=== PATIENT | male | born 1945 | race Caucasian/White ===

== ENCOUNTER → 2017-10-18 10:20 | Outpatient (CLI) | payer OTHER, SELFPAY | PROVIDERS: PCP Nurse Practitioner; Visit Provider Orthopaedic Surgery | DX: M17.11 Unilateral primary osteoarthritis, right knee (principal) | CPT/HCPCS: 20610; 99213; J7325 ==

== ENCOUNTER 2018-01-30 07:25 | Outpatient (REF) | payer OTHER, SELFPAY ==
[2018-01-30 13:11] LABS: COMMENT (LAB VIEW ONLY) 170.55 mg/dL; Microalb ug/mg Crea 158.8 ug/mg Cr
== END 2018-01-30 07:45 ==
LOC: NCHCN 07:25
PROVIDERS: PCP Nurse Practitioner; Visit Provider Nurse Practitioner
DX: E11.9 Type 2 diabetes mellitus without complications (principal)
CPT/HCPCS: 82043; 82570

== ENCOUNTER → 2018-04-18 08:35 | Outpatient (BNVA) | payer OTHER, SELFPAY | PROVIDERS: PCP Nurse Practitioner; Visit Provider Orthopaedic Surgery | DX: M17.11 Unilateral primary osteoarthritis, right knee (principal) | CPT/HCPCS: 20610; 99211; 99213; J7325 ==

== ENCOUNTER → 2018-10-17 08:30 | Outpatient (BNVA) | payer OTHER, SELFPAY | PROVIDERS: PCP Nurse Practitioner; Referring Provider Nurse Practitioner; Visit Provider Orthopaedic Surgery | DX: M17.11 Unilateral primary osteoarthritis, right knee (principal); J44.9 Chronic obstructive pulmonary disease, unspecified; F17.200 Nicotine dependence, unspecified, uncomplicated; E11.9 Type 2 diabetes mellitus without complications; Z79.84 Long term (current) use of oral hypoglycemic drugs; I10 Essential (primary) hypertension | CPT/HCPCS: 20610; 99211; 99213; J7325 ==

== ENCOUNTER 2018-11-13 08:19 | Outpatient (REF) | payer OTHER, SELFPAY ==
[2018-11-13 13:37] LABS: COMMENT (LAB VIEW ONLY) 72.64 mg/dL; Microalb ug/mg Crea 112.1 ug/mg Cr
== END 2018-11-13 08:39 ==
LOC: NCHCN 08:19
PROVIDERS: PCP Nurse Practitioner; Visit Provider Nurse Practitioner
DX: E11.9 Type 2 diabetes mellitus without complications (principal)
CPT/HCPCS: 82043; 82570

== ENCOUNTER 2019-04-16 09:21 | Outpatient (CLI) | payer OTHER, SELFPAY ==
[2019-04-16 10:50] LABS: Clarity CLOUDY; Source R KNEE
[2019-04-16 10:51] LABS: Mononuclear Cells 5 % (0-0); Nucleated Cells 17808 /MM3 (0-0); Polynuclear Cells 95 % (0-0)
== END 2019-04-16 09:41 ==
PROVIDERS: PCP Nurse Practitioner; Referring Provider Nurse Practitioner; Visit Provider Student in an Organized Health Care Education/Training Program
DX: M25.461 Effusion, right knee (principal); M17.11 Unilateral primary osteoarthritis, right knee; J44.9 Chronic obstructive pulmonary disease, unspecified; E11.9 Type 2 diabetes mellitus without complications; I10 Essential (primary) hypertension; F17.200 Nicotine dependence, unspecified, uncomplicated; Z79.4 Long term (current) use of insulin
CPT/HCPCS: 20610; 99213; 87070; 87205; 89051; 89060; J1040

== ENCOUNTER 2019-06-18 11:24 | Outpatient (CLI) | payer OTHER, SELFPAY ==
--- NOTE | 2019-06-18 | DI.RAD_ITS ---
EXAM: XR CHEST 2V PA LATERAL CLINICAL HISTORY: SOB, R06.02 TECHNIQUE: 2D digital imaging was performed. COMPARISON: PORTABLE CHEST ONE VIEW from 10/29/2016 PORTABLE CHEST ONE VIEW from 05/19/2017 FINDINGS: There is mild blunting at the left costophrenic angle which could represent pleural scarring versu s tiny effusion. The heart size is within normal limits. There are mild diffuse diffuse bilateral i ncreased interstitial markings which could represent mild pulmonary edema or mild chronic interstitia l changes. Findings are more prominent when compared with the previous exam. Mild bilateral infiltr ates are not excluded. IMPRESSION: Left pleural scarring versus tiny effusion. Question of mild diffuse bilateral infiltrates versus pu lmonary edema versus chronic fibrotic changes.
[2019-06-18 12:09] LABS: HCT 37.5 % (40.0-50.0); HGB 11.8 g/dL (13.5-17.5); Mean Corp. HGB Concentration 31.5 g/dL (32.0-36.0); Mean Corpuscular Hemoglobin 27.7 pg (27.0-33.0); Mean Platelet Volume 12.7 fL (8.0-11.0); Platelet Count 194 x1000/uL (130-400); RBC 4.26 m/cumm (4.50-6.00); RBC Distribution Width 15.8 % (11.8-14.1); White Blood Cell Count 7.12 k/cumm (4.4-10.8)
[2019-06-18 12:31] LABS: NT-proBNP 950 pg/mL (<300)
[2019-06-18 12:46] LABS: D-Dimer 3304 ng/mlFEU (<500)
== END 2019-06-18 11:44 ==
PROVIDERS: PCP Nurse Practitioner; Visit Provider Nurse Practitioner Family
DX: R06.02 Shortness of breath (principal); J98.4 Other disorders of lung
CPT/HCPCS: 36415; 85027; 71046; 83880; 85379

== ENCOUNTER 2019-06-18 13:00 | Outpatient (REF) | payer OTHER, SELFPAY ==
[2019-06-20 09:19] LABS: COVID-19 RT-PCR Result Negative (Negative)
== END 2019-06-18 13:20 ==
LOC: NCHCN 13:00
PROVIDERS: PCP Nurse Practitioner; Visit Provider Nurse Practitioner Family
DX: Z11.59 Encounter for screening for other viral diseases (principal)
CPT/HCPCS: U0003

== ENCOUNTER 2019-06-18 13:22 | Emergency (ER) | payer OTHER, SELFPAY ==
[2019-06-18 13:28] VITALS: BP 171/92; PULSE 100; RESP 25; TEMP 36.5; O2SAT 93
[2019-06-18 13:34] VITALS: RESP 23
--- NOTE | 2019-06-18 13:45 | DI.CT_ITS ---
EXAM: CT CHEST PE CTA CLINICAL HISTORY: SOB, elevated D-dimer. TECHNIQUE: Imaging Protocol: Axial CT angiography was performed with multi-slice acquisition and mu lti-planar and/or 3D reconstructions. CONTRAST MATERIAL: Intravenous: Omnipaque 350 Contrast volume:structured data in ml COMPARISON: XR CHEST 2V PA LATERAL from 06/18/2019 FINDINGS: Pulmonary Arteries: No evidence of filling defect to suggest pulmonary emboli. Tracheobronchial tree: Patent where visualized. No bronchiectasis. Mediastinum and Jenny: No dominant adenopathy or fluid collection. Pulmonary parenchyma: No consolidation or dominant measurable mass. There is interlobular septal thic kening bilaterally which appears greatest in the right upper lobe. Minimal emphysematous changes.. Pleura: There is a small right pleural effusion. No pneumothorax. Heart: The heart is not dilated. Moderate coronary artery calcifications are seen. Aorta: Thoracic aorta non-dilated. Upper abdomen: Unremarkable. Bones: Marked bone l. IMPRESSION: No evidence of pulmonary embolism. Increased interlobular septal thickening which could be chronic o r could represent asymmetric pulmonary edema or nonspecific interstitial pneumonitis. DATA REPOSITORY: All CT scans at this facility are submitted to the National Radiology Data Registry (NRDR) Dose Index Registry (DIR) with the [employer] ([employer]). RADIATION OPTIMIZATION: All CT scans at this facility use at least one of these dose optimization te chniques: automated exposure control; mA and/or kV adjustment per patient size (includes targeted exa ms where dose is matched to clinical indication); or iterative reconstruction.
--- NOTE | 2019-06-18 13:50 | ED.GENADUL_ITS ---
Discharge Plan Disposition Patient Disposition: HOME Condition: Stable Discharge Details Chief Complaint: SOB Clinical Impression: Shortness of breath Primary Care Provider: Maye Brady ED Provider: Julissa Chaudhari Home Meds and New Rx's Prescriptions: No Action metformin 500 MG tablet 1,000 mg PO BID RF: 0 aspirin [Aspir-81] 81 MG tablet,delayed release (DR/EC) 81 mg PO DAILY RF: 0 atorvastatin 40 mg tablet 40 mg PO QHS RF: 0 pantoprazole 40 mg tablet,delayed release (DR/EC) 40 mg PO BID RF: 0 lisinopril 20 mg tablet 20 mg PO DAILY RF: 0 Lantus U-100 Insulin 100 unit/mL solution 20 unit SC QHS RF: 0 albuterol sulfate [ProAir HFA] 200 PUFF HFA aerosol inhaler 2 puff Inhalation Q6H PRN PRNRF: 0 Discharge Instructions Instructions: Dyspnea (ED) Additional Instructions: Your CT does not show any blood clots or pneumonia. There are some chronic changes. Discussed possible diuretic with your primary care provider. Follow up with primary care provider in 3-5 days. Return to ED sooner if any worsening or concerns. Return immediately to the ED for any worsening shortness of breath, chest pain, fever, or worsening in any way. At this time your symptoms are very concerning for coronavirus. Due to the increased likelihood of your symptoms being from coronavirus the CDC does recommend testing. It takes 48 to 72 hours for the test results to return. You will be contacted by the [facility] when your results return. If you do not hear from them in 48 to 72 hours, please contact your primary care. Out of an abundance of precaution it is highly recommended that you self quarantine yourself for a total of 14 days or until symptom-free for greater than 24 to 48 hours. It would be prudent to wear a mask at all times, always wash her hands frequently, and follow-up closely with your primary care provider. It is recommended that you call your primary care provider prior to reassessment. If you are going to a health facility, please call/contact them before you arrive. At this time based on your current symptoms the CDC does not recommend admission, and there is no current clinical indication for your admission here at the hospital. However it is vitally important to monitor your symptoms closely, and if you notice any worsening of your symptoms, or any new symptoms such as worsening shortness of breath, difficulty breathing, persistent fever, worsening chills, chest pain, numbness, weakness, or fainting please call and then return immediately to the emergency department for reevaluation. Please call your primary care provider as soon as possible to make them aware of your current situation and for continued monitoring. As always, it was a pleasure participating in your medical care today. Referrals: Maye Brady [Primary Care Provider] - Discharge Data Discharge Date/Time-TO BE ENTERED AT DEPARTURE: 06/18/19 16:29 Medical Decision Making 74-year-old male was seen at [facility] had labs drawn and a chest x-ray neck COVID swab including a d-dimer and BNP. Was told to come to the ED because d-dimer was over [address] He reports worsening shortness of breath over the last 3 days. He does have a history of COPD, A. fib, diabetes. CMP and troponin added onto his labs and a chest CT was ordered to rule out PE. Patient is mildly tachycardic at 101-103 O2 sats 92 to 94% on room air. 1331: EKG obtained and reviewed by ER attending Dr. Olivarez. Normal sinus rhythm with occasional PAC. No ST elevation or depression old EKG was reviewed and his EKG is much improved. 1503: Patient transported to CT. COMPARISON: XR CHEST 2V PA LATERAL from 06/18/2019 FINDINGS: Pulmonary Arteries: No evidence of filling defect to suggest pulmonary emboli. Tracheobronchial tree: Patent where visualized. No bronchiectasis. Mediastinum and Jenny: No dominant adenopathy or fluid collection. Pulmonary parenchyma: No consolidation or dominant measurable mass. There is interlobular septal thickening bilaterally which appears greatest in the right upper lobe. Minimal emphysematous changes.. Pleura: There is a small right pleural effusion. No pneumothorax. Heart: The heart is not dilated. Moderate coronary artery calcifications are seen. Aorta: Thoracic aorta non-dilated. Upper abdomen: Unremarkable. Bones: Marked bone l. IMPRESSION: No evidence of pulmonary embolism. Increased interlobular septal thickening which could be chronic or could represent asymmetric pulmonary edema or nonspecific interstitial pneumonitis. At this time I feel it is safe to discharge patient home with oxygen saturation is 90 to 94% which is his baseline on room air. I discussed the findings with patient he states that he does feel safe to go home. Discussed close follow-up with primary care regarding possibly putting patient on a diuretic. Discussed strict return instructions. The patient demonstrates some concerning red flags as noted by the CDC for coronavirus including fever, cough, and/or shortness of breath. The patient looks notably clinically well, and does not demonstrate evidence of respiratory distress, significant or severe illness, or sepsis. Per CDC recommendations, coronavirus testing has been performed prior to arrival by [facility] and is approved by the [facility]. Additionally patient currently does not demonstrate symptoms indicative of admission or further observation here. At t his time based on the patient's current clinical picture symptoms are likely secondary to a non-coronavirus viral illness. Out of an abundance of precaution taking into account the current level of national concern, the patient's entire clinical picture, and CDC recommendations, the patient can be discharged home. Per CDC recommendations we will recommend a 14-day quarantine of the patient I have discussed good handwashing techniques, the importance of a mask, and we have also included CDC recommendations for home monitoring and isolation. I have extensively reviewed the treatment plan and discharge instructions with the patient. I have addressed all patient concerns at this time. The patient was made aware of what symptoms to monitor for that would warrant a return to the emergency department. I also discussed the importance of calling the patient's PCP, as well as the ED for any concerns or prior to return. Discussed the plan with the patient, they demonstrate verbal understanding and agreement with our assessment and plan at this time. Differential Diagnosis: Pneumonia, worsening COPD, congestive heart failure, COVID, PE, HPI General Mode of arrival: ambulatory . Date/Time Provider Initiated Documentation: 06/18/19 13:30 . Limitations to Documentation: no limitations . Information obtained by: patient . HPI Narrative: 74-year-old male with a his tory of diabetes, hypertension, A. fib, COPD presents with worsening shortness of breath over the last few days. He reports a productive cough with white phlegm, denies any chest pain, denies fever, nausea vomiting diarrhea. Denies any abdominal pain. He had labs drawn today at [facility], including a chest x-ray and COvID swab which is pending. His d-dimer was 3304, proBNP 950, chest x-ray showed mild diffuse bilateral infiltrates versus pulmonary edema versus chronic fibrotic changes. Related Data Home Medications Medication Instructions Recorded Confirmed aspirin [Aspir-81] 81 mg PO DAILY tab-cap 10/18/16 06/18/19 metformin 1,000 mg PO BID tab-cap 10/18/16 06/18/19 albuterol sulfate [ProAir HFA] 2 puff INHALATION Q6H PRN PRN 10/27/16 06/18/19 atorvastatin 40 mg tablet 40 mg PO QHS 04/17/19 06/18/19 insulin glargine 100 unit/mL 20 unit SC QHS 04/17/19 06/18/19 subcutaneous solution lisinopril 20 mg tablet 20 mg PO DAILY 04/17/19 06/18/19 pantoprazole 40 mg tablet,delayed 40 mg PO BID tab 04/17/19 06/18/19 release Allergies Allergy/AdvReac Type Severity Reaction Status Date / Time No Known Allergies Allergy Unverified 06/18/19 13:30 General Stated Complaint: SOB KASSIDY: 2 Review of Systems Narrative: Constitutional: Negative for weight loss, alert and oriented, well groomed, normal body habitus, appears comfortable. HEENT: Denies trauma, headaches, blurry vision, nasal discharge, sore throat, trouble swallowing. Chest: Denies chest pain, palpitations, irregular rhythm. Respiratory: Denies hemoptysis. Positive shortness of breath worsening over the last 3 days, productive cough with white phlegm. Does have a history of COPD. GI: Denies abdominal pain, nausea, vomiting, diarrhea, constipation. : Denies dysuria, hematuria, flank pain, rectal bleeding. Neuro: Denies dizziness, blurry vision, weakness, syncope, headache or facial numbness. Hematologic: Denies easy bruising, intolerance to heat or cold, hair loss. [facility] Medical History Atrial fibrillation (Chronic) Pt reported Carcinoma, basal cell, skin COPD (chronic obstructive pulmonary disease) Deviated nasal septum Diabetes mellitus, type II Hypertension Osteoarthritis of knee (Inactive 04/09/14) Osteoarthritis of right knee Tobacco use disorder Surgical History Colonoscopy - MAC (10/29/16) Social History Smoking/Tobacco Use Status: Current-Occasional Drug use: Never Current gender identity: male Do you feel safe in your relationship?: Yes Exam Narrative Exam Narrative: Constitutional: Alert and oriented x3. Appears stated age. Normal body habitus. Head: Normocephalic, no trauma. Eyes: Pupils PERRLA, Red reflex noted, EOM's intact. Eyelids symmetrical without lesions, discharge, or swelling. ENT: Bilateral TM's WNL, External ear normal to inspection, no mastoid TTP, swelling, or erythema, Nasal turbinates WNL, no nasal discharge. Normal dentition, Posterior pharynx WNL, no exudate. Chest: Mildly tachycardic at 103 upon arrival normal S1, S2, distal pulses intact. Resp: Lungs diminished breath sounds in the bases bilaterally,, no wheezes, rales, or rhonchi. Musculoskeletal: Normal gait, 5/5 strength to all four extremities. Skin: No suspicious rashes or lesions. Capillary refill less than 2 sec. trace edema noted to the lower extremities. Neurologic: Cranial nerves II-XII intact. Alert and oriented x 3. DTR's intact. Hematologic/Lymphatic: No ecchymosis, no lymphadenopathy. Course Vital Signs Vital signs: Vital Signs Temperature 36.5 C 06/18/19 13:28 Pulse 100 H 06/18/19 13:28 Respiratory Rate 25 H 06/18/19 13:28 Blood Pressure 171/92 H 06/18/19 13:28 Pulse Oximetry 93 L 06/18/19 13:28 Temperature 36.5 C 06/18/19 13:28 Temperature Source Skin 06/18/19 13:28 Pulse 100 H 06/18/19 13:28 Respiratory Rate 23 06/18/19 13:34 Respiratory Effort 06/18/19 13:34 Respiratory Depth Normal 06/18/19 13:34 Respiratory Pattern Normal 06/18/19 13:34 Blood Pressure 171/92 H 06/18/19 13:28 Blood Pressure Position Supine 06/18/19 13:28 Pulse Oximetry 93 L 06/18/19 13:28 Oxygen Delivery Method Room Air 06/18/19 13:28 Oxygen Flow Rate 0 06/18/19 13:28 Pain Level 0 06/18/19 13:28
[2019-06-18 14:40] VITALS: BP 148/84; PULSE 94; RESP 20; O2SAT 93
[2019-06-18 14:47] LABS: ALT 18 U/L (16-63); AST 37 U/L (15-37); Alkaline Phosphatase 136 U/L (46-116); BUN 14 mg/dL (7-18); Bilirubin, Total 0.7 mg/dL (0.2-1.0); Calcium 8.6 mg/dL (8.5-10.1); Chloride 106 mmol/L (98-107); Glucose 113 mg/dL (74-106); Potassium 4.3 mmol/L (3.5-5.1); Sodium 142 mmol/L (136-145); Total Protein 7.5 g/dL (6.4-8.2); Troponin I < 0.05 ng/Ml (<0.06)
[2019-06-18 14:49] LABS: Troponin I < 0.05 ng/Ml (<0.06)
[2019-06-18] MEDS: Omnipaque 350 MG/ML 100 ML BTL IJ (15:11)
[2019-06-18 16:19] VITALS: BP 129/67; PULSE 96; RESP 18; O2SAT 90
== END 2019-06-18 16:29 | disposition home or self-care (01) ==
PROVIDERS: Emergency Provider Registered Nurse Emergency; PCP Nurse Practitioner
DX: R06.02 Shortness of breath (principal); R79.1 Abnormal coagulation profile; I10 Essential (primary) hypertension; E11.9 Type 2 diabetes mellitus without complications; Z79.4 Long term (current) use of insulin; J44.9 Chronic obstructive pulmonary disease, unspecified; F17.210 Nicotine dependence, cigarettes, uncomplicated
CPT/HCPCS: 71275; 80053; 93005; 99285; 84484; 93010; 99284; J3490

== ENCOUNTER 2019-06-25 20:00 | Outpatient (REF) | payer OTHER, SELFPAY ==
[2019-06-25 19:17] LABS: Iron 26 ug/dL (65-175); Total Iron Binding Capacity 278 ug/dL (250-450); Transferrin Sat 9 % (20-55)
[2019-06-25 19:27] LABS: Hemoglobin A1C 7.7 % (3.8-5.6)
[2019-06-25 19:44] LABS: Ferritin 78 ng/mL (26-388); Folate 11.2 ng/mL (8.6-20.0); Vitamin B12 334 pg/mL (193-986)
== END 2019-06-25 20:20 ==
LOC: NCHCN 20:00
PROVIDERS: PCP Nurse Practitioner; Visit Provider Nurse Practitioner
DX: E11.9 Type 2 diabetes mellitus without complications (principal); D64.9 Anemia, unspecified
CPT/HCPCS: 82607; 82728; 82746; 83036; 83540; 83550

== ENCOUNTER 2019-07-02 00:25 | Outpatient (CLI) | payer OTHER, SELFPAY ==
--- NOTE | 2019-07-02 12:34 | DI.US_ITS ---
APPROVED REPORT EXAM: Comprehensive 2D, Doppler, and color-flow Echocardiogram Patient Location: Out-Patient Asphalt Coater: Ana Vilchis RDCS (AE) Indications: Shortness of Breath Other Information Study Quality: Fair. Technically limited study due to body habitus. Conclusion Left Ventricle : The left ventricle is normal size. The overall left ventricular systolic function ap pears normal. There is normal left ventricular wall thickness. There is normal LV segmental wall mer on. Transmitral Doppler flow pattern suggests impaired LV relaxation. LVEF is 45%. Right Ventricle : The right ventricle is normal size. The right ventricular systolic function is norm al. Estimated RVSP is 54 mmHg. Atria : The left atrium size is normal. The right atrium size is normal. Aortic Valve : The Aortic valve is sclerotic. There is no aortic valvular stenosis. No aortic regurgi tation is present. Mitral Valve : There is mitral annular calcification. No evidence of mitral valve stenosis. Trace kristopher ral regurgitation. Tricuspid Valve : The tricuspid valve is normal in structure. There is no tricuspid valve stenosis. M ild tricuspid regurgitation. Great Vessels : The IVC is normal in size and collapses <50% with inspiration. There is no prior echocardiogram available for comparison. Wall motion Left Ventricle The left ventricle is normal size. The overall left ventricular systolic function appears normal. The re is normal left ventricular wall thickness. There is normal LV segmental wall motion. Transmitral D oppler flow pattern suggests impaired LV relaxation. There is no ventricular septal defect visualized . LVEF is 45%. Right Ventricle The right ventricle is normal size. The right ventricular systolic function is normal. Estimated RVSP is 54 mmHg. Atria The left atrium size is normal. The right atrium size is normal. The interatrial septum is intact wit h no evidence for an atrial septal defect. Aortic Valve The Aortic valve is sclerotic. There is no aortic valvular stenosis. No aortic regurgitation is prese nt. Mitral Valve There is mitral annular calcification. No evidence of mitral valve stenosis. Trace mitral regurgitati on. Tricuspid Valve The tricuspid valve is normal in structure. There is no tricuspid valve stenosis. Mild tricuspid regu rgitation. Pulmonic Valve The pulmonary valve is normal in structure. There is no pulmonic valvular stenosis. Trace pulmonic re gurgitation. Great Vessels The aortic root is normal in size. Ascending aorta is not well visualized. Aortic arch is not well vi sualized. The IVC is normal in size and collapses <50% with inspiration. Pericardium There is no pericardial effusion. There is no pleural effusion. 2D Dimensions IVSD d PLAX 0.90 cm M: 0.6-1.2 LV Vol A2C d MOD 103.5 mL LVPW d PLAX 0.90 cm M: 0.6 - 1.2 LV Vol A4C d MOD 114.6 mL LVID d PLAX 5.11 cm M: 4.2 - 5.8 LA vol/ BSA A2C s A-L 21.8 mL/m2 LVDs 4.00 cm M: 2.5 - 4.0 LA vol/ BSA A4C s A-L 44.2 mL/m2 Ao Root d 2.68 cm M: 3.1 - 3.7 LA Vol/ BSA Biplane s A-L 34.6 mL/m2 RA Area A4C 14.92 cm2 LA Area A4C s MOD 23.83 cm2 RA Vol/ BSA A4C s A-L 23.5 mL/m2 LA Area A2C s MOD 15.01 cm2 LV EF Teichholz 42.4 % LV EF A4C MOD 48.8 % LVEF (Hart's) 46.35 % M: 52 - 72 LV EF A2C MOD 45.0 % LV Volume 86.20 mL M: 62 - 150 LV EF Biplane MOD 46.4 % LV Volume Index 46.59 mL/m2 M: 34 - 74 LV Vol Biplane MOD 111.9 mL FS 20.95 % M-Mode TAPSE 2.21 cm (M/F) >1.7 LV Diastology MV E' medial 0.084 (>0.07 m/s) E/A Ratio 1.6 LV E/e MED 13.15 (<14) MV E Vmax 1.11 (0.4-1.3 m/s) MV E' lateral 0.081 (>0.1 m/s) MV A Vmax 0.70 (0.4-1.3 m/s) LV E/e LAT 13.75 (<14) MV E/A Ratio 1.58 MV E/E' medial 13.16 MV E/E' lateral 13.76 Aortic Valve LVOT Area 2.63 cm2 AoV Area Vmax 1.49 cm2 LVOT Vmax 0.96 m/s AoV Area/ BSA (Vmax) 0.81 cm2/m2 LVOT Mean Jose. 0.60 m/s CARMEN Mean Jose. 1.46 cm2 LVOT Peak Grad 3.7 mmHg CARMEN Mean Jose. Index 0.79 cm2/m2 LVOT Mean Grad 1.7 mmHg LVOT VTI 0.172 m LVOT Diam s 1.80 cm (M/F) 1.5-2.5 AoV Vmax 1.69 (0.5-1.3 m/s) Velocity Ratio 0.56 AoV Mean Jose. 1.08 m/s AoV Peak Grad 11.5 mmHg LVOT SV 45.14 mL AoV Mean Grad 5.5 (<5 mmHg) AoV VTI 0.278 (0.18-0.25 m) AoV Area VTI 1.62 (2.5-4.5 cm2) AoV Area/ BSA (VTI) 0.88 cm/m2 Mitral Valve MV DT 149 (160-240 msec) MR Vmax 5.08 m/s MV PHT 43 msec MR VTI 1.407 m MV Area PHT 5.09 cm2 MR Peak Grad 103.4 mmHg MR Mean Grad 78.0 mmHg Pulmonary Valve PV Vmax 0.96 (0.5-1.5 m/s) RVOT Peak Gr. 1.67 mmHg PV Peak Grad 3.7 mmHg RVOT Mean Gr. 0.75 mmHg PV Mean Grad 1.9 mmHg RVOT VTI 0.107 m PV VTI 0.155 m RVOT Vmax 0.65 m/s Tricuspid Valve TR Peak Grad 46.4 mmHg TR Vmax 3.41 m/s RA Pressure 8.00 mmHg RVSP (TR) 54.4 mmHg
== END 2019-07-02 00:45 ==
PROVIDERS: PCP Nurse Practitioner; Visit Provider Nurse Practitioner
DX: R06.02 Shortness of breath (principal); I35.8 Other nonrheumatic aortic valve disorders; I36.1 Nonrheumatic tricuspid (valve) insufficiency; I10 Essential (primary) hypertension
CPT/HCPCS: 93306

== ENCOUNTER 2019-07-16 08:52 | Inpatient (IN) | payer OTHER, SELFPAY ==
[2019-07-16] VITALS (48 sets, daily range): BP systolic 127–165; BP diastolic 74–104; PULSE 80–114; RESP 14–111; TEMP 36.4–37.1; O2SAT 83–100
--- NOTE | 2019-07-16 08:55 | W.ED.GENAD ---
Discharge Plan Disposition Condition: Improving Discharge Details Chief Complaint: SOB Admit Date/Time: 07/16/19 13:54 Admit Provider: Angely Hickey Attending Provider: Angely Hickey Primary Care Provider: Maye Brady ED Provider: Cony Olivarez Discharge Instructions Activity:: Activity as Tolerated Equipment/Supplies:: 1 liter at rest, 3 liters with activity Diet:: As Tolerated Discharge Orders Discharge Orders: Discharge Order (Routine); Ordered 07/19/19 Ordered By: Glendy Su Discharge Data Discharge Date/Time-TO BE ENTERED AT DEPARTURE: 07/16/19 13:53 Medical Decision Making Leoncio Coy is a 74-year-old man with a history of diabetes, COPD, afib, CHF on recent echo who presented to the emergency department with SOB. Pt with hypoxia in 70s initially on RA, O2 sat 96% on 2L NC. On exam Pt is well and non-toxic appearing, dyspneic upon presentation but without resp distress while seated on 2L NC, diffuse mild rhonchi b/l, no prolonged exp phase, no wheeze, no rales. Mild tachycardia. Concern for CHF, PE, PNA, COVID, ACS, other. Exam/hx not c/w sepsis, acute aortic pathology. Plan for EKG, CT, screening labs, NCO2, telemetry. Discussed CT over the phone with radiology, no PE, pulmonary effusions, diffuse patchy pulmonary infiltrates b/l with ground glass opacities. Radiology reports no apparent consolidation c/w bacterial PNA. Will hold abx at this time. Concern for likely CHF, possible COVID. Plan for admission, IV lasix. Disposition somewhat delayed as Pt initially refused admission and wanted to leave AMA, then changed his mind and agreed to admission after speaking over the phone to his family. Clinical Impression: CHF, suspected COVD Disposition: [facility] inpatient Medical Records Medical records reviewed: Yes I reviewed the patient's medical records. Imaging Data Radiologic Study: Attestation: I personally reviewed and interpreted this imaging study as follows: Radiologist's impression: EXAM: CT CHEST PE CTA CLINICAL HISTORY: SOB TECHNIQUE: Axial CT angiography was performed with multi-slice acquisition and multi-planar and/or 3D reconstructions. COMPARISON: CT CT CHEST PE CTA from 06/18/2019 FINDINGS: CT angiography of the chest was performed with intravenous infusion of 70 cc of Omnipaque 350. [place] is compared with most recent prior chest CT of 06/18/2019. Images obtained through the upper abdomen show unremarkable appearance of visualized portions of liver and spleen. There is no evidence of pulmonary embolic disease. No significant abnormality of the thoracic aorta and major branches noted. There is a large right pleural effusion which has significantly increased since the prior study. There is a small left pleural effusion which is also increased from the prior examination. Cardiac size is at the upper limits of normal, no gross left ventricular dilatation. Tracheobronchial tree appears intact. Mild pretracheal and superior mediastinal adenopathy noted, nonspecific. Prior study showed thickening of interlobular septae and some mosaic attenuation. On today's examination, there are patchy, new, predominantly peripheral opacities, ground-glass and consolidative, which are nonspecific, but which could be associated with acute pneumonitis. The patient reportedly has suspicion of covid pneumonia and the findings would be consistent with appearance of Covid pneumonia. IMPRESSION: Increasing pleural effusions and patchy predominantly peripheral pulmonary opacities, suspect pneumonia, possibly viral. Superimposed CHF not excluded. Covid infection is a diagnostic possibility. Lab Data Lab results reviewed: Yes I reviewed the patient's lab results. Labs: Laboratory Tests Range/Units 07/16/19 07/16/19 07/16/19 09:10 09:10 09:10 WBC (4.4-10.8) k/cumm 9.76 RBC (4.50-6.00) m/cumm 3.91 L Hgb (13.5-17.5) g/dL 10.3 L Hct (40.0-50.0) % 33.9 L MCV (80-95) fL 86.7 MCH (27.0-33.0) pg 26.3 L MCHC (32.0-36.0) g/dL 30.4 L RDW (11.8-14.1) % 16.5 H Plt Count (130-400) x1000/uL 257 MPV (8.0-11.0) fL 12.1 H Immature Gran % % 0.2 Neutrophils % 85.5 Lymphocytes % 7.8 Monocytes % 4.9 Eosinophils % 1.4 Basophils % 0.2 Absolute Neutrophils (1.2-6.7) k/cumm 8.34 H Absolute Lymphocytes (1.2-3.4) k/cumm 0.76 L Absolute Monocytes (0.11-0.7) k/cumm 0.48 Absolute Eosinophils (0.0-0.7) k/cumm 0.14 Absolute Basophils (0.0-0.2) k/cumm 0.02 D-Dimer (<500) ng/mlFEU 3193 H Sodium (136-145) mmol/L 138 Potassium (3.5-5.1) mmol/L 3.3 L Chloride (98-107) mmol/L 101 Carbon Dioxide (21.0-32.0) mmol/L 29.7 Anion Gap (3-11) mmol/L 7.3 BUN (7-18) mg/dL 10 Creatinine (0.70-1.30) mg/dL 0.62 L Estimated GFR/1.73 m2 (mL/min/1.73m2) >= 60.00 Glucose (74-106) mg/dL 90 Calcium (8.5-10.1) mg/dL 8.4 L Total Bilirubin (0.2-1.0) mg/dL 0.6 AST (15-37) U/L 14 L ALT (16-63) U/L 16 Alkaline Phosphatase (46-116) U/L 128 H Troponin I (<0.06) ng/Ml 0.05 C-Reactive Protein (0.0-0.3) mg/dL 11.07 H NT-Pro-B Natriuret Pep (<300) pg/mL 1888 H Total Protein (6.4-8.2) g/dL 7.1 Albumin (3.4-5.0) g/dL 2.5 L Procalcitonin ng/mL TSH (0.36-3.74) uIU/mL 1.16 Free T4 (0.76-1.46) ng/dL 1.44 Range/Units 07/16/19 07/16/19 09:10 11:50 WBC (4.4-10.8) k/cumm RBC (4.50-6.00) m/cumm Hgb (13.5-17.5) g/dL Hct (40.0-50.0) % MCV (80-95) fL MCH (27.0-33.0) pg MCHC (32.0-36.0) g/dL RDW (11.8-14.1) % Plt Count (130-400) x1000/uL MPV (8.0-11.0) fL Immature Gran % % Neutrophils % Lymphocytes % Monocytes % Eosinophils % Basophils % Absolute Neutrophils (1.2-6.7) k/cumm Absolute Lymphocytes (1.2-3.4) k/cumm Absolute Monocytes (0.11-0.7) k/cumm Absolute Eosinophils (0.0-0.7) k/cumm Absolute Basophils (0.0-0.2) k/cumm D-Dimer (<500) ng/mlFEU Sodium (136-145) mmol/L Potassium (3.5-5.1) mmol/L Chloride (98-107) mmol/L Carbon Dioxide (21.0-32.0) mmol/L Anion Gap (3-11) mmol/L BUN (7-18) mg/dL Creatinine (0.70-1.30) mg/dL Estimated GFR/1.73 m2 (mL/min/1.73m2) Glucose (74-106) mg/dL Calcium (8.5-10.1) mg/dL Total Bilirubin (0.2-1.0) mg/dL AST (15-37) U/L ALT (16-63) U/L Alkaline Phosphatase (46-116) U/L Troponin I (<0.06) ng/Ml 0.06 C-Reactive Protein (0.0-0.3) mg/dL NT-Pro-B Natriuret Pep (<300) pg/mL Total Protein (6.4-8.2) g/dL Albumin (3.4-5.0) g/dL Procalcitonin ng/mL 0.6 TSH (0.36-3.74) uIU/mL Free T4 (0.76-1.46) ng/dL ECG Data Attestation: I personally reviewed and interpreted this ECG (s) as follows: Interpretation: EKG shows sinus tach at 102, normal axis, no STEMI, nonspecific ST changes, nondiagnostic EKG HPI General Mode of arrival: ambulatory. Date/Time Provider Initiated Documentation: 07/16/19 08:55. Limitations to Documentation: no limitations. Information obtained by: patient, RN notes reviewed and old records reviewed. HPI Narrative: Leoncio Coy is a 74-year-old man with a history of COPD, hypertension, diabetes, atrial fibrillation presenting to the emergency department with shortness of breath. Patient reports that he has been feeling short of breath over the past 5 weeks. He has been sleeping in a recliner at night because of this. Patient was seen here mid June for same complaint, per patient and record review, was discharged home after CT chest. Patient reports that shortness of breath seems to be gradually getting worse in the past few days. He denies any pain, vomiting, diarrhea, fever, numbness, weakness, rash. Patient reports that he has baseline cough that is unchanged. He states that he has been eating and drinking as usual. Patient reports that he has been having increasing difficulty with his daily activities due to his shortness of breath. Shortness of breath does seem somewhat worse with exertion and lying flat. Related Data Home Medications Medication Instructions Recorded Confirmed aspirin [Aspir-81] 81 mg PO DAILY tab-cap 10/18/16 07/16/19 metformin 1,000 mg PO BID tab-cap 10/18/16 07/16/19 albuterol sulfate [ProAir HFA] 2 puff INHALATION Q6H PRN PRN 10/27/16 07/16/19 atorvastatin 40 mg tablet 40 mg PO QHS 04/17/19 07/16/19 insulin glargine 100 unit/mL 20 unit SC QHS 04/17/19 07/16/19 subcutaneous solution lisinopril 20 mg tablet 20 mg PO DAILY 04/17/19 07/16/19 pantoprazole 40 mg tablet,delayed 40 mg PO BID tab 04/17/19 07/16/19 release Advair HFA 1 puff INHALATION BID 07/16/19 07/16/19 ascorbic acid (vitamin C) [Vitamin 500 mg PO BID 07/16/19 07/16/19 C] ferrous sulfate [iron] 325 mg PO BID 07/16/19 07/16/19 azithromycin 250 mg PO DAILY 5 Days #5 tab 07/19/19 cefpodoxime 200 mg PO BID #10 tab 07/19/19 furosemide 40 mg PO BID #0 tab 07/19/19 potassium chloride [Klor-Con M20] 40 meq PO DAILY #30 tab 07/19/19 Previous Rx's Medication Instructions Recorded azithromycin 250 mg PO DAILY 5 Days #5 tab 07/19/19 cefpodoxime 200 mg PO BID #10 tab 07/19/19 furosemide 40 mg PO BID #0 tab 07/19/19 potassium chloride [Klor-Con M20] 40 meq PO DAILY #30 tab 07/19/19 Allergies Allergy/AdvReac Type Severity Reaction Status Date / Time apixaban AdvReac nausea/vomi Verified 07/16/19 14:03 ting General KASSIDY: 2 Review of Systems Narrative: Constitutional: denies fevers Eyes: denies eye pain ENT: denies ear pain, dental pain, sore throat Cardiovascular: denies chest pain, reports LE edema b/l, somewhat worse than usual Respiratory: reports SOB as per HPI, cough at baseline GI: denies abdominal pain, vomiting, diarrhea : denies flank pain MSK: denies back pain, neck pain, arthralgias, myalgias Skin: denies rash Neuro: denies headaches, numbness, weakness PFSH Medical History (Updated 07/19/19 @ 00:01 by GINA SMYTH) Atrial fibrillation (Chronic) Paroxysmal, intolerant of anticoagulation (n/v/hematuria while on eliquis), referred for a Watchman procedure at [facility] [place] (not yet done) Carcinoma, basal cell, skin Chronic combined systolic (congestive) and diastolic (congestive) heart failure (Acute) EF 45% on echo 07/02/2019 COPD (chronic obstructive pulmonary disease) Deviated nasal septum Diabetes mellitus, type II insulin dependent GERD (gastroesophageal reflux disease) (Chronic) Hyperlipidemia (Acute) Hypertension Osteoarthritis of knee (Inactive 04/09/14) Osteoarthritis of right knee Pericarditis (Acute) Pulmonary hypertension (Acute) Tobacco use disorder Surgical History Colonoscopy - [facility] (10/29/16) Family History (Updated 07/16/19 @ 15:52 by Angely Hickey MD) Father Diabetes Hypertension Heart disease Self No problems noted. Brother Stroke had an aneurysm Sister Breast cancer Diabetes Brother Lung cancer smoker Social History (Updated 07/16/19 @ 15:53 by Angely Hickey MD) Smoking/Tobacco Use Status: Former Tobacco Use Tobacco: How many years used: 56 Counseling given: provider counseling Alcohol Intake: former Year quit: 1970 Drug use: Never Current gender identity: male Do you feel safe in your relationship?: Yes Exam Narrative Exam Narrative: Constitutional: [id number], pleasant, conversing normally HENT: head atraumatic/normocephalic/normal inspection, mucous membranes moist Eyes: conjunctiva normal, sclera normal, pupils 3mm b/l Neck: no stridor, normal ROM, trachea midline Chest: normal inspection Resp: normal work of breathing, diffuse mild rhonchi b/l lungs, no rales, no wheeze, no prolonged exp phase Cardio: tachycardic rate, normal rhythm, no murmur appreciated GI: abdomen soft, non-tender, non-distended Back: normal inspection, no rash Skin: warm, dry, normal color, no rash Neuro: alert, not altered, grossly non-focal, normal tone Ext: 2+ pitting edema b/l LE, no posterior calf TTP Psych: normal mood, normal affect, normal behavior
[2019-07-16 09:34] LABS: Abs Immature Grans 0.02 k/cumm (0.0-0.09); Absolute Basophil Count 0.02 k/cumm (0.0-0.2); Absolute Eosinophil Count 0.14 k/cumm (0.0-0.7); Absolute Lymphocyte Count 0.76 k/cumm (1.2-3.4); Absolute Monocyte Count 0.48 k/cumm (0.11-0.7); Absolute Neutrophil Count 8.34 k/cumm (1.2-6.7); Basophils % 0.2; Eosinophils % 1.4; HCT 33.9 % (40.0-50.0); HGB 10.3 g/dL (13.5-17.5); Immature Grans % 0.2 %; Lymphocytes % 7.8; Mean Corp. HGB Concentration 30.4 g/dL (32.0-36.0); Mean Corpuscular Hemoglobin 26.3 pg (27.0-33.0); Mean Corpuscular Volume 86.7 fL (80-95); Mean Platelet Volume 12.1 fL (8.0-11.0); Monocytes % 4.9; Neutrophils % 85.5; Platelet Count 257 x1000/uL (130-400); RBC 3.91 m/cumm (4.50-6.00); RBC Distribution Width 16.5 % (11.8-14.1); White Blood Cell Count 9.76 k/cumm (4.4-10.8)
--- NOTE | 2019-07-16 09:45 | DI.RAD_ITS ---
EXAM: XR PORTABLE CHEST AP CLINICAL HISTORY: SOB TECHNIQUE: COMPARISON: CR PORTABLE CHEST ONE VIEW from 10/29/2016 CR XR CHEST 2V PA LATERAL from 06/18/[address] CHEST PE CTA from 06/18/2019 FINDINGS: Portable upright view was obtained. The heart may be mildly enlarged. There are patchy diffuse bila teral areas of increased pulmonary opacity superimposed apparent chronic fibrotic changes. Compariso n with prior chest film 06/18/2019 shows some interval worsening since that time in a fairly diffuse pattern but with scattered areas of focal increased radiodensity. There are probable bilateral pleur al effusions. Small pleural effusions were also noted on CT angiography of the chest on June 17. IMPRESSION: Moderate interval worsening of bilateral diffuse/patchy intrapulmonary radiodensities since June 17t h. Differential diagnosis includes CHF and/or infectious process. Appropriate follow-up films reque sted.
[2019-07-16 09:53] LABS: ALT 16 U/L (16-63); AST 14 U/L (15-37); Albumin 2.5 g/dL (3.4-5.0); Alkaline Phosphatase 128 U/L (46-116); Anion Gap 7.3 mmol/L (3-11); BUN 10 mg/dL (7-18); Bilirubin, Total 0.6 mg/dL (0.2-1.0); CO2 29.7 mmol/L (21.0-32.0); CREATININE 0.62 mg/dL (0.70-1.30); Calcium 8.4 mg/dL (8.5-10.1); Chloride 101 mmol/L (98-107); Glucose 90 mg/dL (74-106); NT-proBNP 1888 pg/mL (<300); Potassium 3.3 mmol/L (3.5-5.1); Sodium 138 mmol/L (136-145); Total Protein 7.1 g/dL (6.4-8.2); Troponin I 0.05 ng/Ml (<0.06)
[2019-07-16 10:15] LABS: D-Dimer 3193 ng/mlFEU (<500)
[2019-07-16] MEDS: Normal Saline - Diluent 50 ML VIAL IV (10:53)
[2019-07-16] MEDS: Omnipaque 350 MG/ML 100 ML BTL IJ (10:53)
[2019-07-16] MEDS: Normal Saline Flush 10 ML SYR IVP ×2 (10:54→16:31)
--- NOTE | 2019-07-16 11:05 | DI.CT_ITS ---
EXAM: CT CHEST PE CTA CLINICAL HISTORY: SOB TECHNIQUE: Axial CT angiography was performed with multi-slice acquisition and multi-planar and/or 3 D reconstructions. COMPARISON: CT CT CHEST PE CTA from 06/18/2019 FINDINGS: CT angiography of the chest was performed with intravenous infusion of 70 cc of Omnipaque 350. [place] is compared with most recent prior chest CT of 06/18/2019. Images obtained through the upper abdomen show unremarkable appearance of visualized portions of live r and spleen. There is no evidence of pulmonary embolic disease. No significant abnormality of the thoracic aorta and major branches noted. There is a large right pleural effusion which has significantly increased since the prior study. The re is a small left pleural effusion which is also increased from the prior examination. Cardiac size is at the upper limits of normal, no gross left ventricular dilatation. Tracheobronchial tree appears intact. Mild pretracheal and superior mediastinal adenopathy noted, no nspecific. Prior study showed thickening of interlobular septae and some mosaic attenuation. On today's examina tion, there are patchy, new, predominantly peripheral opacities, ground-glass and consolidative, whic h are nonspecific, but which could be associated with acute pneumonitis. The patient reportedly has suspicion of covid pneumonia and the findings would be consistent with appearance of Covid pneumonia. IMPRESSION: Increasing pleural effusions and patchy predominantly peripheral pulmonary opacities, suspect pneumon ia, possibly viral. Superimposed CHF not excluded. Covid infection is a diagnostic possibility.
[2019-07-16] MEDS: Potassium Chloride 20 MEQ TABCR 40 MEQ PO (12:13)
--- NOTE | 2019-07-16 12:15 | DI.US_ITS ---
EXAM: US EXTREMITY VENOUS BI CLINICAL HISTORY: concern for DVT TECHNIQUE: Ultrasound performed using standard protocol. COMPARISON: US US ECHOCARDIOGRAM from 07/02/2019 FINDINGS: Duplex venous ultrasound was performed according to the usual protocol. The deep veins are freely com pressible throughout and there is normal flow augmentation with manual calf compression. 2D and Doppl er evaluation are unremarkable. IMPRESSION: No evidence of deep venous thrombosis of the lower extremities.
[2019-07-16 12:18] LABS: Troponin I 0.06 ng/Ml (<0.06)
[2019-07-16 13:04] LABS: C-Reactive Protein 11.07 mg/dL (0.0-0.3); FREE T4 1.44 ng/dL (0.76-1.46); TSH 1.16 uIU/mL (0.36-3.74)
[2019-07-16 13:26] LABS: Procalcitonin 0.6 ng/mL
[2019-07-16] MEDS: Furosemide 40 MG/4 ML VIAL IVP ×2 (13:31→16:31)
[2019-07-16] MEDS: Dextrose 50%-Water 25 GM/50 ML SYR (13:35)
--- NOTE | 2019-07-16 14:18 | W.PM.HP.N ---
Date of service: 07/16/19 Time of Service: 14:18 Assessment and Plan Assessment and plan (1) Suspected COVID-19 virus infection: Status: Acute Assessment and plan: Based on shortness of breath, hypoxia and appearance of groundglass opacities, the patient is considered a PUI. COVID-19 testing is ordered in addition to viral respiratory panel/RSV/influenza. Trend CRP, ferritin, D-dimer. For now, will treat with azithromycin/ceftriaxone for a BACTERIAL pneumonia as does have elevated procalcitonin, and will diurese. (2) Acute on chronic combined systolic and diastolic CHF (congestive heart failure): Status: Acute Assessment and plan: Does have diastolic dysfunction on echo in addition to EF of 45% and pulmonary hypertension. He is fluid overloaded, though I think we also need to think about possible empyema if the pulmonary process is proven to be bacterial in origin. There already appears to be improvement with diuresis - will continue IV lasix with I/O's, daily weights. Will r/o ACS and monitor on tele - there is a possibility the patient went into rapid Afib, causing pulmonary edema. (3) CAP (community acquired pneumonia): Status: Acute Assessment and plan: Has to be considered as possible etiology of pulmonary infiltrates given elevation of procalcitonin. Treat empirically with azithromycin/ceftriaxone and obtain blood cultures. Trend CRP, procalcitonin. (4) Pulmonary hypertension: Status: Acute Assessment and plan: Will need sleep study as outpatient. For now, PE has been disproven. Will diurese. (5) Ground glass opacity present on imaging of lung: Status: Acute Assessment and plan: As above (6) Afib: Status: Chronic Assessment and plan: Paroxysmal. Presently NSR. Previously intolerant of anticoagulation with eliquis and is considering getting [place] [facility] Will monitor on tele to ensure that rate stays controlled when is in Afib. (7) DVT prophylaxis: Status: Acute Assessment and plan: SC lovenox, TEDs, SCDs (8) Discharge planning issues: Status: Acute Assessment and plan: Full code - though patient is not sure about his code status and would like to discuss it with his family. He was offered but politely declined a palliative care consult. History of Present Illness History of Present Illness Chief Complaint: Shortness of breath Narrative: Mr Coy is a 74 year old male with PMHx of paroxysmal Atrial fibrillation, intolerant of anticoagulation with eliquis in the past, as well as pericarditis (resolved), IDDM2, hypertension, hyperlipidemia, GERD, who presented to [facility] ED today complaining of shortness of breath. He was first seen at [facility] ED on 06/19/2019 with at the time 1 week of shortness of breath. He tested negative for COVID-19 at that time and was sent home with outpatient follow up, which included an echocardiogram. Previously his EF was 60% - it was 45% on the echo from 07/02/2019, with diastolic dysfunction and moderate pulmonary hypertension. The patient states that he continued to feel short of breath at home, specifically when trying to lay down or move around. He was sleeping in a recliner, not waking up short of breath. He denies having fevers, chills, or a cough. Last night his shortness of breath was so bad, however, he decided to come in. His legs had been edematous for several weeks. He attributes that to his intake of sodium in his gatorade zero, as well as potato chips and senegalese fries. He denies having dizziness, chest pain, palpitations, nausea, abdominal pain, diarrhea/constipation, or urinary difficulty. In the ED, his workup revealed bilateral ground glass opacities on CT in addition to bilateral pleural effusions/CHF. He desaturated to the 70's when he first arrived on room air, with O2 sats improving to the 90's on 2L of O2. He is feeling a lot better now after 1 dose of lasix. His additional workup does reveal an elevated procalcitonin and CRP. When asked if there was anyting other than his breathing that was bothering the patient, he stated that his right knee started to bother him about 1 week ago. He has had injections/aspirations of that knee in the past. Review of Systems Narrative: 12 systems reviewed. Pertinent positives and negatives are as per HPI. Additionally, he reports chronic rhinorrhea, snoring/stopping breathing (never had a sleep study). Denies sore throat, fever/chills, chest pain, palpitations, cough, nausea, vomiting, abdominal pain, diarrhea/constipation, urinary complaints, numbness/tingling, rashes. [facility] Medical History (Updated 07/16/19 @ 16:35 by Angely Hickey MD) Atrial fibrillation (Chronic) Paroxysmal, intolerant of anticoagulation (n/v/hematuria while on eliquis), referred for [place] [facility] [place]not yet done) Carcinoma, basal cell, skin Chronic combined systolic (congestive) and diastolic (congestive) heart failure (Acute) EF 45% on echo 07/02/2019 COPD (chronic obstructive pulmonary disease) Deviated nasal septum Diabetes mellitus, type II insulin dependent GERD (gastroesophageal reflux disease) (Chronic) Hyperlipidemia (Acute) Hypertension Osteoarthritis of knee (Inactive 04/09/14) Osteoarthritis of right knee Pericarditis (Acute) Pulmonary hypertension (Acute) Tobacco use disorder Surgical History Colonoscopy - [facility] (10/29/16) Family History (Updated 07/16/19 @ 15:52 by Angely Hickey MD) Father Diabetes Hypertension Heart disease Self No problems noted. Brother Stroke had an aneurysm Sister Breast cancer Diabetes Brother Lung cancer smoker Social History (Updated 07/16/19 @ 15:53 by Angely Hickey MD) Smoking/Tobacco Use Status: Former Tobacco Use Tobacco: How many years used: 56 Counseling given: provider counseling Alcohol Intake: former Year quit: 1969 Drug use: Never Current gender identity: male Do you feel safe in your relationship?: Yes Meds Home Medications and Allergies Home Medications Medication Instructions Recorded Confirmed Type aspirin [Aspir-81] 81 mg PO DAILY tab-cap 10/18/16 07/16/19 History metformin 1,000 mg PO BID tab-cap 10/18/16 07/16/19 History albuterol sulfate [ProAir HFA] 2 puff INHALATION Q6H PRN PRN 10/27/16 07/16/19 History atorvastatin 40 mg tablet 40 mg PO QHS 04/17/19 07/16/19 History insulin glargine 100 unit/mL 20 unit SC QHS 04/17/19 07/16/19 History subcutaneous solution lisinopril 20 mg tablet 20 mg PO DAILY 04/17/19 07/16/19 History pantoprazole 40 mg tablet,delayed 40 mg PO BID tab 04/17/19 07/16/19 History release ascorbic acid (vitamin C) [Vitamin 500 mg PO BID 07/16/19 07/16/19 History C] ferrous sulfate [iron] 325 mg PO BID 07/16/19 07/16/19 History fluticasone propion-salmeterol 1 puff INHALATION BID 07/16/19 07/16/19 History [Advair HFA] furosemide 07/16/19 History Allergies Allergy/AdvReac Type Severity Reaction Status Date / Time apixaban AdvReac nausea/vomi Verified 07/16/19 14:03 ting Exam Narrative Exam Narrative: General: Very pleasant elderly male, A&OX3, has no difficulty completing full sentences while sitting up at a 45% angle on 2L, no cyanosis Neurological: A&Ox3, no focal deficits, B foot sensation intact Psychiatric: Appropriate speech pattern/content Skin: Visible skin intact with exception for dry skin on feet HEENT: Atraumatic, normocephalic, EOMI, MMM, clear oropharynx, no submandibular or cervical lymphadenopathy, no goiter or JVD Cardiovascular: RRR, no m/r/g Lungs: Crackes at B bases Gastrointestinal: soft, nontender, nondistended, + BS Genitourinary: deferred Extremities: 2+ BLE pitting edema to knees, no c/c; I am unable to palpated pedal pulses due to edema; onychomysosis, dry skin. R knee does not appear red or feel hot to touch. No obvious effusion. No TTP. Results Imaging Imaging Studies: CXR: Moderate interval worsening of bilateral diffuse/patchy intrapulmonary radiodensities since June 17. Differential diagnosis includes CHF and/or infectious process. Appropriate follow-up films requested. CTA chest: Increasing pleural effusions and patchy predominantly peripheral pulmonary opacities, suspect pneumonia, possibly viral. Superimposed CHF not excluded. Covid infection is a diagnostic possibility. Venous doppler BLE's: No evidence of deep venous thrombosis of the lower extremities. EKG: Sinus tach, HR 102, nonspecific ST-T changes, L atrial enlargement, no acute ischemia, unchanged from prior Echo 07/02/2019: Left Ventricle : The left ventricle is normal size. The overall left ventricular systolic function appears normal. There is normal left ventricular wall thickness. There is normal LV segmental wall motion. Transmitral Doppler flow pattern suggests impaired LV relaxation. LVEF is 45%. Right Ventricle : The right ventricle is normal size. The right ventricular systolic function is normal. Estimated RVSP is 54 mmHg. Atria : The left atrium size is normal. The right atrium size is normal. Aortic Valve : The Aortic valve is sclerotic. There is no aortic valvular stenosis. No aortic regurgitation is present. Mitral Valve : There is mitral annular calcification. No evidence of mitral valve stenosis. Trace mitral regurgitation. Tricuspid Valve : The tricuspid valve is normal in structure. There is no tricuspid valve stenosis. Mild tricuspid regurgitation. Great Vessels : The IVC is normal in size and collapses <50% with inspiration. There is no prior echocardiogram available for comparison. Labs Result diagrams: 07/16/19 09:10 07/16/19 09:10 Labs: Laboratory Results - last 24 hr 07/16/19 07/16/19 07/16/19 09:10 09:10 09:10 WBC 9.76 RBC 3.91 L Hgb 10.3 L Hct 33.9 L MCV 86.7 MCH 26.3 L MCHC 30.4 L RDW 16.5 H Plt Count 257 MPV 12.1 H Immature Gran % 0.2 Neutrophils % 85.5 Lymphocytes % 7.8 Monocytes % 4.9 Eosinophils % 1.4 Basophils % 0.2 Absolute Neutrophils 8.34 H Absolute Lymphocytes 0.76 L Absolute Monocytes 0.48 Absolute Eosinophils 0.14 Absolute Basophils 0.02 D-Dimer 3193 H Sodium 138 Potassium 3.3 L Chloride 101 Carbon Dioxide 29.7 Anion Gap 7.3 BUN 10 Creatinine 0.62 L Estimated GFR/1.73 m2 >= 60.00 Glucose 90 Calcium 8.4 L Total Bilirubin 0.6 AST 14 L ALT 16 Alkaline Phosphatase 128 H Troponin I 0.05 C-Reactive Protein 11.07 H NT-Pro-B Natriuret Pep 1888 H Total Protein 7.1 Albumin 2.5 L Procalcitonin TSH 1.16 Free T4 1.44 07/16/19 07/16/19 09:10 11:50 WBC RBC Hgb Hct MCV MCH MCHC RDW Plt Count MPV Immature Gran % Neutrophils % Lymphocytes % Monocytes % Eosinophils % Basophils % Absolute Neutrophils Absolute Lymphocytes Absolute Monocytes Absolute Eosinophils Absolute Basophils D-Dimer Sodium Potassium Chloride Carbon Dioxide Anion Gap BUN Creatinine Estimated GFR/1.73 m2 Glucose Calcium Total Bilirubin AST ALT Alkaline Phosphatase Troponin I 0.06 C-Reactive Protein NT-Pro-B Natriuret Pep Total Protein Albumin Procalcitonin 0.6 TSH Free T4 Last Vital Signs Temp 36.4 C L 07/16/19 13:22 Pulse 102 H 07/16/19 13:31 Resp 21 07/16/19 13:40 BP 143/85 H 07/16/19 13:31 Pulse Ox 89 L 07/16/19 13:31 COVID-19 Screening Traveled to [place] from one of the affected countries or regions?: NO Recent travel in the [facility] within the last 14 days?: No Recent out of the country travel within the last 14 days?: No Exposure or possible exposure to illness during travel?: No Had IN PERSON contact w/suspected or confirmed C-19 person: No Have you had the following symptoms in the past few days?: Yes Symptoms noted since travel?: Lower Respiratory (Shortness of breath)
[2019-07-16] MEDS: Ipratropium/Albuterol 4 GM 120 PUFF INH IH ×2 (16:05→20:24)
[2019-07-16] MEDS: Lidocaine 2% Jelly 11 ML SYR UR (16:31)
[2019-07-16] MEDS: cefTRIAXone 2 GM/50 ML BAG IVPB (16:31)
[2019-07-16] MEDS: Enoxaparin 40 MG/0.4 ML SYR SC (16:31)
[2019-07-16 16:52] LABS: Bilirubin Negative (Negative); Blood Negative (Negative); Clarity Clear (Clear); Glucose Negative (Negative); Ketones Negative (Negative); Leukocyte Esterase Negative (Negative); Nitrite Negative (Negative); Urobilinogen 0.2 EU/dL (Up TO 0.2)
[2019-07-16] MEDS: AZITHROMYCIN 500 MG in Normal Saline 250 ML 250 MG IVPB (17:10)
[2019-07-16 19:01] LABS: Lactate 2.6 mmol/L (0.6-1.4)
[2019-07-16 19:24] LABS: Troponin I 0.07 ng/Ml (<0.06)
[2019-07-16] MEDS: Pantoprazole 40 MG TABCR PO (20:24)
[2019-07-16] MEDS: Ascorbic Acid 500 MG TAB PO (20:24)
[2019-07-16] MEDS: Budesonide/Formoterol 160/4.5 6 GM 60 PUFF INH IH (20:24)
[2019-07-16] MEDS: Insulin Aspart 300 UNITS/3 ML PEN SC (21:28)
[2019-07-16] MEDS: Insulin Glargine 300 UNITS/3 ML PEN 20 UNITS SC (21:34)
[2019-07-16] MEDS: Atorvastatin 40 MG TAB PO (21:34)
[2019-07-16 22:09] LABS: COVID-19 RT-PCR UVMMC Result Negative (Negative)
[2019-07-16] MEDS: Acetaminophen 325 MG TAB PO (22:43)
[2019-07-17 03:25] VITALS: BP 129/72; PULSE 100; RESP 20; TEMP 37.1; O2SAT 93
[2019-07-17 06:27] LABS: Abs Immature Grans 0.01 k/cumm (0.0-0.09); Absolute Basophil Count 0.05 k/cumm (0.0-0.2); Absolute Eosinophil Count 0.27 k/cumm (0.0-0.7); Absolute Lymphocyte Count 0.91 k/cumm (1.2-3.4); Absolute Monocyte Count 0.56 k/cumm (0.11-0.7); Absolute Neutrophil Count 7.53 k/cumm (1.2-6.7); Basophils % 0.5; Eosinophils % 2.9; HCT 34.4 % (40.0-50.0); HGB 10.6 g/dL (13.5-17.5); Immature Grans % 0.1 %; Lymphocytes % 9.8; Mean Corp. HGB Concentration 30.8 g/dL (32.0-36.0); Mean Corpuscular Hemoglobin 26.4 pg (27.0-33.0); Mean Corpuscular Volume 85.8 fL (80-95); Mean Platelet Volume 12.2 fL (8.0-11.0); Neutrophils % 80.7; Platelet Count 261 x1000/uL (130-400); RBC 4.01 m/cumm (4.50-6.00); RBC Distribution Width 16.6 % (11.8-14.1); White Blood Cell Count 9.33 k/cumm (4.4-10.8)
[2019-07-17 06:31] LABS: Lactate 0.8 mmol/L (0.6-1.4)
[2019-07-17 06:52] LABS: Anion Gap 6.8 mmol/L (3-11); BUN 14 mg/dL (7-18); CO2 33.2 mmol/L (21.0-32.0); CREATININE 0.64 mg/dL (0.70-1.30); Calcium 8.6 mg/dL (8.5-10.1); Calculated LDL 29 mg/dL (<100); Chloride 100 mmol/L (98-107); Cholesterol 67 mg/dL (<200); Ferritin 119 ng/mL (26-388); Glucose 127 mg/dL (74-106); HDL Cholesterol 26 mg/dL (40-60); Magnesium 1.1 mg/dL (1.8-2.4); Potassium 3.6 mmol/L (3.5-5.1); Sodium 140 mmol/L (136-145); Triglyceride 60 mg/dL (<150)
[2019-07-17 07:07] LABS: D-Dimer 2511 ng/mlFEU (<500)
[2019-07-17 07:13] VITALS: BP 143/78; PULSE 96; RESP 20; TEMP 36.4; O2SAT 91
[2019-07-17 07:39] LABS: Adenovirus DNA Result Negative (Negative); Metapneumovirus RNA Result Negative (Negative); Parainfluenza Type1 RNA Result Negative (Negative); Parainfluenza Type2 RNA Result Negative (Negative); Parainfluenza Type3 RNA Result Negative (Negative); Parainfluenza Type4 RNA Result Negative (Negative); Rhinovirus RNA Result Negative (Negative)
[2019-07-17] MEDS: Budesonide/Formoterol 160/4.5 6 GM 60 PUFF INH IH ×2 (07:53→20:01)
[2019-07-17] MEDS: Ipratropium/Albuterol 4 GM 120 PUFF INH IH ×4 (07:53→20:00)
[2019-07-17] MEDS: Pantoprazole 40 MG TABCR PO ×2 (08:02→20:02)
[2019-07-17] MEDS: Normal Saline Flush 10 ML SYR IVP ×2 (08:02→15:34)
[2019-07-17] MEDS: Aspirin E.C. 81 MG TABEC PO (08:02)
[2019-07-17] MEDS: Potassium Chloride 20 MEQ TABCR 40 MEQ PO (08:02)
[2019-07-17] MEDS: Lisinopril 20 MG TAB PO (08:02)
[2019-07-17] MEDS: Ascorbic Acid 500 MG TAB PO ×2 (08:02→20:02)
[2019-07-17] MEDS: Furosemide 40 MG/4 ML VIAL IVP (08:02)
[2019-07-17] MEDS: Magnesium Oxide 400 MG TAB 800 MG PO ×2 (08:56→20:01)
[2019-07-17] MEDS: MAGNESIUM SULFATE 4 GM/100 ML BAG IVPB (08:56)
[2019-07-17 11:37] VITALS: BP 126/71; PULSE 96; RESP 18; TEMP 35.8; O2SAT 95
[2019-07-17] MEDS: Insulin Aspart 300 UNITS/3 ML PEN SC ×3 (11:45→21:33)
--- NOTE | 2019-07-17 12:22 | DM INPTCON_ITS ---
Date of service: 07/17/19 Time of Service: 12:22 Diabetes Inpatient Consult DESCRIPTION/ASSESSMENT: Diabetes Inpatient consult received for Mr. Coy. Met with Mr. Coy bedside. PMH: DM, CHF, HTN. BMI wnl for age. He had just had his BS taken (220 mg/dl) 1 hour before lunch. He reports his BS at home ranging from 95-130 mg/dl in AM (fasting) and most post pranials ranging from 150-180 mg/dl. recent A1C 7.7% (06/25/19) indicating frequent elevated blood sugars. Estimated Needs: 7660-1384 kcal, 75-80 g protein. 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 He typically has breakfast and lunch at convenience stores and balanced meal at dinner. He reports his blood sugars vary depending on what he eats but is not concerned or willing to change his eating habits. Risks of diet non compliance discussed. Mr. Fang has cut down on cakes and pies as his Am sugars having been running higher than he would like. I provided him with DIabetes Meal Management Education and provided education on how to follow 1800 kcal diabetic diet. Also provided contact information if needs outpatient diabetes counseling. Overall, Mr. Coy knowledgeable about what foods are beneficial and harmful wity type 2 diabetes. I encouraged him to start an exercise program and discussed benefits thereof. INTERVENTION: Diabetes Education Consult Consistent Carb Diet PLAN: 1800 kcal Diabetic Diet check A1C q 3 months walk daily 20 minutes Time Spent in Nutritional Counseling and Treatment: 15 min spent face to face
--- NOTE | 2019-07-17 13:35 | PHA.REVIEW ---
Pharmacy Admission Review - Admission Clinical Review (Last Updated 07/16/19 @ 14:23 by Angely Hickey MD) Discharge planning issues (Acute) DVT prophylaxis (Acute) Suspected COVID-19 virus infection (Acute) CAP (community acquired pneumonia) (Acute) Ground glass opacity present on imaging of lung (Acute) Pulmonary hypertension (Acute) Acute on chronic combined systolic and diastolic CHF (congestive heart failure) (Acute) apixaban Adverse Reaction (Verified 07/16/19 14:03) nausea/vomiting Height 5 ft 7 in Weight 74.1 kg - Comments Comments/Follow Ups: covid 19 test negative - Renal Dosing Renal Dosing: BUN 14 mg/dL (7-18) 07/17/19 06:20 Creatinine 0.64 mg/dL (0.70-1.30) L 07/17/19 06:20 Medications needing adjustments: Reviewed (crcl ~78ml/min) - Anticoagulation Anticoagulation: Hgb 10.6 g/dL (13.5-17.5) L 07/17/19 06:20 Hct 34.4 % (40.0-50.0) L 07/17/19 06:20 Plt Count 261 x1000/uL (130-400) 07/17/19 06:20 Creatinine 0.64 mg/dL (0.70-1.30) L 07/17/19 06:20 DVT Prohphylaxis: Reviewed Medications: Enoxaparin Therapeutic Anticoagulation: N/A - Opiate Usage Evaluate Pain Scale/Pains Meds: N/A - Relevant Labs Sodium 140 mmol/L (136-145) 07/17/19 06:20 Potassium 3.6 mmol/L (3.5-5.1) 07/17/19 06:20 Chloride 100 mmol/L (98-107) 07/17/19 06:20 Magnesium 1.1 mg/dL (1.8-2.4) L 07/17/19 06:20 C-Reactive Protein 11.70 mg/dL (0.0-0.3) H 07/17/19 06:20 Electrolytes, C-Reactive P, ESR: Reviewed (Mag bolus IV ordered, Mag PO alber ordered) - DM Control DM Control: Glucose 127 mg/dL (74-106) H 07/17/19 06:20 Finger Stick Blood Glucose 226 Finger Stick Blood Glucose 226 Finger Stick Blood Glucose 134 Finger Stick Blood Glucose 134 Insulin Dosing: Reviewed (insulin aspart and glargine ordered) - Heart Failure/WA Heart Failure/WA: Troponin I 0.07 ng/Ml (<0.06) 07/16/19 18:45 NT-Pro-B Natriuret Pep 1888 pg/mL (<300) H 07/16/19 09:10 EF%, JACQUELYN's, B-Blockers, Diuretics: Reviewed (furosemide, lisinopril) - BP Control BP Control: Blood Pressure 126/71 Blood Pressure 143/78 Blood Pressure 129/72 - Qtc Review If Elevated: Reviewed (471, azithromycin, pantoprazole) - IV to PO Switch IV Medications: Reviewed (IV antibiotics) - Home Meds Relevent Home Meds Not ordered & why?: not ordered: metformin(has only insulin as inpt), ferrous sulfate - Current meds Current Medication Order Review: Reviewed - Comments Comments/Follow Ups: diuresing with furosemide, increased procalcitonin, may need O2 at home.
[2019-07-17] MEDS: cefTRIAXone 2 GM/50 ML BAG IVPB (14:08)
[2019-07-17] MEDS: Acetaminophen 325 MG TAB PO (14:20)
--- NOTE | 2019-07-17 14:43 | W.PM.PROGNOT ---
Date of Service Date of service: 07/17/19 Time of Service: 14:44 Assessment and Plan Assessment and plan (1) Acute on chronic combined systolic and diastolic CHF (congestive heart failure): Status: Acute Assessment and plan: Combined, systolic (EF 45%), diastolic, and R-sided CHF. Improved markedly with diuresis. Decrease dose of IV lasix with plans to transition to PO lasix tomorrow and discharge home on 07/19/2019. No ACS - slight troponin leak likely due to CHF. (2) CAP (community acquired pneumonia): Status: Acute Assessment and plan: Now with productive cough, sputum C&S pending. Continue empiric ceftriaxone/azithromycin, await sputum culture. Continue to trend CRP, procalcitonin. Clinically better. (3) Pulmonary hypertension: Status: Acute Assessment and plan: Will need sleep study as outpatient. Continue diuresis. (4) Ground glass opacity present on imaging of lung: Status: Acute Assessment and plan: Likely represents pulmonary edema and infectious bacterial pneumonitis. Would benefit from outpatient follow up once infectious process has resolved to document radiographic resolution. (5) Afib: Status: Chronic Assessment and plan: Paroxysmal. Small burst of SVT overnight - ?Afib. Presently NSR. Previously intolerant of anticoagulation with eliquis and is considering getting a Watchman procedure at [facility] [place]. Continue to monitor on tele while in the hospital. (6) COVID-19 ruled out: Status: Ruled-out (7) DVT prophylaxis: Status: Acute Assessment and plan: SC lovenox, TEDs, SCDs (8) Discharge planning issues: Status: Acute Assessment and plan: Full code - though patient is not sure about his code status and would like to discuss it with his family. He was offered but politely declined a palliative care consult. Plan to discharge home in 48 hours. Subjective Subjective Patient reports: no new complaints Interval history since last seen: Mr Coy feels a lot better today. He states he was not short of breath ambulating. He denied dizziness, chest pain, nausea, vomiting. Shortness of breath is much better as is his leg swelling. Had a short self-limited burst of SVT on tele overnight while asleep. Exam Narrative Exam Narrative: General: Very pleasant elderly male, A&Ox3, sitting in a recliner with legs elevated on 1L, no dyspnea/tachypnea HEENT: EOMI, MMM Heart: RRR, no m/r/g Lungs: crackles at B bases Abdomen: soft, nontender, nondistended Extremities: trace edema of BLE's while in TEDs Objective Objective Clinical Data: Abnormal lab results 07/16/19 07/17/19 07/17/19 Range/Units 16:45 06:20 06:20 RBC 4.01 L (4.50-6.00) m/cumm Hgb 10.6 L (13.5-17.5) g/dL Hct 34.4 L (40.0-50.0) % MCH 26.4 L (27.0-33.0) pg MCHC 30.8 L (32.0-36.0) g/dL RDW 16.6 H (11.8-14.1) % MPV 12.2 H (8.0-11.0) fL Absolute Neutrophils 7.53 H (1.2-6.7) k/cumm Absolute Lymphocytes 0.91 L (1.2-3.4) k/cumm D-Dimer (<500) ng/mlFEU Carbon Dioxide 33.2 H (21.0-32.0) mmol/L Creatinine 0.64 L (0.70-1.30) mg/dL Glucose 127 H (74-106) mg/dL Lactate 2.6 H* (0.6-1.4) mmol/L Magnesium 1.1 L (1.8-2.4) mg/dL C-Reactive Protein 11.70 H (0.0-0.3) mg/dL HDL Cholesterol 26 L (40-60) mg/dL 07/17/19 Range/Units 06:20 RBC (4.50-6.00) m/cumm Hgb (13.5-17.5) g/dL Hct (40.0-50.0) % MCH (27.0-33.0) pg MCHC (32.0-36.0) g/dL RDW (11.8-14.1) % MPV (8.0-11.0) fL Absolute Neutrophils (1.2-6.7) k/cumm Absolute Lymphocytes (1.2-3.4) k/cumm D-Dimer 2511 H (<500) ng/mlFEU Carbon Dioxide (21.0-32.0) mmol/L Creatinine (0.70-1.30) mg/dL Glucose (74-106) mg/dL Lactate (0.6-1.4) mmol/L Magnesium (1.8-2.4) mg/dL C-Reactive Protein (0.0-0.3) mg/dL HDL Cholesterol (40-60) mg/dL Vital Signs Temperature 35.8 C L 07/17/19 11:37 Temperature Source Temporal Artery Scan 07/17/19 11:37 Pulse 96 H 07/17/19 11:37 Pulse Rhythm Regular 07/17/19 07:43 Pulse 114 H 07/16/19 13:40 Respiratory Rate 18 07/17/19 11:37 Respiratory Effort 07/17/19 07:43 Respiratory Depth Shallow 07/17/19 07:43 Respiratory Pattern Normal 07/17/19 07:43 Blood Pressure 126/71 07/17/19 11:37 Blood Pressure Mean 100 07/16/19 13:31 Blood Pressure Position Sitting 07/16/19 08:57 Pulse Oximetry 95 07/17/19 11:37 Oxygen Delivery Method Nasal Cannula 07/17/19 11:37 Oxygen Flow Rate 1 07/17/19 11:37 Pain Level 7 07/17/19 14:20 Intake & Output 07/16/19 07/17/19 07/17/19 23:59 11:59 23:59 Intake Total 550 / 550 250 / 490 240 / 490 Output Total 4250 / 4250 2150 / 2150 Balance -3700 / -3700 -1900 / -1660 240 / -1660 Weight 74.843 kg 74.1 kg Intake: IV 300 / 300 Oral 250 / 250 250 / 490 240 / 490 Output: Urine 4250 / 4250 2150 / 2150 Other: Urine Color Yellow Yellow Urine Appearance Clear Clear Stool Size Small Moderate Stool Characteristics Formed Soft Brown Laboratory Results WBC 9.33 k/cumm (4.4-10.8) 07/17/19 06:20 RBC 4.01 m/cumm (4.50-6.00) L 07/17/19 06:20 Hgb 10.6 g/dL (13.5-17.5) L 07/17/19 06:20 Hct 34.4 % (40.0-50.0) L 07/17/19 06:20 MCV 85.8 fL (80-95) 07/17/19 06:20 MCH 26.4 pg (27.0-33.0) L 07/17/19 06:20 MCHC 30.8 g/dL (32.0-36.0) L 07/17/19 06:20 RDW 16.6 % (11.8-14.1) H 07/17/19 06:20 Plt Count 261 x1000/uL (130-400) 07/17/19 06:20 MPV 12.2 fL (8.0-11.0) H 07/17/19 06:20 Immature Gran % 0.1 % 07/17/19 06:20 Neutrophils % 80.7 07/17/19 06:20 Lymphocytes % 9.8 07/17/19 06:20 Monocytes % 6.0 07/17/19 06:20 Eosinophils % 2.9 07/17/19 06:20 Basophils % 0.5 07/17/19 06:20 Absolute Neutrophils 7.53 k/cumm (1.2-6.7) H 07/17/19 06:20 Absolute Lymphocytes 0.91 k/cumm (1.2-3.4) L 07/17/19 06:20 Absolute Monocytes 0.56 k/cumm (0.11-0.7) 07/17/19 06:20 Absolute Eosinophils 0.27 k/cumm (0.0-0.7) 07/17/19 06:20 Absolute Basophils 0.05 k/cumm (0.0-0.2) 07/17/19 06:20 D-Dimer 2511 ng/mlFEU (<500) H 07/17/19 06:20 Sodium 140 mmol/L (136-145) 07/17/19 06:20 Potassium 3.6 mmol/L (3.5-5.1) 07/17/19 06:20 Chloride 100 mmol/L (98-107) 07/17/19 06:20 Carbon Dioxide 33.2 mmol/L (21.0-32.0) H 07/17/19 06:20 Anion Gap 6.8 mmol/L (3-11) 07/17/19 06:20 BUN 14 mg/dL (7-18) 07/17/19 06:20 Creatinine 0.64 mg/dL (0.70-1.30) L 07/17/19 06:20 Estimated GFR/1.73 m2 >= 60.00 (mL/min/1.73m2) 07/17/19 06:20 Glucose 127 mg/dL (74-106) H 07/17/19 06:20 Lactate 0.8 mmol/L (0.6-1.4) 07/17/19 06:20 Calcium 8.6 mg/dL (8.5-10.1) 07/17/19 06:20 Magnesium 1.1 mg/dL (1.8-2.4) L 07/17/19 06:20 Ferritin 119 ng/mL (26-388) 07/17/19 06:20 Total Bilirubin 0.6 mg/dL (0.2-1.0) 07/16/19 09:10 AST 14 U/L (15-37) L 07/16/19 09:10 ALT 16 U/L (16-63) 07/16/19 09:10 Alkaline Phosphatase 128 U/L (46-116) H 07/16/19 09:10 Troponin I 0.07 ng/Ml (<0.06) 07/16/19 18:45 C-Reactive Protein 11.70 mg/dL (0.0-0.3) H 07/17/19 06:20 NT-Pro-B Natriuret Pep 1888 pg/mL (<300) H 07/16/19 09:10 Total Protein 7.1 g/dL (6.4-8.2) 07/16/19 09:10 Albumin 2.5 g/dL (3.4-5.0) L 07/16/19 09:10 Triglycerides 60 mg/dL (<150) 07/17/19 06:20 Total Cholesterol 67 mg/dL (<200) 07/17/19 06:20 LDL Cholesterol, Calc 29 mg/dL (<100) 07/17/19 06:20 HDL Cholesterol 26 mg/dL (40-60) L 07/17/19 06:20 Procalcitonin 0.6 ng/mL 07/16/19 09:10 TSH 1.16 uIU/mL (0.36-3.74) 07/16/19 09:10 Free T4 1.44 ng/dL (0.76-1.46) 07/16/19 09:10 Urine Color Yellow (Yellow) 07/16/19 14:20 Urine Clarity Clear (Clear) 07/16/19 14:20 Urine pH 7.0 (5-8) 07/16/19 14:20 Ur Specific Burson 1.020 (1.005-1.025) 07/16/19 14:20 Urine Protein Negative mg/dL (Negative) 07/16/19 14:20 Urine Ketones Negative mg/dL (Negative) 07/16/19 14:20 Urine Blood Negative (Negative) 07/16/19 14:20 Urine Nitrite Negative (Negative) 07/16/19 14:20 Urine Bilirubin Negative (Negative) 07/16/19 14:20 Urine Urobilinogen 0.2 EU/dL (Up TO 0.2) 07/16/19 14:20 Ur Leukocyte Esterase Negative (Negative) 07/16/19 14:20 Urine Glucose Negative mg/dL (Negative) 07/16/19 14:20 Adenovirus DNA Negative (Negative) 07/16/19 16:15 COVID-19 PCR Negative (Negative) 07/16/19 12:00 Nasopharyn COVID-19 PCR Not Applicable 07/16/19 12:00 Human Metapneumovir RNA Negative (Negative) 07/16/19 16:15 Parainfluenza 1 (PCR) Negative (Negative) 07/16/19 16:15 Parainfluenza 2 (PCR) Negative (Negative) 07/16/19 16:15 Parainfluenza 3 (PCR) Negative (Negative) 07/16/19 16:15 Parainfluenza 4 (PCR) Negative (Negative) 07/16/19 16:15 Resp Viral Spec Desc Not Applicable 07/16/19 16:15 Rhinovirus (PCR) Negative (Negative) 07/16/19 16:15 Ref Test Perform Site [facility] hospital lab 07/16/19 12:00
[2019-07-17 15:13] VITALS: BP 116/74; PULSE 100; RESP 20; TEMP 36.6; O2SAT 93
[2019-07-17] MEDS: Furosemide 40 MG/4 ML VIAL 20 MG IVP (15:33)
[2019-07-17] MEDS: Enoxaparin 40 MG/0.4 ML SYR SC (15:35)
[2019-07-17] MEDS: AZITHROMYCIN 500 MG in Normal Saline 250 ML 250 MG IVPB (16:02)
--- NOTE | 2019-07-17 18:24 | PDOC.CMIN ---
- If Service Date Differs Date of service: 07/17/19 Time of Service: 18:24 Care Management Initial Assess REASON FOR HOSPITALIZATION:: Covid rule out, hypoxia and CHF PAST MEDICAL HISTORY/PAST SURGICAL HISTORY:: Atrial fibrillation (Chronic). Paroxysmal, intolerant of anticoagulation (n/v/hematuria while on eliquis), referred for a Watchman procedure at [facility] (not yet done). Carcinoma, basal cell, skin. Chronic combined systolic (congestive) and diastolic (congestive) heart failure (Acute). EF 45% on echo 07/02/2019. COPD (chronic obstructive pulmonary disease). Deviated nasal septum. Diabetes mellitus, type II. insulin dependent. GERD (gastroesophageal reflux disease) (Chronic). Hyperlipidemia (Acute). Hypertension. Osteoarthritis of knee (Inactive 04/09/14). Osteoarthritis of right knee. Pericarditis (Acute). Pulmonary hypertension (Acute). Tobacco use disorder PREVIOUS FUNCTIONAL STATUS/SOCIAL/FAMILY SUPPORTS:: Leoncio lives in [place] with his SO she has three daughters. 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 He states he is independent with ADL's and transportation. He states he does not have oxygen at home and has a history of afib that he reports comes and goes. CURRENT FUNCTIONAL STATUS:: Leoncio is alert and engaged during assessment he is sitting up in the chair. He states he does not require any services at home, he does have a cane from some right leg knee weakness. Leoncio states he was in the however he is not services connected and does not use the [facility] as a provider. He reports he has a supportive family and relies on his step daughter to assist with finances and identifies her as his person to make decisions if he is unable. ADVANCE DIRECTIVES:: Leoncio states he has an advance directive there is none on file he reports they are at home and he identifies his step daughter Alyssa as his person to make decisions. Has patient been provided with information about the portal?: Yes Did the patient sign up for the portal?: No (declines ) CODE STATUS:: Full Code INSURANCE COVERAGE / FINANCIAL ISSUES:: Medicare replacement plan CURRENT HOME/COMMUNITY SERVICES/EQUIPMENT:: No current services he does have a cane that he uses. PRIMARY CARE PHYSICIAN:: [facility] POTENTIAL DISCHARGE NEEDS:: F/U with priamry care scheduled prior to discharge. PATIENT/FAMILY EDUCATION NEEDS:: Discharge education, limitations and follow up plan of care including ask me three and self management. ANTICIPATED BARRIERS TO DISCHARGE:: No identified barriers TRANSPORTATION:: Via private car with grandson at time of discharge. PLAN:: Leoncio will be discharged when medically ready. He states he understands the current plan of care, he is receiving diuretics r/t CHF. He states he does not need any additional services at this time. CM will continue to assess for discharge needs.
[2019-07-17 19:04] VITALS: BP 118/68; PULSE 92; RESP 18; TEMP 36.1; O2SAT 92
[2019-07-17] MEDS: Atorvastatin 40 MG TAB PO (21:31)
[2019-07-17] MEDS: Insulin Glargine 300 UNITS/3 ML PEN 20 UNITS SC (21:32)
[2019-07-17 23:14] VITALS: BP 114/67; PULSE 94; RESP 20; TEMP 37; O2SAT 93
[2019-07-18 04:19] VITALS: BP 138/67; PULSE 101; RESP 19; TEMP 37.1; O2SAT 92
[2019-07-18] MEDS: Acetaminophen 325 MG TAB PO ×2 (04:59→17:44)
[2019-07-18 06:48] LABS: Abs Immature Grans 0.01 k/cumm (0.0-0.09); Absolute Basophil Count 0.02 k/cumm (0.0-0.2); Absolute Eosinophil Count 0.27 k/cumm (0.0-0.7); Absolute Lymphocyte Count 0.88 k/cumm (1.2-3.4); Absolute Monocyte Count 0.51 k/cumm (0.11-0.7); Basophils % 0.2; Eosinophils % 2.9; HCT 35.6 % (40.0-50.0); Immature Grans % 0.1 %; Lymphocytes % 9.5; Mean Corp. HGB Concentration 30.9 g/dL (32.0-36.0); Mean Corpuscular Hemoglobin 26.3 pg (27.0-33.0); Mean Platelet Volume 12.4 fL (8.0-11.0); Monocytes % 5.5; Neutrophils % 81.8; Platelet Count 309 x1000/uL (130-400); RBC 4.19 m/cumm (4.50-6.00); RBC Distribution Width 16.5 % (11.8-14.1); White Blood Cell Count 9.29 k/cumm (4.4-10.8)
[2019-07-18 06:56] LABS: Anion Gap 5.1 mmol/L (3-11); BUN 12 mg/dL (7-18); C-Reactive Protein 8.48 mg/dL (0.0-0.3); CO2 31.9 mmol/L (21.0-32.0); CREATININE 0.72 mg/dL (0.70-1.30); Calcium 8.7 mg/dL (8.5-10.1); Chloride 99 mmol/L (98-107); Glucose 143 mg/dL (74-106); Magnesium 1.9 mg/dL (1.8-2.4); Potassium 4.1 mmol/L (3.5-5.1); Sodium 136 mmol/L (136-145)
[2019-07-18 07:35] VITALS: BP 121/66; PULSE 74; RESP 14; TEMP 36.3; O2SAT 91
[2019-07-18] MEDS: Ipratropium/Albuterol 4 GM 120 PUFF INH IH ×4 (07:46→19:51)
[2019-07-18] MEDS: Budesonide/Formoterol 160/4.5 6 GM 60 PUFF INH IH ×2 (07:46→19:51)
[2019-07-18] MEDS: Aspirin E.C. 81 MG TABEC PO (07:54)
[2019-07-18] MEDS: Ascorbic Acid 500 MG TAB PO ×2 (07:54→19:53)
[2019-07-18] MEDS: Magnesium Oxide 400 MG TAB 800 MG PO ×2 (07:54→19:52)
[2019-07-18] MEDS: Lisinopril 20 MG TAB PO (07:54)
[2019-07-18] MEDS: Furosemide 40 MG/4 ML VIAL 20 MG IVP (07:55)
[2019-07-18] MEDS: Potassium Chloride 20 MEQ TABCR 40 MEQ PO (07:55)
[2019-07-18] MEDS: Normal Saline Flush 10 ML SYR IVP ×3 (07:56→15:22)
[2019-07-18] MEDS: Insulin Aspart 300 UNITS/3 ML PEN SC ×4 (07:56→21:17)
[2019-07-18] MEDS: Pantoprazole 40 MG TABCR PO ×2 (08:06→19:53)
--- NOTE | 2019-07-18 10:39 | IN_ITS ---
Date of service: 07/18/19 Time of Service: 09:20 PT Notes Visit Reasons: SUSPECTED COVID 19 WITH HYPOXIA CHF Inpatient Physical Therapy Evaluation Date: July 18, 2019 Referring Doctor: Glendy Su PT Orders: PT CONSULT: Precautions: Fall, Standard, Activity as tolerated Patient Profile/Admitting Diagnosis: Mr Coy is a 74 year old male with PMHx of paroxysmal Atrial fibrillation, intolerant of anticoagulation with eliquis in the past, as well as pericarditis (resolved), IDDM2, hypertension, hyperlipidemia, GERD, who presented to [facility] ED 07/16/19 complaining of shortness of breath. He was first seen at [facility] on 06/19/2019 with at the time 1 week of shortness of breath. He tested negative for COVID-19 at that time and was sent home with outpatient follow up, which included an echocardiogram. Previously his EF was 60% - it was 45% on the echo from 07/02/2019, with diastolic dysfunction and moderate pulmonary hypertension. The patient states that he continued to feel short of breath at home, specifically when trying to lay down or move around. He was sleeping in a recliner, not waking up short of breath. He was tested for COVID with negative results and diagnosed with community acquired pneumonia, CHF, and hypoxia. PMHX: (Updated 07/16/19 @ 16:35 by Angely Hickey MD) Atrial fibrillation (Chronic) Paroxysmal, intolerant of anticoagulation (n/v/hematuria while on eliquis), referred for a Watchman procedure at [facility] (not yet done) Carcinoma, basal cell, skin Chronic combined systolic (congestive) and diastolic (congestive) heart failure (Acute) EF 45% on echo 07/02/2019 COPD (chronic obstructive pulmonary disease) Deviated nasal septum Diabetes mellitus, type II insulin dependent GERD (gastroesophageal reflux disease) (Chronic) Hyperlipidemia (Acute) Hypertension Osteoarthritis of knee (Inactive 04/09/14) Osteoarthritis of right knee Pericarditis (Acute) Pulmonary hypertension (Acute) Tobacco use disorder Surgical History Colonoscopy - [facility] (10/29/16) Social History/Home Situation: Leoncio lives in [place] with his SO she has three daughters. He states he is independent with ADL's and transportation. He utilizes a SPC as needed. He states he does not have oxygen at home and has a history of afib that he reports comes and goes. Current Functional Limitations: Diminished activity tolerance Equipment Owned/DME: Cane Subjective: Leoncio reports that he is feeling overall better. He notes that he has been up and about in his room this morning. Is agreeable to PT consult. Objective: General Observation: bilateral TEDS, telemetry, IV right UE, O2 via nasal canula 1L/min Mental Status: Alert and oriented x3 Pain: Notes of mild pain in his left ankle and right knee Vital Signs: O2 saturation on 1L/min 94% at rest, desated to 84% with activity ROM: Right Upper Extremity: Demonstrates within functional limits active right upper extremity range of motion Left Upper Extremity: Demonstrates within functional limits active left upper extremity range of motion Right Lower Extremity: Hip flexion 110 degrees, knee flexion 110 degrees, extension lacking 5 degrees of terminal, ankle dorsiflexion limited to 5 degrees, plantarflexion within functional limits Left Lower Extremity: Hip flexion 110 degrees, knee flexion 110 degrees, lacking 10 degrees of terminal extension, ankle dorsiflexion limited to 5 degrees, plantarflexion within functional limits Strength: Right Upper Extremity: Shoulder flexion 4-/5, shoulder abduction 4/5, bicep 4/5, tricep 4-/5, mold making plastics sheets supervisor within normal limits Left Upper Extremity: Shoulder flexion 4/5, shoulder abduction 4/5, bicep 4/5, tricep 4-/5, mold making plastics sheets supervisor within normal limits Right Lower Extremity: Hip flexion 4/5, knee extension 4+/5, knee flexion 4/5, plantarflexion/dorsiflexion 4+/5 Left Lower Extremity: Hip flexion 4/5, knee extension 5/5, knee flexion 4+/5, plantar flexion dorsiflexion 4/5 Sensation: Intact to light touch. Declines paresthesias Bed Mobility/Transfers: Rolling: Independent Supine?sit: Independent Sit?supine: Independent Sit?stand: Standby assist Stand?sit: Standby assist Bed?chair: Supervision Chair?bed: Supervision Gait: SPC, FWB, widened base of support, contact-guard assist marching 45 seconds with desaturation to 84% on 1 L/min of O2 via nasal cannula 1 minute rest recovering to 91% Balance: Static Sitting: Normal Dynamic Sitting: Normal Static Standing: Good Dynamic Standing: Fair Special Tests: Mobility Limitations Standardized Measure [facility] AM-PAC 6 clicks Basic Mobility Inpatient Short Form: Raw Score: 20 CMS Score: 36% Informed Consent/Education: Patient instructed in purpose of PT consult and plan of care. Assessment: Patient is a 74 year old male referred to physical therapy services with the diagnosis of hypoxia, congestive heart failure and community- acquired pneumonia. Patient presents with clinical signs and symptoms consistent with diagnosis.Patient demonstrates functional mobility decline, need for assistive device for all mobility ADL performance, diminished dynamic natalio ding balance and generalized muscle weakness which increased risk for falls. Patient presents with clinical signs and symptoms consistent with current/admitting diagnoses that have resulted to mobility limitations, gait instability, generalized weakness, and impairment of motor control as demonstrated by the following impairment level findings: 1. Decreased strength to B shoulder and B LE major muscle groups 2. Impaired standing balance 3. Impaired activity tolerance 4. Limitation of joint range of motion right knee and left ankle Impairments are contributing to the following functional limitations: 1. Increased dependence with transfers 2. Inability to safely ambulate without assistive device and physical assistance 3. Increase completion time for mobility ADL performance 4. Increased fall risk 5. Inability to negotiate steps alone safely Patient is assessed as a Moderate 63093 complexity based on the following: History: As above Examination: As above Presentation: Evolving Decision Making: Moderate Goals: Goals X1 week 1. Supine-Sit independent 2. Sit-Supine independent 3. Sit-Stand independent 4. Stand-Sit independent 5. Bed-Chair independent 6. Chair-Bed independent 7. Gait independent with use of single-point cane 300 feet or greater without complaints of dyspnea or pain 8. Stairs able to ascend and descend 6 steps with bilateral railings, supervision 9. Independent with home exercise program 10. Demonstrate good dynamic standing balance Plan of Care/Treatment Plan: 1-2x/day, 7 days/week x 1 week. Plan of care has been reviewed with the [employer] TECHNICIAN providing the service under Physical Therapy direction. Initiate Physical Therapy intervention for strengthening, bed mobility, transfers, gait, stairs, balance training, use of assistive device. DISCHARGE RECOMMENDATIONS: Home per MD order once medically cleared TREATMENT CODE/TIME: 19326, 25 minutes 9:20AM Thank you for this referral! Josi Dailey, MPT [facility] Disclaimer: This note was created using [employer] voice recognition software. It was reviewed for major content. However, there may be multiple small discrepancies and errors due to the voice recognition aspects of the software.
[2019-07-18 11:52] LABS: Procalcitonin 0.2 ng/mL
--- NOTE | 2019-07-18 12:00 | PGE_ITS ---
Date of Service Date of service: 07/18/19 Time of Service: 12:00 Assessment and Plan Assessment and plan (1) Acute on chronic combined systolic and diastolic CHF (congestive heart failure): Status: Acute Assessment and plan: stable and continues to improve. will change lasix to oral. discontinue stokes catheter, continue I&O. No ACS - slight troponin leak likely due to CHF. EF 45% repeat cxr shows slight improvement in effusions. (2) CAP (community acquired pneumonia): Status: Acute Assessment and plan: Continue empiric ceftriaxone/azithromycin day 3/5, await sputum culture. CRP and procalcitonin trending downwards, discontinue trending. wean oxygen as able. covid ruled out (3) Afib: Status: Chronic Assessment and plan: Paroxysmal. Small burst of SVT again overnight - ?Afib. Presently NSR. Previously intolerant of anticoagulation with eliquis and is considering getting a Watchman procedure at [facility]. Continue to monitor on tele while in the hospital. (4) Pulmonary hypertension: Status: Acute Assessment and plan: Will need sleep study as outpatient. (5) GERD (gastroesophageal reflux disease): Status: Chronic (6) DVT prophylaxis: Status: Acute Assessment and plan: lovenox, teds, scds, increase ambulation. (7) Discharge planning issues: Status: Acute Assessment and plan: plan discharge home with no services. PT to evaluate for discharge planning case management following. Subjective Subjective Patient reports: no new complaints, feels better, tolerating a regular diet and afebrile Interval history since last seen: patient reports he feels his respiratory status is at baseline but still have minimal oxygen requirements. cough is impr sarah. less sputum. he is otherwise with no c/o Exam Const General: cooperative, healthy appearing (slightly older than stated age), comfortable and no acute distress Nutritional Appearance: average body habitus Orientation: alert, awake and oriented x3 HENMT Head: normal to inspection, normocephalic and atraumatic Face and sinus: normal facial exam Mouth: oral mucosae normal (moist with no exudates) Resp Effort & Inspection: normal respiratory effort and able to speak in complete sentences Auscultation: rales bilaterally (left greater than right) at the base Cardio Rate: regular rate Rhythm: regular rhythm GI Inspection: normal to inspection Palpation: soft Auscultation: normal bowel sounds General: other (stokes draining ) Skin General skin exam: no rashes or lesions noted Neuro General: patient alert, patient awake and patient oriented x3 Cranial Nerves: CN's II-XI intact bilaterally Cognition: normal cognition Speech: speech normal Extrem General: no pedal edema Psych Appearance: grossly normal Mental Status: mental status grossly normal Speech and Movement: speech and movement normal Mood: congruent mood Affect: normal affect Attitude: cooperative Thought Process: normal Objective Objective Clinical Data: Abnormal lab results 07/18/19 07/18/19 Range/Units 06:14 06:14 RBC 4.19 L (4.50-6.00) m/cumm Hgb 11.0 L (13.5-17.5) g/dL Hct 35.6 L (40.0-50.0) % MCH 26.3 L (27.0-33.0) pg MCHC 30.9 L (32.0-36.0) g/dL RDW 16.5 H (11.8-14.1) % MPV 12.4 H (8.0-11.0) fL Absolute Neutrophils 7.60 H (1.2-6.7) k/cumm Absolute Lymphocytes 0.88 L (1.2-3.4) k/cumm Glucose 143 H (74-106) mg/dL C-Reactive Protein 8.48 H (0.0-0.3) mg/dL Vital Signs Temperature 36.3 C L 07/18/19 07:35 Temperature Source Tympanic 07/18/19 07:35 Pulse 74 07/18/19 07:35 Pulse Rhythm Regular 07/18/19 08:02 Pulse 114 H 07/16/19 13:40 Respiratory Rate 14 07/18/19 07:35 Respiratory Effort 07/18/19 08:02 Respiratory Depth Normal 07/18/19 08:02 Respiratory Pattern Normal 07/18/19 08:02 Blood Pressure 121/66 07/18/19 07:35 Blood Pressure Mean 100 07/16/19 13:31 Blood Pressure Position Sitting 07/16/19 08:57 Pulse Oximetry 91 L 07/18/19 07:35 Oxygen Delivery Method Room Air 07/18/19 07:35 Oxygen Flow Rate 0 07/18/19 07:35 Pain Level 0 07/18/19 07:35 Intake & Output 07/17/19 07/18/19 07/18/19 23:59 11:59 23:59 Intake Total 730 / 980 670 / 670 Output Total 500 / 2650 450 / 450 Balance 230 / -1670 220 / 220 Weight 70.9 kg Intake: IV 250 / 250 Oral 480 / 730 670 / 670 Output: Urine 500 / 2650 450 / 450 Other: Urine Color Light Hali Yellow Bryan Urine Appearance Clear Clear Comment small blood clots on the tubing. Stool Size Moderate Stool Characteristics Soft Brown Laboratory Results WBC 9.29 k/cumm (4.4-10.8) 07/18/19 06:14 RBC 4.19 m/cumm (4.50-6.00) L 07/18/19 06:14 Hgb 11.0 g/dL (13.5-17.5) L 07/18/19 06:14 Hct 35.6 % (40.0-50.0) L 07/18/19 06:14 MCV 85.0 fL (80-95) 07/18/19 06:14 MCH 26.3 pg (27.0-33.0) L 07/18/19 06:14 MCHC 30.9 g/dL (32.0-36.0) L 07/18/19 06:14 RDW 16.5 % (11.8-14.1) H 07/18/19 06:14 Plt Count 309 x1000/uL (130-400) 07/18/19 06:14 MPV 12.4 fL (8.0-11.0) H 07/18/19 06:14 Immature Gran % 0.1 % 07/18/19 06:14 Neutrophils % 81.8 07/18/19 06:14 Lymphocytes % 9.5 07/18/19 06:14 Monocytes % 5.5 07/18/19 06:14 Eosinophils % 2.9 07/18/19 06:14 Basophils % 0.2 07/18/19 06:14 Absolute Neutrophils 7.60 k/cumm (1.2-6.7) H 07/18/19 06:14 Absolute Lymphocytes 0.88 k/cumm (1.2-3.4) L 07/18/19 06:14 Absolute Monocytes 0.51 k/cumm (0.11-0.7) 07/18/19 06:14 Absolute Eosinophils 0.27 k/cumm (0.0-0.7) 07/18/19 06:14 Absolute Basophils 0.02 k/cumm (0.0-0.2) 07/18/19 06:14 D-Dimer 2511 ng/mlFEU (<500) H 07/17/19 06:20 Sodium 136 mmol/L (136-145) 07/18/19 06:14 Potassium 4.1 mmol/L (3.5-5.1) 07/18/19 06:14 Chloride 99 mmol/L (98-107) 07/18/19 06:14 Carbon Dioxide 31.9 mmol/L (21.0-32.0) 07/18/19 06:14 Anion Gap 5.1 mmol/L (3-11) 07/18/19 06:14 BUN 12 mg/dL (7-18) 07/18/19 06:14 Creatinine 0.72 mg/dL (0.70-1.30) 07/18/19 06:14 Estimated GFR/1.73 m2 >= 60.00 (mL/min/1.73m2) 07/18/19 06:14 Glucose 143 mg/dL (74-106) H 07/18/19 06:14 Lactate 0.8 mmol/L (0.6-1.4) 07/17/19 06:20 Calcium 8.7 mg/dL (8.5-10.1) 07/18/19 06:14 Magnesium 1.9 mg/dL (1.8-2.4) 07/18/19 06:14 Ferritin 119 ng/mL (26-388) 07/17/19 06:20 Total Bilirubin 0.6 mg/dL (0.2-1.0) 07/16/19 09:10 AST 14 U/L (15-37) L 07/16/19 09:10 ALT 16 U/L (16-63) 07/16/19 09:10 Alkaline Phosphatase 128 U/L (46-116) H 07/16/19 09:10 Troponin I 0.07 ng/Ml (<0.06) 07/16/19 18:45 C-Reactive Protein 8.48 mg/dL (0.0-0.3) H 07/18/19 06:14 NT-Pro-B Natriuret Pep 1888 pg/mL (<300) H 07/16/19 09:10 Total Protein 7.1 g/dL (6.4-8.2) 07/16/19 09:10 Albumin 2.5 g/dL (3.4-5.0) L 07/16/19 09:10 Triglycerides 60 mg/dL (<150) 07/17/19 06:20 Total Cholesterol 67 mg/dL (<200) 07/17/19 06:20 LDL Cholesterol, Calc 29 mg/dL (<100) 07/17/19 06:20 HDL Cholesterol 26 mg/dL (40-60) L 07/17/19 06:20 Procalcitonin 0.2 ng/mL 07/18/19 06:14 TSH 1.16 uIU/mL (0.36-3.74) 07/16/19 09:10 Free T4 1.44 ng/dL (0.76-1.46) 07/16/19 09:10 Urine Color Yellow (Yellow) 07/16/19 14:20 Urine Clarity Clear (Clear) 07/16/19 14:20 Urine pH 7.0 (5-8) 07/16/19 14:20 Ur Specific [place] 1.020 (1.005-1.025) 07/16/19 14:20 Urine Protein Negative mg/dL (Negative) 07/16/19 14:20 Urine Ketones Negative mg/dL (Negative) 07/16/19 14:20 Urine Blood Negative (Negative) 07/16/19 14:20 Urine Nitrite Negative (Negative) 07/16/19 14:20 Urine Bilirubin Negative (Negative) 07/16/19 14:20 Urine Urobilinogen 0.2 EU/dL (Up TO 0.2) 07/16/19 14:20 Ur Leukocyte Esterase Negative (Negative) 07/16/19 14:20 Urine Glucose Negative mg/dL (Negative) 07/16/19 14:20 Adenovirus DNA Negative (Negative) 07/16/19 16:15 COVID-19 PCR Negative (Negative) 07/16/19 12:00 Nasopharyn COVID-19 PCR Not Applicable 07/16/19 12:00 Human Metapneumovir RNA Negative (Negative) 07/16/19 16:15 Parainfluenza 1 (PCR) Negative (Negative) 07/16/19 16:15 Parainfluenza 2 (PCR) Negative (Negative) 07/16/19 16:15 Parainfluenza 3 (PCR) Negative (Negative) 07/16/19 16:15 Parainfluenza 4 (PCR) Negative (Negative) 07/16/19 16:15 Resp Viral Spec Desc Not Applicable 07/16/19 16:15 Rhinovirus (PCR) Negative (Negative) 07/16/19 16:15 Ref Test Perform Site [facility] lab 07/16/19 12:00
--- NOTE | 2019-07-18 12:16 | CMPROGNOTE_ITS ---
- If Service Date Differs Date of service: 07/18/19 Time of Service: 12:16 Care Management Progress Note S/O: Leoncio remains in acute status he continues to be diuresed. His stokes is being removed today. 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 A: Leoncio is a 74 year old male admitted with CHF P:Leoncio will be discharged when medically ready. He states he understands the current plan of care, he is receiving diuretics r/t CHF. Leoncio remains on oxygen at time he is hopeful when he recovers he will not need it and can return to work. He states he does not need any additional services at this time. CM will continue to assess for discharge needs.
[2019-07-18 12:45] VITALS: BP 113/64; PULSE 95; RESP 18; TEMP 36.5; O2SAT 90
--- NOTE | 2019-07-18 13:10 | DI.RAD_ITS ---
EXAM: XR CHEST 2V PA LATERAL CLINICAL HISTORY: pleural effusion, ongoing hypoxia TECHNIQUE: COMPARISON: CR XR CHEST 2V PA LATERAL from 06/18/[address] CHEST PE CTA from 07/16/2019 FINDINGS: PA and lateral views were obtained and are compared with recent upright AP chest film of July 15. N ote is again made of bilateral predominantly reticular intrapulmonary opacities. There may have been slight interval clearing since the previous examination. Pleural effusion noted on prior CT examina tion of July 15 persists but is probably smaller than on the prior study. IMPRESSION: Question slight interval improvement in bilateral pulmonary opacities since prior study of July 15. Probable interval decrease in size of pleural effusions which were predominantly right-sided on rece nt CT examination.
[2019-07-18] MEDS: cefTRIAXone 2 GM/50 ML BAG IVPB (14:22)
--- NOTE | 2019-07-18 14:57 | PT.INTREAT ---
Date of service: 07/18/19 Time of Service: 14:40 PT Notes Visit Reasons: SUSPECTED COVID 19 WITH HYPOXIA CHF Inpatient Physical Therapy Treatment Note [facility] Date: July 18, 2019 PRECAUTIONS:Fall, Activity within tolerance, Standard SUBJECTIVE: Leoncio notes that he is in hopes to be able to go home tomorrow. He notes that they just removed his stokes catheter this afternoon. They also took him off oxygen. OBJECTIVE: Observation: Telemetry, IV R UE, TEDS bilateral LE PAIN: Declines pain in PM BED MOBILITY/TRANSFERS Rolling L/R: Independent Supine-sit: Independent Sit-supine: Independent Sit-stand: Supervision Stand-sit: Supervision Bed-Chair: Supervision Chair-bed: Supervision GAIT Assistive Device: Single-point cane Weight bearing: Full weightbearing Assist: Contact-guard assist Distance: 150 feet Deviation: Widened base of support, cane to high for patient's height however patient refused altering THEREX: Declined exercises in p.m. session ASSESSMENT: Remains independent with bed mobility transfers. Supervision only for functional transfers around room. Requires single-point cane for ambulation tolerated 150 feet with widened base of support however no loss of balance no complaints of dyspnea or pain PLAN: Continue per plan of care. Discharging once medically cleared via MD order TREATMENT CODE/TIME: 75419w0 15 minutes 14:40
[2019-07-18 15:25] VITALS: BP 120/74; PULSE 95; RESP 18; TEMP 36.6; O2SAT 91
[2019-07-18] MEDS: Enoxaparin 40 MG/0.4 ML SYR SC (15:28)
[2019-07-18] MEDS: AZITHROMYCIN 500 MG in Normal Saline 250 ML 250 MG IVPB (16:09)
[2019-07-18 18:59] VITALS: BP 126/80; PULSE 98; RESP 19; TEMP 37; O2SAT 93
[2019-07-18] MEDS: Atorvastatin 40 MG TAB PO (21:17)
[2019-07-18] MEDS: Insulin Glargine 300 UNITS/3 ML PEN 20 UNITS SC (21:18)
[2019-07-19] VITALS (7 sets, daily range): BP systolic 132–155; BP diastolic 67–87; PULSE 96–106; RESP 16–19; TEMP 36.8–37; O2SAT 86–92
--- NOTE | 2019-07-19 01:02 | NUR.NOTE ---
Nursing Note: Pt been instructed for deep breathing exercise. Maintain on roam air, O2 Sat between 89-91% and no SOB offered until this time. Discussed with RT and insisted to wean O2 due to COPD hx. Continue to monitor.
[2019-07-19 07:05] LABS: Abs Immature Grans 0.02 k/cumm (0.0-0.09); Absolute Basophil Count 0.03 k/cumm (0.0-0.2); Absolute Eosinophil Count 0.39 k/cumm (0.0-0.7); Absolute Lymphocyte Count 1.22 k/cumm (1.2-3.4); Absolute Monocyte Count 0.55 k/cumm (0.11-0.7); Absolute Neutrophil Count 8.22 k/cumm (1.2-6.7); Basophils % 0.3; Eosinophils % 3.7; HCT 34.8 % (40.0-50.0); HGB 10.5 g/dL (13.5-17.5); Immature Grans % 0.2 %; Lymphocytes % 11.7; Mean Corp. HGB Concentration 30.2 g/dL (32.0-36.0); Mean Corpuscular Hemoglobin 25.9 pg (27.0-33.0); Mean Corpuscular Volume 85.9 fL (80-95); Mean Platelet Volume 12.5 fL (8.0-11.0); Monocytes % 5.3; Neutrophils % 78.8; Platelet Count 312 x1000/uL (130-400); RBC 4.05 m/cumm (4.50-6.00); RBC Distribution Width 16.4 % (11.8-14.1); White Blood Cell Count 10.43 k/cumm (4.4-10.8)
[2019-07-19 07:13] LABS: Anion Gap 5.4 mmol/L (3-11); BUN 12 mg/dL (7-18); CO2 29.6 mmol/L (21.0-32.0); CREATININE 0.75 mg/dL (0.70-1.30); Chloride 102 mmol/L (98-107); Glucose 138 mg/dL (74-106); Potassium 4.4 mmol/L (3.5-5.1); Sodium 137 mmol/L (136-145)
[2019-07-19] MEDS: Magnesium Oxide 400 MG TAB 800 MG PO (07:45)
[2019-07-19] MEDS: Lisinopril 20 MG TAB PO (07:45)
[2019-07-19] MEDS: Aspirin E.C. 81 MG TABEC PO (07:45)
[2019-07-19] MEDS: Furosemide 40 MG TAB PO (07:45)
[2019-07-19] MEDS: Insulin Aspart 300 UNITS/3 ML PEN SC ×2 (07:46→12:29)
[2019-07-19] MEDS: Ascorbic Acid 500 MG TAB PO (07:46)
[2019-07-19] MEDS: Potassium Chloride 20 MEQ TABCR 40 MEQ PO (07:46)
[2019-07-19] MEDS: Pantoprazole 40 MG TABCR PO (07:46)
[2019-07-19] MEDS: Budesonide/Formoterol 160/4.5 6 GM 60 PUFF INH IH (07:58)
[2019-07-19] MEDS: Ipratropium/Albuterol 4 GM 120 PUFF INH IH ×2 (07:59→12:25)
--- NOTE | 2019-07-19 08:46 | PT.INDS ---
Date of service: 07/19/19 Time of Service: 08:46 PT Notes Visit Reasons: SUSPECTED COVID 19 WITH HYPOXIA CHF Inpatient Physical Therapy Discharge Summary Dates: 07/19/2019 Dates of Service: 07/18/2019 and 07/19/2019 Referring Doctor: Glendy Su NP PT Orders: PT CONSULT: Precautions: Fall, Standard, Activity as tolerated. Patient Profile/Admitting Diagnosis: Mr Coy is a 74 year old male with PMHx of paroxysmal Atrial fibrillation, intolerant of anticoagulation with eliquis in the past, as well as pericarditis (resolved), IDDM2, hypertension, hyperlipidemia, GERD, who presented to [facility] ED 07/16/19 complaining of shortness of breath. He was first seen at [facility] ED on 06/19/2019 with at the time 1 week of shortness of breath. He tested negative for COVID-19 at that time and was sent home with outpatient follow up, which included an echocardiogram. Previously his EF was 60% - it was 45% on the echo from 07/02/2019, with diastolic dysfunction and moderate pulmonary hypertension. The patient states that he continued to feel short of breath at home, specifically when trying to lay down or move around. He was sleeping in a recliner, not waking up short of breath. He was tested for COVID with negative results and diagnosed with community acquired pneumonia, CHF, and hypoxia. PMHX: Medical History (Updated 07/16/19 @ 16:35 by Angely Hickey MD) Atrial fibrillation (Chronic) Paroxysmal, intolerant of anticoagulation (n/v/hematuria while on eliquis), referred for a Watchman [place] [facility] [place]not yet done) Carcinoma, basal cell, skin Chronic combined systolic (congestive) and diastolic (congestive) heart failure (Acute) EF 45% on echo 07/02/2019 COPD (chronic obstructive pulmonary disease) Deviated nasal septum Diabetes mellitus, type II insulin dependent GERD (gastroesophageal reflux disease) (Chronic) Hyperlipidemia (Acute) Hypertension Osteoarthritis of knee (Inactive 04/09/14) Osteoarthritis of right knee Pericarditis (Acute) Pulmonary hypertension (Acute) Tobacco use disorder Surgical History Colonoscopy - MAC (10/29/16) Social History/Home Situation: Leoncio lives in [place] with his SO she has three daughters. He states he is independent with ADL's and transportation. He utilizes a SPC as needed. He states he does not have oxygen at home and has a history of afib that he reports comes and goes. Current Functional Limitations: Diminished activity tolerance Equipment Owned/DME: Cane Subjective: Patient looks forward to going home today. He continues to report considerable shortness of breath with mobility ADL performance without oxygen and understands why he is going home with oxygen supplementation. He declines any attempts at readjusting single-point cane height stating that this has been the height that he is used to. Objective: General Observation: Bilateral TEDS, telemetry, IV right UE Mental Status: Alert and oriented x3 Pain: Reported significant pain at 6/10 on right knee after ambulation activity. Nurse Cecille updated. ROM: Right Upper Extremity: Demonstrates within functional limits active right upper extremity range of motion Left Upper Extremity: Demonstrates within functional limits active left upper extremity range of motion Right Lower Extremity: Hip flexion 110 degrees, knee flexion 110 degrees, extension lacking 5 degrees of terminal, ankle dorsiflexion limited to 5 degrees, plantarflexion within functional limits Left Lower Extremity: Hip flexion 110 degrees, knee flexion 110 degrees, lacking 10 degrees of terminal extension, ankle dorsiflexion limited to 5 degrees, plantarflexion within functional limits Strength: Right Upper Extremity: Shoulder flexion 4-/5, shoulder abduction 4/5, bicep 4/5, tricep 4-/5, feather cutting machine feeder within normal limits Left Upper Extremity: Shoulder flexion 4/5, shoulder abduction 4/5, bicep 4/5, tricep 4-/5, feather cutting machine feeder within normal limits Right Lower Extremity: Hip flexion 4/5, knee extension 4+/5, knee flexion 4/5, plantarflexion/dorsiflexion 4+/5 Left Lower Extremity: Hip flexion 4/5, knee extension 5/5, knee flexion 4+/5, plantar flexion dorsiflexion 4/5 Sensation: Intact to light touch. Bed Mobility/Transfers: Sit?stand: Independent using single-point cane Stand?sit: Independent using single-point cane Bed?chair: Independent using single-point cane Chair?bed: Independent using single-point cane Gait: Patient tolerated level surface ambulation of 100 feet x 2 using single-point cane with full weightbearing requiring only supervision assist of PT with a desaturation to 75% on room air walking from his room to the therapy gym but was able to re-saturated back to 91% on 1 L of oxygen via NC after 1 to 2 minutes with instructions on pursed lip breathing. Patient desaturated to 85% to 86% on 1 L while negotiating up and down six 4 inch steps and four 6 inch steps while holding onto bilateral rails requiring standby assist. Patient was able to re-saturated back to 91% on 1 L after walking back from therapy gym into the room. Oxygen supplementation was removed after patient demonstrated 93% on room air prior to conclusion of PT session today. Balance: Static Sitting: Normal Dynamic Sitting: Normal Static Standing: Good Dynamic Standing: Fair Assessment: Patient is a 74 year old male referred to physical therapy services with the diagnosis of hypoxia, congestive heart failure and community-acquired pneumonia. Patient presents with clinical signs and symptoms consistent with diagnosis.Patient demonstrates functional mobility decline, need for assistive device for all mobility ADL performance, diminished dynamic standing balance and generalized muscle weakness which increased risk for falls. Patient demonstrated significant functional gains with resolution of medical symptoms. He however will require use of oxygen supplementation for all mobility ADL performance. Patient continues to present with clinical signs and symptoms consistent with current/admitting diagnoses that have resulted to mobility limitations, gait instability, generalized weakness, and impairment of motor control as demonstrated by the following impairment level findings: 1. Decreased strength to B shoulder and B LE major muscle groups 2. Impaired standing balance 3. Impaired activity tolerance 4. Limitation of joint range of motion right knee and left ankle Impairments are continuing to to the following functional limitations: 1. Increased dependence with transfers 2. Inability to safely ambulate without assistive device and physical assistance 3. Increase completion time for mobility ADL performance 4. Increased fall risk 5. Inability to negotiate steps alone safely Goals: Goals X1 week 1. Supine-Sit independent MET 2. Sit-Supine independent MET 3. Sit-Stand independent MET 4. Stand-Sit independent MET 5. Bed-Chair independent MET 6. Chair-Bed independent MET 7. Gait independent with use of single-point cane 300 feet or greater without complaints of dyspnea or pain NOT MET 8. Stairs able to ascend and descend 6 steps with bilateral railings, supervision NOT MET 9. Independent with home exercise program NOT MET 10. Demonstrate good dynamic standing balance NOT MET DISCHARGE RECOMMENDATIONS: Patient will highly benefit from the use of oxygen supplementation in order to safely perform all mobility and mobility related ADLs at discharge destination. Patient will benefit from home health PT services in order to progress mobility level using single-point cane, assess home safety, identify additional equipment needs, and establish a functional maintenance program that will increase ability of patient to remain at home. TREATMENT CODE/TIME: [id number] x 39 minutes beginning at 8:46 AM. Thank you very much for this referral. Maryann Austin PT, DPT, CLT [facility] at [place], [place]
--- NOTE | 2019-07-19 12:08 | DSE_ITS ---
Date of service: 07/19/19 Time of Service: 12:12 DS: Diagnosis Discharge Diagnosis (1) Acute on chronic combined systolic and diastolic CHF (congestive heart failure): Status: Acute (2) CAP (community acquired pneumonia): Status: Acute (3) Afib: Status: Chronic (4) Pulmonary hypertension: Status: Acute (5) GERD (gastroesophageal reflux disease): Status: Chronic Discharge Plan Disposition Patient Disposition: HOME Condition: Improving Discharge Details Chief Complaint: SOB Reason For Visit: SUSPECTED COVID 19 WITH HYPOXIA CHF Admit Date/Time: 07/16/19 13:54 Admit Provider: Angely Hickey Attending Provider: Angely Hickey Primary Care Provider: Maye Brady ED Provider: Cony Olivarez [facility] Hospital Course: Mr Coy is a 74 year old male with PMHx of paroxysmal Atrial fibrillation, intolerant of anticoagulation with eliquis in the past, as well as pericarditis (resolved), IDDM2, hypertension, hyperlipidemia, GERD, who presented to [facility] ED today complaining of shortness of breath. He was first seen at [facility] ED on 06/19/2019 with at the time 1 week of shortness of breath. He tested negative for COVID-19 at that time and was sent home with outpatient follow up, which included an echocardiogram. Previously his EF was 60% - it was 45% on the echo from 07/02/2019, with diastolic dysfunction and moderate pulmonary hypertension. The patient states that he continued to feel short of breath at home, specifically when trying to lay down or move around. He was sleeping in a recliner, not waking up short of breath. He denies having fevers, chills, or a cough. Last night his shortness of breath was so bad, however, he decided to come in. His legs had been edematous for several weeks. He attributes that to his intake of sodium in his gatorade zero, as well as potato chips and [place] fries. He denies having dizziness, chest pain, palpitations, nausea, abdominal pain, diarrhea/constipation, or urinary difficulty. In the ED, his workup revealed bilateral ground glass opacities on CT in addition to bilateral pleural effusions/CHF. He desaturated to the 70's when he first arrived on room air, with O2 sats improving to the 90's on 2L of O2. He is feeling a lot better now after 1 dose of lasix. His additional workup does reveal an elevated procalcitonin and CRP. He as admitted to medical surgical unit. Covid testing was negative. placed on aggressive diuresis with marked improvement, and was treated with ceftriaxone and azithromycin. he was afebrile and hemodynamically stable. we were unable to wean oxygen fully, a walk test was completed and he will qualify for 1 liter at rest and 3 liters with ambulation. his cough has improved and he states his breathing is at baseline. he is stable and wanting discharge to home at this time. he was transitioned to oral lasix and will continue at 40 mg BID, potassium daily with lab work TuesdayJuly 22 to evaluate kidney functions and electrolytes. he will also complete 5 more days of antibiotics. case and discharge plan discussed with dr Hickey who is in agreement. greater than 35 minutes spent on discharge. Home Meds and New Rx's Prescriptions: New potassium chloride [Klor-Con M20] 20 mEq Tablet,Er Particles/Crystals 40 meq PO DAILY Qty: 30 RF: 0 azithromycin 250 mg tablet 250 mg PO DAILY 5 Days Qty: 5 RF: 0 cefpodoxime 200 mg tablet 200 mg PO BID Qty: 10 RF: 0 Continued metformin 500 MG tablet 1,000 mg PO BID RF: 0 aspirin [Aspir-81] 81 MG tablet,delayed release (DR/EC) 81 mg PO DAILY RF: 0 atorvastatin 40 mg tablet 40 mg PO QHS RF: 0 pantoprazole 40 mg tablet,delayed release (DR/EC) 40 mg PO BID RF: 0 lisinopril 20 mg tablet 20 mg PO DAILY RF: 0 Lantus U-100 Insulin 100 unit/mL solution 20 unit SC QHS RF: 0 albuterol sulfate [ProAir HFA] 200 PUFF HFA aerosol inhaler 2 puff Inhalation Q6H PRN PRNRF: 0 Advair HFA 115-21 mcg/actuation Hfa Aerosol Inhaler 1 puff INHALATION BID RF: 0 ascorbic acid (vitamin C) [Vitamin C] 500 mg Tablet 500 mg PO BID RF: 0 ferrous sulfate [iron] 325 mg (65 mg iron) Tablet 325 mg PO BID RF: 0 Changed furosemide 20 mg tablet 40 mg PO BID Qty: 0 RF: 0 Discharge Instructions Instructions: Heart Failure (DC), COPD (Chronic Obstructive Pulmonary Disease) (DC) Additional Instructions: continue antibiotics as directed to complete the full course wear oxygen as directed, 1 liter at rest at all times, 3 liters for ambulation or activity weight yourself daily, record and bring record to primary care appointment. notify provider if gain greater than 5 pounds. Stand Alone Forms: Nursing Discharge Form Referrals: Maye Brady [Primary Care Provider] - 07/25/19 10:30 am Activity:: Activity as Tolerated Equipment/Supplies:: 1 liter at rest, 3 liters with activity Diet:: As Tolerated Discharge Orders Discharge Orders: Discharge Order (Routine); Ordered 07/19/19 Ordered By: Glendy Su Other Ambulatory Orders: Basic Metabolic Panel (Routine) Timeframe: 20190723 Location: None Selected Ordered By: Glendy Su Complete Blood Count w/Diff (Routine) Timeframe: 20190723 Location: None Selected Ordered By: Glendy Su DS: Summary Status at Discharge Functional status at discharge: independent ambulation Overall status at discharge: patient is progressing back to baseline Mental Status: mental status grossly normal Speech and Movement: speech and movement normal Mood: congruent mood Affect: normal affect Exam Const General: cooperative, healthy appearing (slightly older than stated age), comfortable and no acute distress Nutritional Appearance: average body habitus Orientation: alert, awake and oriented x3 HENMT Head: normal to inspection, normocephalic and atraumatic Face and sinus: normal facial exam Mouth: oral mucosae normal (moist with no exudates) Resp Effort & Inspection: normal respiratory effort and able to speak in complete sentences Auscultation: rales bilaterally (left greater than right) at the base Cardio Rate: regular rate Rhythm: regular rhythm GI Inspection: normal to inspection Palpation: soft Auscultation: normal bowel sounds General: other (stokes draining ) Skin General skin exam: no rashes or lesions noted Neuro General: patient alert, patient awake and patient oriented x3 Cranial Nerves: CN's II-XI intact bilaterally Cognition: normal cognition Speech: speech normal Extrem General: no pedal edema Psych Appearance: grossly normal Mental Status: mental status grossly normal Speech and Movement: speech and movement normal Mood: congruent mood Affect: normal affect Attitude: cooperative Thought Process: normal DS: Data Vitals/I&O Vitals and I&O: Vital Signs Temperature 36.8 C 07/19/19 03:15 Temperature Source Tympanic 05/14/20 03:15 Pulse 96 H 07/19/19 03:15 Pulse Rhythm Regular 07/19/19 07:53 Pulse 114 H 07/16/19 13:40 Respiratory Rate 19 07/19/19 03:15 Respiratory Effort 07/19/19 07:53 Respiratory Depth Normal 07/19/19 07:53 Respiratory Pattern Normal 07/19/19 07:53 Blood Pressure 155/87 H 07/19/19 03:15 Blood Pressure Mean 100 07/16/19 13:31 Blood Pressure Position Sitting 07/16/19 08:57 Pulse Oximetry 91 L 07/19/19 09:39 Oxygen Delivery Method Nasal Cannula 07/19/19 09:39 Oxygen Flow Rate 1 07/19/19 09:39 Pain Level 8 07/18/19 17:44 Comment 07/19/19 00:58 Intake & Output 07/18/19 07/19/19 07/19/19 23:59 11:59 23:59 Intake Total 1100 / 1770 500 / 500 Output Total 1550 / 2000 1050 / 1050 Balance -450 / -230 -550 / -550 Intake: IV 500 / 500 Oral 600 / 1270 500 / 500 Output: Urine 1550 / 2000 1050 / 1050 Other: Urine Color Pale Yellow Urine Appearance Clear Clear Urine Odor Normal None Stool Size Moderate Stool Characteristics Soft Formed Brown Voiding Methods Urinal Urinal Data Completed and Pending Labs on day of discharge: Labs from last 24 hours 07/19/19 07/19/19 06:10 06:10 WBC 10.43 RBC 4.05 L Hgb 10.5 L Hct 34.8 L MCV 85.9 MCH 25.9 L MCHC 30.2 L RDW 16.4 H Plt Count 312 MPV 12.5 H Immature Gran % 0.2 Neutrophils % 78.8 Lymphocytes % 11.7 Monocytes % 5.3 Eosinophils % 3.7 Basophils % 0.3 Absolute Neutrophils 8.22 H Absolute Lymphocytes 1.22 Absolute Monocytes 0.55 Absolute Eosinophils 0.39 Absolute Basophils 0.03 Sodium 137 Potassium 4.4 Chloride 102 Carbon Dioxide 29.6 Anion Gap 5.4 BUN 12 Creatinine 0.75 Estimated GFR/1.73 m2 >= 60.00 Glucose 138 H Calcium 9.0 Magnesium 2.0 Preliminary micro results at discharge 07/17/19 14:25 Sputum Culture - Preliminary Sputum Normal Evelyn 07/16/19 16:30 Blood Culture - Preliminary Blood NO GROWTH 48 HOURS 07/16/19 16:05 Blood Culture - Preliminary Blood NO GROWTH 48 HOURS [facility] Medical History (Updated 07/19/19 @ 00:01 by GINA SMYTH) Atrial fibrillation (Chronic) Paroxysmal, intolerant of anticoagulation (n/v/hematuria while on eliquis), referred for a Watchman procedure at [facility] (not yet done) Carcinoma, basal cell, skin Chronic combined systolic (congestive) and diastolic (congestive) heart failure (Acute) EF 45% on echo 07/02/2019 COPD (chronic obstructive pulmonary disease) Deviated nasal septum Diabetes mellitus, type II insulin dependent GERD (gastroesophageal reflux disease) (Chronic) Hyperlipidemia (Acute) Hypertension Osteoarthritis of knee (Inactive 04/09/14) Osteoarthritis of right knee Pericarditis (Acute) Pulmonary hypertension (Acute) Tobacco use disorder Surgical History Colonoscopy - MAC (10/29/16) Family History (Updated 07/16/19 @ 15:52 by Angely Hickey MD) Father Diabetes Hypertension Heart disease Self No problems noted. Brother Stroke had an aneurysm Sister Breast cancer Diabetes Brother Lung cancer smoker Social History (Updated 07/16/19 @ 15:53 by Angely Hickey MD) Smoking/Tobacco Use Status: Former Tobacco Use Tobacco: How many years used: 56 Counseling given: provider counseling Alcohol Intake: former Year quit: 1970 Drug use: Never Current gender identity: male Do you feel safe in your relationship?: Yes
[2019-07-19] MEDS: Acetaminophen 325 MG TAB PO (13:04)
--- NOTE | 2019-07-19 14:25 | PDOC.HHF2F_ITS ---
Home Health Certification Home Health Certification: 1. Encounter Date and Reason I certify that HAZEL CARTER was seen by Glendy Su on 07/19/19 and that I had a [id number] encounter with this patient that meets the physician face to face encounter requirements. 2. Clinical Findings Supporting Skilled Need and Homebound Status I certify that home health services are medically necessary, include either intermittent care home and/or physical/speech therapy, and that this patient is homebound in that absences from the home require considerable and taxing effort and are infrequent or of short duration, or are attributable to the need to receive medical care. [X] (a) Attached documentation from encounter provides clinical findings supporting skilled need and homebound status (including what assistance patient requires to leave the home). The encounter with the patient was in whole, or in part, for the following medical condition, which is the primary reason for home health care: SUSPECTED COVID 19 WITH HYPOXIA CHF Retirement: for new oxygen, routine evaluation and treat Homebound: unable to leave home unassisted d/t severe hypoxia, shortness of breath and decreased strength and endurance. 3. Certification and Authentication I certify that I composed the above information based on my clinical judgement relating to this patient's medical condition and, if applicable, clinical findings communicated to me by the NPP or inpatient physician who performed the Home Health Referral. All further orders will be obtained through (Community Based Physician - PCP)
--- NOTE | 2019-07-19 16:33 | CMDISCH_ITS ---
- If Service Date Differs Date of service: 07/19/19 Time of Service: 16:33 LACE Index Scoring Tool - Questions: Length of Stay (in days): 4 - 6 Acuity (Admit via E.D.?): Yes Comorbidities: Congestive Heart Failure E.D. Visits: 2 - Answers: Total Score: 11 Risk of Readmission: High Risk Care Management Discharge Reason for Hospitalization: Covid rule out, hypoxia and CHF Discharge Plan: Leoncio will return home with new orders of HH RN. He will also be going home with new home oxygen, coordinated by RT. He will be driven home via private vehicle by family. He will follow up with his PCP and discharge plan of care. He is happy to be returning home. Patient/Family Education Needs: Review discharge instructions regarding activity levels, medications, and new home oxygen. Discussion of self care needs and goals of care. Services Needed at Discharge: Home Health Care Services (HH RN), Oxygen Therapy ([place] [facility])
== END 2019-07-19 15:25 | disposition home health service (06) | DRG 291 ==
LOC: ER 12:44 → MS 14:04
PROVIDERS: Nurse Practitioner Acute Care; Admitting Provider Internal Medicine; Emergency Provider Student in an Organized Health Care Education/Training Program; PCP Nurse Practitioner; Visit Provider Internal Medicine
DX: I50.43 Acute on chronic combined systolic (congestive) and diastolic (congestive) heart failure (principal); J18.9 Pneumonia, unspecified organism; J44.0 Chronic obstructive pulmonary disease with (acute) lower respiratory infection; I48.0 Paroxysmal atrial fibrillation; Z03.818 Encounter for observation for suspected exposure to other biological agents ruled out; R91.8 Other nonspecific abnormal finding of lung field; I11.0 Hypertensive heart disease with heart failure; I27.20 Pulmonary hypertension, unspecified; K21.9 Gastro-esophageal reflux disease without esophagitis; E11.9 Type 2 diabetes mellitus without complications; Z79.4 Long term (current) use of insulin; E78.5 Hyperlipidemia, unspecified; Z87.891 Personal history of nicotine dependence; Z71.3 Dietary counseling and surveillance
CPT/HCPCS: 36410; 36415; 36416; 71275; 80048; 80053; 80061; 82962; 84145; 87040; 87449; 87632; 93005; 94618; 94640; 96374; 97162; 97530; 99223; 99232; 99233; 99239; 99285; J1650; U0003; 71045; 71046; 81003; 82728; 83605; 83735; 83880; 84439; 84443; 84484; 85025; 85379; 86140; 87070; 87086; 87205; 93010; 93970; J0456; J1940; J3475; J3490

== ENCOUNTER 2019-07-23 11:23 | Outpatient (REF) | payer OTHER, SELFPAY ==
[2019-07-23 12:04] LABS: HCT 39.4 % (40.0-50.0); HGB 11.8 g/dL (13.5-17.5); Mean Corp. HGB Concentration 29.9 g/dL (32.0-36.0); Mean Corpuscular Hemoglobin 25.4 pg (27.0-33.0); Mean Corpuscular Volume 84.7 fL (80-95); Mean Platelet Volume 12.6 fL (8.0-11.0); RBC 4.65 m/cumm (4.50-6.00); RBC Distribution Width 16.3 % (11.8-14.1)
[2019-07-23 12:13] LABS: Anion Gap 10.1 mmol/L (3-11); BUN 21 mg/dL (7-18); CO2 26.9 mmol/L (21.0-32.0); CREATININE 0.81 mg/dL (0.70-1.30); Calcium 9.9 mg/dL (8.5-10.1); Chloride 100 mmol/L (98-107); Glucose 157 mg/dL (74-106); Potassium 5.1 mmol/L (3.5-5.1); Sodium 137 mmol/L (136-145)
[2019-07-23 13:18] LABS: Absolute Basophil Count 0.13 k/cumm (0.0-0.2); Absolute Eosinophil Count 0.54 k/cumm (0.0-0.7); Absolute Lymphocyte Count 2.01 k/cumm (1.2-3.4); Absolute Neutrophil Count 9.92 k/cumm (1.2-6.7); Anisocytosis 2+; Diff Comment Manual Differential; Platelet Count 410 x1000/uL (130-400)
[2019-07-23 13:19] LABS: Hypochromasia 1+; Polychromasia Present
== END 2019-07-23 11:43 ==
LOC: LBN 11:23
PROVIDERS: PCP Nurse Practitioner; Visit Provider Nurse Practitioner
DX: I50.43 Acute on chronic combined systolic (congestive) and diastolic (congestive) heart failure (principal); J44.9 Chronic obstructive pulmonary disease, unspecified; J18.9 Pneumonia, unspecified organism
CPT/HCPCS: 80048; 85025

== ENCOUNTER 2019-08-20 08:39 | Outpatient (CLI) | payer OTHER, SELFPAY ==
--- NOTE | 2019-08-20 08:15 | DI.RAD_ITS ---
EXAM: XR KNEE RT 3V AP,LAT,JACOB CLINICAL HISTORY: OSTEOARTHRITIS. TECHNIQUE: 2D digital imaging was performed. COMPARISON: CR RIGHT KNEE 3 VIEWS from 09/17/2013 FINDINGS: BONES: No acute fracture is present. No bony destructive lesion is seen. JOINTS: There is severe narrowing of the medial femoral tibial joint space, worsening when compared w ith the previous exam. There is mild periarticular spurring and sclerosis. Spurring is also noted a t the articular aspect of the patella. There densities seen at the posterior joint which could repre sent loose bodies.. SOFT TISSUE: Air and fluid is noted within the suprapatellar space related to recent injection. IMPRESSION: Severe degenerative changes of the medial femoral tibial joint. DATA REPOSITORY: RADIATION DOSE DELIVERED:
[2019-08-20 11:14] LABS: Clarity Cloudy; Mononuclear Cells 6 % (0-0); Nucleated Cells 30245 /MM3 (0-0); Polynuclear Cells 94 % (0-0); Source R KNEE
[2019-08-20 11:16] LABS: Crystals (BF) No Crystals seen
== END 2019-08-20 08:59 ==
PROVIDERS: PCP Nurse Practitioner; Referring Provider Nurse Practitioner; Visit Provider Student in an Organized Health Care Education/Training Program
DX: M25.561 Pain in right knee (principal); M17.11 Unilateral primary osteoarthritis, right knee; M25.461 Effusion, right knee; M17.12 Unilateral primary osteoarthritis, left knee; J44.9 Chronic obstructive pulmonary disease, unspecified; E11.9 Type 2 diabetes mellitus without complications
CPT/HCPCS: 20610; 73562; 99213; 87070; 87205; 89051; 89060; J7325

== ENCOUNTER 2019-08-21 10:55 | Outpatient (REF) | payer OTHER, SELFPAY ==
[2019-08-21 14:44] LABS: Anion Gap 8.5 mmol/L (3-11); BUN 19 mg/dL (7-18); CO2 26.5 mmol/L (21.0-32.0); CREATININE 0.58 mg/dL (0.70-1.30); Calcium 8.8 mg/dL (8.5-10.1); Chloride 106 mmol/L (98-107); Glucose 148 mg/dL (74-106); Potassium 4.8 mmol/L (3.5-5.1); Sodium 141 mmol/L (136-145)
[2019-08-21 14:57] LABS: HCT 34.7 % (40.0-50.0); HGB 10.6 g/dL (13.5-17.5); Mean Corp. HGB Concentration 30.5 g/dL (32.0-36.0); Mean Corpuscular Hemoglobin 26.1 pg (27.0-33.0); Mean Corpuscular Volume 85.5 fL (80-95); Mean Platelet Volume 13.3 fL (8.0-11.0); Platelet Count 209 x1000/uL (130-400); RBC 4.06 m/cumm (4.50-6.00); RBC Distribution Width 18.2 % (11.8-14.1); White Blood Cell Count 9.25 k/cumm (4.4-10.8)
== END 2019-08-21 11:15 ==
LOC: NCHCN 10:55
PROVIDERS: PCP Nurse Practitioner; Visit Provider Nurse Practitioner
DX: R06.02 Shortness of breath (principal); R60.0 Localized edema
CPT/HCPCS: 80048; 85027

== ENCOUNTER → 2019-09-14 09:53 | Outpatient (BNVA) | payer OTHER, SELFPAY | PROVIDERS: PCP Nurse Practitioner; Referring Provider Nurse Practitioner; Visit Provider Surgery | DX: Z12.11 Encounter for screening for malignant neoplasm of colon (principal); Z86.010 Personal history of colon polyps; J44.9 Chronic obstructive pulmonary disease, unspecified; E11.9 Type 2 diabetes mellitus without complications; I10 Essential (primary) hypertension | CPT/HCPCS: 99203 ==

== ENCOUNTER 2019-11-08 01:21 | Outpatient (CLI) | payer OTHER, SELFPAY ==
--- NOTE | 2019-11-08 | DI.CT_ITS ---
EXAM: CT CHEST WO CLINICAL HISTORY: CHRONIC OBSTRUCTIVE LUNG DISEASE, J44.9. TECHNIQUE: Imaging protocol: Axial computed tomography images were obtained and coronal and sagittal reformatted images were created and reviewed. COMPARISON: CT CT CHEST PE CTA from 07/16/2019 FINDINGS: Tracheobronchial tree: Patent where visualized. Mediastinum and Jenny: No dominant adenopathy or fluid collection. Pulmonary parenchyma: Scattered ground-glass opacities are again seen. There are linear opacities see n in the lungs predominantly in a subpleural location. Hyperlucent areas are seen in the lungs partic ularly in the apices. No focal consolidating infiltrates are seen. No pulmonary nodules are identifie d. Ground-glass opacity shows some improvement compared to the prior examination. There has been reso lution of the pleural effusions. No pneumothorax is identified. Pleura: No effusion or pneumothorax. Heart: The heart is not dilated. Moderate coronary artery calcification. No pericardial effusion. Aorta: Thoracic aorta non-dilated. Atherosclerosis. Upper abdomen: Unremarkable. Lymph nodes: Unchanged mildly enlarged mediastinal and axillary lymph nodes. Bones:Degenerative changes. Soft tissues: Unremarkable. IMPRESSION: 1. Findings of pulmonary fibrosis. 2. Improved ground-glass opacities since 07/16/2019. Resolution of the pleural effusions. 3. COPD. RADIATION DOSE DELIVERED: Total DLP Total DLP DATA REPOSITORY: All CT scans at this facility are submitted to the National Radiology Data Registry (NRDR) Dose Index Registry (DIR) with the [employer] (ACR). RADIATION OPTIMIZATION: All CT scans at this facility use at least one of these dose optimization te chniques: automated exposure control; mA and/or kV adjustment per patient size (includes targeted exa ms where dose is matched to clinical indication); or iterative reconstruction.
== END 2019-11-08 01:41 ==
PROVIDERS: PCP Nurse Practitioner; Visit Provider Internal Medicine
DX: J84.10 Pulmonary fibrosis, unspecified (principal); J44.9 Chronic obstructive pulmonary disease, unspecified
CPT/HCPCS: 71250

== ENCOUNTER 2019-11-09 02:24 | Outpatient (CLI) | payer OTHER, SELFPAY ==
[2019-11-11 17:53] LABS: COVID-19 RT-PCR Result NEGATIVE (Negative)
== END 2019-11-09 02:44 ==
PROVIDERS: PCP Nurse Practitioner; Visit Provider Family Medicine
DX: J44.9 Chronic obstructive pulmonary disease, unspecified (principal)
CPT/HCPCS: U0003

== ENCOUNTER 2019-11-12 00:29 | Outpatient (CLI) | payer OTHER, SELFPAY ==
[2019-11-12] MEDS: Albuterol HFA 18 GM 200 PUFF INH IH (10:51)
[2019-11-12] MEDS: Inhaler, Assist Device 1 EACH MC (10:51)
--- NOTE | 2019-11-14 07:46 | W.PFT ---
Date of service: 11/12/19 Time of Service: 09:58 Pulmonary Function Test Result Interpretation Spirometry: Shows mild obstructive airways disease with no significant bronchodilator response Lung Volumes: Shows no evidence of restriction Diffusion Capacity: Severely reduced which is moderately reduced when corrected to alveolar volume Airway Pressure: Airways resistance is Normal Impression Mild obstructive airways disease with no significant bronchodilator response, this is associated with severe diffusion defect. When the study was compared to previous one from 03/31/2012, the patient FVC has declined by 410 cc, FEV1 has declined by 310 cc, diffusion capacity substantially declined, total lung capacity has declined by 520 cc while measures of air trapping such as residual volume remained stable Clinical Correlation therefore is recommended.
== END 2019-11-12 00:49 ==
PROVIDERS: PCP Nurse Practitioner; Visit Provider Internal Medicine
DX: J44.9 Chronic obstructive pulmonary disease, unspecified (principal)
CPT/HCPCS: 94060; 94726; 94729

== ENCOUNTER 2019-11-19 12:29 | Outpatient (REF) | payer OTHER, SELFPAY ==
[2019-11-19 18:53] LABS: HCT 34.6 % (40.0-50.0); HGB 10.1 g/dL (13.5-17.5); MCH 27.4 pg (27.0-33.0); MCHC 29.2 % (32.0-36.0); MPV 12.7 fL (8.0-11.0); Platelet Count 268 10^3/uL (130-400); RBC 3.68 10^6/uL (4.36-5.78); RDW 15.6 % (11.8-14.1); RDW-SD 54.1 fL; WBC 9.52 10^3/uL (4.4-10.8)
[2019-11-19 19:59] LABS: Anion Gap 10.6 mmol/L (3-11); BUN 19 mg/dL (7-18); CO2 25.4 mmol/L (21.0-32.0); Calcium 9.1 mg/dL (8.5-10.1); Chloride 106 mmol/L (98-107); Glucose 144 mg/dL (74-106); Potassium 4.5 mmol/L (3.5-5.1); Sodium 142 mmol/L (136-145)
== END 2019-11-19 12:49 ==
LOC: NCHCN 12:29
PROVIDERS: PCP Nurse Practitioner; Visit Provider Nurse Practitioner
DX: D64.9 Anemia, unspecified (principal); I27.20 Pulmonary hypertension, unspecified; R60.0 Localized edema
CPT/HCPCS: 80048; 85027

== ENCOUNTER → 2019-12-12 13:42 | Outpatient (BNVA) | payer OTHER, SELFPAY | PROVIDERS: PCP Nurse Practitioner; Referring Provider Nurse Practitioner; Visit Provider Surgery | DX: D64.9 Anemia, unspecified (principal); K21.9 Gastro-esophageal reflux disease without esophagitis; I50.43 Acute on chronic combined systolic (congestive) and diastolic (congestive) heart failure; I11.0 Hypertensive heart disease with heart failure; E11.9 Type 2 diabetes mellitus without complications; J44.9 Chronic obstructive pulmonary disease, unspecified | CPT/HCPCS: 99212; 99213 ==

== ENCOUNTER 2020-01-03 07:52 | Outpatient (CLI) | payer OTHER, SELFPAY ==
[2020-01-04 16:58] LABS: SARS-CoV-2 RNA Not Detected (NotDetected); SARS-CoV-2 RNA Source Nasal/Nares
== END 2020-01-03 08:12 ==
PROVIDERS: PCP Nurse Practitioner; Visit Provider Surgery
DX: Z11.59 Encounter for screening for other viral diseases (principal); Z01.818 Encounter for other preprocedural examination
CPT/HCPCS: U0003

== ENCOUNTER 2020-01-07 07:03 | Day surgery (SDC) | payer OTHER, SELFPAY ==
[2020-01-07 07:24] VITALS: BP 117/72; PULSE 112; RESP 18; TEMP 36.2; O2SAT 93
[2020-01-07 07:46] LABS: Abs Immature Grans 0.03 10^3/uL (0.0-0.06); Absolute Basophil Count 0.07 10^3/uL (0.0-0.2); Absolute Eosinophil Count 0.18 10^3/uL (0.0-0.7); Absolute Lymphocyte Count 1.23 10^3/uL (1.2-3.4); Absolute Monocyte Count 0.53 10^3/uL (0.1-0.8); Absolute Neutrophil Count 7.96 10^3/uL (1.2-6.7); Basophils % 0.7; Eosinophils % 1.8; HCT 36.6 % (40.0-50.0); HGB 11.5 g/dL (13.5-17.5); Immature Grans % 0.3; Lymphocytes % 12.3; MCH 28.9 pg (27.0-33.0); MCHC 31.4 % (32.0-36.0); MPV 12.3 fL (8.0-11.0); Monocytes % 5.3; Neutrophils % 79.6; Nucleated RBC 0 %; Platelet Count 253 10^3/uL (130-400); RBC 3.98 10^6/uL (4.36-5.78); RDW 15.3 % (11.8-14.1); RDW-SD 51.7 fL
[2020-01-07] MEDS: Lactated Ringers 1,000 ML 80 ML IV (08:00)
--- NOTE | 2020-01-07 09:15 | ESO_PTH ---
PATIENT: Leoncio Coy LOC: [facility] U#:[id number] AGE/SX: 74/M ROOM: RE01/07/[address]: Monique Beth : 1945 BED: DIS: 01/07/2020 SPEC #: [id number] RECD: 01/07/20 11:20 STATUS: KOBE REQ #: [id number] TOÑITO: 01/07/20 09:[address]: Monique Beth DEPT: Surgical Specimen RECD BY: Hallie Almodovar ENTERED: 01/07/20 11:25 SP TYPE: M[place]yao SAMM DR: Maye Brady Tissues: 1 - BIOPSY BOWEL 2 - STOMACH BIOPSY 3 - STOMACH BIOPSY 4 - ESOPHAGUS BIOPSY 5 - ESOPHAGUS BIOPSY 6 - ESOPHAGUS BIOPSY 7 - ESOPHAGUS BIOPSY 8 - STOMACH BIOPSY Procedures: GROSS AND MICRO LEVEL 4 Comments: [id number] ([id number] [facility]#)
--- NOTE | 2020-01-07 09:55 | W.PM.ENDDOP ---
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 Monitors were applied and a time out was done. The patients name, date of , procedure type, allergies to medications and metal in their body was reviewed. A bite block was placed and the patient was sedated. Once sedated and comfortable the gastroscope was advanced through the oropharynx which was grossly normal into the esophagus. The proximal and mid-esophagus were nl. No esophageal erosions varices diverticula or strictures apparent. He has a very minute hiatal hernia. There is maybe some mild esophagitis at the GE junction. Biopsies are taken of this region. The scope was advanced into the stomach and through the pylorus into the 3rd portion of the duodenum. The duodenum: . There is a mass around the area of the ampula. And a second lesion on the opposite posterior wall (kissing lesions). The mass is friable and bleeds redily. There is no necrosis. Biopsies are taken of this secondary mass and the mass at the ampulla. The does note I did not appreciate any bile coming through the ampulla. Multiple passes were taken. All specimen is retrieved. there is some bleeding but does not appear to be excessive. The duodenal bulb appears grossly normal. There is mild irritation in the antrum along the greater curve. He has multiple polyps coating the entire stomach. Most likely these are from chronic long-term PPI use. A community relations representative biopsy was taken. Otherwise there is no masses or ulcers of the stomach noted. The scope was retracted back into the stomach and biopsies were done to rule out H. pylori. The scope was retroflexed. The cardia and fundus were noted to be normal.
--- NOTE | 2020-01-07 09:59 | W.COLOREPORT ---
Date of service: 01/07/20 Time of Service: 09:59 Colonoscopy Report Date of procedure: 01/07/20 Pre-op diagnosis general: hx of polyps Post-op diagnosis procedure note: same Surgeon: Monique Beth Anesthesia proc note operative: GETA Disposition: PACU Prep: Miralax/Dulcolax Retraction Time: 10 mins Procedure Description: After informed consent was obtained the patient was taken to the procedure room and placed in a left decubitous position. Monitors were applied and a time out was done. The patients name, date of , procedure, allergies to medications and metal in their body was reviewed. The patient was then sedated. Once sedated and comfortable a rectal exam was done. External exam was normal. Internal exam revealed a normal sphincter tone and no palpable masses. The prostate nl The scope was then introduced and retrofelexed. no internal hemorrhoids were identified. The scope was then advanced to the cecum w/out difficulty. The TI and appendiceal orifice were identified. The prep was good. The scope was then slowly retracted over 10 minutes back into the rectum. No polyps/avm's/diverticula. The scope was removed and the patient was woken up and taken back to Same day surgery in stable condition. The patient tolerated the procedure well and there were no immediate complications. Follow up: The patient doesn't require any further CE's.
[2020-01-07 10:16] LABS: BUN 13 mg/dL (7-18); CREATININE 0.61 mg/dL (0.70-1.30)
[2020-01-07 10:40] VITALS: BP 147/89; PULSE 86; RESP 18; TEMP 36.2; O2SAT 97
--- NOTE | 2020-01-07 11:35 | DI.CT_ITS ---
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 Liver: Normal density. No measurable mass. Portal, Superior Mesenteric, and Splenic Veins: Unremarkable. Gallbladder and Biliary Tract: No radiodense calculus or dilation. Pancreas: There is a question of a soft tissue mass extending into the lumen of the duodenum measurin g approximately 2 cm. (Series 5, image 278 and series 11, image 43.) Spleen: Normal. Adrenals: No masses seen. Kidneys: Normal size, contour and axis. No radiodense stones or obstructive uropathy. Tiny hypodensit ies are seen in the right kidney. They are too small for further characterization but likely reflect small cysts. Abdominal Aorta: Abdominal portion non-dilated. Atherosclerosis. There is a thin septation in the mi d abdominal aorta inferior to the renal arteries which may represent a prior dissection. A portion o f the septum is calcified. Bowel: No obstruction or bowel wall thickening. No evidence of acute appendicitis. Colonic diverticu losis but no evidence of acute diverticulitis. Peritoneal Cavity: No ascites, collection or mesenteric inflammatory response. Lymph Nodes: Within normal limits. Bones: Degenerative changes. No aggressive osseous lesions are identified. Soft Tissues: Fat containing left inguinal hernia. PELVIS: Bladder: Symmetric distention, no gross wall thickening. Reproductive Organs: Unremarkable as visualized. Lymph Nodes: Within normal limits. Bones: Please see above IMPRESSION: 1. Question of a soft tissue mass protruding into the lumen of the duodenum at the region of the ampu lla. 2. Pulmonary fibrosis and COPD. RADIATION DOSE DELIVERED: 1,550.41mGy.cm Total DLP DATA REPOSITORY: All CT scans at this facility are submitted to the National Radiology Data Registry (NRDR) Dose Index Registry (DIR) with the [employer] (ACR). RADIATION OPTIMIZATION: All CT scans at this facility use at least one of these dose optimization te chniques: automated exposure control; mA and/or kV adjustment per patient size (includes targeted exa ms where dose is matched to clinical indication); or iterative reconstruction.
[2020-01-07] MEDS: Omnipaque 350 MG/ML 100 ML BTL IJ (11:37)
[2020-01-07] MEDS: Breeza Beverage 473 ML BTL PO (11:38)
[2020-01-07] MEDS: Normal Saline - Diluent 50 ML VIAL IV (11:38)
[2020-01-07 11:40] VITALS: BP 146/86; PULSE 95; RESP 18; TEMP 36.4; O2SAT 93
--- NOTE | 2020-01-07 12:13 | W.PM.DSUDISC ---
Discharge Plan Disposition Patient Disposition: HOME Condition: Good Discharge Details Reason For Visit: stomach & colon scope and CT abdomen Attending Provider: Monique Beth Primary Care Provider: Maye Brady Home Meds and New Rx's Prescriptions: Continued metformin 500 MG tablet 1,000 mg PO BID RF: 0 aspirin [Aspir-81] 81 MG tablet,delayed release (DR/EC) 81 mg PO DAILY RF: 0 atorvastatin 40 mg tablet 40 mg PO QHS RF: 0 pantoprazole 40 mg tablet,delayed release (DR/EC) 40 mg PO BID RF: 0 lisinopril 20 mg tablet 20 mg PO DAILY RF: 0 Lantus U-100 Insulin 100 unit/mL solution 20 unit SC QHS RF: 0 potassium chloride [Klor-Con] 20 mEq packet 20 meq PO DAILY RF: 0 nitroglycerin 400 mcg/spray aerosol,spray 1 spray TL Q5M PRNRF: 0 mometasone [Nasonex] 50 mcg/actuation spray,non-aerosol 2 spray DAYSI DAILY RF: 0 albuterol sulfate [ProAir HFA] 200 PUFF HFA aerosol inhaler 2 puff Inhalation Q6H PRN PRNRF: 0 ascorbic acid (vitamin C) [Vitamin C] 500 mg Tablet 500 mg PO BID RF: 0 ferrous sulfate [iron] 325 mg (65 mg iron) Tablet 325 mg PO BID RF: 0 furosemide 20 mg tablet 40 mg PO BID Qty: 0 RF: 0 Trelegy Ellipta 100-62.5-25 mcg blister with device 1 inh INHALATION DAILY RF: 0 Discontinued bisacodyl [Dulcolax (bisacodyl)] 5 mg tablet,delayed release (DR/EC) 5 mg PO ONCE Qty: 4 RF: 0 polyethylene glycol 3350 17 gram/dose powder 17 g PO ONCE Qty: 238 RF: 0 Discharge Instructions Additional Instructions: Findings: possible mass in bile ducts Follow up: Dr. Beth in 2 weeks Please call if you develop: fevers >101.5 Nausea or Vomiting Abdominal pain that is not transient DAY SURGERY UNIT POST COLONOSCOPY INSTRUCTIONS 1. Because there will be medication in your system for the next 24 hours, you may feel a little sleepy. Your coordination will be affected. Therefore: a. Do not drive or operate dangerous equipment for 24 hours. b. Do not drink alcohol beverages for 24 hours (not even beer). c. Plan to go home and rest for the day. 2. Generally there are no restrictions on your activity after a day or so has gone by, but you may feel a bit fatigued for a few days. 3 After you arrive home you may have a light meal and return to a normal diet as you can tolerate it without feeling sick to your stomach. 4. After surgery, you may feel pain or discomfort. This should be only transient, but if it persists please contact your doctor. 5. If there are any questions regarding the findings of your procedure, please feel free to contact your doctor. 6. If you are unable to contact your doctor with a problem, contact the hospital at [phone]. 7. Continue all your regular medications unless directed otherwise. I understand the above instructions and have no questions. Signature of Patient or Responsible Adult Escort Date/Time Name of Responsible Adult Escort Signature of Nurse Date/Time Activity:: no lifting over 20#'s or strenuous activity x 24 hrs Diet:: small light meals x 24 hrs DS: Diagnosis Discharge Diagnosis (1) Sessile colonic polyp: Status: Acute (2) Acute on chronic combined systolic and diastolic CHF (congestive heart failure): Status: Acute (3) Pulmonary hypertension: Status: Acute (4) Ground glass opacity present on imaging of lung: Status: Acute (5) CAP (community acquired pneumonia): Status: Acute (6) Afib: Status: Chronic (7) Diabetes mellitus, type II: Status: None (8) Atrial fibrillation: Status: Chronic (9) Anemia: Status: Chronic (10) COPD (chronic obstructive pulmonary disease): Status: None (11) GERD (gastroesophageal reflux disease): Status: Chronic
== END 2020-01-07 12:35 | disposition home or self-care (01) ==
PROVIDERS: PCP Nurse Practitioner; Visit Provider Surgery
PROC: (CPT 43239; principal; 2020-01-07 08:15)
DX: D64.9 Anemia, unspecified (principal); K31.7 Polyp of stomach and duodenum; D13.2 Benign neoplasm of duodenum; D13.39 Benign neoplasm of other parts of small intestine; K31.89 Other diseases of stomach and duodenum; Z86.010 Personal history of colon polyps; K21.9 Gastro-esophageal reflux disease without esophagitis; I48.91 Unspecified atrial fibrillation; J44.9 Chronic obstructive pulmonary disease, unspecified; E11.9 Type 2 diabetes mellitus without complications; I11.0 Hypertensive heart disease with heart failure; I50.40 Unspecified combined systolic (congestive) and diastolic (congestive) heart failure
CPT/HCPCS: 43239; 45378; 36415; 84520; 88305; 74177; 82565; 85025; J2001; J2704; J3490

== ENCOUNTER → 2020-01-23 09:25 | Outpatient (BNVA) | payer OTHER, SELFPAY | PROVIDERS: PCP Nurse Practitioner; Referring Provider Nurse Practitioner; Visit Provider Surgery | DX: D13.30 Benign neoplasm of unspecified part of small intestine (principal); D64.9 Anemia, unspecified; J44.9 Chronic obstructive pulmonary disease, unspecified; E11.9 Type 2 diabetes mellitus without complications; I10 Essential (primary) hypertension; Z48.815 Encounter for surgical aftercare following surgery on the digestive system | CPT/HCPCS: 99213 ==

== ENCOUNTER → 2020-02-21 00:46 | Outpatient (CLI) | payer OTHER, SELFPAY ==
[2020-02-21 09:01] LABS: CREATININE 0.59 mg/dL (0.70-1.30)
[2020-02-21] MEDS: Normal Saline - Diluent 50 ML VIAL IV (10:00)
[2020-02-21] MEDS: Omnipaque 350 MG/ML 100 ML BTL IJ (10:06)
--- NOTE | 2020-02-21 10:13 | DI.CT_ITS ---
EXAM: CT ABDOMEN PELVIS WO/W CLINICAL HISTORY: HEMATURIA,R31. TECHNIQUE: Imaging Protocol: Axial computed tomography images with coronal and sagittal reformatted images were created and reviewed CONTRAST MATERIAL: Intravenous: Omnipaque 100cc Oral: None COMPARISON: CT CT CHEST PE CTA from 06/18/[address] CHEST PE CTA from 06/18/[address] CHEST PE CTA from 07/16/[address] ABDOMEN PELVIS W from 01/07/2020 FINDINGS: VISUALIZED LUNG BASES: Advanced interstitial disease is again noted in the lung bases as well as pleu ral thickening in the left lower lobe which is unchanged.. ABDOMEN: There is no ascites. LIVER: There are no obvious focal hepatic lesions evident . GALLBLADDER/BILIARY: No obvious gallbladder pathology. CBD is not dilated. PANCREAS: No evidence of pancreatic mass nor dilatation of the pancreatic duct. SPLEEN: Spleen is not enlarged. No obvious intrasplenic lesions. Splenic and portal veins are paten t. ADRENALS: There are no significant adrenal masses. KIDNEYS: There are few calcifications in the medial aspect of the right kidney which are probably vas cular. No obvious calyceal calculi. No calcifications in the opposite-left kidney.. There are smal l parapelvic cysts in the left kidney; no solid lesions in either kidney. Tiny 3 millimeter cortical cysts noted in the right kidney. No hydronephrosis nor hydroureter. Solitary nondilated ureter kermit dent on each side. No obvious mass or calculus in the urinary bladder. 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 There is equal contrast density on both sides. This is over length of approximat cristy 1 centimeter. Contrast column the lower most aorta just above the bifurcation unremarkable. The re is significant atherosclerotic disease at the bifurcation and common iliac arteries but without gr eater than 70 percent stenosis. Also significant disease in external iliac arteries. ABDOMINAL WALL/GI: No evidence of significant anterior abdominal wall hernia. No bowel obstruction. PELVIS: GI: No evidence of appendicitis.Sigmoid diverticulosis but no acute diverticulitis. LYMPH NODES: There is no intrapelvic nor inguinal adenopathy. REPRODUCTIVE: Prostate gland size is slightly prominent. Calcifications seen in the right side of th e prostate. URINARY BLADDER: No calculi or masses evident within the bladder lumen. OSSEOUS: Degenerative changes in the hips. No lytic osseous lesions evident. IMPRESSION: 1. Small small parapelvic cysts in the kidneys, slightly more prominent on the left side. No solid r enal masses nor hydronephrosis. No perinephric fluid. 2. No calculi nor mass is evident in the urinary bladder. Solitary nondilated ureter on each side. 3. Incidentally noted is a atherosclerotic abdominal aorta which exhibits a focal partially calcified dissection flap, this located below the left renal vein cross over point. There is equal contrast d ensity on both sides and there is no obstruction of the lumen at this level. This does not have an a cute appearance, as it contains calcium.. There is advanced atherosclerotic disease aortic bifurcati on and proximal common iliac arteries but without critical stenosis at time. 4. Advanced interstitial disease noted in the lung bases. RADIATION DOSE DELIVERED: 2,353.9mGy.cm Total DLP DATA REPOSITORY: All CT scans at this facility are submitted to the National Radiology Data Registry (NRDR) Dose Index Registry (DIR) with the [employer] (ACR). RADIATION OPTIMIZATION: All CT scans at this facility use at least one of these dose optimization te chniques: automated exposure control; mA and/or kV adjustment per patient size (includes targeted exa ms where dose is matched to clinical indication); or iterative reconstruction.
== END ==
PROVIDERS: PCP Nurse Practitioner; Visit Provider Nurse Practitioner Adult Health
DX: R31.0 Gross hematuria (principal); N28.1 Cyst of kidney, acquired; I70.0 Atherosclerosis of aorta
CPT/HCPCS: 36415; 74178; 82565; J3490

== ENCOUNTER → 2020-03-13 08:55 | Outpatient (BNVA) | payer OTHER, SELFPAY | PROVIDERS: PCP Nurse Practitioner; Referring Provider Nurse Practitioner; Visit Provider Student in an Organized Health Care Education/Training Program | DX: M17.11 Unilateral primary osteoarthritis, right knee (principal); I11.0 Hypertensive heart disease with heart failure; I50.40 Unspecified combined systolic (congestive) and diastolic (congestive) heart failure; E11.9 Type 2 diabetes mellitus without complications; Z79.1 Long term (current) use of non-steroidal anti-inflammatories (NSAID) | CPT/HCPCS: 20610; 99212; J1040 ==

== ENCOUNTER 2020-07-07 08:11 | Outpatient (REF) | payer OTHER, SELFPAY | END 2020-07-07 08:12 | disposition home or self-care (01) | LOC: NCHCN 08:11 | PROVIDERS: PCP Nurse Practitioner; Visit Provider Nurse Practitioner Family | DX: L98.8 Other specified disorders of the skin and subcutaneous tissue (principal); S91.302A Unspecified open wound, left foot, initial encounter | CPT/HCPCS: 87070; 87205 ==

== ENCOUNTER 2020-09-03 19:15 | Inpatient (IN) | payer OTHER, SELFPAY ==
[2020-09-03] VITALS (39 sets, daily range): BP systolic 87–121; BP diastolic 44–62; PULSE 77–96; RESP 14–28; TEMP 36.6–38.1; O2SAT 85–96
--- NOTE | 2020-09-03 19:33 | W.ED.GENAD ---
Discharge Plan Disposition Patient Disposition: [facility] INPATIENT Condition: Fair Discharge Details Chief Complaint: GenMedical Clinical Impression: Anemia, Anticoagulated, Fever Primary Care Provider: Maye Brady ED Provider: Flex Sanchez [place] Simin and New Rx's Prescriptions: No Action metformin 500 MG tablet 1,000 mg PO BID RF: 0 aspirin [Aspir-81] 81 MG tablet,delayed release (DR/EC) 81 mg PO DAILY RF: 0 atorvastatin 40 mg tablet 40 mg PO QHS RF: 0 pantoprazole 40 mg tablet,delayed release (DR/EC) 40 mg PO BID RF: 0 lisinopril 20 mg tablet 20 mg PO DAILY RF: 0 Lantus U-100 Insulin 100 unit/mL solution 20 unit SC QHS RF: 0 potassium chloride [Klor-Con] 20 mEq packet 20 meq PO DAILY RF: 0 mometasone [Nasonex] 50 mcg/actuation spray,non-aerosol 2 spray DAYSI DAILY PRN PRNRF: 0 ascorbic acid (vitamin C) [Vitamin C] 500 mg Tablet 500 mg PO BID RF: 0 ferrous sulfate [iron] 325 mg (65 mg iron) Tablet 325 mg PO BID RF: 0 Trelegy Ellipta 100-62.5-25 mcg blister with device 1 inh INHALATION DAILY RF: 0 Xarelto 20 mg Tablet 20 mg PO DAILY RF: 0 furosemide 20 mg tablet 40 mg PO DAILY RF: 0 Medical Decision Making Patient presenting to ED with complaint of chills and feeling cold on and off for couple weeks now. Some concern by him for recurrent pericarditis or other infection. He otherwise denies any new symptoms and reports normal appetite, energy level. No murmur is appreciated. EKG is atrial fibrillation with no acute ST changes and no significant change from previous. Laboratory studies including inflammatory markers, chest x-ray, urinalysis ordered. Laboratory studies of significance showed a white count which is normal. Hemoglobin however is 6.5 down from 12 in fall of this year. Rectal temperature was obtained and stool is Hemoccult positive. He is febrile by rectal temp at 100.5. Platelets are normal. Liver function is fine. Magnesium is low at 1.3 will be replaced. Potassium a little high at 5.6 but normal renal function. May need to consider holding his oral potassium supplement that he takes daily. C-reactive protein and sed rate are both elevated. Procalcitonin has been added on. TSH is normal. 3 sets of blood cultures are pending. Chest x-ray shows chronic interstitial changes. Urinalysis is negative. Patient does not have elevated white count but did have fever by rectal temp and elevated inflammatory markers. He also has drop his hemoglobin by six-point since this fall. He is Hemoccult positive but hemodynamically stable. He is on anticoagulation. Case discussed with hospitalist. Will plan admission and blood transfusion which patient has been consented for. Iron studies prior to transfusion. Consider work-up for indolent infection, malignancy, other inflammatory disease processes. Medical Records Medical records reviewed: Yes I reviewed the patient's medical records. Lab Data Lab results reviewed: Yes I reviewed the patient's lab results. ECG Data Attestation: I personally reviewed and interpreted this ECG (s) as follows: Prior ECG tracings: available for review Interpretation: see EKG HPI General Mode of arrival: ambulatory. Date/Time Provider Initiated Documentation: 09/03/20 19:33. Limitations to Documentation: no limitations. Information obtained by: patient, RN notes reviewed and old records reviewed. HPI Narrative: Patient presents to ED with complaint of chills on and off for the last 2 weeks. He reports the highest his temperature has been at home is 99.9. He does not feel ill otherwise and does not describe shaking chills. Describes just feeling cold all the time. He denies headache, cold symptoms, change in cough, chest pain, shortness of breath, abdominal pain, rash, urinary symptoms, vomiting/diarrhea. He reports history of pericarditis and felt similar at that time and denies having chest pain then. He does have black stools but he is on iron. He is also anticoagulated for atrial fibrillation. Related Data Home Medications Medication Instructions Recorded Confirmed aspirin [Aspir-81] 81 mg PO DAILY tab-cap 10/18/16 09/03/20 metformin 1,000 mg PO BID tab-cap 10/18/16 09/03/20 atorvastatin 40 mg tablet 40 mg PO QHS 04/17/19 09/03/20 insulin glargine 100 unit/mL 20 unit SC QHS 04/17/19 09/03/20 subcutaneous solution lisinopril 20 mg tablet 20 mg PO DAILY 04/17/19 09/03/20 pantoprazole 40 mg tablet,delayed 40 mg PO BID tab 04/17/19 09/03/20 release ascorbic acid (vitamin C) [Vitamin 500 mg PO BID 07/16/19 09/03/20 C] ferrous sulfate [iron] 325 mg PO BID 07/16/19 09/03/20 mometasone 50 mcg/actuation nasal 2 spray DAYSI DAILY PRN PRN 09/05/19 09/03/20 spray potassium chloride 20 mEq oral 20 meq PO DAILY 09/05/19 09/03/20 packet Trelegy Ellipta 1 inh INHALATION DAILY 01/04/20 09/03/20 furosemide 40 mg PO DAILY 09/03/20 09/03/20 rivaroxaban [Xarelto] 20 mg PO DAILY 09/03/20 09/03/20 Allergies Allergy/AdvReac Type Severity Reaction Status Date / Time apixaban AdvReac nausea/vomi Verified 09/03/20 19:46 ting General KASSIDY: 2 Review of Systems Narrative: 12/18 Review of Systems completed and is negative except as stated above in HPI (Systems reviewed: Const, Eyes, ENT, Resp, CV, GI, , MSK, Skin, Neuro) [facility] Medical History Anemia Atrial fibrillation Paroxysmal, intolerant of anticoagulation (n/v/hematuria while on eliquis), referred for a Watchman procedure at [facility] [place] (not yet done) F/U Dr. 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 states this was 2 years ago. Pulmonary hypertension Tobacco use disorder Surgical History Colonoscopy - [facility] (10/29/16) Family History Father Diabetes Hypertension Heart disease Self No problems noted. Brother Stroke had an aneurysm Sister Breast cancer Diabetes Brother Lung cancer smoker Social History Smoking/Tobacco Use Status: Former Tobacco Use Quit Date: 03/07/16 Tobacco: How many years used: 56 Counseling given: provider counseling Smoking risk assessment performed?: Yes Alcohol Intake: former Year quit: 1969 Drug use: Never Substance use type: does not use Current gender identity: male Do you feel safe at home: Yes Do you feel safe in your relationship?: Yes Exam Narrative Exam Narrative: Const: WDWN elderly male in NAD. HEENT: NC/AT. Normal facial exam. Eyes: Normal conjunctiva and sclera. Neck: Supple. Trachea midline. Lungs: Normal respiratory effort. Lungs with crackles bilateral bases. Cor: RRR without murmur/gallop. Good radial pulses. GI: Soft. NT/ND. No guarding or rebound. Back: No CVAT Neuro: A+O x 3. Normal speech, mentation, gait. Cranial nerves II - XII grossly intact. No gross motor or sensory deficit. Ext: No C/C/E. Skin: Warm and dry without rash.
--- NOTE | 2020-09-03 19:45 | RT.EKG_ITS ---
APPROVED REPORT Exam: Resting ECG Reason for Exam: fever Patient Location: E HR:81 bpm ECG Measurements Heart Rate 81 AXIS SC 142 P 27 QRSd 73 QRS 49 QT 342 T 44 QTc 405 Conclusion Sinus rhythm...normal P axis, V-rate 60- 99 Atrial premature complex...SV complex w/ short R-R interval I have reviewed and interpreted ECG and agree with software generated interpretation.No acute ST Patrick ges
[2020-09-03 20:33] LABS: Bilirubin Negative (Negative); Blood Negative (Negative); Clarity Clear (Clear); Glucose Negative (Negative); Ketones Negative (Negative); Leukocyte Esterase Trace (Negative); Nitrite Negative (Negative); Urobilinogen 0.2 EU/dL (Up TO 0.2); pH 5.5 (5-8)
[2020-09-03 20:40] LABS: Abs Immature Grans 0.05 10^3/uL (0.0-0.06); Absolute Basophil Count 0.03 10^3/uL (0.0-0.2); Absolute Eosinophil Count 0.24 10^3/uL (0.0-0.7); Absolute Lymphocyte Count 0.83 10^3/uL (1.2-3.4); Absolute Monocyte Count 0.73 10^3/uL (0.1-0.8); Basophils % 0.3; Eosinophils % 2.8; HCT 23.1 % (40.0-50.0); Immature Grans % 0.6; Lymphocytes % 9.7; MCH 25.1 pg (27.0-33.0); MCHC 28.1 % (32.0-36.0); MCV 89.2 fL (80-95); MPV 12.7 fL (8.0-11.0); Monocytes % 8.5; Neutrophils % 78.1; Nucleated RBC 0 %; Platelet Count 264 10^3/uL (130-400); RBC 2.59 10^6/uL (4.36-5.78); RDW 14.9 % (11.8-14.1); RDW-SD 48.6 fL; WBC 8.58 10^3/uL (4.4-10.8)
--- NOTE | 2020-09-03 20:41 | DI.RAD_ITS ---
Exam(s) XR CHEST 2V PA LATERAL EXAM: XR CHEST 2V PA LATERAL CLINICAL HISTORY: chills, cough. TECHNIQUE: 2D digital imaging was performed. COMPARISON: CR PORTABLE CHEST ONE VIEW from 10/29/2016 CR PORTABLE CHEST ONE VIEW from 10/29/2016 CR PORTABLE CHEST ONE VIEW from 05/19/2017 CR PORTABLE CHEST ONE VIEW from 05/19/2017 CR XR PORTABLE CHEST AP from 07/16/2019 CR XR PORTABLE CHEST AP from 07/16/2019 CR XR CHEST 2V PA LATERAL from 07/18/2019 FINDINGS: Heart size is normal. The mediastinum is not widened. Extensive bilateral pulmonary interstitial disease is again noted, similar to prior studies listed ab ove dating back to 2018.. There are no new confluent infiltrates and no pleural effusions. IMPRESSION: Persistent extensive bilateral interstitial disease, unchanged from studies listed above. I note ignacio t this finding was evident on prior radiographs but was not evident on chest x-ray of 10/29/2016. DATA REPOSITORY: RADIATION DOSE DELIVERED:
[2020-09-03 20:48] LABS: Bacteria Negative HPF (Negative); C & S Indicated? Yes; Casts Negative LPF (Negative); Crystals Negative HPF (Negative); Epithelial Cells Rare HPF (Negative); HGB 6.5 g/dL (13.5-17.5); Mucus Negative (Negative); Other Cells Rare Renal (Negative); RBC Negative HPF (0-2)
[2020-09-03 20:54] LABS: ESR 43 mm/hr (0-20)
[2020-09-03 20:56] LABS: ALT 21 U/L (16-63); AST 8 U/L (15-37); Albumin 2.5 g/dL (3.4-5.0); Alkaline Phosphatase 145 U/L (46-116); Anion Gap 9.2 mmol/L (3-11); BUN 20 mg/dL (7-18); Bilirubin, Total 0.4 mg/dL (0.2-1.0); CO2 21.8 mmol/L (21.0-32.0); CREATININE 1.1 mg/dL (0.70-1.30); Calcium 8.6 mg/dL (8.5-10.1); Chloride 104 mmol/L (98-107); Glucose 141 mg/dL (74-106); Magnesium 1.3 mg/dL (1.8-2.4); Potassium 5.6 mmol/L (3.5-5.1); Sodium 135 mmol/L (136-145); Total Protein 7.5 g/dL (6.4-8.2)
[2020-09-03 20:59] LABS: Troponin I < 0.05 ng/mL (<0.06)
--- NOTE | 2020-09-03 21:20 | DI.VRAD_ITS ---
PROCEDURE INFORMATION: Exam: XR Chest Exam date and time: 09/03/2020 7:56 PM Age: 75 years old Clinical indication: Cough TECHNIQUE: Imaging protocol: XR of the chest. Views: 2 views. Total images: 2 COMPARISON: CT CHEST WO 05/14/2019 14:36 FINDINGS: Lungs: There are coarse interstitial opacities, likely chronic. Pleural spaces: Unremarkable. No pleural effusion. No pneumothorax. Heart/Mediastinum: Unremarkable. No cardiomegaly. Bones/joints: Unremarkable. IMPRESSION: No acute cardiopulmonary abnormality. Dictated and Authenticated by: May Perdomo MD. Ordering:FREDA Mccord MD
[2020-09-03 21:23] LABS: TSH (W/Ref FT4) 0.59 uIU/mL (0.36-3.74)
[2020-09-03 22:08] LABS: Reticulocyte 1.4 % (0.5-2.4)
[2020-09-03 22:16] LABS: Iron 11 ug/dL (65-175); Total Iron Binding Capacity 291 ug/dL (250-450)
[2020-09-03 22:23] LABS: Procalcitonin 0.1 ng/mL
[2020-09-03 22:31] LABS: Ferritin 39 ng/mL (26-388)
[2020-09-03 23:18] LABS: Source Nasal/Nares
[2020-09-03] MEDS: MAGNESIUM SULFATE 2 GM/50 ML BAG IVPB (23:42)
[2020-09-04] VITALS (51 sets, daily range): BP systolic 94–133; BP diastolic 56–70; PULSE 67–114; RESP 14–95; TEMP 36.4–37.9; O2SAT 90–98; BMI 22.6
[2020-09-04 00:12] LABS: COVID-19 PCR Negative (Negative)
[2020-09-04] MEDS: diphenhydrAMINE 25 MG CAP 50 MG PO (01:39)
[2020-09-04] MEDS: Acetaminophen 325 MG TAB 650 MG PO ×2 (01:39→23:09)
[2020-09-04] MEDS: Normal Saline Flush 10 ML SYR IVP ×4 (02:26→19:37)
--- NOTE | 2020-09-04 06:29 | W.PM.HP.N ---
Date of service: 09/04/20 Time of Service: 06:29 Assessment and Plan Assessment and plan (1) Anemia: Status: Chronic Assessment and plan: His anemia appears to be an iron deficiency anemia. I suspect that it is from his GI blood loss. He had duodenal polyps diagnosed in January of last year and try to get on [facility] records but was unable to do so. I also cannot access his office records. We will have general surgery see him for consideration of a repeat EGD. He is receiving his second unit of packed red blood cells. Morning labs are pending. (2) Anticoagulated: Status: Acute Assessment and plan: His rivaroxaban has been stopped pending the results of EGD and stabilization of his gastrointestinal bleeding. He is currently hemodynamically stable. He will be placed n.p.o. status. (3) GI bleeding: Status: Chronic Assessment and plan: See above. History of Present Illness History of Present Illness Chief Complaint: I cannot get warm for 3 days Narrative: This 75-year-old male came to the emergency department because he said he could not get warm. He has had some chills but no known fever. He wonders if he could have a exacerbation of his pericarditis which he suffered a couple years ago but has not had any chest pain. He has a long history of chronic medical problems but his most recent problem was duodenal polyps. This was diagnosed here last January and he was referred to [facility] for further treatment. He does not recall what was done there. Since that time he has been taking iron and vitamin C. It is unclear if he has had blood tests since then. He has been on chronic anticoagulation with rivaroxaban for atrial fibrillation. He had a colonoscopy last January which did not show any abnormalities. He does not use tobacco or drink alcohol. He said this feeling of not getting warm has been coming and going for about 3 weeks but got worse in the last 3 days. In the emergency department he received intravenous magnesium and had a number of blood tests done. Stool was positive for blood by Dr. Sanchez. His situation discussed with me and it was elected that he be admitted and have blood transfused. He lives with his girlfriend. Review of Systems Constitutional Constitutional: Denies body ache(s), Reports chills, Denies fever(s) and Reports weakness Cardiovascular Cardiovascular: Denies chest pain, Denies pedal edema, Denies palpitations and Denies dyspnea Respiratory Respiratory: Reports cough (Chronic), Denies pain on inspiration, Denies pain with cough and Denies dyspnea Gastrointestinal Gastrointestinal: Denies abdominal pain, Denies bloating, Denies hematochezia, Denies coffee ground emesis, Denies constipation, Denies early satiety, Denies diarrhea and Denies vomiting Genitourinary Genitourinary: Denies difficulty urinating and Denies urinary hesitancy Neurologic Neurologic: Reports weakness Endocrine Endocrine: Denies palpitations Hematologic/Lymphatic Hematologic/Lymphatic: Denies easy bleeding and Denies easy bruising [facility] Medical History (Updated 09/04/20 @ 06:40 by Jevon Lucio MD) Anemia Atrial fibrillation Paroxysmal, intolerant of anticoagulation (n/v/hematuria while on eliquis), referred for a Watchman procedure at [facility] (not yet done) F/U Dr. 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 states this was 2 years ago. Pulmonary hypertension Tobacco use disorder Surgical History Colonoscopy - MAC (10/29/16) Family History Father Diabetes Hypertension Heart disease Self No problems noted. Brother Stroke had an aneurysm Sister Breast cancer Diabetes Brother Lung cancer smoker Social History Smoking/Tobacco Use Status: Former Tobacco Use Quit Date: 03/07/16 Tobacco: How many years used: 56 Counseling given: provider counseling Smoking risk assessment performed?: Yes Alcohol Intake: former Year quit: 1969 Drug use: Never Substance use type: does not use Current gender identity: male Do you feel safe at home: Yes Do you feel safe in your relationship?: Yes Meds Allergies and Home Medications Allergies Allergy/AdvReac Type Severity Reaction Status Date / Time apixaban AdvReac nausea/vomi Verified 09/03/20 19:46 ting Home Medications Medication Instructions Recorded Confirmed Type aspirin [Aspir-81] 81 mg PO DAILY tab-cap 10/18/16 09/03/20 History metformin 1,000 mg PO BID tab-cap 10/18/16 09/03/20 History atorvastatin 40 mg tablet 40 mg PO QHS 04/17/19 09/03/20 History insulin glargine 100 unit/mL 20 unit SC QHS 04/17/19 09/03/20 History subcutaneous solution lisinopril 20 mg tablet 20 mg PO DAILY 04/17/19 09/03/20 History pantoprazole 40 mg tablet,delayed 40 mg PO BID tab 04/17/19 09/03/20 History release ascorbic acid (vitamin C) [Vitamin 500 mg PO BID 07/16/19 09/03/20 History C] ferrous sulfate [iron] 325 mg PO BID 07/16/19 09/03/20 History mometasone 50 mcg/actuation nasal 2 spray DAYSI DAILY PRN PRN 09/05/19 09/03/20 History spray potassium chloride 20 mEq oral 20 meq PO DAILY 09/05/19 09/03/20 History packet Trelegy Ellipta 1 inh INHALATION DAILY 01/04/20 09/03/20 History furosemide 40 mg PO DAILY 09/03/20 09/03/20 History rivaroxaban [Xarelto] 20 mg PO DAILY 09/03/20 09/03/20 History Exam Const General: cooperative, comfortable, no acute distress, not frail appearing and not ill appearing Nutritional Appearance: average body habitus Neck Neck: normal visual inspection and no lymphadenopathy Chest Chest: normal inspection of the chest Resp Effort & Inspection: normal respiratory effort, able to speak in complete sentences and not tachypneic Auscultation: no rales, no rhonchi and no wheezes Cardio Rate: regular rate Rhythm: regular rhythm Heart Sounds: no gallops, no murmurs and no rubs GI Inspection: normal to inspection, no abdominal wall ecchymosis and non-distended Palpation: soft, no hepatosplenomegaly, not firm and nontender Neuro General: patient alert, patient awake and patient oriented x3 Extrem General: normal to inspection, no cyanosis and no edema Results Labs Result diagrams: 09/03/20 20:20 09/03/20 20:20 Labs: Laboratory Results - last 24 hr 09/03/20 09/03/20 09/03/20 20:20 20:20 20:20 WBC RBC Hgb Hct MCV MCH MCHC RDW Plt Count MPV Reticulocyte % (Auto) Immature Gran % Neutrophils % Lymphocytes % Monocytes % Eosinophils % Basophils % Nucleated RBC % Absolute Neutrophils Absolute Lymphocytes Absolute Monocytes Absolute Eosinophils Absolute Basophils ESR 43 H Sodium 135 L Potassium 5.6 H Chloride 104 Carbon Dioxide 21.8 Anion Gap 9.2 BUN 20 H Creatinine 1.1 Estimated GFR/1.73 m2 >= 60.00 Glucose 141 H Calcium 8.6 Magnesium 1.3 L Iron TIBC Ferritin Total Bilirubin 0.4 AST 8 L ALT 21 Alkaline Phosphatase 145 H Troponin I < 0.05 C-Reactive Protein 14.10 H Total Protein 7.5 Albumin 2.5 L Procalcitonin TSH 0.59 Urine Color Urine Clarity Urine pH Ur Specific [place] Urine Protein Urine Ketones Urine Blood Urine Nitrite Urine Bilirubin Urine Urobilinogen Ur Leukocyte Esterase Urine RBC Urine WBC Ur Epithelial Cells Urine Crystals Urine Bacteria Urine Casts Urine Mucus Urine Other Ur Culture Indicated? Urine Glucose COVID-19 Source SARS-CoV-2 (PCR) Patient ABO/Rh Antibody Screen Crossmatch 09/03/20 09/03/20 09/03/20 20:20 20:20 20:20 WBC 8.58 RBC 2.59 L Hgb 6.5 L* Hct 23.1 L MCV 89.2 MCH 25.1 L MCHC 28.1 L RDW 14.9 H Plt Count 264 MPV 12.7 H Reticulocyte % (Auto) Immature Gran % 0.6 Neutrophils % 78.1 Lymphocytes % 9.7 Monocytes % 8.5 Eosinophils % 2.8 Basophils % 0.3 Nucleated RBC % 0 Absolute Neutrophils 6.70 Absolute Lymphocytes 0.83 L Absolute Monocytes 0.73 Absolute Eosinophils 0.24 Absolute Basophils 0.03 ESR Sodium Potassium Chloride Carbon Dioxide Anion Gap BUN Creatinine Estimated GFR/1.73 m2 Glucose Calcium Magnesium Iron TIBC Ferritin Total Bilirubin AST ALT Alkaline Phosphatase Troponin I C-Reactive Protein Total Protein Albumin Procalcitonin 0.1 TSH Urine Color Yellow Urine Clarity Clear Urine pH 5.5 Ur Specific [place] 1.020 Urine Protein Negative Urine Ketones Negative Urine Blood Negative Urine Nitrite Negative Urine Bilirubin Negative Urine Urobilinogen 0.2 Ur Leukocyte Esterase Trace H Urine RBC Negative Urine WBC 3-5 Ur Epithelial Cells Rare Urine Crystals Negative Urine Bacteria Negative Urine Casts Negative Urine Mucus Negative Urine Other Rare Renal Ur Culture Indicated? Yes Urine Glucose Negative COVID-19 Source SARS-CoV-2 (PCR) Patient ABO/Rh Antibody Screen Crossmatch 09/03/20 09/03/20 09/03/20 20:20 20:20 20:20 WBC RBC Hgb Hct MCV MCH MCHC RDW Plt Count MPV Reticulocyte % (Auto) 1.4 Immature Gran % Neutrophils % Lymphocytes % Monocytes % Eosinophils % Basophils % Nucleated RBC % Absolute Neutrophils Absolute Lymphocytes Absolute Monocytes Absolute Eosinophils Absolute Basophils ESR Sodium Potassium Chloride Carbon Dioxide Anion Gap BUN Creatinine Estimated GFR/1.73 m2 Glucose Calcium Magnesium Iron 11 L TIBC 291 Ferritin 39 Total Bilirubin AST ALT Alkaline Phosphatase Troponin I C-Reactive Protein Total Protein Albumin Procalcitonin TSH Urine Color Urine Clarity Urine pH Ur Specific [place] Urine Protein Urine Ketones Urine Blood Urine Nitrite Urine Bilirubin Urine Urobilinogen Ur Leukocyte Esterase Urine RBC Urine WBC Ur Epithelial Cells Urine Crystals Urine Bacteria Urine Casts Urine Mucus Urine Other Ur Culture Indicated? Urine Glucose COVID-19 Source SARS-CoV-2 (PCR) Patient ABO/Rh Antibody Screen Crossmatch 09/03/20 09/03/20 22:15 23:15 WBC RBC Hgb Hct MCV MCH MCHC RDW Plt Count MPV Reticulocyte % (Auto) Immature Gran % Neutrophils % Lymphocytes % Monocytes % Eosinophils % Basophils % Nucleated RBC % Absolute Neutrophils Absolute Lymphocytes Absolute Monocytes Absolute Eosinophils Absolute Basophils ESR Sodium Potassium Chloride Carbon Dioxide Anion Gap BUN Creatinine Estimated GFR/1.73 m2 Glucose Calcium Magnesium Iron TIBC Ferritin Total Bilirubin AST ALT Alkaline Phosphatase Troponin I C-Reactive Protein Total Protein Albumin Procalcitonin TSH Urine Color Urine Clarity Urine pH Ur Specific [place] Urine Protein Urine Ketones Urine Blood Urine Nitrite Urine Bilirubin Urine Urobilinogen Ur Leukocyte Esterase Urine RBC Urine WBC Ur Epithelial Cells Urine Crystals Urine Bacteria Urine Casts Urine Mucus Urine Other Ur Culture Indicated? Urine Glucose COVID-19 Source Nasal/Nares SARS-CoV-2 (PCR) Negative Patient ABO/Rh B Positive Antibody Screen NEGATIVE Crossmatch See Detail Last Vital Signs Temp 36.4 C 09/04/20 05:51 Pulse 75 09/04/20 05:51 Resp 18 09/04/20 05:51 BP 104/60 09/04/20 05:51 Pulse Ox 98 09/04/20 05:51
[2020-09-04] MEDS: Pantoprazole 40 MG TABCR PO ×2 (07:59→19:37)
--- NOTE | 2020-09-04 09:16 | W.SURGCON ---
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 Mendez. Patient did have a watchman procedure [facility]. He just never returned to [facility] for the follow-up. He should no longer be anticoagulated -Continue on PPI -Venofer -EGD in a.m. to see if there is been any progression tubulovillous adenoma. Risks include but not are not limited to: Bleeding, infection, pneumonia/aspiration, complications of anesthesia, possible perforation -Referral to GI at [facility] for advanced endoscopic resection of the tumor. Patient is not a candidate for a Whipple secondary to cardiopulmonary disease. 60 minutes spent in consultation today (5) Acute on chronic combined systolic and diastolic CHF (congestive heart failure): Status: Acute (6) Pulmonary hypertension: Status: Acute (7) Afib: Status: Chronic (8) Diabetes mellitus, type II: Status: None (9) Atrial fibrillation: Status: Chronic (10) Anemia: Status: Chronic (11) COPD (chronic obstructive pulmonary disease): Status: None (12) GERD (gastroesophageal reflux disease): Status: Chronic (13) Tobacco use disorder: Status: None (14) Hyperlipidemia: Status: Acute History of Present Illness Narrative: Patient was admitted last night with black tarry stools. He is well-known to the surgical service with a history of GI bleeding. He is still on Coumadin for A. fib. from H&P: This was diagnosed here last January and he was referred to [facility] for further treatment. He does not recall what was done there. Since that time he has been taking iron and vitamin C. It is unclear if he has had blood tests since then. He has been on chronic anticoagulation with rivaroxaban for atrial fibrillation. He had a colonoscopy last January which did not show any abnormalities. He does not use tobacco or drink alcohol. He said this feeling of not getting warm has been coming and going for about 3 weeks but got worse in the last 3 days. EGD 01/24 The proximal and mid-esophagus were nl. No esophageal erosions varices diverticula or strictures apparent. He has a very minute hiatal hernia. There is maybe some mild esophagitis at the GE junction. Biopsies are taken of this region. The scope was advanced into the stomach and through the pylorus into the 3rd portion of the duodenum. The duodenum: . There is a mass around the area of the ampula. And a second lesion on the opposite posterior wall (kissing lesions). The mass is friable and bleeds redily. There is no necrosis. Biopsies are taken of this secondary mass and the mass at the ampulla. The does note I did not appreciate any bile coming through the ampulla. Multiple passes were taken. All specimen is retrieved. there is some bleeding but does not appear to be excessive. The duodenal bulb appears grossly normal. There is mild irritation in the antrum along the greater curve. He has multiple polyps coating the entire stomach. Most likely these are from chronic long-term PPI use. A hobbies and crafts sales representative biopsy was taken. Otherwise there is no masses or ulcers of the stomach noted. The scope was retracted back into the stomach and biopsies were done to rule out H. pylori. The scope was retroflexed. The cardia and fundus were noted to be normal. path:TV adenoma -Patient was supposed to have followed up with GI for advanced endoscopic resection. He is definitely not a candidate for a Whipple. I did review his [facility] chart. He wound up in the hospital [facility] with cardiac problem. It does not look like he ever saw GI. -He also had a watchman placed down at [facility]. He needed to be on anticoagulation 45 days after he had this procedure. Then he was supposed to have a cardiac CT done by [facility]. He did not follow-up and have this procedure done. So he was continued on a NOAC for A. fib And today he is back in the hospital with recurrent GI bleeding We will plan repeat EGD in a.m. to see if the lesion has grown or if there is any active bleeding. I will attempt to fulgurate the lesion. Is at risk for perforation. Patient was transfused today. He will be maintained on a PPI Review of Systems All systems reviewed & are unremarkable except as noted in HPI and below [facility] Medical History (Updated 09/04/20 @ 22:35 by Monique Beth DO) Anemia Atrial fibrillation Paroxysmal, intolerant of anticoagulation (n/v/hematuria while on eliquis), referred [place] [facility] [place] F/U Dr. 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 states this was 2 years ago. Pulmonary hypertension Tobacco use disorder Surgical History Colonoscopy - [facility] (10/29/16) Family History Father Diabetes Hypertension Heart disease Self No problems noted. Brother Stroke had an aneurysm Sister Breast cancer Diabetes Brother Lung cancer smoker Social History Smoking/Tobacco Use Status: Former Tobacco Use Quit Date: 03/07/16 Tobacco: How many years used: 56 Counseling given: provider counseling Smoking risk assessment performed?: Yes Alcohol Intake: former Year quit: 1969 Drug use: Never Substance use type: does not use Current gender identity: male Do you feel safe at home: Yes Do you feel safe in your relationship?: Yes Exam Resp Effort & Inspection: normal respiratory effort and able to speak in complete sentences Auscultation: clear to auscultation bilaterally Cardio Other: A fib. rate controlled GI Other: had a black stool again today. However, it was formed and not liquid- as they were when he was at [facility]. Extrem General: no clubbing, cyanosis or edema Results Last Vital Signs Temp 36.8 C 09/04/20 09:10 Pulse 81 09/04/20 09:10 Resp 14 09/04/20 09:10 BP 112/69 09/04/20 09:10 Pulse Ox 92 09/04/20 09:10 Labs Result diagrams: 09/04/20 16:07 09/04/20 10:01 Labs: Laboratory Results - last 24 hr 09/03/20 09/03/20 09/03/20 20:20 20:20 20:20 WBC RBC Hgb Hct MCV MCH MCHC RDW Plt Count MPV Reticulocyte % (Auto) Immature Gran % Neutrophils % Lymphocytes % Monocytes % Eosinophils % Basophils % Nucleated RBC % Absolute Neutrophils Absolute Lymphocytes Absolute Monocytes Absolute Eosinophils Absolute Basophils ESR 43 H Sodium 135 L Potassium 5.6 H Chloride 104 Carbon Dioxide 21.8 Anion Gap 9.2 BUN 20 H Creatinine 1.1 Estimated GFR/1.73 m2 >= 60.00 Glucose 141 H Calcium 8.6 Magnesium 1.3 L Iron TIBC Ferritin Total Bilirubin 0.4 AST 8 L ALT 21 Alkaline Phosphatase 145 H Troponin I < 0.05 C-Reactive Protein 14.10 H Total Protein 7.5 Albumin 2.5 L Procalcitonin TSH 0.59 Urine Color Urine Clarity Urine pH Ur Specific [place] Urine Protein Urine Ketones Urine Blood Urine Nitrite Urine Bilirubin Urine Urobilinogen Ur Leukocyte Esterase Urine RBC Urine WBC Ur Epithelial Cells Urine Crystals Urine Bacteria Urine Casts Urine Mucus Urine Other Ur Culture Indicated? Urine Glucose COVID-19 Source SARS-CoV-2 (PCR) Patient ABO/Rh Antibody Screen Crossmatch 09/03/20 09/03/20 09/03/20 20:20 20:20 20:20 WBC 8.58 RBC 2.59 L Hgb 6.5 L* Hct 23.1 L MCV 89.2 MCH 25.1 L MCHC 28.1 L RDW 14.9 H Plt Count 264 MPV 12.7 H Reticulocyte % (Auto) Immature Gran % 0.6 Neutrophils % 78.1 Lymphocytes % 9.7 Monocytes % 8.5 Eosinophils % 2.8 Basophils % 0.3 Nucleated RBC % 0 Absolute Neutrophils 6.70 Absolute Lymphocytes 0.83 L Absolute Monocytes 0.73 Absolute Eosinophils 0.24 Absolute Basophils 0.03 ESR Sodium Potassium Chloride Carbon Dioxide Anion Gap BUN Creatinine Estimated GFR/1.73 m2 Glucose Calcium Magnesium Iron TIBC Ferritin Total Bilirubin AST ALT Alkaline Phosphatase Troponin I C-Reactive Protein Total Protein Albumin Procalcitonin 0.1 TSH Urine Color Yellow Urine Clarity Clear Urine pH 5.5 Ur Specific [place] 1.020 Urine Protein Negative Urine Ketones Negative Urine Blood Negative Urine Nitrite Negative Urine Bilirubin Negative Urine Urobilinogen 0.2 Ur Leukocyte Esterase Trace H Urine RBC Negative Urine WBC 3-5 Ur Epithelial Cells Rare Urine Crystals Negative Urine Bacteria Negative Urine Casts Negative Urine Mucus Negative Urine Other Rare Renal Ur Culture Indicated? Yes Urine Glucose Negative COVID-19 Source SARS-CoV-2 (PCR) Patient ABO/Rh Antibody Screen Crossmatch 09/03/20 09/03/20 09/03/20 20:20 20:20 20:20 WBC RBC Hgb Hct MCV MCH MCHC RDW Plt Count MPV Reticulocyte % (Auto) 1.4 Immature Gran % Neutrophils % Lymphocytes % Monocytes % Eosinophils % Basophils % Nucleated RBC % Absolute Neutrophils Absolute Lymphocytes Absolute Monocytes Absolute Eosinophils Absolute Basophils ESR Sodium Potassium Chloride Carbon Dioxide Anion Gap BUN Creatinine Estimated GFR/1.73 m2 Glucose Calcium Magnesium Iron 11 L TIBC 291 Ferritin 39 Total Bilirubin AST ALT Alkaline Phosphatase Troponin I C-Reactive Protein Total Protein Albumin Procalcitonin TSH Urine Color Urine Clarity Urine pH Ur Specific [place] Urine Protein Urine Ketones Urine Blood Urine Nitrite Urine Bilirubin Urine Urobilinogen Ur Leukocyte Esterase Urine RBC Urine WBC Ur Epithelial Cells Urine Crystals Urine Bacteria Urine Casts Urine Mucus Urine Other Ur Culture Indicated? Urine Glucose COVID-19 Source SARS-CoV-2 (PCR) Patient ABO/Rh Antibody Screen Crossmatch 09/03/20 09/03/20 22:15 23:15 WBC RBC Hgb Hct MCV MCH MCHC RDW Plt Count MPV Reticulocyte % (Auto) Immature Gran % Neutrophils % Lymphocytes % Monocytes % Eosinophils % Basophils % Nucleated RBC % Absolute Neutrophils Absolute Lymphocytes Absolute Monocytes Absolute Eosinophils Absolute Basophils ESR Sodium Potassium Chloride Carbon Dioxide Anion Gap BUN Creatinine Estimated GFR/1.73 m2 Glucose Calcium Magnesium Iron TIBC Ferritin Total Bilirubin AST ALT Alkaline Phosphatase Troponin I C-Reactive Protein Total Protein Albumin Procalcitonin TSH Urine Color Urine Clarity Urine pH Ur Specific [place] Urine Protein Urine Ketones Urine Blood Urine Nitrite Urine Bilirubin Urine Urobilinogen Ur Leukocyte Esterase Urine RBC Urine WBC Ur Epithelial Cells Urine Crystals Urine Bacteria Urine Casts Urine Mucus Urine Other Ur Culture Indicated? Urine Glucose COVID-19 Source Nasal/Nares SARS-CoV-2 (PCR) Negative Patient ABO/Rh B Positive Antibody Screen NEGATIVE Crossmatch See Detail
[2020-09-04 10:10] LABS: Abs Immature Grans 0.03 10^3/uL (0.0-0.06); Absolute Basophil Count 0.05 10^3/uL (0.0-0.2); Absolute Eosinophil Count 0.28 10^3/uL (0.0-0.7); Absolute Lymphocyte Count 0.64 10^3/uL (1.2-3.4); Absolute Monocyte Count 0.61 10^3/uL (0.1-0.8); Basophils % 0.7; Eosinophils % 3.8; HCT 29.1 % (40.0-50.0); HGB 8.8 g/dL (13.5-17.5); Immature Grans % 0.4; Lymphocytes % 8.6; MCH 26.7 pg (27.0-33.0); MCHC 30.2 % (32.0-36.0); MCV 88.4 fL (80-95); MPV 11.9 fL (8.0-11.0); Monocytes % 8.2; Neutrophils % 78.3; Nucleated RBC 0 %; Platelet Count 231 10^3/uL (130-400); RBC 3.29 10^6/uL (4.36-5.78); RDW 14.7 % (11.8-14.1); RDW-SD 47.1 fL; WBC 7.41 10^3/uL (4.4-10.8)
[2020-09-04 10:14] LABS: Anion Gap 10.1 mmol/L (3-11); BUN 16 mg/dL (7-18); CO2 20.9 mmol/L (21.0-32.0); CREATININE 0.7 mg/dL (0.70-1.30); Calcium 8.8 mg/dL (8.5-10.1); Chloride 105 mmol/L (98-107); Glucose 139 mg/dL (74-106); Magnesium 1.8 mg/dL (1.8-2.4); Potassium 5.1 mmol/L (3.5-5.1); Sodium 136 mmol/L (136-145)
--- NOTE | 2020-09-04 10:17 | PDOC.CMIN ---
- If Service Date Differs Date of service: 09/04/20 Time of Service: 10:17 Care Management Initial Assess REASON FOR HOSPITALIZATION:: Anemia, anticoagulated, fever. PAST MEDICAL HISTORY/PAST SURGICAL HISTORY:: Medical History: Anemia, Atrial fibrillation, Paroxysmal, intolerant of anticoagulation (n/v/hematuria while on eliquis), referred for a Watchman procedure at [facility] (not yet done) - F/U Dr. Yonathan Phillips [facility] 11/2019,. Bilateral leg edema, Carcinoma, basal cell, skin, Chronic combined systolic (congestive) and diastolic (congestive) heart failure - EF 45% on echo 07/02/2019, COPD (chronic obstructive pulmonary disease), Deviated nasal septum, Diabetes mellitus, type II - insulin dependent, GERD (gastroesophageal reflux disease), GI bleeding, Hyperlipidemia,. Hypertension, Osteoarthritis of knee (04/09/14), Osteoarthritis of right knee, Chelsea-ampullary neoplasm, Pericarditis - Pt. states this was 2 years ago., Pulmonary hypertension, and Tobacco use disorder. Surgical History: Colonoscopy - MAC (10/29/16). PREVIOUS FUNCTIONAL STATUS/SOCIAL/FAMILY SUPPORTS:: Leoncio lives in [place] with his director of recreation therapy, Dorie. ADVANCE DIRECTIVES:: None on file; Has patient been provided with info about the portal/API?: Yes CODE STATUS:: Full Code INSURANCE COVERAGE / FINANCIAL ISSUES:: [facility] (Medicare replacement plan). PRIMARY CARE PHYSICIAN:: Maye Brady NP. POTENTIAL DISCHARGE NEEDS:: Follow up appointments with PCP and surgeon and discharge plan of care. PATIENT/FAMILY EDUCATION NEEDS:: Discharge instructions, limitations, and follow up plan of care, including Ask Me Three and self management. PLAN:: Anticipate Leoncio will be discharged home with no services when medically cleared by provider. He will follow up with his PCP, surgeon and discharge plan of care as directed. He will be driven home by family via private vehicle when ready. CM will continue to support Leoncio and discharge planning needs.
[2020-09-04] MEDS: MAGNESIUM SULFATE 2 GM/50 ML BAG IVPB (11:08)
--- NOTE | 2020-09-04 12:12 | W.ANESPRE ---
General Info Date of Service Date Performed: 09/04/20 Height: 5 ft 7 in Weight: 65.5 kg Body Mass Index (BMI): 22.6 Surgical Procedure: Operation Date: 09/05/20 08:20 Proposed Procedures Side Surgeon p Gastroscopy Monique Beth, Meds Allergies and Home Medications Allergies Allergy/AdvReac Type Severity Reaction Status Date / Time apixaban AdvReac nausea/vomi Verified 09/03/20 19:46 ting Home Medication Medication Instructions Recorded aspirin [Aspir-81] 81 mg PO DAILY tab-cap 10/18/16 metformin 1,000 mg PO BID tab-cap 10/18/16 atorvastatin 40 mg tablet 40 mg PO QHS 04/17/19 insulin glargine 100 unit/mL 20 unit SC QHS 04/17/19 subcutaneous solution lisinopril 20 mg tablet 20 mg PO DAILY 04/17/19 pantoprazole 40 mg tablet,delayed 40 mg PO BID tab 04/17/19 release ascorbic acid (vitamin C) [Vitamin 500 mg PO BID 07/16/19 C] ferrous sulfate [iron] 325 mg PO BID 07/16/19 mometasone 50 mcg/actuation nasal 2 spray DAYSI DAILY PRN PRN 09/05/19 spray potassium chloride 20 mEq oral 20 meq PO DAILY 09/05/19 packet Trelegy Ellipta 1 inh INHALATION DAILY 01/04/20 furosemide 40 mg PO DAILY 09/03/20 rivaroxaban [Xarelto] 20 mg PO DAILY 09/03/20 Current Visit Medications: Current Medications Generic Name Dose Route Start Last Admin Trade Name Freq PRN Reason Stop Dose Admin Albuterol/Ipratropium 3 ml 09/04/20 07:32 Albuterol/Ipratropium 3 Ml Upd Vial UPD Q4H PRN PRN Sodium Chloride 500 mls @ 0 mls/hr 09/03/20 19:53 Saline 500ml Bag IV PRN PRN As Directed IV Miscellaneous Supplies 1 each 09/03/20 20:00 Iv Access IV DIRECTED BHAVNA Insulin Glargine 20 units 09/04/20 22:00 Insulin Glargine 100 Units/Ml Unit SC HS BHAVNA Lisinopril 20 mg 09/04/20 08:30 09/04/20 08:20 Lisinopril 20 Mg Tab PO Not Given DAILY BHAVNA Metformin HCl 1,000 mg 09/04/20 09:00 09/04/20 09:14 Metformin 500 Mg Tab PO Not Given BID PC BHAVNA Mometasone Furoate 0 gm 09/04/20 06:13 Mometasone Nasal 17 Gm Btl NS DAILY PRN PRN Non-Formulary Medication 1 inh 09/04/20 08:30 Djqwoxapbng-Gvinepslq-Wgpqawry [Trelegy Ellipta] IH DAILY BHAVNA Pantoprazole Sodium 40 mg 09/04/20 08:30 09/04/20 07:59 Pantoprazole 40 Mg Tabcr PO 40 mg BID BHAVNA Administration Sodium Chloride 0 ml 09/03/20 19:53 09/04/20 11:09 Normal Saline Flush 10 Ml Syr IVP 10 ml PRN PRN Administration PFSH Active Problems Active Problems: Problem Status Onset Code GI bleeding K92.2 Anemia D64.9 Anticoagulated Z79.01 Fever R50.9 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 Sessile colonic polyp 10/29/16 K63.5 Primary osteoarthritis of right knee 04/15/15 M17.11 Acute on chronic combined systolic and diastolic CHF (congestive heart failure) I50.43 Pulmonary hypertension I27.20 Ground glass opacity present on imaging of lung R91.8 CAP (community acquired pneumonia) J18.9 Afib I48.91 Suspected COVID-19 virus infection Z20.828 DVT prophylaxis Z29.9 Discharge planning issues Z02.9 Atrial fibrillation I48.91 Anemia D64.9 GERD (gastroesophageal reflux disease) K21.9 Medical History Medical History (Updated 09/04/20 @ 06:40 by Jevon Lucio MD) Anemia Atrial fibrillation Paroxysmal, intolerant of anticoagulation (n/v/hematuria while on eliquis), referred for a Watchman procedure [place] [facility] (not yet done) F/U Dr. Yonathan Phillips [facility] 11/2019 Bilateral leg edema Carcinoma, basal cell, skin Chronic combined systolic (congestive) and diastolic (congestive) heart failure EF 45% on echo 07/02/2019 COPD (chronic obstructive pulmonary disease) Deviated nasal septum Diabetes mellitus, type II insulin dependent GERD (gastroesophageal reflux disease) GI bleeding Hyperlipidemia Hypertension Osteoarthritis of knee (04/09/14) Osteoarthritis of right knee Chelsea-ampullary neoplasm Pericarditis Pt. states this was 2 years ago. Pulmonary hypertension Tobacco use disorder Surgical History Surgical History Colonoscopy - MAC (10/29/16) Tobacco Smoking/Tobacco Use Status: Former Tobacco Use Tobacco: How many years used: 56 Counseling given: provider counseling Alcohol Alcohol Intake: former Year quit: 1970 Substance Use Substance use: Never Substance use type: does not use Vital Signs and Lab Results Vital Signs Most Recent Vital Signs in EMR: Most Recent Vital Signs Temp Pulse Resp BP Pulse Ox 36.8 C 114 H 95 H 112/69 92 09/04/20 11:16 09/04/20 11:16 09/04/20 11:16 09/04/20 09:10 09/04/20 09:10 Lab Results Result Diagrams: 09/04/20 10:09/04/20 10:01 Blood Type / Crossmatch: Patient ABO/Rh B Positive 09/03/20 22:15 09/03/20 Antibody Screen NEGATIVE 09/03/20 22:15 09/03/20 Crossmatch See Detail 09/03/20 22:15 09/03/20 Complete Blood Count: White Blood Count 7.41 10^3/uL (4.4-10.8) 09/04/20 10:01 09/04/20 Red Blood Count 3.29 10^6/uL (4.36-5.78) L 09/04/20 10:01 09/04/20 Hemoglobin 8.8 g/dL (13.5-17.5) L 09/04/20 10:09/04/20 Hematocrit 29.1 % (40.0-50.0) L 09/04/20 10:09/04/20 Platelet Count 231 10^3/uL (130-400) 09/04/20 10:09/04/20 Complete Metabolic Panel: Sodium Level 136 mmol/L (136-145) 09/04/20 10:09/04/20 Potassium Level 5.1 mmol/L (3.5-5.1) 09/04/20 10:09/04/20 Chloride Level 105 mmol/L (98-107) 09/04/20 10:09/04/20 Carbon Dioxide Level 20.9 mmol/L (21.0-32.0) L 09/04/20 10:09/04/20 Blood Urea Nitrogen 16 mg/dL (7-18) 09/04/20 10:09/04/20 Creatinine 0.7 mg/dL (0.70-1.30) 09/04/20 10:09/04/20 Estimated GFR/1.73 m2 >= 60.00 (mL/min/1.73m2) 09/04/20 10:09/04/20 Magnesium Level 1.8 mg/dL (1.8-2.4) 09/04/20 10:09/04/20 Calcium Level 8.8 mg/dL (8.5-10.1) 09/04/20 10:09/04/20 Albumin 2.5 g/dL (3.4-5.0) L 09/03/20 20:20 09/03/20 Glucose Level 139 mg/dL (74-106) H 09/04/20 10:09/04/20 C-Reactive Protein 14.10 mg/dL (0.0-0.3) H 09/03/20 20:20 09/03/20 Liver Function Panel: Alanine Aminotransferase (ALT/SGPT) 21 U/L (16-63) 09/03/20 20:20 09/03/20 Aspartate Amino Transf (AST/SGOT) 8 U/L (15-37) L 09/03/20 20:20 09/03/20 Coagulation Panel: No Data to Display Cardiac Panel: Troponin I < 0.05 ng/mL (<0.06) 09/03/20 20:20 09/03/20 Arterial Blood Gas: No Data to Display Venous Blood Gas: No Data to Display Pancreas Panel: No Data to Display Thyroid Panel: Thyroid Stimulating Hormone (TSH) 0.59 uIU/mL (0.36-3.74) 09/03/20 20:20 09/03/20 Infectious Disease: Coronavirus (COVID-19)(PCR) Negative (Negative) 09/03/20 23:15 09/03/20 Coronavirus 2019 Source Nasal/Nares 09/03/20 23:15 09/03/20 Blood Cultures: No Data to Display Toxicology Panel: No Data to Display Imaging and Studies Imaging and Studies EKG Summary: DATE/TIME OF SERVICE: 09/03/202005 HR:81 bpm ECG Measurements Heart Rate 81 AXIS MN 142 P 27 QRSd 73 QRS 49 QT 342 T44 QTc 405 Conclusion Sinus rhythm...normal P axis, V-rate 60- 99 Atrial premature complex...SV complex w/ short R-R interval Echocardiogram Summary: Date of Exam: 07/02/19 Indications: Shortness of Breath Conclusion Left Ventricle : The left ventricle is normal size. The overall left ventricular systolic function appears normal. There is normal left ventricular wall thickness. There is normal LV segmental wall motion. Transmitral Doppler flow pattern suggests impaired LV relaxation. LVEF is 45%. Right Ventricle : The right ventricle is normal size. The right ventricular systolic function is normal. Estimated RVSP is 54 mmHg. Atria : The left atrium size is normal. The right atrium size is normal. Aortic Valve : The Aortic valve is sclerotic. There is no aortic valvular stenosis. No aortic regurgitation is present. Mitral Valve : There is mitral annular calcification. No evidence of mitral valve stenosis. Trace mitral regurgitation. Tricuspid Valve : The tricuspid valve is normal in structure. There is no tricuspid valve stenosis. Mild tricuspid regurgitation. Great Vessels : The IVC is normal in size and collapses <50% with inspiration. There is no prior echocardiogram available for comparison. Pulmonary Function Summary: Date of service: 11/12/19 Time of Service: 09:58 Pulmonary Function Test Result Interpretation Spirometry: Shows mild obstructive airways disease with no significant bronchodilator response Lung Volumes: Shows no evidence of restriction Diffusion Capacity: Severely reduced which is moderately reduced when corrected to alveolar volume Airway Pressure: Airways resistance is Normal Impression Mild obstructive airways disease with no significant bronchodilator response, this is associated with severe diffusion defect. When the study was compared to previous one from 03/31/2012, the patient FVC has declined by 410 cc, FEV1 has declined by 310 cc, diffusion capacity substantially declined, total lung capacity has declined by 520 cc while measures of air trapping such as residual volume remained stable Clinical Correlation therefore is recommended. Anesthesia Assessment and Plan Anesthesia History Personal History: No History of Anesthesia Complications Family History: No Family History of Anesthesia Complications Exercise Tolerance Exercise Tolerance: Metabolic Equivalents>4 Pertinent Negatives Pertinent Negatives: No Symptoms of GERD Cardiac & Pulmonary Exam Cardiac Exam: Normal S1/S2 Heart Sounds Pulmonary Exam: Clear Bilateral Breath Sounds Airway Exam Known Difficult Airway: No Mallampati Class: 3 Mouth Opening: Narrow (< 3cm) Thyromental Distance: Greater than 3 cm Neck Range of Motion: Full ROM Neck Circumference: Normal Teeth Condition: Edentulous ASA Classification ASA Score: ASA 3 Emergency Case?: No NPO Status NPO Status: NPO Clears >2 hours, Solids >8 hours Anesthesia Plan Resuscitation Status: Full Code Anesthesia Technique: General Anesthesia Airway Planned: Natural Airway Monitors Used: Standard Monitors
--- NOTE | 2020-09-04 15:14 | PHA.REVIEW ---
Pharmacy Admission Review - Admission Clinical Review (Last Updated 09/04/20 @ 06:40 by Jevon Lucio MD) Anticoagulated (Acute) Fever (Acute) apixaban Adverse Reaction (Verified 09/03/20 19:46) nausea/vomiting Resuscitation Status Full Code Height 5 ft 7 in Weight 65.5 kg - Renal Dosing Renal Dosing: BUN 16 mg/dL (7-18) 09/04/20 10:01 Creatinine 0.7 mg/dL (0.70-1.30) 09/04/20 10:01 Medications needing adjustments: Reviewed - Anticoagulation Anticoagulation: Hgb 8.8 g/dL (13.5-17.5) L D 09/04/20 10:01 Hct 29.1 % (40.0-50.0) L D 09/04/20 10:01 Plt Count 231 10^3/uL (130-400) 09/04/20 10:01 Creatinine 0.7 mg/dL (0.70-1.30) 09/04/20 10:01 DVT Prophylaxis: N/A Therapeutic Anticoagulation: N/A (chronically anticoagulated with rivaroxaban) - Opiate Usage Evaluate Pain Scale/Pains Meds: N/A Scheduled Bowel Reg ordered if on Opiates?: No - Relevant Labs ESR 43 mm/hr (0-20) H 09/03/20 20:20 Sodium 136 mmol/L (136-145) 09/04/20 10:01 Potassium 5.1 mmol/L (3.5-5.1) 09/04/20 10:01 Chloride 105 mmol/L (98-107) 09/04/20 10:01 Magnesium 1.8 mg/dL (1.8-2.4) 09/04/20 10:01 C-Reactive Protein 14.10 mg/dL (0.0-0.3) H 09/03/20 20:20 Electrolytes, C-Reactive P, ESR: Reviewed - DM Control DM Control: Glucose 139 mg/dL (74-106) H 09/04/20 10:01 Insulin Dosing: Reviewed (Glargine 20 U at HS, SSI not ordered at this time/finger stick monitoring not ordered) - Heart Failure/GA Heart Failure/GA: Troponin I < 0.05 ng/mL (<0.06) 09/03/20 20:20 EF%, JACQUELYN's, B-Blockers, Diuretics: Reviewed - BP Control BP Control: Blood Pressure 112/69 Blood Pressure 104/57 Blood Pressure 105/63 Blood Pressure 99/62 Blood Pressure 108/66 Blood Pressure 104/60 Blood Pressure 100/61 Blood Pressure 100/61 Blood Pressure 106/59 Blood Pressure 94/59 If elevated: Reviewed - Qtc Review If Elevated: Reviewed List meds needing interventions: QTc 405 on admission - IV to PO Switch IV Medications: Reviewed - Home Meds Home Med List reviewed: Intervened Relevent Home Meds Not ordered & why?: ascorbic acid, ASA, atorvastatin, bisoprolol, ferrous sulfate, furosemide, metformin, potassium, rivaroxaban - Current meds Current Medication Order Review: Intervened - Comments Comments/Follow Ups: surgical consult
[2020-09-04 16:14] LABS: HCT 30.5 % (40.0-50.0); HGB 9.3 g/dL (13.5-17.5)
--- NOTE | 2020-09-04 17:56 | PDOC.CMIN ---
- If Service Date Differs Date of service: 09/04/20 Time of Service: 17:56 Care Management Initial Assess REASON FOR HOSPITALIZATION:: Anemia, anticoagulated, fever. PAST MEDICAL HISTORY/PAST SURGICAL HISTORY:: Medical History: Anemia, Atrial fibrillation, Paroxysmal, intolerant of anticoagulation (n/v/hematuria while on eliquis), referred for a Watchman procedure at [facility] [place] (not yet done) - F/U Dr. Yonathan Phillips [facility] 11/2019,. Bilateral leg edema, Carcinoma, basal cell, skin, Chronic combined systolic (congestive) and diastolic (congestive) heart failure - EF 45% on echo 07/02/2019, COPD (chronic obstructive pulmonary disease), Deviated nasal septum, Diabetes mellitus, type II - insulin dependent, GERD (gastroesophageal reflux disease), GI bleeding, Hyperlipidemia,. Hypertension, Osteoarthritis of knee (04/09/14), Osteoarthritis of right knee, Chelsea-ampullary neoplasm, Pericarditis - Pt. states this was 2 years ago., Pulmonary hypertension, and Tobacco use disorder. Surgical History: Colonoscopy - MAC (10/29/16). PREVIOUS FUNCTIONAL STATUS/SOCIAL/FAMILY SUPPORTS:: Everett and his partner of 33 years, dorie, have recently moved from their mobile home in [place] to their camp at [facility].. he has no children but Dorie has 4. They see most of them on a regular basis. 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 Everett uses a cane fo ambulatory assistance but is otherwise independent and receives no community services. CURRENT FUNCTIONAL STATUS:: Everett was sititng up in a chair when CM met with him. He was pleasant and agreeable to conversation. Everett shared that he has recently moved from his mobile home because the mobile home park has a huge problem with rats. He has a camp on [facility] and will move to an apartment in the fall when the campground closes. 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 He informed CM that she is morbidly obese and cannot walk. She is able to get around in a motorized wheelchair. ADVANCE DIRECTIVES:: None on file Has patient been provided with info about the portal/API?: Yes Did the patient sign up for the portal?: No CODE STATUS:: Full Code INSURANCE COVERAGE / FINANCIAL ISSUES:: [employer] MCR replacement plan CURRENT HOME/COMMUNITY SERVICES/EQUIPMENT:: Everett uses a cane PRIMARY CARE PHYSICIAN:: Maye Bardy NP. POTENTIAL DISCHARGE NEEDS:: Follow up appointments with PCP and surgeon and discharge plan of care. PATIENT/FAMILY EDUCATION NEEDS:: Discharge instructions, limitations, and follow up plan of care, including Ask Me Three and self management. TRANSPORTATION:: via private vehicle with family PLAN:: Anticipate Leoncio will be discharged home with no services when medically cleared by provider. He will follow up with his PCP, surgeon and discharge plan of care as directed. He will be driven home by family via private vehicle when ready. CM will continue to support Leoncio and discharge planning needs.
[2020-09-04] MEDS: metFORMIN 500 MG TAB 1000 MG PO (18:12)
[2020-09-04] MEDS: Insulin Glargine 300 UNITS/3 ML PEN 20 UNITS SC (23:17)
[2020-09-05] VITALS (17 sets, daily range): BP systolic 101–126; BP diastolic 57–74; PULSE 95–121; RESP 16–22; TEMP 36.6–38.9; O2SAT 88–93
[2020-09-05] MEDS: Lactated Ringers 1,000 ML 50 ML IV (07:19)
--- NOTE | 2020-09-05 07:45 | PDOC.CMPRO ---
- If Service Date Differs Date of service: 09/05/20 Time of Service: 07:45 Care Management Progress Note S/O:Everett was sitting up in his chair when CM met with him. He was pleasant and informed CM that he feels well. Earlier this morning he had an EGD. At the site of the previously identified tv adenoma a large mass was identified and biopsies were taken. No bleeding was seen. Everett will likely be referred back to [facility] for possible surgery and follow up. A: Everett is a 75 year old man admitted on 09/03/20 with Anemia and fever P:Anticipate Everett will be discharged home with no services when medically cleared by provider. He will follow up with his PCP, surgeon and discharge plan of care as directed. It is likely that a referral will be made to [facility]. He will be driven home by family via private vehicle when ready. CM will continue to support Leoncio and assess for discharge planning needs.
--- NOTE | 2020-09-05 08:26 | BOWEL_PTH ---
PATIENT: Leoncio Coy LOC: U#:[id number] AGE/SX: 75/M ROOM: 207 RE09/03/[address]: Jevon Lucio : 1945 BED: A DIS: 09/08/2020 SPEC #: [id number] RECD: 09/05/20 13:02 STATUS: KOBE REQ #: [id number] TOÑITO: 09/05/20 08:[address]: Jevon Lucio DEPT: Surgical Specimen RECD BY: Laura Evans ENTERED: 09/05/20 13:05 SP TYPE: Bowel OTHR DR: MADELINE Anna PA Anthony Campbell Cole, Shola Mark A Dittenbir, MD Patrick Fitzpatrick, DO Kaplin, Aviva W Annick Kaufman, MD Koshowski, Lori Leung, Christie Paul Pace, MD Carl B Petri, MD Deane Rankin, MD Stoiber, Laura M Tissues: 1 - BIOPSY BOWEL Procedures: GROSS AND MICRO LEVEL 4 Comments: [id number]
--- NOTE | 2020-09-05 09:07 | W.PM.ENDDOP ---
Date of service: 09/05/20 Time of Service: 09:07 Endoscopy Report DATE OF PROCEDURE: 09/05/20 PRE-OP DIAGNOSIS: D2 mass POST-OP DIAGNOSIS: other (increase in size) SURGEON: Monique Beth ANESTHESIA TYPE: General:No Airway ESTIMATED BLOOD LOSS: 1 PATHOLOGY: other COMPLICATIONS: None DISPOSITION: PACU PROCEDURE DESCRIPTION: After informed consent was obtained the patient was take to the procedure room and placed in a supine position. Monitors were applied and a time out was done. The patients name, date of , procedure type, allergies to medications and metal in their body was reviewed. A bite block was placed and the patient was sedated. Once sedated and comfortable the gastroscope was advanced through the oropharynx which was grossly normal into the esophagus. The proximal and mid-esophagus were nl. In the distal esophagus: There are no esophageal erosions, varices, diverticula, or stricture apparent. There is no hiatal hernia. The stomach is grossly normal. There is no ulcers or gastritis. The scope was passed into the pylorus into the second portion of the duodenum. Free flow of bile was noted. He has a large mass in the duodenum. 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 He has the same characteristics. It now covers 75 to 80% circumferentially of the duodenum. There is no signs of active bleeding. It also has about 50% luminal occlusion. Multiple biopsies again are taken. There is no significant bleeding noted after biopsies are taken patient is brought back to the recovery room in stable condition the scope was advanced into the stomach and through the pylorus into the 3rd portion of the duodenum. The scope was retracted back into the stomach and biopsies were done to rule out H. pylori. There were no ulcers/gastritis. The scope was retroflexed. The cardia and fundus were noted to be normal. There no hiatal hernia noted. The scope was retracted back into the esophagus and biopsies were done of the GE junction to rule out Vasquez's. The Z line was regular. The scope was removed and the patient was woken up and taken back to [facility] in stable condition. Patient needs to go down and see GI and see if there is any further excision they can do. No further anticoagulation
--- NOTE | 2020-09-05 09:53 | W.ANESPOSTOP ---
Postoperative Evaluation Date, Time and Location Date Performed: 09/05/20 Time Performed: 09:54 Patient Location: Med/Surg Vital Signs Most Recent Imported Vital Signs: Most Recent Vital Signs Temp Pulse Resp BP Pulse Ox 36.9 C 103 H 16 126/71 92 09/05/20 09:47 09/05/20 09:47 09/05/20 09:47 09/05/20 09:47 09/05/20 09:47 Pain Score Most Recent Pain Score: Most Recent Pain Score Pain Level 0 09/05/20 08:52 Assessment Mental Status: Awake (Alert & Oriented to Patient Baseline) Airway and Respiratory Function: Patent airway with normal (patient baseline) respiratory exam Cardiovascular Function: Hemodynamically Stable Hydration Status: Adequately Hydrated Nausea & Vomiting: No Nausea or Vomiting Pain: Pt. Denies Any Pain Peripheral Nerve Block: Patient did not receive a nerve block
[2020-09-05] MEDS: metFORMIN 500 MG TAB 1000 MG PO ×2 (10:02→18:13)
[2020-09-05] MEDS: IRON SUCROSE COMPLEX 200 MG in Normal Saline 100 ML 400 MG IVPB (10:37)
--- NOTE | 2020-09-05 13:05 | W.PM.PROGNOT ---
Date of Service Date of service: 09/05/20 Time of Service: 13:15 Assessment and Plan Assessment and plan (1) GI bleeding: Status: Chronic Assessment and plan: Presented w/o notice of melena or hematochezia. 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 He was to f/u with [facility] but that did not occure. Today, upper endoscopy showed, per gen surgery: large mass in the duodenum that is the previous tubulovillous adenoma bxd last Jan. It now covers 75 to 80% circumferentially of the duodenum. There is no signs of active bleeding. It also has about 50% luminal occlusion. Multiple biopsies again are taken. There is no significant bleeding noted after biopsies. H/H post procedure pending. D/W Gen Surg. To resect this mass would require a Whipple procedure. Can refer to [facility] for eval. (2) Anemia: Status: Chronic Assessment and plan: Likely an intermittent bleed from the duodenal mass. S/P 2 units RBCs; Hgb 9.3 post-transfusion. (3) Chelsea-ampullary neoplasm: Status: Acute Assessment and plan: See GI bleed (4) Afib: Status: Chronic Assessment and plan: In sinus rhythm. Was on Xarelto, then had Watchman procedure in June. Typically on AC for 45 days after Watchman, then a RAGINI or cardiac CT to evaluate before stopping AC. AC has been terminated d/t duodenal mass and bleeding. (5) Hypertension: Status: None Assessment and plan: BP 110's - 120's. On lisinopril 20mg daily. Monitor. (6) Diabetes mellitus, type II: Status: None Assessment and plan: On Lantus and metformin. Diabetic diet Monitor Subjective Subjective Patient reports: no new complaints and afebrile; denies diarrhea, nausea and vomiting Interval history since last seen: Prior to EGD; felt fine. Exam Const General: cooperative and no acute distress Nutritional Appearance: average body habitus Orientation: alert and oriented x3 Eyes Sclera: sclerae normal Resp Effort & Inspection: normal respiratory effort Auscultation: clear to auscultation bilaterally Cardio Rate: regular rate Rhythm: regular rhythm Heart Sounds: S1 normal and S2 normal GI Palpation: soft and nontender Auscultation: normal bowel sounds Extrem General: no pedal edema and no calf tenderness Objective Last Vital Signs Temp 37 C 09/05/20 11:17 Pulse 99 H 09/05/20 11:17 Resp 20 09/05/20 11:17 BP 114/69 09/05/20 11:17 Pulse Ox 91 L 09/05/20 11:59 Laboratory Results - last 24 hr 09/04/20 16:07 Hgb 9.3 L Hct 30.5 L
[2020-09-05 14:06] LABS: HCT 31.7 % (40.0-50.0); HGB 9.5 g/dL (13.5-17.5)
[2020-09-05] MEDS: Acetaminophen 325 MG TAB 650 MG PO (15:13)
--- NOTE | 2020-09-05 15:52 | PGE_ITS ---
Date of Service Date of service: 09/05/20 Time of Service: 15:53 Assessment and Plan Assessment and plan (1) Tobacco use disorder: Status: None (2) Hyperlipidemia: Status: Acute (3) Anemia: Status: Chronic (4) Chelsea-ampullary neoplasm: Status: Acute Assessment and plan: referral was done to see GI at [facility] for [place] /bleeding prevention. referral was sent by my office. -no further ASA/NSAID's or anticoags. -cont PPI- pt is on this for reflux (5) Acute on chronic combined systolic and diastolic CHF (congestive heart failure): Status: Acute (6) Pulmonary hypertension: Status: Acute (7) Afib: Status: Chronic (8) Diabetes mellitus, type II: Status: None (9) Atrial fibrillation: Status: Chronic (10) Hypertension: Status: None (11) COPD (chronic obstructive pulmonary disease): Status: None (12) GERD (gastroesophageal reflux disease): Status: Chronic (13) Presence of Watchman left atrial appendage closure device: Status: Acute Objective Last Vital Signs Temp 38.9 C H 09/05/20 15:13 Pulse 110 H 09/05/20 15:12 Resp 20 09/05/20 15:12 BP 109/70 09/05/20 15:12 Pulse Ox 88 L 09/05/20 15:12 Laboratory Results - last 24 hr 09/04/20 09/05/20 09/05/20 16:07 13:55 Unknown Hgb 9.3 L 9.5 L Cancelled Hct 30.5 L 31.7 L Cancelled
[2020-09-05 15:55] LABS: HCT 30.3 % (40.0-50.0); HGB 9.2 g/dL (13.5-17.5)
[2020-09-05] MEDS: Pantoprazole 40 MG TABCR PO (19:59)
[2020-09-06] VITALS (16 sets, daily range): BP systolic 101–142; BP diastolic 56–77; PULSE 98–119; RESP 16–22; TEMP 36.5–37.7; O2SAT 81–94
[2020-09-06 07:41] LABS: Abs Immature Grans 0.04 10^3/uL (0.0-0.06); Absolute Basophil Count 0.04 10^3/uL (0.0-0.2); Absolute Lymphocyte Count 0.65 10^3/uL (1.2-3.4); Absolute Monocyte Count 0.61 10^3/uL (0.1-0.8); Absolute Neutrophil Count 5.55 10^3/uL (1.2-6.7); Basophils % 0.6; Eosinophils % 2.8; HCT 29.3 % (40.0-50.0); HGB 8.8 g/dL (13.5-17.5); Immature Grans % 0.6; Lymphocytes % 9.2; MCH 26.3 pg (27.0-33.0); MCV 87.7 fL (80-95); MPV 12.1 fL (8.0-11.0); Monocytes % 8.6; Neutrophils % 78.2; Nucleated RBC 0 %; Platelet Count 224 10^3/uL (130-400); RBC 3.34 10^6/uL (4.36-5.78); RDW 15.3 % (11.8-14.1); RDW-SD 49.1 fL; WBC 7.09 10^3/uL (4.4-10.8)
[2020-09-06] MEDS: Pantoprazole 40 MG TABCR PO ×2 (07:42→19:27)
[2020-09-06 07:58] LABS: Diff Comment RBC Morph Reviewed; Hypochromasia 1+; Polychromasia Present
--- NOTE | 2020-09-06 07:58 | CMPROGNOTE_ITS ---
Care Management Progress Note S/O: Everett remains acute at this time and continues to be managed by Surgical services with Hospitalist consult. CM continues to follow, referral to [facility] completed by Surgical services for discharge. A: Everett is a 75 year old man admitted on 09/03/20 with Anemia and fever P: Everett will be discharged home with no services when medically cleared by provider. He will follow up with his PCP, surgeon and discharge plan of care as directed. A referral to [facility] was completed by Surgical services for reduction/bleeding prevention per MD. Leoncio will be driven home by family via private vehicle when ready. CM will continue to support Leoncio and assess for discharge planning needs.
--- NOTE | 2020-09-06 10:26 | DI.RAD_ITS ---
Exam(s) XR PORTABLE CHEST AP EXAM: XR PORTABLE CHEST AP CLINICAL HISTORY: FUO TECHNIQUE: 2D digital imaging was performed. COMPARISON: CR PORTABLE CHEST ONE VIEW from 05/19/2017 CR PORTABLE CHEST ONE VIEW from 05/19/2017 CR,XR XR CHEST 2V PA LATERAL from 09/03/2020 FINDINGS: Exam is limited by semi-upright positioning and poor pulmonary inflation. Leads overlie the chest. The heart size is normal. Again noted are bilateral increased interstitial markings. No superimpose d focal infiltrate, effusion or pneumothorax is seen. No significant change from most recent exams g iven differences in technique. IMPRESSION: Increased interstitial changes which could indicate fibrosis. No acute pulmonary findings. DATA REPOSITORY: RADIATION DOSE DELIVERED:
--- NOTE | 2020-09-06 11:04 | DI.VRAD_ITS ---
PROCEDURE INFORMATION: Exam: XR Chest Exam date and time: 09/06/2020 10:13 AM Age: 75 years old Clinical indication: Pain; Other: Fuo TECHNIQUE: Imaging protocol: XR of the chest. Views: 1 view. COMPARISON: CR XR CHEST 2V PA LATERAL 09/03/2020 8:38 PM FINDINGS: Lungs: There are stable chronic bilateral interstitial infiltrates consistent with chronic fibrosis. No new pulmonary consolidation is seen. Pleural spaces: Unremarkable. No pleural effusion. No pneumothorax. Heart/Mediastinum: Unremarkable. No cardiomegaly. Bones/joints: Unremarkable. IMPRESSION: Pulmonary fibrosis. No acute abnormality is seen. Dictated and Authenticated by: Eugenio Kimball MD. Ordering:ANTOINETTE Au MD
[2020-09-06] MEDS: metFORMIN 500 MG TAB 1000 MG PO ×2 (11:08→18:51)
[2020-09-06 11:28] LABS: Procalcitonin 0.5 ng/mL
[2020-09-06 13:34] LABS: Bilirubin Negative (Negative); Blood Negative (Negative); Clarity Clear (Clear); Glucose Negative (Negative); Ketones Negative (Negative); Leukocyte Esterase Negative (Negative); Nitrite Negative (Negative); Urobilinogen 0.2 EU/dL (Up TO 0.2); pH 5.5 (5-8)
[2020-09-06 13:45] LABS: Bacteria Few HPF (Negative); C & S Indicated? No; Casts 3-5 Coarse Granular LPF (Negative); Crystals Few Amorphous HPF (Negative); Epithelial Cells Negative HPF (Negative); Mucus Trace (Negative); RBC Negative HPF (0-2); WBC 0-2 HPF (0-5)
--- NOTE | 2020-09-06 14:32 | W.PM.PROGNOT ---
Date of Service Date of service: 09/06/20 Time of Service: 14:32 Assessment and Plan Assessment and plan (1) GI bleeding: Status: Chronic Assessment and plan: Due to tubulovillous adenoma of the duodenum. s/p EGD 09/05 with increased size of the mass and 50% luminal stenosis. Discussed with GI at [facility]: they will get him an outpatient appointment in 1-2 weeks. Ok to trial baby asa (needs it for Watchman's device), per GI. Continue to monitor H/H. Continue protonix. (2) Anemia: Status: Chronic Assessment and plan: Agree that this is likely acute on chronic anemia of acute blood loss due to duodenal mass in setting of anticoagulation. S/P 2 units RBCs. Transfusion reaction profile negative. Continue to monitor H/H. (3) Chelsea-ampullary neoplasm: Status: Acute Assessment and plan: See GI bleed (4) FUO (fever of unknown origin): Status: Acute Assessment and plan: Check tick panel, await blood cultures. Empiric doxy/ceftriaxone (the patient has complains of chills even prior to admission). Not likely to be due to transfusion reaction, per Dr Weir, [facility] pathology. (5) Presence of Watchman left atrial appendage closure device: Status: Acute Assessment and plan: As above - trial asa. Patient's procedure was on 04/10/20. He is 5 months out. Typically patients are maintained on plavix/asa until 6 months from procedure. Due to his recent bleeding requiring transfusion, at least aspirin should be resumed - which is ok with GI. (6) Afib: Status: Chronic Assessment and plan: Watchman's procedure was in April of 2011. Anticoagulation has been terminated d/t duodenal mass and bleeding. Resume baby asa and monitor H/H. (7) Hypertension: Status: Chronic Assessment and plan: Continue lisinopril (8) Diabetes mellitus, type II: Status: None Assessment and plan: Continue current therapy. Add neurontin for neuropathic pain (9) Neuropathic pain: Status: Acute Assessment and plan: As above (10) DVT prophylaxis: Status: Acute Assessment and plan: TEDS/SCDs Chemical DVT ppx is contraindicated given recent GI bleeding (11) Discharge planning issues: Status: Acute Assessment and plan: Full code Will need outpatient GI follow up - being arranged on [facility] side. Continues to require hospitalization Subjective Subjective Interval history since last seen: Denies dizziness, chest pain, shortness of breath, nausea, abdominal pain. Reports neuropathic pain in his B feet. He is not currently on anything for neuropathy. Febrile yesterday afternoon. Reports chronic cough - sputum yellowish always, no changes. Reports no urinary symptoms, diarrhea, or constipation. Reports no rashes or known tick bites. His R knee always bothers him - he has [id number] arthritis there, and it has not changed. He does not feel sick. Blood transfusion reaction panel was negative - case discussed with Dr Weir ([facility] pathology). Exam Narrative Exam Narrative: General: Pleasant elderly male, mildly dyspneic (patient denies SOB at the time of sx), dry cough, A&Ox3, looks otherwise comfortable HEENT: EOMI, MMM, edentuous Heart: RRR, no m/r/g Lungs: CTAB Abdomen: soft, nontender, nondistended Extremities: no edema, clubbing, or cyanosis of BLEs, 1+ pedal pulses B, no lesions on feet, dry skin Objective Last Vital Signs Temp 36.6 C 09/06/20 11:45 Pulse 110 H 09/06/20 11:45 Resp 17 09/06/20 11:45 BP 114/71 09/06/20 11:45 Pulse Ox 93 09/06/20 11:45 Laboratory Results - last 24 hr 09/05/20 09/05/20 09/06/20 15:48 Unknown 07:29 WBC 7.09 RBC 3.34 L Hgb 9.2 L Cancelled 8.8 L Hct 30.3 L Cancelled 29.3 L MCV 87.7 MCH 26.3 L MCHC 30.0 L RDW 15.3 H Plt Count 224 MPV 12.1 H Immature Gran % 0.6 Neutrophils % 78.2 Lymphocytes % 9.2 Monocytes % 8.6 Eosinophils % 2.8 Basophils % 0.6 Nucleated RBC % 0 Absolute Neutrophils 5.55 Absolute Lymphocytes 0.65 L Absolute Monocytes 0.61 Absolute Eosinophils 0.20 Absolute Basophils 0.04 RBC Morphology See Below Polychromasia Present Hypochromasia 1+ Procalcitonin Urine Color Urine Clarity Urine pH Ur Specific [place] Urine Protein Urine Ketones Urine Blood Urine Nitrite Urine Bilirubin Urine Urobilinogen Ur Leukocyte Esterase Urine RBC Urine WBC Ur Epithelial Cells Urine Crystals Urine Bacteria Urine Casts Urine Mucus Ur Culture Indicated? Urine Glucose Reaction Clerical Check Clerical Work Check Pre-Trans Blood Type Pre-Trans Bld Appearanc Pre-Trans JOHN Post-Trans Blood Type Post-Trans Spec Appear Post-Trans JOHN Reaction Pathol Review 09/06/20 09/06/20 09/06/20 10:22 10:22 12:10 WBC RBC Hgb Hct MCV MCH MCHC RDW Plt Count MPV Immature Gran % Neutrophils % Lymphocytes % Monocytes % Eosinophils % Basophils % Nucleated RBC % Absolute Neutrophils Absolute Lymphocytes Absolute Monocytes Absolute Eosinophils Absolute Basophils RBC Morphology Polychromasia Hypochromasia Procalcitonin 0.5 Urine Color Yellow Urine Clarity Clear Urine pH 5.5 Ur Specific [place] 1.020 Urine Protein 30 H Urine Ketones Negative Urine Blood Negative Urine Nitrite Negative Urine Bilirubin Negative Urine Urobilinogen 0.2 Ur Leukocyte Esterase Negative Urine RBC Negative Urine WBC 0-2 Ur Epithelial Cells Negative Urine Crystals Few Amorphous Urine Bacteria Few Urine Casts 3-5 Coarse Granular Urine Mucus Trace Ur Culture Indicated? No Urine Glucose Negative Reaction Clerical Check No Clerical Errors Clerical Work Check None Pre-Trans Blood Type B Positive Pre-Trans Bld Appearanc No Hemolysis/Icterus Pre-Trans JOHN Not Applicable Post-Trans Blood Type B Positive Post-Trans Spec Appear No Hemolysis/Icterus Post-Trans JOHN Not Applicable Reaction Pathol Review Negative-Complete CXR: Pulmonary fibrosis. No acute abnormality is seen.
[2020-09-06] MEDS: cefTRIAXone 1 GM/50 ML BAG IVPB (15:32)
[2020-09-06] MEDS: Aspirin E.C. 81 MG TABEC PO (15:33)
[2020-09-06] MEDS: DOXYCYCLINE 100 MG in Normal Saline 100 ML IVPB (16:46)
[2020-09-06] MEDS: Gabapentin 100 MG CAP PO (19:26)
[2020-09-06] MEDS: Lachydrin 12% LOTION 225 GM BTL TP (19:26)
[2020-09-06] MEDS: Insulin Glargine 300 UNITS/3 ML PEN 20 UNITS SC (21:28)
[2020-09-07] VITALS (10 sets, daily range): BP systolic 99–138; BP diastolic 57–71; PULSE 72–116; RESP 18–20; TEMP 36.2–37; O2SAT 91–97
[2020-09-07] MEDS: DOXYCYCLINE 100 MG in Normal Saline 100 ML IVPB ×2 (04:11→16:04)
[2020-09-07] MEDS: Normal Saline Flush 10 ML SYR IVP (06:04)
[2020-09-07 07:11] LABS: Abs Immature Grans 0.04 10^3/uL (0.0-0.06); Absolute Basophil Count 0.03 10^3/uL (0.0-0.2); Absolute Eosinophil Count 0.21 10^3/uL (0.0-0.7); Absolute Lymphocyte Count 0.64 10^3/uL (1.2-3.4); Absolute Monocyte Count 0.69 10^3/uL (0.1-0.8); Absolute Neutrophil Count 6.34 10^3/uL (1.2-6.7); Basophils % 0.4; Eosinophils % 2.6; HCT 28.8 % (40.0-50.0); HGB 8.6 g/dL (13.5-17.5); Immature Grans % 0.5; Lymphocytes % 8.1; MCH 25.9 pg (27.0-33.0); MCHC 29.9 % (32.0-36.0); MCV 86.7 fL (80-95); MPV 12.9 fL (8.0-11.0); Monocytes % 8.7; Neutrophils % 79.7; Nucleated RBC 0 %; Platelet Count 253 10^3/uL (130-400); RBC 3.32 10^6/uL (4.36-5.78); RDW 15.6 % (11.8-14.1); RDW-SD 49.5 fL; WBC 7.95 10^3/uL (4.4-10.8)
[2020-09-07 07:22] LABS: Anion Gap 12.5 mmol/L (3-11); BUN 10 mg/dL (7-18); CO2 23.5 mmol/L (21.0-32.0); CREATININE 0.7 mg/dL (0.70-1.30); Calcium 8.8 mg/dL (8.5-10.1); Chloride 99 mmol/L (98-107); Glucose 142 mg/dL (74-106); Magnesium 1.3 mg/dL (1.8-2.4); Potassium 4.4 mmol/L (3.5-5.1); Sodium 135 mmol/L (136-145)
[2020-09-07] MEDS: Lachydrin 12% LOTION 225 GM BTL TP ×2 (08:33→20:00)
[2020-09-07] MEDS: Aspirin E.C. 81 MG TABEC PO (08:33)
[2020-09-07] MEDS: Pantoprazole 40 MG TABCR PO ×2 (08:34→20:00)
[2020-09-07] MEDS: metFORMIN 500 MG TAB 1000 MG PO ×2 (08:34→18:24)
[2020-09-07] MEDS: Gabapentin 100 MG CAP PO ×3 (08:34→20:00)
[2020-09-07] MEDS: MAGNESIUM SULFATE 4 GM/100 ML BAG IVPB (08:35)
[2020-09-07 08:36] LABS: C-Reactive Protein 17.26 mg/dL (0.0-0.3)
[2020-09-07] MEDS: Bisoprolol 5 MG TAB PO (09:46)
--- NOTE | 2020-09-07 10:14 | CMPROGNOTE_ITS ---
- If Service Date Differs Date of service: 09/07/20 Time of Service: 10:14 Care Management Progress Note S/O: Everett was sitting up in a chair when CM met with him. He appeared to be in good spirits and informed CM that he is feeling well and anticipates going home tomorrow. His Dorie is disabled and unable to visit but he has talked to her on the phone and shared that all is well. A: Everett is a 75 year old man admitted on 09/03/20 with Anemia and fever P: Everett will be discharged home with no services when medically cleared by provider. He will follow up with his PCP, surgeon and discharge plan of care as directed. [place] [facility] [place] by [place] services for follow up of the periampullar neoplasm. Leoncio will be driven home by family via private vehicle when ready. CM will continue to support Leoncio and assess for discharge planning needs.
[2020-09-07] MEDS: VANCOMYCIN/WATER (PEG) 1 GM/200 ML BAG IV (11:21)
[2020-09-07] MEDS: cefTRIAXone 1 GM/50 ML BAG IVPB (13:51)
--- NOTE | 2020-09-07 16:32 | W.PM.PROGNOT ---
Date of Service Date of service: 09/07/20 Time of Service: 16:32 Assessment and Plan Assessment and plan (1) GI bleeding: Status: Chronic Assessment and plan: Due to tubulovillous adenoma of the duodenum. s/p EGD 09/05 with increased size of the mass and 50% luminal stenosis. Discussed with GI at [facility]: they will get him an outpatient appointment in 1-2 weeks. Tolerating baby asa. Continue to monitor H/H. Needs asa for Watchman's device. Continue protonix. (2) Anemia: Status: Chronic Assessment and plan: Agree that this is likely acute on chronic anemia of acute blood loss due to duodenal mass in setting of anticoagulation. S/P 2 units RBCs. Transfusion reaction profile negative. Continue to monitor H/H. (3) Chelsea-ampullary neoplasm: Status: Acute Assessment and plan: See GI bleed (4) FUO (fever of unknown origin): Status: Acute Assessment and plan: Defervesced on empiric vanco/ceftriaxone/doxycycline. Blood cx neg. Await tick panel, continue to monitor blood cultures. If blood cultures remain negative, would discharge home tomorrow on augmentin. Not likely to be due to transfusion reaction, per Dr Weir, [facility] pathology. (5) Presence of Watchman left atrial appendage closure device: Status: Acute Assessment and plan: As above - continue baby asa while monitoring H/H. Patient's procedure was on 04/10/20. He is 5 months out. Typically patients are maintained on plavix/asa until 6 months from procedure. Due to his recent bleeding requiring transfusion, at least aspirin should be resumed - which is ok with GI. (6) Afib: Status: Chronic Assessment and plan: Watchman's procedure was in April of 2011. Anticoagulation has been terminated d/t duodenal mass and bleeding. Resume baby asa and monitor H/H. (7) Hypertension: Status: Chronic Assessment and plan: Continue lisinopril (8) Diabetes mellitus, type II: Status: None Assessment and plan: Continue current therapy. Add neurontin for neuropathic pain (9) Neuropathic pain: Status: Acute Assessment and plan: As above (10) Hypomagnesemia: Status: Acute Assessment and plan: Replete and recheck in am. (11) DVT prophylaxis: Status: Acute Assessment and plan: TEDS/SCDs Chemical DVT ppx is contraindicated given recent GI bleeding (12) Discharge planning issues: Status: Acute Assessment and plan: Full code Will need outpatient GI follow up - being arranged on [facility] side. Probable discharge home tomorrow if H/H remains stable Subjective Subjective Interval history since last seen: Feels well today. Denies dizziness, chest pain, shortness of breath, nausea, vomiting, abdominal pain. Tmax 37.7 yesterday morning. Last recorded BM was on 09/05 - liquid brown Exam Narrative Exam Narrative: General: Pleasant elderly male, sitting up in a chair, no dyspnea/tachypnea, A&Ox3 HEENT: EOMI, MMM, edentuous Heart: RRR, no m/r/g Lungs: CTAB Abdomen: soft, nontender, nondistended Extremities: no edema, clubbing, or cyanosis of BLEs, 1+ pedal pulses B, no lesions on feet, dry skin Objective Last Vital Signs Temp 36.5 C 09/07/20 16:06 Pulse 81 09/07/20 16:06 Resp 20 09/07/20 16:06 BP 114/65 09/07/20 16:06 Pulse Ox 92 09/07/20 16:06 Laboratory Results - last 24 hr 09/07/20 09/07/20 06:12 06:12 WBC 7.95 RBC 3.32 L Hgb 8.6 L Hct 28.8 L MCV 86.7 MCH 25.9 L MCHC 29.9 L RDW 15.6 H Plt Count 253 MPV 12.9 H Immature Gran % 0.5 Neutrophils % 79.7 Lymphocytes % 8.1 Monocytes % 8.7 Eosinophils % 2.6 Basophils % 0.4 Nucleated RBC % 0 Absolute Neutrophils 6.34 Absolute Lymphocytes 0.64 L Absolute Monocytes 0.69 Absolute Eosinophils 0.21 Absolute Basophils 0.03 Sodium 135 L Potassium 4.4 Chloride 99 Carbon Dioxide 23.5 Anion Gap 12.5 H BUN 10 D Creatinine 0.7 Estimated GFR/1.73 m2 >= 60.00 Glucose 142 H Calcium 8.8 Magnesium 1.3 L C-Reactive Protein 17.26 H
[2020-09-07] MEDS: VANCOMYCIN/WATER (PEG) 1.25 GM/250 ML BAG IV (18:24)
[2020-09-07] MEDS: Insulin Glargine 300 UNITS/3 ML PEN 20 UNITS SC (21:45)
[2020-09-08] VITALS (9 sets, daily range): BP systolic 111–128; BP diastolic 65–79; PULSE 85–103; RESP 17–22; TEMP 36.7; O2SAT 89–95
[2020-09-08] MEDS: VANCOMYCIN/WATER (PEG) 1.25 GM/250 ML BAG IV (04:13)
[2020-09-08] MEDS: DOXYCYCLINE 100 MG in Normal Saline 100 ML IVPB (04:13)
[2020-09-08] MEDS: Normal Saline Flush 10 ML SYR IVP (04:14)
[2020-09-08 07:27] LABS: Abs Immature Grans 0.03 10^3/uL (0.0-0.06); Absolute Basophil Count 0.03 10^3/uL (0.0-0.2); Absolute Eosinophil Count 0.21 10^3/uL (0.0-0.7); Absolute Lymphocyte Count 0.65 10^3/uL (1.2-3.4); Absolute Monocyte Count 0.64 10^3/uL (0.1-0.8); Absolute Neutrophil Count 7.21 10^3/uL (1.2-6.7); Basophils % 0.3; Eosinophils % 2.4; HGB 8.3 g/dL (13.5-17.5); Immature Grans % 0.3; Lymphocytes % 7.4; MCHC 29.6 % (32.0-36.0); MCV 87.8 fL (80-95); MPV 12.8 fL (8.0-11.0); Monocytes % 7.3; Neutrophils % 82.3; Nucleated RBC 0 %; Platelet Count 245 10^3/uL (130-400); RBC 3.19 10^6/uL (4.36-5.78); RDW 15.9 % (11.8-14.1); WBC 8.77 10^3/uL (4.4-10.8)
[2020-09-08 07:42] LABS: Anion Gap 10.9 mmol/L (3-11); BUN 13 mg/dL (7-18); CO2 21.1 mmol/L (21.0-32.0); CREATININE 0.6 mg/dL (0.70-1.30); Calcium 8.6 mg/dL (8.5-10.1); Chloride 102 mmol/L (98-107); Glucose 127 mg/dL (74-106); Magnesium 1.8 mg/dL (1.8-2.4); Potassium 4.7 mmol/L (3.5-5.1); Sodium 134 mmol/L (136-145)
[2020-09-08] MEDS: Lachydrin 12% LOTION 225 GM BTL TP (07:49)
[2020-09-08] MEDS: Pantoprazole 40 MG TABCR PO (07:49)
[2020-09-08] MEDS: Aspirin E.C. 81 MG TABEC PO (07:50)
[2020-09-08] MEDS: Gabapentin 100 MG CAP PO ×2 (07:50→13:12)
[2020-09-08] MEDS: Bisoprolol 5 MG TAB PO (07:51)
[2020-09-08] MEDS: metFORMIN 500 MG TAB 1000 MG PO (08:47)
--- NOTE | 2020-09-08 11:47 | DSE_ITS ---
Date of service: 09/08/20 Time of Service: 11:48 DS: Diagnosis Discharge Diagnosis (1) GI bleeding: Start date: 09/08/20 Start time: 11:48 Status: Chronic Asessment and Plan: Due to tubulovillous adenoma of the duodenum. s/p EGD 09/05 with increased size of the mass and 50% luminal stenosis. He is not a candidate for a whipple procedure, he will require an endoscopic removal of mass. Discussed with GI at [facility] [place]: they will get him an outpatient appointment in 1-2 weeks. Tolerating baby asa. Continue to monitor H/H. Needs asa for Watchman's device. Continue protonix. He is being discharged home will repeat cbc and crp on with f/u with PCP on Tuesday. (2) Anemia: Start date: 09/08/20 Start time: 11:49 Status: Chronic Asessment and Plan: Acute on chronic in setting of anticoagulation he did receive 2 units PRBC while inpatient. 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 Blood cx were negative. Tick panel pending. Blood cultures continue to be negative therefore he is being discharged home on augmentin for a 10 day course. Initially thought to be a transfusion reaction but r/o by Dr. Weir at [facility] pathology. WBC normal. CRP is elevated but is trending down. Follow up with PCP in 1 week (5) Presence of Watchman left atrial appendage closure device: Start date: 09/08/20 Start time: 11:55 Status: Chronic Asessment and Plan: Procedure was on 04/10/20. Due to bleeding he will not be able to continue on plavix and asa, he is however tolerating baby asa, he is 5 months out, baby asa is ok to be resumed with GI, along with PPI (6) Afib: Start date: 09/08/20 Start time: 11:57 Status: Chronic Asessment and Plan: as above (7) Hypertension: Start date: 09/08/20 Start time: 11:57 Status: Chronic Asessment and Plan: continue home regimen (8) Diabetes mellitus, type II: Start date: 09/08/20 Start time: 11:57 Status: Chronic Asessment and Plan: Continue current therapy. Add neurontin for neuropathic pain (9) Neuropathic pain: Start date: 09/08/20 Start time: 11:58 Status: Chronic Asessment and Plan: as above (10) Hypomagnesemia: Start date: 09/08/20 Start time: 11:58 Status: Resolved Asessment and Plan: 1.[address] on home supplementation (11) Oxygen dependent: Start date: 09/08/20 Start time: 11:59 Status: Chronic Asessment and Plan: Chronic in setting of COPD, likely has needed 24 hour oxygen for a long time but has failed to get checked. Ambulatory exercise reveals patient requires 3 liters at all times when resting to stay above 89% and 6 L when ambulatory to stay above 89%. He states he is at his baseline. His imaging does not reveal any acute findings. This is likely chronic hypoxia. Will change home oxygen orders to reflect patient needs. He does have 2 tanks and a concentrate to meet requirements at home and understands that he needs to use oxygen at all times. He likely would benefit from a new PFT. Will defer to PCP for this decision as not sure when his last one was. Discussed with Dr. Hickey Discharge Plan Disposition Patient Disposition: HOME Condition: Improving Discharge Details Reason For Visit: Anemia,Anticoagulated,Fever Admit Date/Time: 09/03/20 21:51 Admit Provider: Jevon Lucio Attending Provider: Jevon Lucio Primary Care Provider: Maye Brady Hospital Course Hospital Course: 75 y.o male with PMH of watchman's procedure for Afib on 04/10/20, HLD, COPD oxygen dependent, anemia, Pulmonary HTN, CHF, GERD, admitted from [facility] ED for hemoglobin of 6.1 and mag of 1.3. On day of admission patient was febrile with positive hemocult, he was admitted for further treatment. Over course of treatment he was transfused 2 units PRBC, on September 05 he was taken to OR with Dr. Mayorga and found to have tubulovillous adenoma of the duodenum with increased size of the mass and 50% luminal stenosis. He is not a candidate for a whipple, the case was discussed with [facility] [place] [facility] GI they will get him an outpatient appointment in 1-2 weeks. He will need an endoscopic removal of the mass. However due to having a watchman's procedure approx 5 months ago patient should be on duel antiplatelet therapy for 6 months; because of the bleeding he can not be on plavix, though when he came in he was on xarelto. GI did agree to baby asa. He has been trialled on this while in the hospital in addition to PPI and H/H has been stable. Will repeat lab work on . On September 05 patient became febrile, he was treated empirically with vanco/ceftriaxone/doxy. CRP was 17, cxr was negative, urine was negative, blood cultures were done and those were also negative. Transfusion reaction r/o by [facility]. Tick panel pending. Patient has been responding and fever defervesced, he is stable and ready for discharge. He will be discharged home on augmentin for a total 10 day course. He will need follow up with his PCP in 1 week. He will also need to be on daily magnesium supplementation. He required higher oxygen need while here in the hospital exercise oximetry revealed patient required 3l while resting at all times to stay above 89% and 6 L when ambulatory to stay above 89%. This likely is not new as chest xray revealed no acute pulmonary findings and patient states he feels at his baseline. He likely has needed higher oxygen requirements for sometime. He has a concentrator and 2 tanks at home that can handle his requirements. He is being discharged home and will need follow up with PCP in 1 week. He denies CP, SOB, N/V/D. Home Meds and New Rx's Prescriptions: New aspirin 81 mg Tablet,Delayed Release (Dr/Ec) 81 mg PO DAILY Qty: 30 RF: 0 gabapentin 100 mg Capsule 100 mg PO TID Qty: 90 RF: 0 amoxicillin-pot clavulanate 875-125 mg Tablet 1 tab PO BID Qty: 13 RF: 0 Continued metformin 500 MG tablet 1,000 mg PO BID RF: 0 atorvastatin 40 mg tablet 40 mg PO QHS RF: 0 pantoprazole 40 mg tablet,delayed release (DR/EC) 40 mg PO BID RF: 0 lisinopril 20 mg tablet 20 mg PO DAILY RF: 0 Lantus U-100 Insulin 100 unit/mL solution 20 unit SC QHS RF: 0 potassium chloride [Klor-Con] 20 mEq packet 20 meq PO DAILY RF: 0 mometasone [Nasonex] 50 mcg/actuation spray,non-aerosol 2 spray DAYSI DAILY PRN PRNRF: 0 ascorbic acid (vitamin C) [Vitamin C] 500 mg Tablet 500 mg PO BID RF: 0 ferrous sulfate [iron] 325 mg (65 mg iron) Tablet 325 mg PO BID RF: 0 Trelegy Ellipta 100-62.5-25 mcg blister with device 1 inh INHALATION DAILY RF: 0 furosemide 20 mg tablet 40 mg PO DAILY RF: 0 bisoprolol fumarate 5 mg tablet 5 mg PO DAILY RF: 0 Discontinued aspirin [Aspir-81] 81 MG tablet,delayed release (DR/EC) 81 mg PO DAILY RF: 0 Xarelto 20 mg Tablet 20 mg PO DAILY RF: 0 Discharge Instructions Instructions: Amoxicillin/Clavulanate Potassium (By mouth), Gabapentin (By mouth), Gastrointestinal Bleeding (DC), Using Oxygen at Home (DC), Diabetic Peripheral Neuropathy (DC), Anemia (DC), Hypoxia (GEN) Additional Instructions: STOP TAKING XARELTO WEAR OXYGEN AT ALL TIMES 3 L when resting, 6 L when moving around Take a baby aspirin daily make sure it is coated Take gabapentin for your neuropathy Follow up with PCP in 1 week Get blood drawn on thrusday Take augmentin (amoxicillin/cluvanate) until finished Take protonix twice a day Activity:: Activity as Tolerated Equipment/Supplies:: Oxygen (L/min Below) Diet:: Carb Counting Discharge Orders Discharge Orders: Discharge Order (Routine); Ordered 09/08/20 Ordered By: Alayna Burr Other Ambulatory Orders: Complete Blood Count w/Diff (Routine) Timeframe: 3 Days Location: None Selected Ordered By: Alayna Burr C-Reactive Protein (Routine) Timeframe: 3 Days Location: None Selected Ordered By: Alayna Burr DS: Summary Time Spent with Patient providing and/or coordinating discharge services: Greater than 30 minutes Status at Discharge Functional status at discharge: independent ambulation Overall status at discharge: patient is back to baseline Mental Status: mental status grossly normal Speech and Movement: speech and movement normal Mood: congruent mood Affect: normal affect Exam Narrative Exam Narrative: General: Pleasant elderly male, sitting up in a chair, no dyspnea/tachypnea, A&Ox3 HEENT: EOMI, MMM, edentuous Heart: RRR, no m/r/g Lungs: CTAB Abdomen: soft, nontender, nondistended Extremities: no edema, clubbing, or cyanosis of BLEs, 1+ pedal pulses B, no lesions on feet, dry skin Psych Mental Status: mental status grossly normal Speech and Movement: speech and movement normal Mood: congruent mood Affect: normal affect DS: Data Vitals/I&O Vitals and I&O: Vital Signs Temperature 36.7 C 09/08/20 11:14 Temperature Source Temporal Artery Scan 09/08/20 11:14 Pulse 85 09/08/20 11:14 Pulse Rhythm Irregular 09/08/20 08:55 Pulse 77 09/04/20 04:40 Respiratory Rate 18 09/08/20 11:14 Respiratory Effort Non-Labored 09/08/20 02:05 Respiratory Depth Normal 09/08/20 02:05 Respiratory Pattern Normal 09/08/20 02:05 Blood Pressure 128/79 09/08/20 11:14 Blood Pressure Mean 71 09/03/20 23:31 Blood Pressure Position Sitting 09/03/20 19:39 Pulse Oximetry 95 09/08/20 11:14 Oxygen Delivery Method Nasal Cannula 09/08/20 11:14 Oxygen Flow Rate 3 09/08/20 08:55 Fraction of Inspired Oxygen (FIO2) 92 09/05/20 09:42 Pain Level 0 09/08/20 11:14 Comment 09/07/20 04:02 Intake & Output 09/07/20 09/07/20 09/08/20 11:59 23:59 11:59 Intake Total 700 / 1290 590 / 1290 340 / 340 Output Total 475 / 1825 1350 / 1825 1200 / 1200 Balance 225 / -535 -760 / -535 -860 / -860 Intake: IV 100 / 450 350 / 450 100 / 100 Oral 600 / 840 240 / 840 240 / 240 Output: Urine 475 / 1825 1350 / 1825 1200 / 1200 Other: Urine Color Yellow Yellow Yellow Urine Appearance Clear Clear Clear Urine Odor Normal Normal Comment [facility] walker with standby assistance Voiding Methods Urinal Toilet Data Completed and Pending Completed studies during hospitalization [Text1]: : 1945 Age: 75 Exam(s) XR CHEST 2V PA LATERAL EXAM: XR CHEST 2V PA LATERAL CLINICAL HISTORY: chills, cough. TECHNIQUE: 2D digital imaging was performed. COMPARISON: CR PORTABLE CHEST ONE VIEW from 10/29/2016 CR PORTABLE CHEST ONE VIEW from 10/29/2016 CR PORTABLE CHEST ONE VIEW from 05/19/2017 CR PORTABLE CHEST ONE VIEW from 05/19/2017 CR XR PORTABLE CHEST AP from 07/16/2019 CR XR PORTABLE CHEST AP from 07/16/2019 CR XR CHEST 2V PA LATERAL from 07/18/2019 FINDINGS: Heart size is normal. The mediastinum is not widened. Extensive bilateral pulmonary interstitial disease is again noted, similar to prior studies listed above dating back to 2018.. There are no new confluent infiltrates and no pleural effusions. IMPRESSION: Persistent extensive bilateral interstitial disease, unchanged from studies listed above. I note that this finding was evident on prior radiographs but was not evident on chest x-ray of 10/29/2016. Exam(s) PROCEDURE INFORMATION: Exam: XR Chest Exam date and time: 09/03/2020 7:56 PM Age: 75 years old Clinical indication: Cough TECHNIQUE: Imaging protocol: XR of the chest. Views: 2 views. Total images: 2 COMPARISON: CT CHEST WO 05/14/2019 14:36 FINDINGS: Lungs: There are coarse interstitial opacities, likely chronic. Pleural spaces: Unremarkable. No pleural effusion. No pneumothorax. Heart/Mediastinum: Unremarkable. No cardiomegaly. Bones/joints: Unremarkable. IMPRESSION: No acute cardiopulmonary abnormality. Exam(s) XR PORTABLE CHEST AP EXAM: XR PORTABLE CHEST AP CLINICAL HISTORY: FUO TECHNIQUE: 2D digital imaging was performed. COMPARISON: CR PORTABLE CHEST ONE VIEW from 05/19/2017 CR PORTABLE CHEST ONE VIEW from 05/19/2017 CR,XR XR CHEST 2V PA LATERAL from 09/03/2020 FINDINGS: Exam is limited by semi-upright positioning and poor pulmonary inflation. Leads overlie the chest. The heart size is normal. Again noted are bilateral increased interstitial markings. No superimposed focal infiltrate, effusion or pneumothorax is seen. No significant change from most recent exams given differences in technique. IMPRESSION: Increased interstitial changes which could indicate fibrosis. No acute pulmonary findings. Exam(s) PROCEDURE INFORMATION: Exam: XR Chest Exam date and time: 09/06/2020 10:13 AM Age: 75 years old Clinical indication: Pain; Other: Fuo TECHNIQUE: Imaging protocol: XR of the chest. Views: 1 view. COMPARISON: CR XR CHEST 2V PA LATERAL 09/03/2020 8:38 PM FINDINGS: Lungs: There are stable chronic bilateral interstitial infiltrates consistent with chronic fibrosis. No new pulmonary consolidation is seen. Pleural spaces: Unremarkable. No pleural effusion. No pneumothorax. Heart/Mediastinum: Unremarkable. No cardiomegaly. Bones/joints: Unremarkable. IMPRESSION: Pulmonary fibrosis. No acute abnormality is seen. Labs on day of discharge: Labs from last 24 hours 09/08/20 09/08/20 09/08/20 13:00 06:55 06:55 WBC 8.77 RBC 3.19 L Hgb 8.3 L Hct 28.0 L MCV 87.8 MCH 26.0 L MCHC 29.6 L RDW 15.9 H Plt Count 245 MPV 12.8 H Immature Gran % 0.3 Neutrophils % 82.3 Lymphocytes % 7.4 Monocytes % 7.3 Eosinophils % 2.4 Basophils % 0.3 Nucleated RBC % 0 Absolute Neutrophils 7.21 H Absolute Lymphocytes 0.65 L Absolute Monocytes 0.64 Absolute Eosinophils 0.21 Absolute Basophils 0.03 Sodium 134 L Potassium 4.7 Chloride 102 Carbon Dioxide 21.1 Anion Gap 10.9 BUN 13 Creatinine 0.6 L Estimated GFR/1.73 m2 >= 60.00 Glucose 127 H Calcium 8.6 Magnesium 1.8 C-Reactive Protein 14.80 H Vancomycin Trough Pending Preliminary micro results at discharge 09/03/20 22:45 Blood Culture - Preliminary Blood NO GROWTH 96 HOURS 09/03/20 22:15 Blood Culture - Preliminary Blood NO GROWTH 96 HOURS 09/03/20 20:20 Blood Culture - Preliminary Blood NO GROWTH 96 HOURS 09/06/20 10:37 Blood Culture - Preliminary Blood NO GROWTH 24 HOURS 09/06/20 10:37 Blood Culture - Preliminary Blood NO GROWTH 24 HOURS [facility] Medical History Anemia Atrial fibrillation Paroxysmal, intolerant of anticoagulation (n/v/hematuria while on eliquis), referred for a Watchman procedure at [facility] (not yet done) F/U Dr. Yonathan Phillips [facility] [place] [facility] 11/2019 Bilateral leg edema Carcinoma, basal cell, skin Chronic combined systolic (congestive) and diastolic (congestive) heart failure EF 45% on echo 07/02/2019 COPD (chronic obstructive pulmonary disease) Deviated nasal septum Diabetes mellitus, type II insulin dependent GERD (gastroesophageal reflux disease) GI bleeding Hyperlipidemia Hypertension Osteoarthritis of knee (04/09/14) Osteoarthritis of right knee Chelsea-ampullary neoplasm Pericarditis Pt. states this was 2 years ago. Pulmonary hypertension Tobacco use disorder Surgical History Colonoscopy - MAC (10/29/16) Presence of Watchman left atrial appendage closure device Family History Father Diabetes Hypertension Heart disease Self No problems noted. Brother Stroke had an aneurysm Sister Breast cancer Diabetes Brother Lung cancer smoker Social History Smoking/Tobacco Use Status: Former Tobacco Use Quit Date: 03/07/16 Tobacco: How many years used: 56 Counseling given: provider counseling Smoking risk assessment performed?: Yes Alcohol Intake: former Year quit: 1969 Drug use: Never Substance use type: does not use Current gender identity: male Do you feel safe at home: Yes Do you feel safe in your relationship?: Yes
[2020-09-08] MEDS: Amoxicillin 875/Clav. 125 TAB PO (11:54)
--- NOTE | 2020-09-08 13:55 | PDOC.CMDIS ---
- If Service Date Differs Date of service: 09/08/20 Time of Service: 13:55 LACE Index Scoring Tool - Questions: Length of Stay (in days): 4 - 6 Acuity (Admit via E.D.?): Yes Comorbidities: Diabetes w/o Complication, Congestive Heart Failure, Chronic Pulmonary Disease, Any Tumor E.D. Visits: 1 - Answers: Total Score: 13 Risk of Readmission: High Risk Care Management Discharge Reason for Hospitalization: Anemia, anticoagulated, fever. Discharge Plan: Everett will be discharged home with no new services, but a resumption of home oxygen. Everett's O2 needs ahve increased to 3l at night and 6l with ambulation and this will be communicated to Brock through RT. He will follow up with his PCP and GI team at [facility] and transport with family. Patient/Family Education Needs: Review of discharge instructions, follow up plan and appointments, medications, activity, Ask Me Three.
[2020-09-10 10:36] LABS: Lyme Ab w Rflx to Lyme Confirm Negative (Negative)
[2020-09-11 01:22] LABS: Anaplasma phagocytophilum Negative (Negative); B. miyamotoi PCR Negative (Negative); Babesia divergens/MO-1 Negative (Negative); Babesia duncani Negative (Negative); Babesia microti Negative (Negative); Ehrlichia chaffeensis Negative (Negative); Ehrlichia ewingii/canis Negative (Negative); Ehrlichia muris eauclairensis Negative (Negative)
== END 2020-09-08 14:58 | disposition home or self-care (01) | DRG 377 ==
LOC: ER 22:06 → MS 23:52
PROVIDERS: Family Medicine; Internal Medicine; Surgery; Admitting Provider Family Medicine; Emergency Provider Emergency Medicine; PCP Nurse Practitioner; Visit Provider Family Medicine
PROC: 0DJ68ZZ Inspection of Stomach, Via Natural or Artificial Opening Endoscopic (ICD-10-PCS; CPT 43235; principal; 2020-09-05 08:15)
DX: K92.2 Gastrointestinal hemorrhage, unspecified (principal); I50.43 Acute on chronic combined systolic (congestive) and diastolic (congestive) heart failure; D62 Acute posthemorrhagic anemia; Z79.01 Long term (current) use of anticoagulants; I27.20 Pulmonary hypertension, unspecified; E11.9 Type 2 diabetes mellitus without complications; K21.9 Gastro-esophageal reflux disease without esophagitis; F17.210 Nicotine dependence, cigarettes, uncomplicated; E78.5 Hyperlipidemia, unspecified; I48.0 Paroxysmal atrial fibrillation; I11.0 Hypertensive heart disease with heart failure; J44.9 Chronic obstructive pulmonary disease, unspecified; Z20.822 Contact with and (suspected) exposure to COVID-19; Z95.818 Presence of other cardiac implants and grafts; K31.7 Polyp of stomach and duodenum; Z79.4 Long term (current) use of insulin; D13.2 Benign neoplasm of duodenum; R50.9 Fever, unspecified; J84.10 Pulmonary fibrosis, unspecified; E83.42 Hypomagnesemia; G62.9 Polyneuropathy, unspecified; Z99.81 Dependence on supplemental oxygen
CPT/HCPCS: 43239; 36415; 36430; 80048; 80053; 84145; 85652; 86850; 86900; 86901; 86920; 87040; 87635; 87798; 88305; 93005; 94618; 94640; 96374; 99223; 99285; 71045; 71046; 80202; 81003; 81015; 82728; 83540; 83550; 83735; 84443; 84484; 85014; 85018; 85025; 85045; 86140; 86618; 86880; 87086; 93010; 99232; 99233; 99239; J0696; J1756; J2704; J3475; P9016

== ENCOUNTER 2020-09-15 03:20 | Outpatient (CLI) | payer OTHER, SELFPAY ==
[2020-09-15 10:39] LABS: Abs Immature Grans 0.05 10^3/uL (0.0-0.06); Absolute Basophil Count 0.05 10^3/uL (0.0-0.2); Absolute Eosinophil Count 0.28 10^3/uL (0.0-0.7); Absolute Lymphocyte Count 0.71 10^3/uL (1.2-3.4); Absolute Monocyte Count 0.68 10^3/uL (0.1-0.8); Basophils % 0.6; Eosinophils % 3.2; HCT 32.8 % (40.0-50.0); HGB 9.5 g/dL (13.5-17.5); Immature Grans % 0.6; MCH 25.6 pg (27.0-33.0); MCV 88.4 fL (80-95); MPV 12.3 fL (8.0-11.0); Monocytes % 7.7; Neutrophils % 79.9; Nucleated RBC 0 %; Platelet Count 335 10^3/uL (130-400); RBC 3.71 10^6/uL (4.36-5.78); RDW 16.2 % (11.8-14.1); RDW-SD 52.7 fL; WBC 8.87 10^3/uL (4.4-10.8)
[2020-09-15 12:09] LABS: C-Reactive Protein 11.25 mg/dL (0.0-0.3)
== END 2020-09-15 03:21 | disposition home or self-care (01) ==
PROVIDERS: PCP Nurse Practitioner; Visit Provider Nurse Practitioner Family
DX: R50.9 Fever, unspecified (principal); D64.9 Anemia, unspecified
CPT/HCPCS: 36415; 85025; 86140

== ENCOUNTER 2020-12-22 16:29 | Outpatient (REF) | payer MEDICARE, SELFPAY ==
[2020-12-24 09:25] LABS: Cyclic Citrullinated Peptide >200.0 U/mL (<5.0)
[2020-12-25 12:59] LABS: dsDNA Ab, IgG <12.3 IU/mL (<30.0)
[2020-12-25 13:49] LABS: ANA Interpretation Positive (Negative); ANA Titer Pattern 1:80 Speckled
== END 2020-12-22 16:30 | disposition home or self-care (01) ==
LOC: NCHCN 16:29
PROVIDERS: PCP Nurse Practitioner; Visit Provider Student in an Organized Health Care Education/Training Program
DX: J84.89 Other specified interstitial pulmonary diseases (principal)
CPT/HCPCS: 86200; 86038; 86225; 86431

== ENCOUNTER 2020-12-26 09:31 | Outpatient (CLI) | payer MEDICARE, SELFPAY ==
[2020-12-26] MEDS: Albuterol HFA 18 GM 200 PUFF INH IH (16:50)
[2020-12-26] MEDS: Inhaler, Assist Device 1 EACH MC (16:50)
--- NOTE | 2020-12-29 12:59 | W.PFT ---
Date of service: 12/26/20 Time of Service: 15:43 Pulmonary Function Test Result Requesting Provider Duchene Indications: ILD Interpretation Spirometry: There is no airflow limitation. There is no significant bronchodilator effect. Flow volume loop is concerning for a restrictive process. Lung Volumes: Lung volumes are normal Diffusion Capacity: The diffusion is reduced Airway Pressure: Airways resistance is normal Impression Reduced diffusion with technically normal lung volumes however borderline low normal in addition to a flow volume loop that is concerning for a restrictive process. Note: When compared to 11/12/2019 the FEV1 and FVC have improved, however the TLC has decreased and the DLCO has decreased. Clinical Correlation therefore is recommended.
== END 2020-12-26 09:32 | disposition home or self-care (01) ==
LOC: RT 09:32
PROVIDERS: PCP Nurse Practitioner; Visit Provider Student in an Organized Health Care Education/Training Program
DX: J84.9 Interstitial pulmonary disease, unspecified (principal); R05.3 Chronic cough; Z87.891 Personal history of nicotine dependence
CPT/HCPCS: 94060; 94726; 94729

== ENCOUNTER → 2021-01-05 01:30 | Outpatient (CLI) | payer MEDICARE, SELFPAY ==
--- NOTE | 2021-01-05 06:15 | DI.CT_ITS ---
Exam(s) CT CHEST HIGH RESOLUTION EXAM: CT CHEST HIGH RESOLUTION CLINICAL HISTORY: concern for progrssive ILD,J84.9. TECHNIQUE: Multi planar reconstructions were performed. CONTRAST MATERIAL: None COMPARISON: CT CT CHEST WO from 11/08/[address] CHEST WO from 11/08/2019 CR,XR XR PORTABLE CHEST AP from 09/06/2020 CR,XR XR PORTABLE CHEST AP from 09/06/2020 FINDINGS: CHEST: LUNGS: Interstitial fibrosis is again noted throughout both lung guan. The appearance of the lung guan is basically unchanged from the CT scan of 11/08/2019. There is mild pleural based infiltrate in the posterior basal segment of the left lower lobe again noted. Mild patchy increased markings i n the right upper lobe may be slightly more prominent than previous, but this is very subtle. There are no new focal findings in the trachea and mainstem bronchi. MEDIASTINUM: There is no obvious hilar nor mediastinal adenopathy. Visualized thyroid unremarkable.No obvious axillary adenopathy CARDIAC: Heart size is upper normal. Coronary artery calcifications noted. There is no pericardial effusion.Caliber of the thoracic aorta is within normal limits. VISUALIZED UPPER ABDOMEN:There is a silastic stent in the CBD. Mild pneumobilia. No adrenal masses. OSSEOUS: No significant osseous lesions.. IMPRESSION: 1. Relatively stable extensive bilateral pulmonary fibrosis. Stable pleural based infiltrate in the left lower lobe posterior basal segment, not associated with pleural effusion. Mild increased right upper lobe markings, subtle. 2. No new intrathoracic lymphadenopathy evident. 3. Silastic stent is incidentally noted in the CBD RADIATION DOSE DELIVERED: 493.62mGy.cm Total DLP DATA REPOSITORY: All CT scans at this facility are submitted to the National Radiology Data Registry (NRDR) Dose Index Registry (DIR) with the [employer] (ACR). RADIATION OPTIMIZATION: All CT scans at this facility use at least one of these dose optimization te chniques: automated exposure control; mA and/or kV adjustment per patient size (includes targeted exa ms where dose is matched to clinical indication); or iterative reconstruction.
== END ==
PROVIDERS: PCP Nurse Practitioner; Visit Provider Student in an Organized Health Care Education/Training Program
DX: J84.10 Pulmonary fibrosis, unspecified (principal); J98.4 Other disorders of lung
CPT/HCPCS: 71250

== ENCOUNTER 2021-03-30 03:58 | Outpatient (CLI) | payer MEDICARE, SELFPAY | END 2021-03-30 03:59 | disposition home or self-care (01) | LOC: RT 03:59 | PROVIDERS: PCP Nurse Practitioner; Visit Provider Student in an Organized Health Care Education/Training Program | DX: Z99.81 Dependence on supplemental oxygen (principal); J84.9 Interstitial pulmonary disease, unspecified | CPT/HCPCS: 94618 ==

== ENCOUNTER → 2021-04-30 01:07 | Outpatient (CLI) | payer MEDICARE, MEDICAID, SELFPAY ==
--- NOTE | 2021-04-30 10:29 | DI.US_ITS ---
APPROVED REPORT EXAM: Comprehensive 2D, Doppler, and color-flow Echocardiogram Patient Location: Out-Patient Scallop Binder: Ana Vilchis RDCS (AE) Indications: Hypoxia,Pulmonary HTN, Interstitial lung disease Other Information Study Quality: Adequate Conclusion Normal left ventricular wall thickness and chamber size. Estimated ejection fraction of 55 to 60%. Wall motion is normal Normal right ventricular size and systolic function Left atrium is mildly dilated. The right atrium is normal in size The aortic valve is mildly sclerotic without stenosis or regurgitation Structurally normal mitral valve with mild regurgitation Normal tricuspid valve with mild regurgitation. Estimated right ventricular systolic pressure is 37 mmHg Normal pulmonic valve with trace regurgitation The patient was in atrial fibrillation throughout the study with heart rates ranging from 100 to 150 bpm Wall motion Left Ventricle The left ventricle is normal size. The left ventricular systolic function is normal. The left ventric ular ejection fraction is within the normal range. There is normal left ventricular wall thickness. T here is normal LV segmental wall motion. There is no ventricular septal defect visualized. LVEF is 58 %. Right Ventricle The right ventricle is normal size. The right ventricular systolic function is normal. The RVSP is 37 .4mmHg. Atria Left atrium is mildly dilated. The right atrium size is normal. The interatrial septum is intact with no evidence for an atrial septal defect. Aortic Valve The Aortic valve is mildly sclerotic. Aortic valve is trileaflet. No hemodynamically significant valv ular aortic stenosis. No aortic regurgitation is present. Mitral Valve The mitral valve is normal in structure. No evidence of mitral valve stenosis. Mild mitral regurgitat ion. Tricuspid Valve The tricuspid valve is normal in structure. There is no tricuspid valve stenosis. Mild tricuspid regu rgitation. Pulmonic Valve The pulmonary valve is normal in structure. There is no pulmonic valvular stenosis. Trace pulmonic re gurgitation. Great Vessels The aortic root is normal in size. The ascending aorta is normal in size. Aortic arch is not well vis ualized. IVC is normal in size and collapses >50% with inspiration. Pericardium There is no pericardial effusion. 2D Dimensions IVSD d PLAX 1.01 cm M: 0.6-1.2 LV Vol A2C d MOD 88.8 mL LVPW d PLAX 1.01 cm M: 0.6 - 1.2 LV Vol A4C d MOD 77.0 mL LVID d PLAX 4.36 cm M: 4.2 - 5.8 LA vol/ BSA A2C s A-L 26.3 mL/m2 LVDs 3.05 cm M: 2.5 - 4.0 LA vol/ BSA A4C s A-L 35.5 mL/m2 Ao Root d 2.92 cm M: 3.1 - 3.7 LA Vol/ BSA Biplane s A-L 32.7 mL/m2 RA Area A4C 11.87 cm2 LA Area A4C s MOD 20.67 cm2 RA Vol/ BSA A4C s A-L 15.9 mL/m2 LA Area A2C s MOD 16.63 cm2 Ao Asc Diam d 3.15 cm M: 2.6 - 3.4 LV EF A4C MOD 58.3 % LV EF Teichholz 56.2 % LV EF A2C MOD 58.6 % LVEF (Hart's) 58.11 % M: 52 - 72 LV EF Biplane MOD 58.1 % LV Volume 65.08 mL M: 62 - 150 SV 48.11 mL LV Volume Index 37.40 mL/m2 M: 34 - 74 SV Index 27.52 mL/m2 LV Vol Biplane MOD 82.8 mL FS 29.10 % M-Mode TAPSE 1.73 cm (M/F) >1.7 LV Diastology MV E Vmax 1.08 (0.4-1.3 m/s) Aortic Valve LVOT Area 2.67 cm2 AoV Area Vmax 1.46 cm2 LVOT Vmax 1.12 m/s AoV Area/ BSA (Vmax) 0.84 cm2/m2 LVOT Mean Jose. 0.91 m/s CARMEN Mean Jose. 1.64 cm2 LVOT Peak Grad 5.0 mmHg CARMEN Mean Jose. Index 0.94 cm2/m2 LVOT Mean Grad 3.5 mmHg LVOT VTI 0.204 m LVOT Diam s 1.80 cm AoV Vmax 2.04 m/s Velocity Ratio 0.54 AoV Mean Jose. 1.49 m/s AoV Peak Grad 16.7 mmHg LVOT SV 54.58 mL AoV Mean Grad 9.5 mmHg AoV VTI 0.309 m AoV Area VTI 1.77 cm2 AoV Area/ BSA (VTI) 1.01 cm/m2 Mitral Valve MV DT 217 (160-240 msec) MV PHT 63 msec MV Area PHT 3.50 cm2 MV VTI 0.217 m MV Area VTI 2.52 (4.0-6.0 cm2) Pulmonary Valve PV Vmax 1.09 (0.5-1.5 m/s) RVOT Peak Gr. 3.35 mmHg PV Peak Grad 4.8 mmHg RVOT Mean Gr. 1.75 mmHg PV Mean Grad 2.6 mmHg RVOT VTI 0.133 m PV VTI 0.118 m RVOT Vmax 0.91 m/s Tricuspid Valve TR Peak Grad 34.4 mmHg TR Vmax 2.93 m/s RA Pressure 3.00 mmHg RVSP (TR) 37.4 mmHg
== END ==
PROVIDERS: PCP Nurse Practitioner; Visit Provider Student in an Organized Health Care Education/Training Program
DX: I27.20 Pulmonary hypertension, unspecified (principal); J84.89 Other specified interstitial pulmonary diseases
CPT/HCPCS: 93306

== ENCOUNTER 2021-06-23 17:53 | Outpatient (REF) | payer MEDICARE, SELFPAY ==
[2021-06-23 21:44] LABS: Abs Immature Grans 0.02 10^3/uL (0.0-0.06); Absolute Basophil Count 0.05 10^3/uL (0.0-0.2); Absolute Eosinophil Count 0.22 10^3/uL (0.0-0.7); Absolute Lymphocyte Count 1.15 10^3/uL (1.2-3.4); Absolute Monocyte Count 0.51 10^3/uL (0.1-0.8); Absolute Neutrophil Count 7.07 10^3/uL (1.2-6.7); Basophils % 0.6; Eosinophils % 2.4; HCT 36.4 % (40.0-50.0); HGB 10.9 g/dL (13.5-17.5); Immature Grans % 0.2; Lymphocytes % 12.7; MCH 25.9 pg (27.0-33.0); MCHC 29.9 % (32.0-36.0); MCV 86.5 fL (80-95); Monocytes % 5.7; Neutrophils % 78.4; Platelet Count 158 10^3/uL (130-400); RBC 4.21 10^6/uL (4.36-5.78); RDW 20.3 % (11.8-14.1); RDW-SD 64.3 fL; WBC 9.02 10^3/uL (4.4-10.8)
[2021-06-23 22:25] LABS: Anisocytosis 2+; Diff Comment RBC Morph Reviewed; Hypochromasia 1+
[2021-06-23 22:26] LABS: Poikilocytes 1+
[2021-06-23 22:47] LABS: ALT 26 U/L (16-63); AST 14 U/L (15-37); Albumin 3.9 g/dL (3.4-5.0); Alkaline Phosphatase 183 U/L (46-116); Anion Gap 8.6 mmol/L (3-11); BUN 28 mg/dL (7-18); Bilirubin, Total 0.3 mg/dL (0.2-1.0); CO2 24.4 mmol/L (21.0-32.0); CREATININE 1.2 mg/dL (0.70-1.30); Calcium 9.1 mg/dL (8.5-10.1); Chloride 107 mmol/L (98-107); Estimated GFR 59.18 (mL/min/1.73m2); Glucose 132 mg/dL (74-106); Sodium 140 mmol/L (136-145); Total Protein 7.4 g/dL (6.4-8.2)
[2021-06-23 22:58] LABS: Prothrombin Time 9.7 sec (9.3-11.0)
== END 2021-06-23 17:54 | disposition home or self-care (01) ==
LOC: LBN 17:53
PROVIDERS: PCP Nurse Practitioner Family; Visit Provider Student in an Organized Health Care Education/Training Program
DX: J84.9 Interstitial pulmonary disease, unspecified (principal); I48.91 Unspecified atrial fibrillation; Z79.01 Long term (current) use of anticoagulants
CPT/HCPCS: 80053; 85025; 85610

== ENCOUNTER 2021-06-24 07:22 | Emergency (ER) | payer MEDICARE, SELFPAY ==
[2021-06-24] VITALS (10 sets, daily range): BP systolic 111–123; BP diastolic 41–55; PULSE 61–88; RESP 14–18; TEMP 36.5; O2SAT 97–98
--- NOTE | 2021-06-24 07:42 | ED.GENADUL_ITS ---
Discharge Plan Disposition Patient Disposition: HOME Condition: Stable Discharge Details Chief Complaint: GenMedical Clinical Impression: Diabetes mellitus, type II Primary Care Provider: Maye Brady ED Provider: Frankie Lopez Home Meds and New Rx's Prescriptions: No Action Ofev 150 mg capsule 150 mg PO Q12H Qty: 60 0RF metformin 500 MG tablet 1,000 mg PO BID 0RF atorvastatin 40 mg tablet 40 mg PO QHS 0RF pantoprazole 40 mg tablet,delayed release (DR/EC) 40 mg PO BID 0RF lisinopril 20 mg tablet 20 mg PO DAILY 0RF Lantus U-100 Insulin 100 unit/mL solution 20 unit SC QHS 0RF Rx Instructions: NOTE: most recent rx filled states 12u at HS potassium chloride [Klor-Con] 20 mEq packet 20 meq PO DAILY 0RF mometasone [Nasonex] 50 mcg/actuation spray,non-aerosol 2 spray DAYSI DAILY PRN PRN0RF Rx Instructions: administer into each nostril clotrimazole 1 % cream 1 applic topical BID 0RF ascorbic acid (vitamin C) [Vitamin C] 500 mg Tablet 500 mg PO BID 0RF Trelegy Ellipta 100-62.5-25 mcg blister with device 1 inh INHALATION DAILY 0RF furosemide 20 mg tablet 40 mg PO DAILY 0RF bisoprolol fumarate 5 mg tablet 5 mg PO DAILY 0RF Label Comments: TAKE ONE TABLET BY MOUTH EVERY DAY aspirin 81 mg Tablet,Delayed Release (Dr/Ec) 81 mg PO DAILY Qty: 30 0RF gabapentin 100 mg Capsule 100 mg PO TID Qty: 90 0RF Discharge Instructions Additional Instructions: Please follow-up with your primary care doctor as needed. Continue taking your regular medications Return if any concerns HPI General Date/Time Provider Initiated Documentation: 06/24/21 07:41 . HPI Narrative: 76-year-old gentleman sent to the emergency room for evaluation of increased creatinine and potassium. He had his routine blood work done yesterday as an outpatient pulmonary clinic. 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 He was instructed to come to the emergency department. Patient is asymptomatic. Does not have any complaints. Patient states that he has been drinking normal amounts of fluids. No change in urine output. No back pain. Related Data Home Medications Medication Instructions Recorded Confirmed metformin 500 mg tablet 1,000 mg PO BID tab-cap 10/18/16 06/23/21 atorvastatin 40 mg tablet 40 mg PO QHS 04/17/19 06/23/21 insulin glargine 100 unit/mL 20 unit SC QHS 04/17/19 06/23/21 subcutaneous solution (Lantus U-100 Insulin) lisinopril 20 mg tablet 20 mg PO DAILY 04/17/19 06/23/21 pantoprazole 40 mg tablet,delayed 40 mg PO BID tab 04/17/19 06/23/21 release ascorbic acid (vitamin C) 500 mg 500 mg PO BID 07/16/19 06/23/21 tablet (Vitamin C) mometasone 50 mcg/actuation nasal 2 spray DAYSI DAILY PRN PRN 09/05/19 06/23/21 spray (Nasonex) potassium chloride 20 mEq oral 20 meq PO DAILY 09/05/19 06/23/21 packet (Klor-Con) fluticasone fur. 100 mcg-umeclid 1 inh INHALATION DAILY 01/04/20 06/23/21 62.5 mcg-vilant 25 mcg inhalat.powder (Trelegy Ellipta) furosemide 20 mg tablet 40 mg PO DAILY 09/03/20 06/23/21 bisoprolol fumarate 5 mg tablet 5 mg PO DAILY 09/04/20 06/23/21 aspirin 81 mg tablet,delayed 81 mg PO DAILY #30 tab 09/08/20 06/23/21 release gabapentin 100 mg capsule 100 mg PO TID #90 cap 09/08/20 06/23/21 clotrimazole 1 % topical cream 1 applic TOPICAL BID 11/07/20 06/23/21 nintedanib 150 mg capsule (Ofev) 150 mg PO Q12H #60 cap 06/23/21 06/23/21 Previous Rx's Medication Instructions Recorded aspirin 81 mg tablet,delayed 81 mg PO DAILY #30 tab 09/08/20 release gabapentin 100 mg capsule 100 mg PO TID #90 cap 09/08/20 nintedanib 150 mg capsule (Ofev) 150 mg PO Q12H #60 cap 06/23/21 Allergies Allergy/AdvReac Type Severity Reaction Status Date / Time apixaban AdvReac nausea/vomi Verified 06/24/21 07:33 ting General Stated Complaint: GenMedical KASSIDY: 3 Review of Systems Narrative: Constitutional negative for fevers chills. HEENT negative. Respiratory no chest pain. No shortness of breath. GI: Nausea vomiting diarrhea. normal. MSK chronic recent inflammatory process. No acute changes. Skin no rash. Neuro no headaches. Psych normal. Heme negative allergies negative PFSH All Active Problems (Updated 06/24/21 @ 08:22 by Frankie Lopez MD) Pulmonary hypertension (Acute) Rheumatoid arthritis (Chronic) Interstitial lung disease (Acute) Fungal infection of toenail (Acute) Hematuria (Acute) Ampullary adenoma (Acute) Aortic dissection (Acute) Skin lesions (Acute) Tinea pedis (Acute) Oxygen dependent (Chronic) Discharge planning issues (Acute) DVT prophylaxis (Acute) Presence of Watchman left atrial appendage closure device (Chronic) Neuropathic pain (Chronic) Hyperlipidemia (Acute) GI bleeding (Chronic) Anemia (Chronic) Anticoagulated (Acute) Fever (Acute) [place]-ampullary neoplasm (Acute) Sessile colonic polyp (Acute 10/29/16) Primary osteoarthritis of right knee (Acute 04/15/15) Aspiration and injection: 04/16/19 Acute on chronic combined systolic and diastolic CHF (congestive heart failure) (Acute) Pulmonary hypertension (Acute) Afib (Chronic) DVT prophylaxis (Acute) Discharge planning issues (Acute) Hypertension (Chronic) Diabetes mellitus, type II (Chronic) insulin dependent Atrial fibrillation (Chronic) Paroxysmal, intolerant of anticoagulation (n/v/hematuria while on eliquis), referred for a Watchman procedure at [facility] (not yet done) F/U Dr. 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 states this was 2 years ago. Pulmonary hypertension Suspected COVID-19 virus infection Surgical History Colonoscopy - MAC (10/29/16) Family History Father Diabetes Hypertension Heart disease Self No problems noted. Brother Stroke had an aneurysm Sister Breast cancer Diabetes Brother Lung cancer smoker Social History Smoking/Tobacco Use Status: Former Tobacco Use Quit Date: 03/07/16 Tobacco: How many years used: 56 Counseling given: provider counseling Smoking risk assessment performed?: Yes Alcohol Intake: former Year quit: 1970 Drug use: Never Substance use type: does not use Current gender identity: male Do you feel safe at home: Yes Do you feel safe in your relationship?: Yes Exam Const General: cooperative, comfortable, no acute distress, well developed and well groomed Orientation: alert, awake and oriented x3 HENMT Head: normal to inspection Eyes Other: perlaeomi Neck Other: no jvd Resp Effort & Inspection: normal respiratory effort Auscultation: clear to auscultation bilaterally Cardio Other: RRR GI Other: s nd nt Skin Other: no rash Course Patient's repeat BMP is normal. Please potassium and creatinine termination of yesterday was slightly hemolyzed. She is safely discharged to follow-up with PCP as needed. Vital Signs Vital signs: Vital Signs Temperature 36.5 C 06/24/21 07:28 Pulse 71 06/24/21 07:28 Respiratory Rate 18 06/24/21 07:28 Blood Pressure 123/48 L 06/24/21 07:28 Pulse Oximetry 97 06/24/21 07:28 Temperature 36.5 C 06/24/21 07:28 Temperature Source Temporal Artery Scan 06/24/21 07:28 Pulse 71 06/24/21 07:28 Respiratory Rate 17 06/24/21 07:34 Respiratory Effort Non-Labored 06/24/21 07:34 Respiratory Depth Normal 06/24/21 07:34 Respiratory Pattern Normal 06/24/21 07:34 Blood Pressure 123/48 L 06/24/21 07:28 Blood Pressure Position Supine 06/24/21 07:28 Pulse Oximetry 97 06/24/21 07:28 Oxygen Delivery Method Room Air 06/24/21 07:28 Oxygen Flow Rate 0 06/24/21 07:28 Pain Level 0 06/24/21 07:28
[2021-06-24 08:14] LABS: BUN 23 mg/dL (7-18); CREATININE 1.1 mg/dL (0.70-1.30); Calcium 8.6 mg/dL (8.5-10.1); Chloride 108 mmol/L (98-107); Glucose 153 mg/dL (74-106); Potassium 5.1 mmol/L (3.5-5.1); Sodium 138 mmol/L (136-145)
== END 2021-06-24 08:30 | disposition home or self-care (01) ==
PROVIDERS: Emergency Provider Emergency Medicine; PCP Nurse Practitioner Family
DX: E11.9 Type 2 diabetes mellitus without complications (principal); E87.5 Hyperkalemia
CPT/HCPCS: 36415; 80048; 99283

== ENCOUNTER 2021-09-15 16:01 | Outpatient (REF) | payer MEDICARE, SELFPAY ==
[2021-09-15 16:15] LABS: COMMENT (LAB VIEW ONLY) 133.54 mg/dL; Microalb ug/mg Crea 14.5 ug/mg Cr
== END 2021-09-15 16:02 | disposition home or self-care (01) ==
LOC: NCHCN 16:01
PROVIDERS: PCP Nurse Practitioner Family; Visit Provider Nurse Practitioner Family
DX: E11.9 Type 2 diabetes mellitus without complications (principal)
CPT/HCPCS: 82043; 82570

== ENCOUNTER 2021-10-01 03:36 | Outpatient (CLI) | payer MEDICARE, SELFPAY ==
[2021-10-01] MEDS: Albuterol HFA 18 GM 200 PUFF INH IH (08:51)
[2021-10-01] MEDS: Inhaler, Assist Device 1 EACH MC (08:52)
--- NOTE | 2021-10-06 18:18 | W.PFT ---
Date of service: 10/01/21 Time of Service: 08:02 Pulmonary Function Test Result Requesting Provider Guillermoe Indications: ILD Interpretation Spirometry: There is no airflow limitation. There is no significant bronchodilator response. Lung Volumes: There are normal lung volumes. Diffusion Capacity: Diffusion is reduced. Airway Pressure: Normal airways resistance. Impression Significantly reduced diffusion which could represent pulmonary vascular disease, interstitial lung disease of emphysema. Note: when compared to 09/29/21, FVC and FEV1 are slightly improved. Clinical Correlation therefore is recommended.
== END 2021-10-01 03:37 | disposition home or self-care (01) ==
LOC: RT 03:36
PROVIDERS: PCP Nurse Practitioner Family; Visit Provider Student in an Organized Health Care Education/Training Program
DX: R94.2 Abnormal results of pulmonary function studies (principal); J84.9 Interstitial pulmonary disease, unspecified; Z87.891 Personal history of nicotine dependence
CPT/HCPCS: 94060; 94726; 94729

== ENCOUNTER → 2021-11-13 07:50 | Outpatient (BNVA) | payer MEDICARE, SELFPAY | PROVIDERS: PCP Nurse Practitioner Family; Referring Provider Nurse Practitioner Family; Visit Provider Student in an Organized Health Care Education/Training Program | DX: M17.11 Unilateral primary osteoarthritis, right knee (principal) | CPT/HCPCS: 20610; J1040 ==

== ENCOUNTER 2022-01-06 14:54 | Outpatient (REF) | payer MEDICARE, SELFPAY ==
[2022-01-06 15:10] LABS: Abs Immature Grans 0.01 10^3/uL (0.0-0.06); Absolute Basophil Count 0.06 10^3/uL (0.0-0.2); Absolute Eosinophil Count 0.21 10^3/uL (0.0-0.7); Absolute Lymphocyte Count 0.69 10^3/uL (1.2-3.4); Absolute Monocyte Count 0.38 10^3/uL (0.1-0.8); Absolute Neutrophil Count 3.02 10^3/uL (1.2-6.7); Basophils % 1.4; Eosinophils % 4.8; HCT 26.8 % (40.0-50.0); HGB 7.2 g/dL (13.5-17.5); Immature Grans % 0.2; Lymphocytes % 15.8; MCH 20.2 pg (27.0-33.0); MCHC 26.9 % (32.0-36.0); MCV 75 fL (80-95); Monocytes % 8.7; Neutrophils % 69.1; Platelet Count 239 10^3/uL (130-400); RBC 3.56 10^6/uL (4.36-5.78); RDW 18.8 % (11.8-14.1); RDW-SD 51.4 fL; WBC 4.37 10^3/uL (4.4-10.8)
[2022-01-06 15:27] LABS: Iron 13 ug/dL (65-175); Total Iron Binding Capacity 369 ug/dL (250-450); Transferrin Sat 4 % (20-55)
[2022-01-06 15:32] LABS: Diff Comment RBC Morph Reviewed; Hypochromasia 2+
[2022-01-06 15:49] LABS: Ferritin 18 ng/mL (26-388); Vitamin B12 425 pg/mL (193-986)
== END 2022-01-06 14:55 | disposition home or self-care (01) ==
LOC: NCHCN 14:54
PROVIDERS: PCP Nurse Practitioner Family; Visit Provider Nurse Practitioner Family
DX: D64.9 Anemia, unspecified (principal)
CPT/HCPCS: 82607; 82728; 83540; 83550; 85025

== ENCOUNTER → 2022-01-25 01:32 | Outpatient (CLI) | payer MEDICARE, SELFPAY ==
--- NOTE | 2022-01-25 13:14 | DI.CTLCSR_ITS ---
Exam(s) CT CHEST LUNG CANCER SCREEN EXAM: CT CHEST LUNG CANCER SCREEN CLINICAL HISTORY: Screening for lung cancer,former smoker, z87.891 TECHNIQUE: Imaging Protocol: Axial computed tomography images with coronal and sagittal reformatted images were created and reviewed. Low dose screening protocol. COMPARISON: CR XR CHEST 2V PA LATERAL from 07/18/2019 CR,XR XR CHEST 2V PA LATERAL from 09/03/2020 CR,XR XR PORTABLE CHEST AP from 09/06/[address] CHEST HIGH RESOLUTION from 01/05/2021 FINDINGS: Tracheobronchial tree: No bronchiectasis or mucus plugging.. Mediastinum and Jenny: Stable size mediastinal and hilar lymph nodes. Pulmonary parenchyma: No consolidation or dominant measurable mass. Stable emphysematous and fibrotic changes. Lung Nodules: None. Pleura: Small right pleural effusion. Trace left pleural effusion.. No pneumothorax. Heart: The heart is mildly dilated. coronary artery calcifications are seen. Rounded metallic devic e again noted between the left pulmonary artery and atrium. Aorta: Thoracic aorta non-dilated.Mild atherosclerotic changes. Upper abdomen: Unremarkable. Stent and biliary air no longer present. Bones: Unremarkable for age. Soft Tissues: Unremarkable. IMPRESSION: No suspicious pulmonary nodules. Lung RADS Cat 1 - Negative: No nodules and definitely benign nodules Lung-RADS 1.0 CATEGORIES: Category 0 - Prior chest CT exam(s) being located for comparison. Category 1 - Annual screening in 12 months. No nodules or definitely benign nodules. Category 2 - Annual screening in 12 months. Benign appearance. Nodules with low likelihood of becomin g active cancer. Category 3 - 6-month follow-up. Probably benign. Short-term follow-up suggested. Nodules with low lik elihood of becoming active cancer. Category 4A - 3-month follow-up and CT/PET if >8 mm in size. Suspicious finding. Findings which requi re additional testing. Category 4B - Findings which require additional testing and tissue sampling. Category 4X - Category 3 or 4 nodules with additional features or imaging findings that increases the suspicion of malignancy. Modifier S- Potentially clinically significant findings (non lung cancer) RADIATION DOSE DELIVERED: Total DLP !Error CTDIvol DATA REPOSITORY: All CT scans at this facility are submitted to the National Radiology Data Registry (NRDR) Dose Index Registry (DIR) with the [employer] ([employer]). RADIATION OPTIMIZATION: All CT scans at this facility use at least one of these dose optimization te chniques: automated exposure control; mA and/or kV adjustment per patient size (includes targeted exa ms where dose is matched to clinical indication); or iterative reconstruction.
== END ==
PROVIDERS: PCP Nurse Practitioner Family; Visit Provider Student in an Organized Health Care Education/Training Program
DX: Z87.891 Personal history of nicotine dependence (principal); Z12.2 Encounter for screening for malignant neoplasm of respiratory organs
CPT/HCPCS: 71271

== ENCOUNTER 2022-04-19 17:34 | Inpatient (IN) | payer MEDICARE, SELFPAY ==
[2022-04-19] VITALS (63 sets, daily range): BP systolic 112–151; BP diastolic 52–91; PULSE 66–139; RESP 6–34; TEMP 36.7–36.9; O2SAT 87–100
--- NOTE | 2022-04-19 17:30 | DI.CT_ITS ---
Exam(s) CT HEAD WO EXAM: CT HEAD WO CLINICAL HISTORY: confusion. TECHNIQUE: Imaging Protocol: Axial computed tomography images with coronal and sagittal reformatted images were created and reviewed COMPARISON: No exams were available for comparison FINDINGS: There are no skull fractures. Small polyp or retention cysts seen in the floor of the right maxillary sinus. No associated fluid level. Other paranasal sinuses are clear. There is no evidence of intracranial hemorrhage, mass effect, or shift of midline structures. There are no extra-axial fluid collections. The ventricles are not enlarged or shifted and there is no blo od within the ventricular system nor within the basal cisterns. There is a nonhemorrhagic lacunar infarct in the right para-supra ventricular white matter measuring 4 x 3 millimeters, age indeterminate. There is mild bilateral periventricular hypodensity consistent with chronic small vessel disease. IMPRESSION: Right-side para-ventricular nonhemorrhagic lacunar infarct, age indeterminate. If clinically indicated follow-up MRI with diffusion imaging can be performed for added sensitivity a nd specificity. RADIATION DOSE DELIVERED: 1,325.53mGy.cm Total DLP DATA REPOSITORY: All CT scans at this facility are submitted to the National Radiology Data Registry (NRDR) Dose Index Registry (DIR) with the [employer] ([employer]). RADIATION OPTIMIZATION: All CT scans at this facility use at least one of these dose optimization te chniques: automated exposure control; mA and/or kV adjustment per patient size (includes targeted exa ms where dose is matched to clinical indication); or iterative reconstruction.
--- NOTE | 2022-04-19 17:36 | DI.RAD_ITS ---
Exam(s) XR CHEST 1V IN DI DEPT EXAM: XR CHEST 1V IN DI DEPT CLINICAL HISTORY: a fib RVR, altered. TECHNIQUE: 2D digital imaging was performed. COMPARISON: CR XR CHEST 2V PA LATERAL from 07/18/2019 CR,XR XR PORTABLE CHEST AP from 09/06/[address] CHEST LUNG CANCER SCREEN from 01/25/2022 FINDINGS: Single AP portable view. Heart size is upper normal. The mediastinum is not widened. Extensive interstitial disease throughout both lung guan again noted, minimal change from September 2020 , allowing for differences in technique. There are no pleural effusions. IMPRESSION: Extensive bilateral chronic interstitial disease No pleural effusions. DATA REPOSITORY: RADIATION DOSE DELIVERED:
--- NOTE | 2022-04-19 17:45 | RT.EKG_ITS ---
APPROVED REPORT Exam: Resting ECG Reason for Exam: tachycardia Patient Location: E HR:100 bpm ECG Measurements Heart Rate 100 AXIS AK 141 P -89 QRSd 82 QRS 57 QT 387 T -88 QTc 500 Conclusion Sinus or ectopic atrial tachycardia...P axis (-45,135), rate> 99 Repol abnrm suggests ischemia, diffuse leads...ST-T neg, ant/lat/inf. Sinus. Normal axis. No STEMI. I have reviewed and interpreted ECG and agree with software generated interpretation.
--- NOTE | 2022-04-19 18:09 | ED.GENADUL_ITS ---
Discharge Plan Disposition Patient Disposition: Admit to [facility] Specific Acute Inpt Facility: [facility] Condition: Serious Condition: Serious Discharge Details Chief Complaint: AMS/LOC Clinical Impression: Diabetes mellitus, type II, Hypoglycemia, Altered mental status, Elevated troponin Admit Date/Time: 04/19/22 20:46 Admit Provider: Hank Oates Attending Provider: Hank Oates Primary Care Provider: MELVIN BENITEZ ED Provider: Zahida Sam Discharge Instructions Activity:: Bedrest Equipment/Supplies:: No Equipment Needed Diet:: NPO Discharge Orders Discharge Orders: Discharge Order (Routine); Ordered 04/25/22 Ordered By: Eric Giron Discharge Data Discharge Date/Time-TO BE ENTERED AT DEPARTURE: 04/19/22 22:52 Medical Decision Making Patient is a 77-year-old male, brought in via EMS with past medical history of pulmonary hypertension, rheumatoid arthritis, interstitial lung disease, aortic dissection, oxygen dependent, presence of watchman, anemia, CHF, atrial fibrillation, hypertension, type 2 diabetes, GERD, with chief complaint of altered mental status. EMS reports they went there this morning and he was weak and fell. At that time, he was mentating normally, they assisted him and he did not want further transfer. However, this evening they were called for a welfare check and patient was acutely altered and hypoglycemic. They states that initially he was fairly obtunded, he received 2 pushes of D10 and glucose significantly improved. However, they report that the patient continued to be confused although he was much more awake and pulling all of his lines. Patient is denying any pain. No fevers. They have not noted any injury or fall. Patient was tachycardic in the 140s to 150s per EMS and they noted him to be in atrial fibrillation with RVR. Patient was given 5 mg of metoprolol and heart rate is downtrending. Glucose 83 at the time of admission. Patient is easily arousable and will answer questions but can be slightly nonsensical in his answers. He denies any pain. He is able to follow commands. I did not note any focal deficits to suggest ischemic etiology. However, he does have generalized weakness in all of his extremities. He does have a small amount of pitting edema in his feet. His lungs are clear. Concerned about the continues hypoglycemia. 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 Will monitor glucose. As it is unclear what occurred prior to presentation, will obtain imaging. Considered causes of hypoglycemia including medication mismanagement, dietary limitations, infection vs. other. Will give another dose of D5. Reached out to family, unable to get ahold of them at this time. Glucose did continue to drop to 63, patient received 200 cc D10. We will begin a D5 drip. Contacted by [facility] regarding imaging. No acute abnormality on CT head. CXR shows chronic pulmonary disease. Called daughter, number is not active. Called Dorie, the person to notify in the chart, that number went to male, unidentified voicemail. Daughter Kathy, called, . They advised that he was not responding today prompting them to go in. Alyssa [phone], daughter cell is [phone]. She also called. She is the one that called EMS initially. Daughter states that they have not discussed his code status but she advised that he would want CPR if it was likely to be survivable. Labs reviewed. CBC signficant for anemia but improving from most recent labs. Platelet count normal. pH elevated at 7.49. Lactate 1.8. Mag is low, will replenish. Troponin elevated at 205. Will continue to monitor. No ischemic changes on ECG. Concerned that this could be assicated with systemic illness rather than true ischemic event. Patient denying any CP or SOB. UA without evidence of infection. Mentation improving with improvement of glucose. Will need admission for elevated troponin, recurring hypoglycemia. Consulted with hospitalis, they agree to admission. HPI General Date/Time Provider Initiated Documentation: 04/19/22 17:34 . Limitations to Documentation: altered mental status . Information obtained by: patient, EMS, RN notes reviewed and old records reviewed . History of Present Illness 77 year old M presents to the emergency department with the chief complaint of AMS, hypoglycemia, described as moderate (EMS reports they saw him this AM, normal), Patient started experiencing this unknown (today, unclear number of hours) and it has been constant (mentation improving after glucose from EMS). Medication improves symptom(s), No exacerbating factors reported . Patient did receive the following treatments prior to arrival, other (glucose) Related Data Home Medications Medication Instructions Recorded Confirmed metformin 500 mg tablet 1,000 mg PO BID 10/18/16 04/19/22 atorvastatin 40 mg tablet 40 mg PO QHS 04/17/19 04/21/22 insulin glargine 100 unit/mL 20 unit subcut QHS 04/17/19 04/19/22 subcutaneous solution (Lantus U-100 Insulin) lisinopril 20 mg tablet 20 mg PO DAILY 04/17/19 04/21/22 pantoprazole 40 mg tablet,delayed 40 mg PO BID 04/17/19 04/19/22 release ascorbic acid (vitamin C) 500 mg 500 mg PO BID 07/16/19 11/13/21 tablet (Vitamin C) potassium chloride 20 mEq oral 20 meq PO DAILY 09/05/19 04/19/22 packet (Klor-Con) fluticasone fur. 100 mcg-umeclid 1 inh inhalation DAILY 01/04/20 04/21/22 62.5 mcg-vilant 25 mcg inhalat.powder (Trelegy Ellipta) furosemide 20 mg tablet 40 mg PO DAILY 09/03/20 04/19/22 bisoprolol fumarate 5 mg tablet 5 mg PO DAILY 09/04/20 04/19/22 aspirin 81 mg tablet,delayed 81 mg PO DAILY #30 tabs 09/08/20 04/21/22 release clotrimazole 1 % topical cream 1 applic topical BID 11/07/20 11/13/21 albuterol sulfate 90 mcg/actuation 2 puff inhalation QID PRN 06/24/21 11/13/21 aerosol inhaler (ProAir HFA) ferrous sulfate 325 mg (65 mg 325 mg PO BID 06/24/21 11/13/21 iron) tablet mometasone 50 mcg/actuation nasal 1 spray intranasal BID 06/24/21 11/13/21 spray nitroglycerin 400 mcg/spray 1 spray translingual Q3-5M PRN 06/24/21 04/19/22 translingual rituximab 10 mg/mL IV 09/18/21 11/13/21 concentrate,intravenous (Rituxan) Previous Rx's Medication Instructions Recorded aspirin 81 mg tablet,delayed 81 mg PO DAILY #30 tabs 09/08/20 release Allergies Allergy/AdvReac Type Severity Reaction Status Date / Time apixaban AdvReac nausea/vomiting, Verified 11/13/21 08:12 hematuria General Stated Complaint: AMS/LOC KASSIDY: 2 Review of Systems Narrative: Unable to obtain from patient secondary to confused state [facility] All Active Problems (Updated 05/06/22 @ 08:54 by MADELINE Robertson) Hypoglycemia (Acute) Altered mental status (Acute) Elevated troponin (Acute) Sick sinus syndrome (Acute) Acute congestive heart failure (Acute) Closed fracture of left distal radius and ulna (Acute) Elevated troponin level not due myocardial infarction (Acute) Personal history of nicotine dependence (Acute) Pulmonary hypertension (Acute) Rheumatoid arthritis (Chronic) Interstitial lung disease (Acute) Fungal infection of toenail (Acute) Hematuria (Acute) Ampullary adenoma (Acute) Aortic dissection (Acute) Skin lesions (Acute) Tinea pedis (Acute) Oxygen dependent (Chronic) Presence of Watchman left atrial appendage closure device (Chronic) Neuropathic pain (Chronic) Hyperlipidemia (Acute) GI bleeding (Chronic) Anemia (Chronic) Anticoagulated (Acute) Fever (Acute) Chelsea-ampullary neoplasm (Acute) Sessile colonic polyp (Acute 10/29/16) Primary osteoarthritis of right knee (Acute 04/15/15) Aspiration and injection: 04/16/19 Steroid injection: 11/13/2021; 03/13/2020 Acute on chronic combined systolic and diastolic CHF (congestive heart failure) (Acute) Pulmonary hypertension (Acute) Afib (Chronic) DVT prophylaxis (Acute) Discharge planning issues (Acute) Hypertension (Chronic) Diabetes mellitus, type II (Chronic) insulin dependent Atrial fibrillation (Chronic) Paroxysmal, intolerant of anticoagulation (n/v/hematuria while on eliquis), [place] [facility] F/[place] Dr. Yonathan Phillips [facility] Anemia (Chronic) GERD (gastroesophageal reflux disease) (Chronic) Medical History Bilateral leg edema CAP (community acquired pneumonia) Carcinoma, basal cell, skin Chronic combined systolic (congestive) and diastolic (congestive) heart failure EF 45% on echo 07/02/2019 Deviated nasal septum Ground glass opacity present on imaging of lung Osteoarthritis of knee (04/09/14) Osteoarthritis of right knee Pericarditis Pt. states this was 2 years ago. Pulmonary hypertension Suspected COVID-19 virus infection Surgical History Colonoscopy - MAC (10/29/16) Family History Father Diabetes Hypertension Heart disease Self No problems noted. Brother Stroke had an aneurysm Sister Breast cancer Diabetes Brother Lung cancer smoker Social History Smoking/Tobacco Use Status: Former Tobacco Use Quit Date: 03/07/16 Tobacco: How many years used: 56 Counseling given: provider counseling Smoking risk assessment performed?: Yes Alcohol Intake: former Year quit: 1969 Drug use: Never Substance use type: does not use Current gender identity: male Do you feel safe at home: Yes Do you feel safe in your relationship?: Yes Exam Const General: comfortable, disheveled, frail appearing, ill appearing acutely, lethargic and No well hydrated Nutritional Appearance: average body habitus and well nourished Orientation: alert, awake, oriented to person, not oriented to place, not oriented to time and confused HENMT Head: normal to inspection, no palpable skull fracture, normocephalic and atraumatic Ears: hearing grossly normal bilaterally and external ears normal Face and sinus: normal facial exam Mouth: mucous membranes dry (appears dry), no muffled voice, no trismus and No restricted motion Eyes General: appearance normal, both eyes and all related structures Alignment and Position: alignment normal and position normal Periorbital: periorbital findings normal Conjunctivae: conjunctivae normal Pupils: PERRL, normal by confrontation and accommodation normal EOM: EOM intact bilaterally Neck Neck: normal visual inspection, full ROM, no lymphadenopathy, no meningeal signs and trachea midline Chest Chest: normal inspection of the chest, normal palpation of entire chest wall and no crepitus Resp Effort & Inspection: normal respiratory effort, able to speak in complete sentences and no respiratory distress Auscultation: clear to auscultation bilaterally, no rales, no rhonchi and no wheezes Cardio Rate: regular rate Rhythm: regular rhythm Heart Sounds: S1 normal and S2 normal GI Inspection: normal to inspection, no edema and non-distended Palpation: soft, no hepatosplenomegaly, not firm, no guarding, not rigid and nontender Auscultation: normal bowel sounds Back/Spine/Pelvis Back: no CVA tenderness Thoracic/Lumbar Spine: thoracic and lumbar spine normal to inspection Skin General skin exam: no rashes or lesions noted Trauma: no lacerations or abrasions Neuro General: patient alert, patient awake, oriented Patient Orientation: Person, tone normal, no meningeal signs, no focal motor deficits and unable to assess gait Cognition: abnormal cognition Speech: speech normal Extrem General: normal to inspection, capillary refill normal, no pedal edema and no calf tenderness Course Vital Signs Vital signs: Vital Signs Temperature 36.7 C 04/19/22 17:52 Pulse 94 H 04/19/22 17:52 Respiratory Rate 04/19/22 17:52 Blood Pressure 122/85 04/19/22 17:52 Pulse Oximetry 89 L 04/19/22 17:52 Temperature 36.7 C 04/19/22 17:52 Pulse 94 H 04/19/22 17:52 Respiratory Rate 22 04/19/22 17:52 Blood Pressure 122/85 04/19/22 17:52 Blood Pressure Position Sitting 04/19/22 17:52 Pulse Oximetry 89 L 04/19/22 17:52 Oxygen Delivery Method Nasal Cannula 04/19/22 17:52 Oxygen Flow Rate 4 04/19/22 17:52
[2022-04-19 18:16] LABS: Lactate 1.8 mmol/L (0.6-1.4)
[2022-04-19 18:17] LABS: Abs Immature Grans 0.02 10^3/uL (0.0-0.06); Absolute Basophil Count 0.04 10^3/uL (0.0-0.2); Absolute Eosinophil Count 0.01 10^3/uL (0.0-0.7); Absolute Lymphocyte Count 0.33 10^3/uL (1.2-3.4); Absolute Monocyte Count 0.45 10^3/uL (0.1-0.8); Absolute Neutrophil Count 6.84 10^3/uL (1.2-6.7); Basophils % 0.5; Eosinophils % 0.1; HGB 10.1 g/dL (13.5-17.5); Immature Grans % 0.3; Lymphocytes % 4.3; MCH 23.2 pg (27.0-33.0); MCHC 28.9 % (32.0-36.0); MCV 81 fL (80-95); MPV 11.4 fL (8.0-11.0); Monocytes % 5.9; Neutrophils % 88.9; Platelet Count 242 10^3/uL (130-400); RBC 4.35 10^6/uL (4.36-5.78); RDW 17.5 % (11.8-14.1); RDW-SD 51.7 fL; WBC 7.69 10^3/uL (4.4-10.8)
[2022-04-19 18:18] LABS: BE (Venous) 6 mmol/L (-2-3); HCO3 (Venous) 29 mmol/L (23-28); O2 Sat (Venous) 67 %; TCO2 (Venous) 27 mmol/L (24-29); pCO2 (Venous) 39 mmHg (41-51); pH (Venous) 7.49 (7.31-7.41); pO2 (Venous) 35 mmHg
[2022-04-19 18:37] LABS: ALT 20 U/L (16-63); AST 36 U/L (15-37); Albumin 2.5 g/dL (3.4-5.0); Alkaline Phosphatase 169 U/L (46-116); Anion Gap 8.3 mmol/L (3-11); BUN 10 mg/dL (7-18); Bilirubin, Total 1.2 mg/dL (0.2-1.0); CO2 27.7 mmol/L (21.0-32.0); CREATININE 0.9 mg/dL (0.70-1.30); Calcium 8.4 mg/dL (8.5-10.1); Chloride 102 mmol/L (98-107); Estimated GFR 89.07 (mL/min/1.73m2); Glucose 88 mg/dL (74-106); Magnesium 1.5 mg/dL (1.8-2.4); Potassium 3.4 mmol/L (3.5-5.1); Sodium 138 mmol/L (136-145); Total Protein 6.9 g/dL (6.4-8.2)
[2022-04-19 18:39] LABS: Troponin I 205 ng/L (<or=60)
[2022-04-19 18:42] LABS: Bilirubin Negative (Negative); Blood Negative (Negative); Clarity Clear (Clear); Glucose Negative (Negative); Ketones 15 mg/dL (Negative); Leukocyte Esterase Negative (Negative); Nitrite Negative (Negative)
[2022-04-19 18:49] LABS: Bacteria Negative HPF (Negative); C & S Indicated? No; Casts Negative LPF (Negative); Crystals Negative HPF (Negative); Epithelial Cells Rare HPF (Negative); Mucus Negative (Negative); Other Cells Negative (Negative); RBC 0-2 HPF (0-2); WBC 0-2 HPF (0-5)
[2022-04-19] MEDS: DEXTROSE 5%-0.45% SALINE 1,000 ML 100 ML IV (18:59)
[2022-04-19 19:11] LABS: COVID-19 PCR Negative (Negative); Influenza A PCR Negative (Negative); Influenza B PCR Negative (Negative); RSV PCR Negative (Negative)
[2022-04-19 19:14] LABS: Source Nasopharynx
--- NOTE | 2022-04-19 19:33 | DI.[facility]_ITS ---
Addendum created by Jose Veronica MD on 04/19/2022 7:33:11 PM EST: THIS REPORT CONTAINS FINDINGS THAT MAY BE CRITICAL TO PATIENT CARE. The findings were verbally communicated via telephone conference with FREDY SAMUELS at 7:33 PM EST on 04/19/2022. The findings were acknowledged and understood. Initial report created on 04/19/2022 7:32:56 PM EST: PROCEDURE INFORMATION: Exam: CT Head Without Contrast Exam date and time: 04/19/2022 6:38 PM Age: 77 years old Clinical indication: Stroke-like symptoms; Other: Confusion TECHNIQUE: Imaging protocol: Computed tomography of the head without contrast. Radiation optimization: All CT scans at this facility use at least one of these dose optimization techniques: automated exposure control; mA and/or kV adjustment per patient size (includes targeted exams where dose is matched to clinical indication); or iterative reconstruction. Other technique: STROKE PROTOCOL was implemented. COMPARISON: No relevant prior studies available. FINDINGS: Brain: Slight prominence of cerebral sulci reflects an mild cerebral atrophy. Poorly marginated hypodensities seen throughout the deep and periventricular white matter of both cerebral hemispheres are consistent with underlying microvascular ischemic changes. Brainstem and cerebellum are unremarkable and there is no evidence of acute transcortical infarction or recent intracranial hemorrhage. Cerebral ventricles: Mild dilatation of the 3rd and lateral ventricles is commensurate with the degree of cerebral atrophy. Paranasal sinuses: Small polyp or retention cyst is seen along the medial base of the right maxillary sinus with other paranasal sinuses clear throughout. Mastoid air cells: Grossly clear bilaterally. Bones/joints: Bony calvarium and skull base are intact and no acute fractures are detected. Soft tissues: Unremarkable. IMPRESSION: Cerebral atrophy and probable microvascular ischemic changes with no evidence of acute infarct, recent hemorrhage or hydrocephalus. No acute intracranial process is detected. ASSESSMENT: ASPECTS ([place] Stroke Program Early CT Score) is 10. Dictated and Authenticated by: Jose Veronica MD. Ordering:ADAMS Teague MD
[2022-04-19] MEDS: MAGNESIUM SULFATE 1 GM/100 ML BAG IVPB (19:34)
--- NOTE | 2022-04-19 19:36 | DI.[facility]_ITS ---
PROCEDURE INFORMATION: Exam: XR Chest Exam date and time: 04/19/2022 7:22 PM Age: 77 years old Clinical indication: Other: A fib rvr, altered TECHNIQUE: Imaging protocol: Radiologic exam of the chest. Views: 1 view. COMPARISON: CT CHEST LUNG CANCER SCREEN 01/25/2022 1:11 PM FINDINGS: Lungs: Lungs there is a coarse reticular pattern of increased interstitial density seen throughout both lungs. No discrete parenchymal mass or focal consolidation detected. Pleural spaces: No pneumothorax or large pleural effusion is seen. Heart/Mediastinum: Heart size is upper limits of normal and there is vascular congestion without overt pulmonary edema. Bones/joints: No acute osseous lesions are detected. IMPRESSION: Coarse reticular pattern of increased interstitial density again seen throughout both lungs with no new parenchymal mass or consolidation detected. Dictated and Authenticated by: Jose Veronica MD. Ordering:ADAMS Teague MD
--- NOTE | 2022-04-19 19:39 | NUR.NOTE ---
Nursing Note: @1830, FS recheck at 63. MADELINE Teresa notified. Verbal order given for 200ml bolus of D10 IVP. Started on D5 1/2 saline drip at 100 ml/hr (see EMAR for further documentation). Recheck FS at 93.
[2022-04-19 20:03] LABS: INR 1.3 (0.9-1.1); Prothrombin Time 12.8 sec (9.3-11.0)
[2022-04-19 20:41] LABS: PTT Activated 18.3 sec (21.5-31.9)
[2022-04-19] MEDS: POTASSIUM CHLORIDE 10 MEQ/100 ML BAG 100 MEQ IVPB (21:05)
--- NOTE | 2022-04-19 21:10 | NUR.NOTE ---
Nursing Note: Patient incontinent of urine. Changed patient into brief, skin clean dry and intact. Able to follow commands, increased alertness compared to arrival.
[2022-04-19 21:33] LABS: Troponin I 221 ng/L (<or=60)
--- NOTE | 2022-04-19 22:50 | NUR.NOTE ---
Nursing Note: pt arrived to 219 via stretcher from ER w/ 4LNC, [id number]@150.
--- NOTE | 2022-04-19 23:46 | W.PM.HP.N ---
Date of service: 04/19/22 Time of Service: 23:46 Assessment and Plan Assessment and plan (1) Hypoglycemia: Start date: 04/19/22 Status: Acute Assessment and plan: This is 77-year-old gentleman who lives alone except for a part-time girlfriend who was not present on the day of admission. He was found confused at home and on the ground with CPK to be checked but otherwise no obvious injury from his fall. He is not on anticoagulation by his outpatient medication list and had no bruising. He most likely was not eating normally and may have missed taking his long-acting insulin though this is not clear with the patient not able to offer history of events. He is maintaining a glucose near 100 on D5 half-normal saline infusion which also would treat possible rhabdomyolysis if he has an elevated CPK. He does have a history of diastolic CHF and needs to be watched closely for exacerbation of CHF on IV fluid resuscitation. He was admitted to the ICU for close monitoring and every 2 hours glucometer measurements. Once he begins to eat he will be placed on a sliding scale and his usual diabetic treatment will be held until he is back to baseline. He is a full code. (2) Diabetes mellitus, type II: Status: Chronic Assessment and plan: On metformin and Lantus at home but these to be held for now with glucometer measurements and sensitive insulin coverage if needed. Diabetic education and better supervision at home are needed. (3) Hypomagnesemia: Status: Chronic Assessment and plan: This appears to be chronic and recurring with patient were repleted with IV magnesium and to be followed up with continued repletion if needed. Diet needs to be reviewed when patient is awake. He may do well with oral magnesium supplement chronically. (4) Hypokalemia: Status: Chronic Assessment and plan: Chronically on Lasix and oral potassium supplement with patient slightly low and to be repleted during this hospital stay. Lasix being held for now but oral potassium will be continued. (5) Elevated troponin level not due myocardial infarction: Start date: 04/19/22 Status: Acute Assessment and plan: Only slightly elevated and these will be trended while treating the patient's acute hyperglycemia with IV fluid resuscitation. Patient will be on Lovenox prophylactic dosing. Confirm whether patient is on anticoagulation chronically. (6) Atrial fibrillation: Status: Chronic Assessment and plan: Rapid ventricular response upon admission but this did respond to IV metoprolol and he will be continued on oral metoprolol with split dosing if needed. Patient chronically is on bisoprolol which could be converted to metoprolol if needed for heart rate control. This is being held for now. (7) Anemia: Status: Chronic Assessment and plan: Patient is on iron supplementation does have abnormal lab indicating chronic anemia and though he denies alcohol intake. She has electrolyte abnormalities and labs indicating at least chronic malnutrition if not chronic alcohol intake. Consider further evaluation for deficiencies and review alcohol use history with patient is less altered by his hypoglycemia. (8) Hypertension: Status: Chronic Assessment and plan: Patient is chronically on bisoprolol and lisinopril with these being held for now along with furosemide with blood pressure low. Reinitiate therapy as patient awakens and is eating more normally. History of Present Illness History of Present Illness Chief Complaint: Fall at home with altered mental status Narrative: This is a 77-year-old male patient who was visited by EMS in the morning on the day of admission with patient calling after he fell to have an assist for lift. He does live with a partner but his partner was not in the house at the time. Later in the day before presentation to the ED the patient's family called EMS to check on him because they had not heard from him and he was not answering his phone. He was found down on the floor and had altered mental status. He was brought to the ED for evaluation and found to have hypoglycemia. He is on Lantus daily and may not have been eating well or taking his medicines appropriately with the patient given his own medical therapy. He does have a history of chronic atrial fibrillation but was not complaining of chest pain and did not appear to have respiratory distress or cardiovascular distress upon presentation. When I saw the patient he was pleasantly confused moving in bed straighten out his sheets but not aware that he was in the hospital. He was not able to offer further history. EMS reported that when they saw him in the morning after his fall he was mentating normally. The patient is not on anticoagulation by his med list and did have a watchman's procedure. He does have a history of CHF which appears to be mostly diastolic. In the ED the patient was tachycardic but this was resolved with hydration and IV metoprolol. His glucometer management was low but he was respond to IV D5 half-normal saline with glucometers in the range of 90 but not staying about 100. He was admitted to the ICU for continued IV D5 half-normal infusion at an increased rate watching closely for heart failure. Initially his glucometer was below 70 and he did receive D10. Patient is a full code. Review of Systems Narrative: 13 point review of systems otherwise unrevealing or unobtainable with patient's altered mental status. [facility] All Active Problems (Updated 04/20/22 @ 08:47 by Hank Oates) Elevated troponin level not due myocardial infarction (Acute) Hypoglycemia (Acute) Hypokalemia (Chronic) Personal history of nicotine dependence (Acute) Pulmonary hypertension (Acute) Rheumatoid arthritis (Chronic) Interstitial lung disease (Acute) Fungal infection of toenail (Acute) Hematuria (Acute) Ampullary adenoma (Acute) Aortic dissection (Acute) Skin lesions (Acute) Tinea pedis (Acute) Oxygen dependent (Chronic) Hypomagnesemia (Chronic) Discharge planning issues (Acute) DVT prophylaxis (Acute) Presence of Watchman left atrial appendage closure device (Chronic) Neuropathic pain (Chronic) Hyperlipidemia (Acute) GI bleeding (Chronic) Anemia (Chronic) Anticoagulated (Acute) Fever (Acute) Chelsea-ampullary neoplasm (Acute) Sessile colonic polyp (Acute 10/29/16) Primary osteoarthritis of right knee (Acute 04/15/15) Aspiration and injection: 04/16/19 Steroid injection: 11/13/2021; 03/13/2020 Acute on chronic combined systolic and diastolic CHF (congestive heart failure) (Acute) Pulmonary hypertension (Acute) Afib (Chronic) DVT prophylaxis (Acute) Discharge planning issues (Acute) Hypertension (Chronic) Diabetes mellitus, type II (Chronic) insulin dependent Atrial fibrillation (Chronic) Paroxysmal, intolerant of anticoagulation (n/v/hematuria while on eliquis), referred for a Watchman procedure [place] [facility] [place] (not yet done) F/U Dr. Yonathan Phillips [facility] [place] 11/2019 Anemia (Chronic) GERD (gastroesophageal reflux disease) (Chronic) Medical History Bilateral leg edema CAP (community acquired pneumonia) Carcinoma, basal cell, skin Chronic combined systolic (congestive) and diastolic (congestive) heart failure EF 45% on echo 07/02/2019 Deviated nasal septum Ground glass opacity present on imaging of lung Osteoarthritis of knee (04/09/14) Osteoarthritis of right knee Pericarditis Pt. states this was 2 years ago. Pulmonary hypertension Suspected COVID-19 virus infection Surgical History Colonoscopy - MAC (10/29/16) Family History Father Diabetes Hypertension Heart disease Self No problems noted. Brother Stroke had an aneurysm Sister Breast cancer Diabetes Brother Lung cancer smoker Social History Smoking/Tobacco Use Status: Former Tobacco Use Quit Date: 03/07/16 Tobacco: How many years used: 56 Counseling given: provider counseling Smoking risk assessment performed?: Yes Alcohol Intake: former Year quit: 1969 Drug use: Never Substance use type: does not use Current gender identity: male Do you feel safe at home: Yes Do you feel safe in your relationship?: Yes Meds Allergies and Home Medications Allergies Allergy/AdvReac Type Severity Reaction Status Date / Time apixaban AdvReac nausea/vomiting, Verified 11/13/21 08:12 hematuria Home Medications Medication Instructions Recorded Confirmed Type metformin 500 mg tablet 1,000 mg PO BID 10/18/16 04/19/22 History atorvastatin 40 mg tablet 40 mg PO QHS 04/17/19 11/13/21 History insulin glargine 100 unit/mL 20 unit subcut QHS 04/17/19 04/19/22 History subcutaneous solution (Lantus U-100 Insulin) lisinopril 20 mg tablet 20 mg PO DAILY 04/17/19 11/13/21 History pantoprazole 40 mg tablet,delayed 40 mg PO BID 04/17/19 04/19/22 History release ascorbic acid (vitamin C) 500 mg 500 mg PO BID 07/16/19 11/13/21 History tablet (Vitamin C) potassium chloride 20 mEq oral 20 meq PO DAILY 09/05/19 04/19/22 History packet (Klor-Con) fluticasone fur. 100 mcg-umeclid 1 inh inhalation DAILY 01/04/20 11/13/21 History 62.5 mcg-vilant 25 mcg inhalat.powder (Trelegy Ellipta) furosemide 20 mg tablet 40 mg PO DAILY 09/03/20 04/19/22 History bisoprolol fumarate 5 mg tablet 5 mg PO DAILY 09/04/20 04/19/22 History aspirin 81 mg tablet,delayed 81 mg PO DAILY #30 tabs 09/08/20 11/13/21 Rx release clotrimazole 1 % topical cream 1 applic topical BID 11/07/20 11/13/21 History albuterol sulfate 90 mcg/actuation 2 puff inhalation QID PRN 06/24/21 11/13/21 History aerosol inhaler (ProAir HFA) ferrous sulfate 325 mg (65 mg 325 mg PO BID 06/24/21 11/13/21 History iron) tablet mometasone 50 mcg/actuation nasal 1 spray intranasal BID 06/24/21 11/13/21 History spray nitroglycerin 400 mcg/spray 1 spray translingual Q3-5M PRN 06/24/21 04/19/22 History translingual rituximab 10 mg/mL IV 09/18/21 11/13/21 History concentrate,intravenous (Rituxan) Exam Narrative Exam Narrative: General: Patient appears older than stated age, thinly built, awake and looking at interviewer but not responding appropriately and not being oriented to person, place or time. He is fidgeting with his blankets and covers. He appears in no acute distress. HEENT: Normocephalic, eyes with pupils equal and react to light symmetrically, extraocular movement intact and sclera anicteric. Dry oral mucosa. Neck: Supple without JVD. Back: Stooped posture without CVA tenderness. Lungs: Fair aeration clear to auscultation percussion. Heart: Irregular irregular rhythm with normal rate at time of exam, systolic murmur left lower border with no gallop appreciated. Abdomen: Normal contour, soft and nontender to palpation with no palpable hepatosplenomegaly. Genitalia/rectal: Exam deferred. Extremity: Without clubbing, cyanosis or pitting edema. Skin: Pale, warm and dry. Neuro: Cranial nerves II through XII gross intact, no focalizing motor deficits. No tremor. Psych: Normal almost euphoric affect, normal mood, patient is slightly delusional with hypoglycemia but awake and talking not oriented. Remote and recent memory testing not possible. Results Imaging Imaging Studies: Exam: XR Chest Exam date and time: 04/19/2022 7:22 PM Age: 77 years old Clinical indication: Other: A fib rvr, altered TECHNIQUE: Imaging protocol: Radiologic exam of the chest. Views: 1 view. COMPARISON: CT CHEST LUNG CANCER SCREEN 01/25/2022 1:11 PM FINDINGS: Lungs:? Lungs there is a coarse reticular pattern of increased interstitial density seen throughout both lungs.? No discrete parenchymal mass or focal consolidation detected. Pleural spaces: No pneumothorax or large pleural effusion is seen. Heart/Mediastinum: Heart size is upper limits of normal and there is vascular congestion without overt pulmonary edema.? Bones/joints: No acute osseous lesions are detected.? IMPRESSION: Coarse reticular pattern of increased interstitial density again seen throughout both lungs with no new parenchymal mass or consolidation detected. Admission Date: 04/30/21? : 1945 EXAM: Comprehensive 2D, Doppler, and color-flow Echocardiogram Patient Location: Out-Patient Temperature Control Inspector: Ana Vilchis RDCS (AE) Indications: Hypoxia,Pulmonary HTN, Interstitial lung disease Other Information Study Quality: Adequate Conclusion Normal left ventricular wall thickness and chamber size.? Estimated ejection fraction of 55 to 60%.? Wall motion is normal Normal right ventricular size and systolic function Left atrium is mildly dilated.? The right atrium is normal in size The aortic valve is mildly sclerotic without stenosis or regurgitation Structurally normal mitral valve with mild regurgitation Normal tricuspid valve with mild regurgitation.? Estimated right ventricular systolic pressure is 37 mmHg Normal pulmonic valve with trace regurgitation The patient was in atrial fibrillation throughout the study with heart rates ranging from 100 to 150 bpm Labs 04/19/22 18:12 04/19/22 18:12 Labs: Laboratory Results - last 24 hr 04/19/22 04/19/22 04/19/22 18:12 18:12 18:12 WBC 7.69 RBC 4.35 L Hgb 10.1 L Hct 35.0 L MCV 81 MCH 23.2 L MCHC 28.9 L RDW 17.5 H Plt Count 242 MPV 11.4 H Immature Gran % 0.3 Neutrophils % 88.9 Lymphocytes % 4.3 Monocytes % 5.9 Eosinophils % 0.1 Basophils % 0.5 Nucleated RBC % 0.0 Absolute Neutrophils 6.84 H Absolute Lymphocytes 0.33 L Absolute Monocytes 0.45 Absolute Eosinophils 0.01 Absolute Basophils 0.04 PT INR APTT VBG pH VBG pCO2 VBG pO2 VBG HCO3 VBG Total CO2 VBG O2 Saturation VBG Base Excess VBG Lactate 1.8 H Sodium 138 Potassium 3.4 L Chloride 102 Carbon Dioxide 27.7 Anion Gap 8.3 BUN 10 Creatinine 0.9 Est GFR (CKD-EPI 2020) 89.07 Glucose 88 Calcium 8.4 L Magnesium 1.5 L Total Bilirubin 1.2 H AST 36 ALT 20 Alkaline Phosphatase 169 H Troponin I 205 H* Total Protein 6.9 Albumin 2.5 L Urine Color Urine Clarity Urine pH Ur Specific Noble Urine Protein Urine Ketones Urine Blood Urine Nitrite Urine Bilirubin Urine Urobilinogen Ur Leukocyte Esterase Urine RBC Urine WBC Ur Epithelial Cells Urine Crystals Urine Bacteria Urine Casts Urine Mucus Urine Other Ur Culture Indicated? Urine Glucose COVID-19 Source SARS-CoV-2 (PCR) Influenza Type A (PCR) Influenza Type B (PCR) RSV (PCR) 04/19/22 04/19/22 04/19/22 18:12 18:12 18:25 WBC RBC Hgb Hct MCV MCH MCHC RDW Plt Count MPV Immature Gran % Neutrophils % Lymphocytes % Monocytes % Eosinophils % Basophils % Nucleated RBC % Absolute Neutrophils Absolute Lymphocytes Absolute Monocytes Absolute Eosinophils Absolute Basophils PT 12.8 H INR 1.3 H APTT 18.3 L VBG pH 7.49 H VBG pCO2 39 L VBG pO2 35 VBG HCO3 29 H VBG Total CO2 27 VBG O2 Saturation 67 VBG Base Excess 6 H VBG Lactate Sodium Potassium Chloride Carbon Dioxide Anion Gap BUN Creatinine Est GFR (CKD-EPI 2020) Glucose Calcium Magnesium Total Bilirubin AST ALT Alkaline Phosphatase Troponin I Total Protein Albumin Urine Color Yellow Urine Clarity Clear Urine pH 7.0 Ur Specific Noble 1.020 Urine Protein 30 H Urine Ketones 15 H Urine Blood Negative Urine Nitrite Negative Urine Bilirubin Negative Urine Urobilinogen 2.0 H Ur Leukocyte Esterase Negative Urine RBC 0-2 Urine WBC 0-2 Ur Epithelial Cells Rare Urine Crystals Negative Urine Bacteria Negative Urine Casts Negative Urine Mucus Negative Urine Other Negative Ur Culture Indicated? No Urine Glucose Negative COVID-19 Source SARS-CoV-2 (PCR) Influenza Type A (PCR) Influenza Type B (PCR) RSV (PCR) 04/19/22 04/19/22 18:30 21:00 WBC RBC Hgb Hct MCV MCH MCHC RDW Plt Count MPV Immature Gran % Neutrophils % Lymphocytes % Monocytes % Eosinophils % Basophils % Nucleated RBC % Absolute Neutrophils Absolute Lymphocytes Absolute Monocytes Absolute Eosinophils Absolute Basophils PT INR APTT VBG pH VBG pCO2 VBG pO2 VBG HCO3 VBG Total CO2 VBG O2 Saturation VBG Base Excess VBG Lactate Sodium Potassium Chloride Carbon Dioxide Anion Gap BUN Creatinine Est GFR (CKD-EPI 2020) Glucose Calcium Magnesium Total Bilirubin AST ALT Alkaline Phosphatase Troponin I 221 H* Total Protein Albumin Urine Color Urine Clarity Urine pH Ur Specific Noble Urine Protein Urine Ketones Urine Blood Urine Nitrite Urine Bilirubin Urine Urobilinogen Ur Leukocyte Esterase Urine RBC Urine WBC Ur Epithelial Cells Urine Crystals Urine Bacteria Urine Casts Urine Mucus Urine Other Ur Culture Indicated? Urine Glucose COVID-19 Source Nasopharynx SARS-CoV-2 (PCR) Negative Influenza Type A (PCR) Negative Influenza Type B (PCR) Negative RSV (PCR) Negative Last Vital Signs Temp 36.7 C 04/19/22 17:52 Pulse 79 04/19/22 21:31 Resp 13 04/19/22 21:40 BP 115/66 04/19/22 21:31 Pulse Ox 90 L 04/19/22 20:50 Time Spent Time spent with Patient: >75 minutes Time was spent: preparing to see the patient(eg.review tests), obtaining and/or reviewing separately otained hiistory, ordering medications,tests, procedures, indepentently interpreting results and care coordination
[2022-04-20] VITALS (109 sets, daily range): BP systolic 107–146; BP diastolic 52–83; PULSE 51–124; RESP 12–25; TEMP 36.8–37; O2SAT 94–100
--- NOTE | 2022-04-20 | DI.MRI_ITS ---
Exam(s) MR BRAIN WO EXAM: MR BRAIN WO CLINICAL HISTORY: evidence of lacunar stroke on CT TECHNIQUE: Multiplanar multisequence MRI of the brain was performed. COMPARISON: CT CT HEAD WO from 04/19/2022 FINDINGS: CEREBRAL PARENCHYMA: There is no evidence of intracranial hemorrhage, mass effect, or shift of midline structures. There are no extra-axial fluid collections. Ventricles are not enlarged or shifted. There is no significant focal signal abnormality in the cerebellar hemispheres nor within the tyrell, m idbrain, and thalami. There are multiple small foci of FLAIR bright signal abnormality in the periventricular and supratent orial white matter chronic small vessel disease. The finding described on the CT scan is the largest of these but does not exhibit restricted diffusion on DWI. Instead, there is a tiny focus of restri cted diffusion above this level in the high right parietal region which measures only 1 millimeter, d ifficult to determine true versus artifact. Nevertheless, it most this would represent a tiny acute lacune, nonhemorrhagic. There is no evidence of new territorial infarction. PITUITARY GLAND: No mass nor parasellar abnormality. No obvious abnormality in the cavernous sinuses. FLOW VOIDS: The expected flow void are noted. No evidence of obvious aneurysm nor obvious vascular ma lformation. PARANASAL SINUSES: Small retention cyst in the medial wall the right maxillary sinus. No associated fluid level. Other paranasal sinuses are clear. ORBITS: No obvious findings. IMPRESSION: There is a single tiny 1 millimeter focus of restricted diffusion seen in the high right parietal reg ion on DWI imaging which may be a tiny nonhemorrhagic lacunar infarct versus artifact. There is no evidence of new territorial infarction nor intracranial hemorrhage. Chronic white matter ischemic changes in the Chelsea and supra ventricular regions. DATA REPOSITORY:
[2022-04-20] MEDS: Atorvastatin 40 MG TAB PO ×2 (01:00→21:21)
[2022-04-20] MEDS: Enoxaparin 40 MG/0.4 ML SYR SC ×2 (01:01→21:21)
[2022-04-20] MEDS: DEXTROSE 5%-0.45% SALINE 1,000 ML 150 ML IV (02:05)
[2022-04-20 02:36] LABS: Troponin I 256 ng/L (<or=60)
[2022-04-20 05:18] LABS: HCT 28.5 % (40.0-50.0); HGB 8.5 g/dL (13.5-17.5); MCH 23.5 pg (27.0-33.0); MCHC 29.8 % (32.0-36.0); MCV 79 fL (80-95); MPV 11.6 fL (8.0-11.0); Platelet Count 206 10^3/uL (130-400); RBC 3.61 10^6/uL (4.36-5.78); RDW 17.9 % (11.8-14.1); RDW-SD 51.8 fL; WBC 6.41 10^3/uL (4.4-10.8)
[2022-04-20 05:26] LABS: INR 1.3 (0.9-1.1); Prothrombin Time 13.7 sec (9.3-11.0)
[2022-04-20 05:50] LABS: ALT 17 U/L (16-63); AST 33 U/L (15-37); Albumin 2.2 g/dL (3.4-5.0); Alkaline Phosphatase 139 U/L (46-116); Anion Gap 5.9 mmol/L (3-11); BUN 9 mg/dL (7-18); Bilirubin, Total 1.2 mg/dL (0.2-1.0); CO2 28.1 mmol/L (21.0-32.0); CREATININE 0.7 mg/dL (0.70-1.30); Calcium 7.9 mg/dL (8.5-10.1); Chloride 102 mmol/L (98-107); Estimated GFR 96.09 (mL/min/1.73m2); Glucose 98 mg/dL (74-106); Magnesium 1.8 mg/dL (1.8-2.4); NT-proBNP 4965 pg/mL (<300); Sodium 136 mmol/L (136-145); Total Protein 5.7 g/dL (6.4-8.2)
[2022-04-20 05:56] LABS: Troponin I 244 ng/L (<or=60)
--- NOTE | 2022-04-20 06:54 | NUR.NOTE ---
[id number] asked if he needed to void or if his attends was wet. pt denied the need for both.ursing Note:
[2022-04-20 08:10] LABS: Lab Add On Test DONE
[2022-04-20] MEDS: Aspirin E.C. 81 MG TABEC PO (08:27)
[2022-04-20] MEDS: Ferrous Sulfate 325 MG TAB PO ×2 (08:28→21:01)
[2022-04-20] MEDS: Furosemide 20 MG TAB 40 MG PO (08:28)
[2022-04-20] MEDS: Ascorbic Acid 500 MG TAB PO ×2 (08:28→21:01)
[2022-04-20] MEDS: Lisinopril 20 MG TAB PO (08:28)
[2022-04-20] MEDS: Potassium Chloride 10 MEQ CAPCR 40 MEQ PO ×2 (08:30→21:01)
[2022-04-20 08:41] LABS: Creatine Kinase 294 U/L (39-308)
--- NOTE | 2022-04-20 08:44 | PDOC.CMIN ---
- If Service Date Differs Date of service: 04/20/22 Time of Service: 08:44 Care Management Initial Assess REASON FOR HOSPITALIZATION:: Hypoglycemia, Hypokalemia, Elevated troponin PAST MEDICAL HISTORY/PAST SURGICAL HISTORY:: All Active Problems . Elevated troponin level not due myocardial infarction (Acute). Hypoglycemia (Acute). Hypokalemia (Acute). Personal history of nicotine dependence (Acute). Pulmonary hypertension (Acute). Rheumatoid arthritis (Chronic). Interstitial lung disease (Acute). Fungal infection of toenail (Acute). Hematuria (Acute). Ampullary adenoma (Acute). Aortic dissection (Acute). Skin lesions (Acute). Tinea pedis (Acute). Oxygen dependent (Chronic). Discharge planning issues (Acute). DVT prophylaxis (Acute). Presence of Watchman left atrial appendage closure device (Chronic). Neuropathic pain (Chronic). Hyperlipidemia (Acute). GI bleeding (Chronic). Anemia (Chronic). Anticoagulated (Acute). Fever (Acute). Chelsea-ampullary neoplasm (Acute). Sessile colonic polyp (Acute 10/29/16). Primary osteoarthritis of right knee (Acute 04/15/15). Aspiration and injection: 04/16/19. Steroid injection: 11/13/2021; 03/13/2020. Acute on chronic combined systolic and diastolic CHF (congestive heart failure) (Acute). Pulmonary hypertension (Acute). Afib (Chronic). DVT prophylaxis (Acute). Discharge planning issues (Acute). Hypertension (Chronic). Diabetes mellitus, type II (Chronic). insulin dependent. Atrial fibrillation (Chronic). Paroxysmal, intolerant of anticoagulation (n/v/hematuria while on eliquis), referred for a Watchman procedure at [facility] [place] (not yet done). F/U Dr. Yonathan Phillips [facility] [place] 11/2019. Anemia (Chronic). GERD (gastroesophageal reflux disease) (Chronic). Medical History . Bilateral leg edema. CAP (community acquired pneumonia). Carcinoma, basal cell, skin. Chronic combined systolic (congestive) and diastolic (congestive) heart failure. EF 45% on echo 07/02/2019. Deviated nasal septum. Ground glass opacity present on imaging of lung. Osteoarthritis of knee (04/09/14). Osteoarthritis of right knee. Pericarditis. Pt. states this was 2 years ago. Pulmonary hypertension. Suspected COVID-19 virus infection. Surgical History . Colonoscopy - MAC (10/29/16) PREVIOUS FUNCTIONAL STATUS/SOCIAL/FAMILY SUPPORTS:: Everett is retired and lives in [place] with his partner of 33 years, Dorie. He has no children but Dorie has 4 and they see most of them on a regular basis. Everett uses a cane for ambulatory assistance but is otherwise independent, drives and receives no community services. CURRENT FUNCTIONAL STATUS:: Leoncio was sitting up in his chair when CM met with him. He is polite and easy to engage in conversation. 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 CM notified pt that his sister Princess called this morning, however she wasn't on his HIPAA so information couldn't be shared. Leoncio added Princess to his HIPAA and will contact her personally. Leoncio shares that he drives to his medical appointments. He has used [facility] in the past, but hasn't been too keen on their services. ADVANCE DIRECTIVES:: None on file, per pt he has the paperwork at home to complete at a later date. Has patient been provided with info about the portal/API?: Yes Did the patient sign up for the portal?: No CODE STATUS:: Full Code INSURANCE COVERAGE / FINANCIAL ISSUES:: AARP/. Health CURRENT HOME/COMMUNITY SERVICES/EQUIPMENT:: Everett uses a cane. O2 concentrator through [facility] [place]. Uses [facility], occasionally PRIMARY CARE PHYSICIAN:: Felipa Martino POTENTIAL DISCHARGE NEEDS:: Follow up appointments and discharge plan of care. PATIENT/FAMILY EDUCATION NEEDS:: Discharge instructions, limitations, and follow up plan of care, including Ask Me Three and self management. TRANSPORTATION:: via private vehicle with step daughter vs [facility] private vehicle PLAN:: Leoncio is being closely monitored in the ICU. Anticipate, he will discharge home with [facility] services (if indicated) and follow up with community providers. He will be driven via [facility] private vehicle vs. private vehicle with family.
[2022-04-20] MEDS: DEXTROSE 5%-LACTATED RINGERS 1,000 ML 75 ML IV ×2 (08:45→22:00)
--- NOTE | 2022-04-20 09:00 | W.PULMCC ---
General Date of Service Date of service: 04/20/22 Time of Service: 07:00 Reason for Admission to ICU: Hypoglycemia Assessment and Plan Assessment and plan (1) Encephalopathy acute: Status: Resolved (2) Elevated troponin level not due myocardial infarction: Status: Acute (3) Hypoglycemia: Status: Acute (4) Hypokalemia: Status: Chronic (5) Hypomagnesemia: Status: Chronic (6) Personal history of nicotine dependence: Status: Acute (7) Pulmonary hypertension: Status: Acute (8) Rheumatoid arthritis: Status: Chronic (9) Interstitial lung disease: Status: Acute (10) Anemia: Status: Chronic (11) Atrial fibrillation: Status: Chronic (12) Diabetes mellitus, type II: Status: Chronic (13) COPD (chronic obstructive pulmonary disease): Status: None Assessment and plan: 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 He no showed to his follow up visit with me ae he states he no longer has a car (needs care management to assist with transportation). He is in the ICU for hypoglycemia requiring a D5 drip. It is unclear why he had this hypoglycemia. He cannot remember when he took (or how much of) his insulin but typically takes it in the morning. He cannot recall the events yesterday leading to his hospitalization. He had a head CT that originally was read as no actue infarct, but over read by our radiologists mention an age indeterminate right sided lacunar infarct. It is possible this could have lead to an initial AMS event and either an accidental insulin overdose or lack of PO intake. Recommendations Pulmonary: RA-ILD - on Rituxan - not on OFEV currently - no acute concerns COPD - on Trelegy at home - recommend Symbicort and Spiriva while admitted - prn nebs Pulmonary HTN - likely group 2 and 3 combined A. Fib - Watchman device - on home regimen Cardiac: Troponin Elevation - initial ED EKG non ischemic - repeat EKG today with T wave inversions - recommend echo to further evaluate - cardiology follow up Renal: Hypokalemia - replete to 4 Hypomagnesemia - replete to 2 Concern for voiding obstruction - PVR's and Sams/straight cath as needed I&O: Intake & Output 04/17/22 04/18/22 04/19/22 04/20/22 23:59 23:59 23:59 23:59 Intake Total 498.333 / 498.333 632.5 / 632.5 Output Total 200 / 200 Balance 498.333 / 498.333 432.5 / 432.5 Weight 66.6 kg 66.6 kg Daily Fluid Goal:: even GI Nutrition: No acute concerns Date of Last Bowel Movement: 04/19/22 Infectious Disease: No acute concerns Hematologic: Anemia - chronic and stable Neurologic: Encephalopathy - thought to be hypoglycemia - over read of CT with age indeterminate lacunar infarct? 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 He was found to have AMS and determined this to be due to hypoglycemia. He was placed on D51/2NS overnight which has improved his glucose levels. It is unclear as to the etiology of his hypoglycemia. Today he is feeling well and is conversant and not altered. He has no worsened pain or respiratory symptoms. Exam Narrative Exam Narrative: Gen: NAD, normal respiratory effort, well-nourished HENT: PERRL, nasal turbinates normal without erythema or inflammation, moist oral mucosa, Mallampati 2, No LAD or JVD Chest: No respiratory distress, normal appearance of chest, clear to auscultation bilaterally, bibasilar crackles, normal inspiratory effort Heart: regular rate and rhythym, no murmurs, rubs or gallops Abdomen: Non-distended, soft, non tender Extremities: No clubbing, edema, cyanosis, rashes Neuro: AAOx3 , non focal Psych: cooperative, appropriate mental affect Most Recent VS/Results Last Vital Signs Temp 37.0 C 04/20/22 03:00 Pulse 99 H 04/20/22 07:27 Resp 17 04/20/22 07:50 BP 146/71 H 04/20/22 07:27 Pulse Ox 99 04/20/22 07:50 Laboratory Results - last 24 hr 02/04/19/22 04/19/22 18:12 18:12 18:12 WBC 7.69 RBC 4.35 L Hgb 10.1 L Hct 35.0 L MCV 81 MCH 23.2 L MCHC 28.9 L RDW 17.5 H Plt Count 242 MPV 11.4 H Immature Gran % 0.3 Neutrophils % 88.9 Lymphocytes % 4.3 Monocytes % 5.9 Eosinophils % 0.1 Basophils % 0.5 Nucleated RBC % 0.0 Absolute Neutrophils 6.84 H Absolute Lymphocytes 0.33 L Absolute Monocytes 0.45 Absolute Eosinophils 0.01 Absolute Basophils 0.04 PT INR APTT VBG pH VBG pCO2 VBG pO2 VBG HCO3 VBG Total CO2 VBG O2 Saturation VBG Base Excess VBG Lactate 1.8 H Sodium 138 Potassium 3.4 L Chloride 102 Carbon Dioxide 27.7 Anion Gap 8.3 BUN 10 Creatinine 0.9 Est GFR (CKD-EPI 2020) 89.07 Glucose 88 Calcium 8.4 L Magnesium 1.5 L Total Bilirubin 1.2 H AST 36 ALT 20 Alkaline Phosphatase 169 H Creatine Kinase Troponin I 205 H* NT-Pro-B Natriuret Pep Total Protein 6.9 Albumin 2.5 L Urine Color Urine Clarity Urine pH Ur Specific [place] Urine Protein Urine Ketones Urine Blood Urine Nitrite Urine Bilirubin Urine Urobilinogen Ur Leukocyte Esterase Urine RBC Urine WBC Ur Epithelial Cells Urine Crystals Urine Bacteria Urine Casts Urine Mucus Urine Other Ur Culture Indicated? Urine Glucose COVID-19 Source SARS-CoV-2 (PCR) Influenza Type A (PCR) Influenza Type B (PCR) RSV (PCR) Add-On Test Request 04/19/22 04/19/22 04/19/22 18:12 18:12 18:25 WBC RBC Hgb Hct MCV MCH MCHC RDW Plt Count MPV Immature Gran % Neutrophils % Lymphocytes % Monocytes % Eosinophils % Basophils % Nucleated RBC % Absolute Neutrophils Absolute Lymphocytes Absolute Monocytes Absolute Eosinophils Absolute Basophils PT 12.8 H INR 1.3 H APTT 18.3 L VBG pH 7.49 H VBG pCO2 39 L VBG pO2 35 VBG HCO3 29 H VBG Total CO2 27 VBG O2 Saturation 67 VBG Base Excess 6 H VBG Lactate Sodium Potassium Chloride Carbon Dioxide Anion Gap BUN Creatinine Est GFR (CKD-EPI 2020) Glucose Calcium Magnesium Total Bilirubin AST ALT Alkaline Phosphatase Creatine Kinase Troponin I NT-Pro-B Natriuret Pep Total Protein Albumin Urine Color Yellow Urine Clarity Clear Urine pH 7.0 Ur Specific [place] 1.020 Urine Protein 30 H Urine Ketones 15 H Urine Blood Negative Urine Nitrite Negative Urine Bilirubin Negative Urine Urobilinogen 2.0 H Ur Leukocyte Esterase Negative Urine RBC 0-2 Urine WBC 0-2 Ur Epithelial Cells Rare Urine Crystals Negative Urine Bacteria Negative Urine Casts Negative Urine Mucus Negative Urine Other Negative Ur Culture Indicated? No Urine Glucose Negative COVID-19 Source SARS-CoV-2 (PCR) Influenza Type A (PCR) Influenza Type B (PCR) RSV (PCR) Add-On Test Request 04/19/22 04/19/22 04/20/22 18:30 21:00 02:10 WBC RBC Hgb Hct MCV MCH MCHC RDW Plt Count MPV Immature Gran % Neutrophils % Lymphocytes % Monocytes % Eosinophils % Basophils % Nucleated RBC % Absolute Neutrophils Absolute Lymphocytes Absolute Monocytes Absolute Eosinophils Absolute Basophils PT INR APTT VBG pH VBG pCO2 VBG pO2 VBG HCO3 VBG Total CO2 VBG O2 Saturation VBG Base Excess VBG Lactate Sodium Potassium Chloride Carbon Dioxide Anion Gap BUN Creatinine Est GFR (CKD-EPI 2020) Glucose Calcium Magnesium Total Bilirubin AST ALT Alkaline Phosphatase Creatine Kinase Troponin I 221 H* 256 H* NT-Pro-B Natriuret Pep Total Protein Albumin Urine Color Urine Clarity Urine pH Ur Specific [place] Urine Protein Urine Ketones Urine Blood Urine Nitrite Urine Bilirubin Urine Urobilinogen Ur Leukocyte Esterase Urine RBC Urine WBC Ur Epithelial Cells Urine Crystals Urine Bacteria Urine Casts Urine Mucus Urine Other Ur Culture Indicated? Urine Glucose COVID-19 Source Nasopharynx SARS-CoV-2 (PCR) Negative Influenza Type A (PCR) Negative Influenza Type B (PCR) Negative RSV (PCR) Negative Add-On Test Request 04/20/22 04/20/22 04/20/22 05:00 05:00 05:00 WBC 6.41 RBC 3.61 L Hgb 8.5 L Hct 28.5 L MCV 79 L MCH 23.5 L MCHC 29.8 L RDW 17.9 H Plt Count 206 MPV 11.6 H Immature Gran % Neutrophils % Lymphocytes % Monocytes % Eosinophils % Basophils % Nucleated RBC % Absolute Neutrophils Absolute Lymphocytes Absolute Monocytes Absolute Eosinophils Absolute Basophils PT INR APTT VBG pH VBG pCO2 VBG pO2 VBG HCO3 VBG Total CO2 VBG O2 Saturation VBG Base Excess VBG Lactate Sodium 136 Potassium 3.0 L Chloride 102 Carbon Dioxide 28.1 Anion Gap 5.9 BUN 9 Creatinine 0.7 Est GFR (CKD-EPI 2020) 96.09 Glucose 98 Calcium 7.9 L Magnesium 1.8 Total Bilirubin 1.2 H AST 33 ALT 17 Alkaline Phosphatase 139 H Creatine Kinase Troponin I 244 H* NT-Pro-B Natriuret Pep 4965 H Total Protein 5.7 L Albumin 2.2 L Urine Color Urine Clarity Urine pH Ur Specific [place] Urine Protein Urine Ketones Urine Blood Urine Nitrite Urine Bilirubin Urine Urobilinogen Ur Leukocyte Esterase Urine RBC Urine WBC Ur Epithelial Cells Urine Crystals Urine Bacteria Urine Casts Urine Mucus Urine Other Ur Culture Indicated? Urine Glucose COVID-19 Source SARS-CoV-2 (PCR) Influenza Type A (PCR) Influenza Type B (PCR) RSV (PCR) Add-On Test Request 04/20/22 04/20/22 04/20/22 05:00 05:00 05:00 WBC RBC Hgb Hct MCV MCH MCHC RDW Plt Count MPV Immature Gran % Neutrophils % Lymphocytes % Monocytes % Eosinophils % Basophils % Nucleated RBC % Absolute Neutrophils Absolute Lymphocytes Absolute Monocytes Absolute Eosinophils Absolute Basophils PT 13.7 H INR 1.3 H APTT VBG pH VBG pCO2 VBG pO2 VBG HCO3 VBG Total CO2 VBG O2 Saturation VBG Base Excess VBG Lactate Sodium Potassium Chloride Carbon Dioxide Anion Gap BUN Creatinine Est GFR (CKD-EPI 2020) Glucose Calcium Magnesium Total Bilirubin AST ALT Alkaline Phosphatase Creatine Kinase 294 Troponin I NT-Pro-B Natriuret Pep Total Protein Albumin Urine Color Urine Clarity Urine pH Ur Specific [place] Urine Protein Urine Ketones Urine Blood Urine Nitrite Urine Bilirubin Urine Urobilinogen Ur Leukocyte Esterase Urine RBC Urine WBC Ur Epithelial Cells Urine Crystals Urine Bacteria Urine Casts Urine Mucus Urine Other Ur Culture Indicated? Urine Glucose COVID-19 Source SARS-CoV-2 (PCR) Influenza Type A (PCR) Influenza Type B (PCR) RSV (PCR) Add-On Test Request DONE Review of Systems All systems reviewed & are unremarkable except as noted in HPI and below Time spent with patient Time spent in Critical Care: 45 Time spent in Critical care included: Chart review, Documenting critically ill care, Time at immediate bedside and Discussing critically ill care with other medical staff
--- NOTE | 2022-04-20 09:30 | RT.EKG_ITS ---
APPROVED REPORT Exam: Resting ECG Reason for Exam: rapid Afib Patient Location: I HR:83 bpm ECG Measurements Heart Rate 83 AXIS ME 112 P 35 QRSd 93 QRS 36 QT 500 T 242 QTc 588 Conclusion Sinus rhythm...normal P axis, V-rate 50- 99 Atrial premature complexes in couplets...pair SV complexes w/ short R-R Borderline short ME interval...ME int <120mS Probable left atrial enlargement...P >50mS, <-0.10mV V1 Abnrm T, consider ischemia, anterolateral lds...T <-0.20mV, I aVL V2-V6 Prolonged QT interval...QTc >500mS
--- NOTE | 2022-04-20 09:43 | PGE_ITS ---
Date of Service Date of service: 04/20/22 Time of Service: 09:43 Assessment and Plan Assessment and plan (1) Hypoglycemia: Start date: 04/19/22 Status: Acute Assessment and plan: Etiology is unclear: ?insufficient PO intake, accidental insulin overdose. No clear adrenal insufficiency. Already improving. Hold long acting insulin. BGs better - D5 fluid rate decreased to 75 cc/hr. (2) Diabetes mellitus, type II: Status: Chronic Assessment and plan: As above. Check A1C (3) Hypomagnesemia: Status: Chronic Assessment and plan: Repleted. Recheck in am (4) Hypokalemia: Status: Chronic Assessment and plan: Replete; recheck in am. (5) Elevated troponin level not due myocardial infarction: Start date: 04/19/22 Status: Acute Assessment and plan: Suspect this is demand ischemia in light of rapid Afib, hypoglycemia, hypoxia. (6) Atrial fibrillation: Status: Chronic Assessment and plan: Start PO lopressor. Obtain EKG. (7) Anemia: Status: Chronic Assessment and plan: Check anemia studies (8) Hypertension: Status: Chronic Assessment and plan: Switched from bisoprolol to metoprolol. We will have to reevaluate this. Contin ue lisinopril. (9) Encephalopathy acute: Status: Resolved Assessment and plan: In setting of hypoglycemia, hypoxia, ?EtOH intoxication (patient denies). ?Postictal state (such as from a hypoglycemic seizure). CPK argues against a prolonged seizure. Resolved. (10) DVT prophylaxis: Status: Acute Assessment and plan: SC enoxaparin (11) Discharge planning issues: Status: Acute Assessment and plan: Can likely transfer out of the ICU later today if BGs are stable. Total Critical Care Time [address] Ray. Subjective Subjective Interval history since last seen: I've been better. Denies headache, dizziness, chest pain, shortness of breaht, nausea. On 4L of O2 by [place] saturating 92%, while at home he is normally on 1L. We are going to try to wean this down. Mental status back to baseline. BGs in 130s this morning. Denies alcohol use. Exam Narrative Exam Narrative: General: Pleasant elderly male who has difficulty sitting up in bed independently, A&Ox3, NAD, on 4L of O2 by [place] HEENT: EOMI, MMM Heart: irregularly irregular rhythm, tachycardic 110s-120s Lungs: expiratory wheezing B, rales R base Abdomen: soft, nontender, nondistneded Extremities: no edema BLEs Objective Last Vital Signs Temp 37.0 C 04/20/22 03:00 Pulse 99 H 04/20/22 07:27 Resp 17 04/20/22 07:50 BP 146/71 H 04/20/22 07:27 Pulse Ox 99 04/20/22 07:50 Laboratory Results - last 24 hr 04/19/22 04/19/22 04/19/22 18:12 18:12 18:12 WBC 7.69 RBC 4.35 L Hgb 10.1 L Hct 35.0 L MCV 81 MCH 23.2 L MCHC 28.9 L RDW 17.5 H Plt Count 242 MPV 11.4 H Immature Gran % 0.3 Neutrophils % 88.9 Lymphocytes % 4.3 Monocytes % 5.9 Eosinophils % 0.1 Basophils % 0.5 Nucleated RBC % 0.0 Absolute Neutrophils 6.84 H Absolute Lymphocytes 0.33 L Absolute Monocytes 0.45 Absolute Eosinophils 0.01 Absolute Basophils 0.04 PT INR APTT VBG pH VBG pCO2 VBG pO2 VBG HCO3 VBG Total CO2 VBG O2 Saturation VBG Base Excess VBG Lactate 1.8 H Sodium 138 Potassium 3.4 L Chloride 102 Carbon Dioxide 27.7 Anion Gap 8.3 BUN 10 Creatinine 0.9 Est GFR (CKD-EPI 2020) 89.07 Glucose 88 Calcium 8.4 L Magnesium 1.5 L Total Bilirubin 1.2 H AST 36 ALT 20 Alkaline Phosphatase 169 H Creatine Kinase Troponin I 205 H* NT-Pro-B Natriuret Pep Total Protein 6.9 Albumin 2.5 L Urine Color Urine Clarity Urine pH Ur Specific [place] Urine Protein Urine Ketones Urine Blood Urine Nitrite Urine Bilirubin Urine Urobilinogen Ur Leukocyte Esterase Urine RBC Urine WBC Ur Epithelial Cells Urine Crystals Urine Bacteria Urine Casts Urine Mucus Urine Other Ur Culture Indicated? Urine Glucose COVID-19 Source SARS-CoV-2 (PCR) Influenza Type A (PCR) Influenza Type B (PCR) RSV (PCR) Add-On Test Request 04/19/22 04/19/22 04/19/22 18:12 18:12 18:25 WBC RBC Hgb Hct MCV MCH MCHC RDW Plt Count MPV Immature Gran % Neutrophils % Lymphocytes % Monocytes % Eosinophils % Basophils % Nucleated RBC % Absolute Neutrophils Absolute Lymphocytes Absolute Monocytes Absolute Eosinophils Absolute Basophils PT 12.8 H INR 1.3 H APTT 18.3 L VBG pH 7.49 H VBG pCO2 39 L VBG pO2 35 VBG HCO3 29 H VBG Total CO2 27 VBG O2 Saturation 67 VBG Base Excess 6 H VBG Lactate Sodium Potassium Chloride Carbon Dioxide Anion Gap BUN Creatinine Est GFR (CKD-EPI 2020) Glucose Calcium Magnesium Total Bilirubin AST ALT Alkaline Phosphatase Creatine Kinase Troponin I NT-Pro-B Natriuret Pep Total Protein Albumin Urine Color Yellow Urine Clarity Clear Urine pH 7.0 Ur Specific [place] 1.020 Urine Protein 30 H Urine Ketones 15 H Urine Blood Negative Urine Nitrite Negative Urine Bilirubin Negative Urine Urobilinogen 2.0 H Ur Leukocyte Esterase Negative Urine RBC 0-2 Urine WBC 0-2 Ur Epithelial Cells Rare Urine Crystals Negative Urine Bacteria Negative Urine Casts Negative Urine Mucus Negative Urine Other Negative Ur Culture Indicated? No Urine Glucose Negative COVID-19 Source SARS-CoV-2 (PCR) Influenza Type A (PCR) Influenza Type B (PCR) RSV (PCR) Add-On Test Request 04/19/22 04/19/22 04/20/22 18:30 21:00 02:10 WBC RBC Hgb Hct MCV MCH MCHC RDW Plt Count MPV Immature Gran % Neutrophils % Lymphocytes % Monocytes % Eosinophils % Basophils % Nucleated RBC % Absolute Neutrophils Absolute Lymphocytes Absolute Monocytes Absolute Eosinophils Absolute Basophils PT INR APTT VBG pH VBG pCO2 VBG pO2 VBG HCO3 VBG Total CO2 VBG O2 Saturation VBG Base Excess VBG Lactate Sodium Potassium Chloride Carbon Dioxide Anion Gap BUN Creatinine Est GFR (CKD-EPI 2020) Glucose Calcium Magnesium Total Bilirubin AST ALT Alkaline Phosphatase Creatine Kinase Troponin I 221 H* 256 H* NT-Pro-B Natriuret Pep Total Protein Albumin Urine Color Urine Clarity Urine pH Ur Specific [place] Urine Protein Urine Ketones Urine Blood Urine Nitrite Urine Bilirubin Urine Urobilinogen Ur Leukocyte Esterase Urine RBC Urine WBC Ur Epithelial Cells Urine Crystals Urine Bacteria Urine Casts Urine Mucus Urine Other Ur Culture Indicated? Urine Glucose COVID-19 Source Nasopharynx SARS-CoV-2 (PCR) Negative Influenza Type A (PCR) Negative Influenza Type B (PCR) Negative RSV (PCR) Negative Add-On Test Request 02/14/23 02/14/23 02/14/23 05:00 05:00 05:00 WBC 6.41 RBC 3.61 L Hgb 8.5 L Hct 28.5 L MCV 79 L MCH 23.5 L MCHC 29.8 L RDW 17.9 H Plt Count 206 MPV 11.6 H Immature Gran % Neutrophils % Lymphocytes % Monocytes % Eosinophils % Basophils % Nucleated RBC % Absolute Neutrophils Absolute Lymphocytes Absolute Monocytes Absolute Eosinophils Absolute Basophils PT INR APTT VBG pH VBG pCO2 VBG pO2 VBG HCO3 VBG Total CO2 VBG O2 Saturation VBG Base Excess VBG Lactate Sodium 136 Potassium 3.0 L Chloride 102 Carbon Dioxide 28.1 Anion Gap 5.9 BUN 9 Creatinine 0.7 Est GFR (CKD-EPI 2020) 96.09 Glucose 98 Calcium 7.9 L Magnesium 1.8 Total Bilirubin 1.2 H AST 33 ALT 17 Alkaline Phosphatase 139 H Creatine Kinase Troponin I 244 H* NT-Pro-B Natriuret Pep 4965 H Total Protein 5.7 L Albumin 2.2 L Urine Color Urine Clarity Urine pH Ur Specific [place] Urine Protein Urine Ketones Urine Blood Urine Nitrite Urine Bilirubin Urine Urobilinogen Ur Leukocyte Esterase Urine RBC Urine WBC Ur Epithelial Cells Urine Crystals Urine Bacteria Urine Casts Urine Mucus Urine Other Ur Culture Indicated? Urine Glucose COVID-19 Source SARS-CoV-2 (PCR) Influenza Type A (PCR) Influenza Type B (PCR) RSV (PCR) Add-On Test Request 04/20/22 04/20/22 04/20/22 05:00 05:00 05:00 WBC RBC Hgb Hct MCV MCH MCHC RDW Plt Count MPV Immature Gran % Neutrophils % Lymphocytes % Monocytes % Eosinophils % Basophils % Nucleated RBC % Absolute Neutrophils Absolute Lymphocytes Absolute Monocytes Absolute Eosinophils Absolute Basophils PT 13.7 H INR 1.3 H APTT VBG pH VBG pCO2 VBG pO2 VBG HCO3 VBG Total CO2 VBG O2 Saturation VBG Base Excess VBG Lactate Sodium Potassium Chloride Carbon Dioxide Anion Gap BUN Creatinine Est GFR (CKD-EPI 2020) Glucose Calcium Magnesium Total Bilirubin AST ALT Alkaline Phosphatase Creatine Kinase 294 Troponin I NT-Pro-B Natriuret Pep Total Protein Albumin Urine Color Urine Clarity Urine pH Ur Specific [place] Urine Protein Urine Ketones Urine Blood Urine Nitrite Urine Bilirubin Urine Urobilinogen Ur Leukocyte Esterase Urine RBC Urine WBC Ur Epithelial Cells Urine Crystals Urine Bacteria Urine Casts Urine Mucus Urine Other Ur Culture Indicated? Urine Glucose COVID-19 Source SARS-CoV-2 (PCR) Influenza Type A (PCR) Influenza Type B (PCR) RSV (PCR) Add-On Test Request DONE Multi-Disciplinary Checklist Lines/Tubes CENTRAL LINE: no ARTERIAL LINE: no HENRY: no ENDOTRACHEAL TUBE: no ICU Maintenance GLUCOSE 140-180mg/dL: yes NUTRITION AT GOAL: yes PRESSURE ULCER: no RESTRAINTS: no ANTIBIOTICS(if yes, consider Stewardship): Yes Social Issues FAMILY UPDATED: no, Reason/Intervention: Patient able to update family PT/OT: yes GOALS/DISPOSITION/PADDED BOX SEWER: yes CODE STATUS: Full Prophylaxis DVT PROPHYLAXIS: yes GI PROPHYLAXIS: no Time Spent with Patient Time Spent with Patient: 25-34 minutes Time was spent: preparing to see the patient(eg.review tests), obtaining and/or reviewing separately otained hiistory, ordering medications,tests, procedures, referring, communicating with other health wound care rn, indepentently interpreting results, counseling the patient and care coordination
--- NOTE | 2022-04-20 10:34 | W.INDIABCONS ---
Date of service: 04/20/22 Time of Service: 10:34 Diabetes Inpatient Consult Reason for Visit: Dm2 DESCRIPTION/ASSESSMENT: Unable to meet with patient as asleep. Leoncio admitted with hypoglycemia, encephalopathy with elevated troponin after being found down at home. PMH: DM2, CHF, HTN BMI on low end of normal for weight. PO intake since admit low. Will continue to follow. INTERVENTION: Will provide diabetes education once alert Time Spent in Nutritional Counseling and Treatment: 0
[2022-04-20] MEDS: Insulin Aspart 300 UNITS/3 ML PEN SC (12:17)
[2022-04-20] MEDS: Bisoprolol 5 MG TAB PO (13:06)
--- NOTE | 2022-04-20 13:45 | DI.RAD_ITS ---
Exam(s) XR WRIST LT COMPLETE EXAM: XR WRIST LT COMPLETE CLINICAL HISTORY: L wrist trauma, swelling. TECHNIQUE: 2D digital imaging was performed. COMPARISON: No exams were available for comparison FINDINGS: 3 views There is a fracture of the base of the ulnar styloid with mild displacement. Deformity of the distal radius is consistent with healed fracture site. There is no obvious acute fracture in the distal ra dius. Scaphoid appears intact. Scapholunate distance normal. IMPRESSION: Findings in distal radius and ulna as described above. DATA REPOSITORY: RADIATION DOSE DELIVERED:
--- NOTE | 2022-04-20 14:25 | NUR.NOTE ---
Left wrist noted to be swollen and tender. Guarding behavior. States he hurt it when he fell at home. Dr. Hickey made aware. X-ray ordered. Nursing Note:
--- NOTE | 2022-04-20 17:15 | RT.EKG_ITS ---
APPROVED REPORT Exam: Resting ECG Reason for Exam: change in T wave dirrection, rhythm conversion Patient Location: I HR:78 bpm ECG Measurements Heart Rate 78 AXIS NM 165 P 25 QRSd 98 QRS 53 QT 428 T 7 QTc 488 Conclusion Sinus rhythm...normal P axis, V-rate 50- 99 Borderline T abnormalities, inferior leads...T flat/neg, II III aVF Borderline prolonged QT interval...QTc >475mS
[2022-04-20] MEDS: Budesonide/Formoterol 80/4.5 6.9 GM 60 PUFF INH IH (19:38)
[2022-04-20] MEDS: Dextrose 50%-Water 25 GM/50 ML SYR IVP (21:21)
[2022-04-20] MEDS: Normal Saline Flush 10 ML SYR IVP (22:00)
[2022-04-21] VITALS (13 sets, daily range): BP systolic 104–133; BP diastolic 61–78; PULSE 54–83; RESP 16–19; TEMP 36.4–37.2; O2SAT 87–97
[2022-04-21] MEDS: Acetaminophen 325 MG TAB PO ×2 (02:50→14:29)
[2022-04-21 06:30] LABS: Abs Immature Grans 0.01 10^3/uL (0.0-0.06); Absolute Basophil Count 0.03 10^3/uL (0.0-0.2); Absolute Eosinophil Count 0.21 10^3/uL (0.0-0.7); Absolute Lymphocyte Count 0.51 10^3/uL (1.2-3.4); Absolute Monocyte Count 0.42 10^3/uL (0.1-0.8); Absolute Neutrophil Count 4.66 10^3/uL (1.2-6.7); Basophils % 0.5; Eosinophils % 3.6; HCT 28.1 % (40.0-50.0); HGB 8.2 g/dL (13.5-17.5); Immature Grans % 0.2; Lymphocytes % 8.7; MCH 23.3 pg (27.0-33.0); MCHC 29.2 % (32.0-36.0); MCV 80 fL (80-95); Monocytes % 7.2; Neutrophils % 79.8; RBC 3.52 10^6/uL (4.36-5.78); WBC 5.84 10^3/uL (4.4-10.8)
[2022-04-21 06:39] LABS: Diff Comment Diff Reviewed; Hypochromasia 2+; Platelet Count 174 10^3/uL (130-400); Polychromasia Present
--- NOTE | 2022-04-21 07:08 | W.PULMPROG ---
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 He no showed to his follow up visit with me ae he states he no longer has a car (needs care management to assist with transportation). He is in the ICU for hypoglycemia requiring a D5 drip. It is unclear why he had this hypoglycemia. He cannot remember when he took (or how much of) his insulin but typically takes it in the morning. He cannot recall the events leading to his hospitalization. He had a head CT that originally was read as no actue infarct, but over read by our radiologists mention an age indeterminate right sided lacunar infarct, brain MRI was completed and found possibly a very tiny acute lacunar infarct. His pulmonary disease is stable at this time, but he does need to follow up for his multiple pulmonary issues. Hypoglycemia - resolved - recommending stopping all IVF's RA-ILD - on Rituxan - not on OFEV currently - no acute concerns - will follow up with me for this as an outpatient COPD - on Trelegy at home - recommend Symbicort and Spiriva while admitted - prn nebs Pulmonary HTN - likely group 2 and 3 combined Pulmonary to sign off, feel free to reach out with further concerns General Date Of Service Date of service: 04/21/22 Time of Service: 07:08 Reason for Consult: RA-ILD, COPD Subjective Note Note: Leoncio is feeling fine today and offering no complaints. Glucose readings have been fine. Still ordered for D5LR. Exam Narrative Exam Narrative: Gen: NAD, normal respiratory effort, well-nourished HENT: PERRL, nasal turbinates normal without erythema or inflammation, moist oral mucosa, Mallampati 2, No LAD or JVD Chest: No respiratory distress, normal appearance of chest, clear to auscultation bilaterally, bibasilar crackles, normal inspiratory effort Heart: regular rate and rhythym, no murmurs, rubs or gallops Abdomen: Non-distended, soft, non tender Extremities: No clubbing, edema, cyanosis, rashes Neuro: AAOx3 , non focal Psych: cooperative, appropriate mental affect Objective Last Vital Signs Temp 36.9 C 04/21/22 02:54 Pulse 56 L 04/21/22 02:54 Resp 18 04/21/22 02:54 BP 122/78 04/21/22 02:54 Pulse Ox 93 04/21/22 02:54 Laboratory Results - last 24 hr 04/20/22 04/20/22 04/21/22 05:00 05:00 06:00 WBC 5.84 RBC 3.52 L Hgb 8.2 L Hct 28.1 L MCV 80 MCH 23.3 L MCHC 29.2 L RDW 18.0 H Plt Count 174 MPV Immature Gran % 0.2 Neutrophils % 79.8 Lymphocytes % 8.7 Monocytes % 7.2 Eosinophils % 3.6 Basophils % 0.5 Nucleated RBC % 0.0 Absolute Neutrophils 4.66 Absolute Lymphocytes 0.51 L Absolute Monocytes 0.42 Absolute Eosinophils 0.21 Absolute Basophils 0.03 RBC Morphology See Below Polychromasia Present Hypochromasia 2+ Creatine Kinase 294 Add-On Test Request DONE Results Medications Medications: Active Medications Generic Name Dose Route Start Last Admin Trade Name Freq PRN Reason Stop Dose Admin Acetaminophen 325 - 650 mg 04/19/22 23:56 04/21/22 02:50 Acetaminophen 325 Mg Tab PO 650 mg Q4H PRN PRN Administration Al Hydrox/Mg Hydrox/Simethicone 30 ml 04/19/22 23:56 Mylanta Suspension 30 Ml Cup PO Q2H PRN PRN Albuterol Sulfate 2.5 mg 04/19/22 23:51 Albuterol 2.5 Mg/3 Ml Inh Soln Vial UPD Q2H PRN PRN Albuterol/Ipratropium 3 ml 04/19/22 23:51 Albuterol/Ipratropium 3 Ml Upd Vial UPD Q6H PRN PRN Ascorbic Acid 500 mg 04/20/22 08:30 04/20/22 21:01 Ascorbic Acid 500 Mg Tab PO 500 mg BID BHAVNA Administration Aspirin 81 mg 04/20/22 08:30 04/20/22 08:27 Aspirin E.C. 81 Mg Tabec PO 81 mg DAILY BHAVNA Administration Atorvastatin Calcium 40 mg 04/20/22 01:00 04/20/22 21:21 Atorvastatin 40 Mg Tab PO 40 mg HS BHAVNA Administration Bisoprolol Fumarate 5 mg 04/21/22 08:30 Bisoprolol 5 Mg Tab PO DAILY [facility] Budesonide/Formoterol Fumarate 2 puff 04/20/22 20:00 04/20/22 19:38 Budesonide/Formoterol 80/4.5 6.9 Gm 60 Puff Inh IH 2 puffs BID [facility] Administration Device 1 each 04/20/22 12:00 Inhaler, Assist Device MC DIRECTED BHAVNA Dextrose 0 gm 04/20/22 00:01 Glucose Oral Gel 15 Gm/37.5 Gm Tube PO DIRECTED PRN Dextrose/Water 0 gm 04/20/22 00:01 04/20/22 21:21 Dextrose 50%-Water 25 Gm/50 Ml Syr IVP 12.5 gm DIRECTED PRN Administration Dimethicone/Zinc Oxide 0 gm 04/19/22 23:51 Isatu Protect Cream 142 Gm Tube TP PRN PRN Docusate Sodium 100 mg 04/19/22 23:56 Docusate Sodium 100 Mg Cap PO TID PRN PRN Enoxaparin Sodium 40 mg 04/20/22 00:00 04/20/22 21:21 Enoxaparin 40 Mg/0.4 Ml Syr SC 40 mg HS [facility] Administration Ferrous Sulfate 325 mg 04/20/22 08:30 04/20/22 21:01 Ferrous Sulfate 325 Mg Tab PO 325 mg BID BHAVNA Administration Furosemide 40 mg 04/20/22 08:30 04/20/22 08:28 Furosemide 20 Mg Tab PO 40 mg DAILY [facility] Administration Sodium Chloride 500 mls @ 0 mls/hr 04/19/22 20:46 Saline 500ml Bag IV PRN PRN As Directed Dextrose/Lactated Ringer's 1,000 mls @ 75 mls/hr 04/20/22 22:00 04/20/22 22:00 Dextrose 5%-Lr IV 75 mls/hr INFUSION [facility] Administration IV Miscellaneous Supplies 1 each 04/19/22 17:45 Iv Access IV DIRECTED [facility] Lisinopril 20 mg 04/20/22 08:30 04/20/22 08:28 Lisinopril 20 Mg Tab PO 20 mg DAILY [facility] Administration Magnesium Hydroxide 30 ml 04/19/22 23:56 Milk Of Magnesia 30 Ml Cup PO DAILY PRN PRN Nitroglycerin 0.4 mg 04/20/22 00:27 Nitroglycerin 0.4 Mg Tab SL Q5 MIN PRN X3 PRN Chest Pain Non-Formulary Medication 1 applic 04/21/22 08:30 Wrist Brace MC DAILY BHAVNA Polyethylene Glycol 17 gm 04/19/22 23:56 Polyethylene Glycol 3350 17 Gm Packet PO DAILY PRN PRN Constipation Potassium Chloride 40 meq 04/20/22 08:30 04/20/22 21:01 Potassium Chloride 10 Meq Capcr PO 04/21/22 08:31 40 meq BID BHAVNA Administration Sodium Chloride 0 ml 04/19/22 17:36 04/20/22 22:00 Normal Saline Flush 10 Ml Syr IVP 20 ml PRN PRN Administration Sodium Chloride 0 ml 04/19/22 20:46 Normal Saline Flush 10 Ml Syr IVP PRN PRN Tiotropium Mitchell 2 puff 04/21/22 08:30 Tiotropium Mitchell-Respimat 10 Puff Inh IH DAILY BHAVNA Allergies apixaban Adverse Reaction (Verified 11/13/21 08:12) nausea/vomiting, hematuria Labs 04/21/22 06:00 04/20/22 05:00 Labs: Laboratory Tests Range/Units 04/19/22 04/19/22 04/19/22 18:12 18:12 18:12 WBC (4.4-10.8) 10^3/uL 7.69 RBC (4.36-5.78) 10^6/uL 4.35 L Hgb (13.5-17.5) g/dL 10.1 L Hct (40.0-50.0) % 35.0 L MCV (80-95) fL 81 MCH (27.0-33.0) pg 23.2 L MCHC (32.0-36.0) % 28.9 L RDW (11.8-14.1) % 17.5 H Plt Count (130-400) 10^3/uL 242 MPV (8.0-11.0) fL 11.4 H Immature Gran % 0.3 Neutrophils % 88.9 Lymphocytes % 4.3 Monocytes % 5.9 Eosinophils % 0.1 Basophils % 0.5 Nucleated RBC % (0.0-0.3) % 0.0 Absolute Neutrophils (1.2-6.7) 10^3/uL 6.84 H Absolute Lymphocytes (1.2-3.4) 10^3/uL 0.33 L Absolute Monocytes (0.1-0.8) 10^3/uL 0.45 Absolute Eosinophils (0.0-0.7) 10^3/uL 0.01 Absolute Basophils (0.0-0.2) 10^3/uL 0.04 RBC Morphology Polychromasia Hypochromasia PT (9.3-11.0) sec INR (0.9-1.1) APTT (21.5-31.9) sec VBG pH (7.31-7.41) VBG pCO2 (41-51) mmHg VBG pO2 mmHg VBG HCO3 (23-28) mmol/L VBG Total CO2 (24-29) mmol/L VBG O2 Saturation % VBG Base Excess (-2-3) mmol/L VBG Lactate (0.6-1.4) mmol/L 1.8 H Sodium (136-145) mmol/L 138 Potassium (3.5-5.1) mmol/L 3.4 L Chloride (98-107) mmol/L 102 Carbon Dioxide (21.0-32.0) mmol/L 27.7 Anion Gap (3-11) mmol/L 8.3 BUN (7-18) mg/dL 10 Creatinine (0.70-1.30) mg/dL 0.9 Est GFR (CKD-EPI 2020) (mL/min/1.73m2) 89.07 Glucose (74-106) mg/dL 88 Calcium (8.5-10.1) mg/dL 8.4 L Magnesium (1.8-2.4) mg/dL 1.5 L Total Bilirubin (0.2-1.0) mg/dL 1.2 H AST (15-37) U/L 36 ALT (16-63) U/L 20 Alkaline Phosphatase (46-116) U/L 169 H Creatine Kinase (39-308) U/L Troponin I (<or=60) ng/L 205 H* NT-Pro-B Natriuret Pep (<300) pg/mL Total Protein (6.4-8.2) g/dL 6.9 Albumin (3.4-5.0) g/dL 2.5 L Urine Color (Yellow) Urine Clarity (Clear) Urine pH (5-8) Ur Specific [place] (1.005-1.025) Urine Protein (Negative) mg/dL Urine Ketones (Negative) mg/dL Urine Blood (Negative) Urine Nitrite (Negative) Urine Bilirubin (Negative) Urine Urobilinogen (Up TO 0.2) EU/dL Ur Leukocyte Esterase (Negative) Urine RBC (0-2) HPF Urine WBC (0-5) HPF Ur Epithelial Cells (Negative) HPF Urine Crystals (Negative) HPF Urine Bacteria (Negative) HPF Urine Casts (Negative) LPF Urine Mucus (Negative) Urine Other (Negative) Ur Culture Indicated? Urine Glucose (Negative) mg/dL COVID-19 Source SARS-CoV-2 (PCR) (Negative) Influenza Type A (PCR) (Negative) Influenza Type B (PCR) (Negative) RSV (PCR) (Negative) Add-On Test Request Range/Units 04/19/22 04/19/22 04/19/22 18:12 18:12 18:25 WBC (4.4-10.8) 10^3/uL RBC (4.36-5.78) 10^6/uL Hgb (13.5-17.5) g/dL Hct (40.0-50.0) % MCV (80-95) fL MCH (27.0-33.0) pg MCHC (32.0-36.0) % RDW (11.8-14.1) % Plt Count (130-400) 10^3/uL MPV (8.0-11.0) fL Immature Gran % Neutrophils % Lymphocytes % Monocytes % Eosinophils % Basophils % Nucleated RBC % (0.0-0.3) % Absolute Neutrophils (1.2-6.7) 10^3/uL Absolute Lymphocytes (1.2-3.4) 10^3/uL Absolute Monocytes (0.1-0.8) 10^3/uL Absolute Eosinophils (0.0-0.7) 10^3/uL Absolute Basophils (0.0-0.2) 10^3/uL RBC Morphology Polychromasia Hypochromasia PT (9.3-11.0) sec 12.8 H INR (0.9-1.1) 1.3 H APTT (21.5-31.9) sec 18.3 L VBG pH (7.31-7.41) 7.49 H VBG pCO2 (41-51) mmHg 39 L VBG pO2 mmHg 35 VBG HCO3 (23-28) mmol/L 29 H VBG Total CO2 (24-29) mmol/L 27 VBG O2 Saturation % 67 VBG Base Excess (-2-3) mmol/L 6 H VBG Lactate (0.6-1.4) mmol/L Sodium (136-145) mmol/L Potassium (3.5-5.1) mmol/L Chloride (98-107) mmol/L Carbon Dioxide (21.0-32.0) mmol/L Anion Gap (3-11) mmol/L BUN (7-18) mg/dL Creatinine (0.70-1.30) mg/dL Est GFR (CKD-EPI 2020) (mL/min/1.73m2) Glucose (74-106) mg/dL Calcium (8.5-10.1) mg/dL Magnesium (1.8-2.4) mg/dL Total Bilirubin (0.2-1.0) mg/dL AST (15-37) U/L ALT (16-63) U/L Alkaline Phosphatase (46-116) U/L Creatine Kinase (39-308) U/L Troponin I (<or=60) ng/L NT-Pro-B Natriuret Pep (<300) pg/mL Total Protein (6.4-8.2) g/dL Albumin (3.4-5.0) g/dL Urine Color (Yellow) Yellow Urine Clarity (Clear) Clear Urine pH (5-8) 7.0 Ur Specific [place] (1.005-1.025) 1.020 Urine Protein (Negative) mg/dL 30 H Urine Ketones (Negative) mg/dL 15 H Urine Blood (Negative) Negative Urine Nitrite (Negative) Negative Urine Bilirubin (Negative) Negative Urine Urobilinogen (Up TO 0.2) EU/dL 2.0 H Ur Leukocyte Esterase (Negative) Negative Urine RBC (0-2) HPF 0-2 Urine WBC (0-5) HPF 0-2 Ur Epithelial Cells (Negative) HPF Rare Urine Crystals (Negative) HPF Negative Urine Bacteria (Negative) HPF Negative Urine Casts (Negative) LPF Negative Urine Mucus (Negative) Negative Urine Other (Negative) Negative Ur Culture Indicated? No Urine Glucose (Negative) mg/dL Negative COVID-19 Source SARS-CoV-2 (PCR) (Negative) Influenza Type A (PCR) (Negative) Influenza Type B (PCR) (Negative) RSV (PCR) (Negative) Add-On Test Request Range/Units 04/19/22 04/19/22 04/20/22 18:30 21:00 02:10 WBC (4.4-10.8) 10^3/uL RBC (4.36-5.78) 10^6/uL Hgb (13.5-17.5) g/dL Hct (40.0-50.0) % MCV (80-95) fL MCH (27.0-33.0) pg MCHC (32.0-36.0) % RDW (11.8-14.1) % Plt Count (130-400) 10^3/uL MPV (8.0-11.0) fL Immature Gran % Neutrophils % Lymphocytes % Monocytes % Eosinophils % Basophils % Nucleated RBC % (0.0-0.3) % Absolute Neutrophils (1.2-6.7) 10^3/uL Absolute Lymphocytes (1.2-3.4) 10^3/uL Absolute Monocytes (0.1-0.8) 10^3/uL Absolute Eosinophils (0.0-0.7) 10^3/uL Absolute Basophils (0.0-0.2) 10^3/uL RBC Morphology Polychromasia Hypochromasia PT (9.3-11.0) sec INR (0.9-1.1) APTT (21.5-31.9) sec VBG pH (7.31-7.41) VBG pCO2 (41-51) mmHg VBG pO2 mmHg VBG HCO3 (23-28) mmol/L VBG Total CO2 (24-29) mmol/L VBG O2 Saturation % VBG Base Excess (-2-3) mmol/L VBG Lactate (0.6-1.4) mmol/L Sodium (136-145) mmol/L Potassium (3.5-5.1) mmol/L Chloride (98-107) mmol/L Carbon Dioxide (21.0-32.0) mmol/L Anion Gap (3-11) mmol/L BUN (7-18) mg/dL Creatinine (0.70-1.30) mg/dL Est GFR (CKD-EPI 2020) (mL/min/1.73m2) Glucose (74-106) mg/dL Calcium (8.5-10.1) mg/dL Magnesium (1.8-2.4) mg/dL Total Bilirubin (0.2-1.0) mg/dL AST (15-37) U/L ALT (16-63) U/L Alkaline Phosphatase (46-116) U/L Creatine Kinase (39-308) U/L Troponin I (<or=60) ng/L 221 H* 256 H* NT-Pro-B Natriuret Pep (<300) pg/mL Total Protein (6.4-8.2) g/dL Albumin (3.4-5.0) g/dL Urine Color (Yellow) Urine Clarity (Clear) Urine pH (5-8) Ur Specific [place] (1.005-1.025) Urine Protein (Negative) mg/dL Urine Ketones (Negative) mg/dL Urine Blood (Negative) Urine Nitrite (Negative) Urine Bilirubin (Negative) Urine Urobilinogen (Up TO 0.2) EU/dL Ur Leukocyte Esterase (Negative) Urine RBC (0-2) HPF Urine WBC (0-5) HPF Ur Epithelial Cells (Negative) HPF Urine Crystals (Negative) HPF Urine Bacteria (Negative) HPF Urine Casts (Negative) LPF Urine Mucus (Negative) Urine Other (Negative) Ur Culture Indicated? Urine Glucose (Negative) mg/dL COVID-19 Source Nasopharynx SARS-CoV-2 (PCR) (Negative) Negative Influenza Type A (PCR) (Negative) Negative Influenza Type B (PCR) (Negative) Negative RSV (PCR) (Negative) Negative Add-On Test Request Range/Units 04/20/22 04/20/22 04/20/22 05:00 05:00 05:00 WBC (4.4-10.8) 10^3/uL 6.41 RBC (4.36-5.78) 10^6/uL 3.61 L Hgb (13.5-17.5) g/dL 8.5 L Hct (40.0-50.0) % 28.5 L MCV (80-95) fL 79 L MCH (27.0-33.0) pg 23.5 L MCHC (32.0-36.0) % 29.8 L RDW (11.8-14.1) % 17.9 H Plt Count (130-400) 10^3/uL 206 MPV (8.0-11.0) fL 11.6 H Immature Gran % Neutrophils % Lymphocytes % Monocytes % Eosinophils % Basophils % Nucleated RBC % (0.0-0.3) % Absolute Neutrophils (1.2-6.7) 10^3/uL Absolute Lymphocytes (1.2-3.4) 10^3/uL Absolute Monocytes (0.1-0.8) 10^3/uL Absolute Eosinophils (0.0-0.7) 10^3/uL Absolute Basophils (0.0-0.2) 10^3/uL RBC Morphology Polychromasia Hypochromasia PT (9.3-11.0) sec INR (0.9-1.1) APTT (21.5-31.9) sec VBG pH (7.31-7.41) VBG pCO2 (41-51) mmHg VBG pO2 mmHg VBG HCO3 (23-28) mmol/L VBG Total CO2 (24-29) mmol/L VBG O2 Saturation % VBG Base Excess (-2-3) mmol/L VBG Lactate (0.6-1.4) mmol/L Sodium (136-145) mmol/L 136 Potassium (3.5-5.1) mmol/L 3.0 L Chloride (98-107) mmol/L 102 Carbon Dioxide (21.0-32.0) mmol/L 28.1 Anion Gap (3-11) mmol/L 5.9 BUN (7-18) mg/dL 9 Creatinine (0.70-1.30) mg/dL 0.7 Est GFR (CKD-EPI 2020) (mL/min/1.73m2) 96.09 Glucose (74-106) mg/dL 98 Calcium (8.5-10.1) mg/dL 7.9 L Magnesium (1.8-2.4) mg/dL 1.8 Total Bilirubin (0.2-1.0) mg/dL 1.2 H AST (15-37) U/L 33 ALT (16-63) U/L 17 Alkaline Phosphatase (46-116) U/L 139 H Creatine Kinase (39-308) U/L Troponin I (<or=60) ng/L 244 H* NT-Pro-B Natriuret Pep (<300) pg/mL 4965 H Total Protein (6.4-8.2) g/dL 5.7 L Albumin (3.4-5.0) g/dL 2.2 L Urine Color (Yellow) Urine Clarity (Clear) Urine pH (5-8) Ur Specific [place] (1.005-1.025) Urine Protein (Negative) mg/dL Urine Ketones (Negative) mg/dL Urine Blood (Negative) Urine Nitrite (Negative) Urine Bilirubin (Negative) Urine Urobilinogen (Up TO 0.2) EU/dL Ur Leukocyte Esterase (Negative) Urine RBC (0-2) HPF Urine WBC (0-5) HPF Ur Epithelial Cells (Negative) HPF Urine Crystals (Negative) HPF Urine Bacteria (Negative) HPF Urine Casts (Negative) LPF Urine Mucus (Negative) Urine Other (Negative) Ur Culture Indicated? Urine Glucose (Negative) mg/dL COVID-19 Source SARS-CoV-2 (PCR) (Negative) Influenza Type A (PCR) (Negative) Influenza Type B (PCR) (Negative) RSV (PCR) (Negative) Add-On Test Request Range/Units 04/20/22 04/20/22 04/20/22 05:00 05:00 05:00 WBC (4.4-10.8) 10^3/uL RBC (4.36-5.78) 10^6/uL Hgb (13.5-17.5) g/dL Hct (40.0-50.0) % MCV (80-95) fL MCH (27.0-33.0) pg MCHC (32.0-36.0) % RDW (11.8-14.1) % Plt Count (130-400) 10^3/uL MPV (8.0-11.0) fL Immature Gran % Neutrophils % Lymphocytes % Monocytes % Eosinophils % Basophils % Nucleated RBC % (0.0-0.3) % Absolute Neutrophils (1.2-6.7) 10^3/uL Absolute Lymphocytes (1.2-3.4) 10^3/uL Absolute Monocytes (0.1-0.8) 10^3/uL Absolute Eosinophils (0.0-0.7) 10^3/uL Absolute Basophils (0.0-0.2) 10^3/uL RBC Morphology Polychromasia Hypochromasia PT (9.3-11.0) sec 13.7 H INR (0.9-1.1) 1.3 H APTT (21.5-31.9) sec VBG pH (7.31-7.41) VBG pCO2 (41-51) mmHg VBG pO2 mmHg VBG HCO3 (23-28) mmol/L VBG Total CO2 (24-29) mmol/L VBG O2 Saturation % VBG Base Excess (-2-3) mmol/L VBG Lactate (0.6-1.4) mmol/L Sodium (136-145) mmol/L Potassium (3.5-5.1) mmol/L Chloride (98-107) mmol/L Carbon Dioxide (21.0-32.0) mmol/L Anion Gap (3-11) mmol/L BUN (7-18) mg/dL Creatinine (0.70-1.30) mg/dL Est GFR (CKD-EPI 2020) (mL/min/1.73m2) Glucose (74-106) mg/dL Calcium (8.5-10.1) mg/dL Magnesium (1.8-2.4) mg/dL Total Bilirubin (0.2-1.0) mg/dL AST (15-37) U/L ALT (16-63) U/L Alkaline Phosphatase (46-116) U/L Creatine Kinase (39-308) U/L 294 Troponin I (<or=60) ng/L NT-Pro-B Natriuret Pep (<300) pg/mL Total Protein (6.4-8.2) g/dL Albumin (3.4-5.0) g/dL Urine Color (Yellow) Urine Clarity (Clear) Urine pH (5-8) Ur Specific [place] (1.005-1.025) Urine Protein (Negative) mg/dL Urine Ketones (Negative) mg/dL Urine Blood (Negative) Urine Nitrite (Negative) Urine Bilirubin (Negative) Urine Urobilinogen (Up TO 0.2) EU/dL Ur Leukocyte Esterase (Negative) Urine RBC (0-2) HPF Urine WBC (0-5) HPF Ur Epithelial Cells (Negative) HPF Urine Crystals (Negative) HPF Urine Bacteria (Negative) HPF Urine Casts (Negative) LPF Urine Mucus (Negative) Urine Other (Negative) Ur Culture Indicated? Urine Glucose (Negative) mg/dL COVID-19 Source SARS-CoV-2 (PCR) (Negative) Influenza Type A (PCR) (Negative) Influenza Type B (PCR) (Negative) RSV (PCR) (Negative) Add-On Test Request DONE Range/Units 04/21/22 06:00 WBC (4.4-10.8) 10^3/uL 5.84 RBC (4.36-5.78) 10^6/uL 3.52 L Hgb (13.5-17.5) g/dL 8.2 L Hct (40.0-50.0) % 28.1 L MCV (80-95) fL 80 MCH (27.0-33.0) pg 23.3 L MCHC (32.0-36.0) % 29.2 L RDW (11.8-14.1) % 18.0 H Plt Count (130-400) 10^3/uL 174 MPV (8.0-11.0) fL Immature Gran % 0.2 Neutrophils % 79.8 Lymphocytes % 8.7 Monocytes % 7.2 Eosinophils % 3.6 Basophils % 0.5 Nucleated RBC % (0.0-0.3) % 0.0 Absolute Neutrophils (1.2-6.7) 10^3/uL 4.66 Absolute Lymphocytes (1.2-3.4) 10^3/uL 0.51 L Absolute Monocytes (0.1-0.8) 10^3/uL 0.42 Absolute Eosinophils (0.0-0.7) 10^3/uL 0.21 Absolute Basophils (0.0-0.2) 10^3/uL 0.03 RBC Morphology See Below Polychromasia Present Hypochromasia 2+ PT (9.3-11.0) sec INR (0.9-1.1) APTT (21.5-31.9) sec VBG pH (7.31-7.41) VBG pCO2 (41-51) mmHg VBG pO2 mmHg VBG HCO3 (23-28) mmol/L VBG Total CO2 (24-29) mmol/L VBG O2 Saturation % VBG Base Excess (-2-3) mmol/L VBG Lactate (0.6-1.4) mmol/L Sodium (136-145) mmol/L Potassium (3.5-5.1) mmol/L Chloride (98-107) mmol/L Carbon Dioxide (21.0-32.0) mmol/L Anion Gap (3-11) mmol/L BUN (7-18) mg/dL Creatinine (0.70-1.30) mg/dL Est GFR (CKD-EPI 2020) (mL/min/1.73m2) Glucose (74-106) mg/dL Calcium (8.5-10.1) mg/dL Magnesium (1.8-2.4) mg/dL Total Bilirubin (0.2-1.0) mg/dL AST (15-37) U/L ALT (16-63) U/L Alkaline Phosphatase (46-116) U/L Creatine Kinase (39-308) U/L Troponin I (<or=60) ng/L NT-Pro-B Natriuret Pep (<300) pg/mL Total Protein (6.4-8.2) g/dL Albumin (3.4-5.0) g/dL Urine Color (Yellow) Urine Clarity (Clear) Urine pH (5-8) Ur Specific [place] (1.005-1.025) Urine Protein (Negative) mg/dL Urine Ketones (Negative) mg/dL Urine Blood (Negative) Urine Nitrite (Negative) Urine Bilirubin (Negative) Urine Urobilinogen (Up TO 0.2) EU/dL Ur Leukocyte Esterase (Negative) Urine RBC (0-2) HPF Urine WBC (0-5) HPF Ur Epithelial Cells (Negative) HPF Urine Crystals (Negative) HPF Urine Bacteria (Negative) HPF Urine Casts (Negative) LPF Urine Mucus (Negative) Urine Other (Negative) Ur Culture Indicated? Urine Glucose (Negative) mg/dL COVID-19 Source SARS-CoV-2 (PCR) (Negative) Influenza Type A (PCR) (Negative) Influenza Type B (PCR) (Negative) RSV (PCR) (Negative) Add-On Test Request
[2022-04-21 07:26] LABS: Iron 13 ug/dL (65-175); Total Iron Binding Capacity 224 ug/dL (250-450); Transferrin Sat 6 % (20-55)
[2022-04-21 07:52] LABS: Folate 9.7 ng/mL (8.6-20.0); Vitamin B12 662 pg/mL (193-986)
[2022-04-21 08:18] LABS: Anion Gap 8.6 mmol/L (3-11); BUN 14 mg/dL (7-18); CO2 25.4 mmol/L (21.0-32.0); CREATININE 0.9 mg/dL (0.70-1.30); Calcium 7.9 mg/dL (8.5-10.1); Chloride 101 mmol/L (98-107); Estimated GFR 89.07 (mL/min/1.73m2); Ferritin 65 ng/mL (26-388); Glucose 162 mg/dL (74-106); Magnesium 1.7 mg/dL (1.8-2.4); Potassium 4.3 mmol/L (3.5-5.1); Sodium 135 mmol/L (136-145)
[2022-04-21 08:38] LABS: Hemoglobin A1C 7.4 % (<5.7)
[2022-04-21] MEDS: Lisinopril 20 MG TAB PO (08:45)
[2022-04-21] MEDS: Furosemide 20 MG TAB 40 MG PO (08:46)
[2022-04-21] MEDS: Ferrous Sulfate 325 MG TAB PO ×2 (08:46→20:39)
[2022-04-21] MEDS: Ascorbic Acid 500 MG TAB PO ×2 (08:46→20:39)
[2022-04-21] MEDS: Aspirin E.C. 81 MG TABEC PO (08:46)
[2022-04-21] MEDS: Potassium Chloride 10 MEQ CAPCR 40 MEQ PO (08:47)
[2022-04-21] MEDS: Budesonide/Formoterol 80/4.5 6.9 GM 60 PUFF INH IH ×2 (09:11→20:20)
[2022-04-21] MEDS: Tiotropium Bromide-Respimat 10 PUFF INH 2 PUFF IH (09:12)
--- NOTE | 2022-04-21 09:34 | PDOC.CMPRO ---
- If Service Date Differs Date of service: 04/21/22 Time of Service: 09:34 Care Management Progress Note S/O: Leoncio is sitting in his chair when CM met with him. He is awake and easily engages in conversation. Leoncio shares that cooking is his favorite pass time. He also has 3 dogs and shares details of his childhood. Anticipate, Leoncio will discharge Home with [facility] once medically cleared by provider. CM will continue to support patient and his discharge plan. A: 77 year old male admitted to [facility] on 04/20/22 for Hypoglycemia, Hypokalemia, Elevated troponin P: Leoncio requires close monitoring, medication management and further medical work up. Anticipate, he will discharge home with [facility] (if indicated) and follow up with community providers. He will be driven via [facility] private vehicle vs. private vehicle with family.
[2022-04-21] MEDS: DEXTROSE 5%-LACTATED RINGERS 1,000 ML 75 ML IV (10:39)
--- NOTE | 2022-04-21 12:49 | PT.INIE ---
Date of service: 04/21/22 Time of Service: 10:39 PT Notes Visit Reasons: Hypoglycemia with AMS, Elevated Troponins Inpatient Physical Therapy Evaluation Date: 04/21/2022 Referring Doctor: Angely Hickey MD PT Orders: PT CONSULT: Limited ability Precautions: Fall. Standard. Activity as tolerated. Per orthopod: WBAT on L UE with universal wrist splint on. On 1 L of oxygen per minute via NC. Patient Profile/Admitting Diagnosis:?? Mr Coy is a [id number] male admitted to the MedSurg unit for management of hypoglycemia, type 2 diabetes mellitus, hypomagnesemia, hypokalemia, elevated troponin, atrial fibrillation, anemia, and hypertension. Patient also fell at home and sustained a mildly displaced left ulnar styloid fracture. PMHX: All Active Problems?(Updated 04/20/22 @ 08:47 by Hank Oates) Elevated troponin level not due myocardial infarction (Acute) Hypoglycemia (Acute) Hypokalemia (Chronic) Personal history of nicotine dependence (Acute) Pulmonary hypertension (Acute) Rheumatoid arthritis (Chronic) Interstitial lung disease (Acute) Fungal infection of toenail (Acute) Hematuria (Acute) Ampullary adenoma (Acute) Aortic dissection (Acute) Skin lesions (Acute) Tinea pedis (Acute) Oxygen dependent (Chronic) Hypomagnesemia (Chronic) Discharge planning issues (Acute) DVT prophylaxis (Acute) Presence of Watchman left atrial appendage closure device (Chronic) Neuropathic pain (Chronic) Hyperlipidemia (Acute) GI bleeding (Chronic) Anemia (Chronic) Anticoagulated (Acute) Fever (Acute) Chelsea-ampullary neoplasm (Acute) Sessile colonic polyp (Acute 10/29/16) Primary osteoarthritis of right knee (Acute 04/15/15) Aspiration and injection: 04/16/19 Steroid injection: 11/13/2021; 03/13/2020 Acute on chronic combined systolic and diastolic CHF (congestive heart failure) (Acute) Pulmonary hypertension (Acute) Afib (Chronic) DVT prophylaxis (Acute) Discharge planning issues (Acute) Hypertension (Chronic) Diabetes mellitus, type II (Chronic) insulin dependent Atrial fibrillation (Chronic) Paroxysmal, intolerant of anticoagulation (n/v/hematuria while on eliquis), [place] [facility] [place] F/U Dr. Yonathan Phillips [facility] [place] Anemia (Chronic) GERD (gastroesophageal reflux disease) (Chronic) Medical History? 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 states this was 2 years ago.Pulmonary hypertension Suspected COVID-19 virus infection Surgical History? Colonoscopy - MAC (10/29/16) Social History/Home Situation: Leoncio lives in [place] with his SO she has three daughters. He states he is independent with ADLs and transportation. He utilizes a SPC as needed. He states he does not have oxygen at home and has a history of afib that he reports comes and goes. Equipment Owned/DME: FWWs, 4WWs, SPC, motorized wheelchair ( uses) Subjective:? Reports pain in the left wrist with movement. States that he fell on the left hand recently. Per Nurse Maria Antonia, daughter states that patient has fallen three times this past week or so. Reports that surgeon indicated that his knees are beyond repair and so he has been avoiding walking too far to avoid worsening of his arthritis. Objective:? General Observation: Bilateral TEDS, telemetry, IV right UE, O2 via nasal cannula 1L/min. Swelling in L forearm, wrist, and hand. Mental Status: Alert and oriented x4 Pain: Notes of mild pain in his left ankle and right knee Vital Signs: WNl as closely monitored via tele and oxygen saturation device ROM: Right Upper Extremity: Demonstrates within functional limits active right upper extremity range of motion Left Upper Extremity: Demonstrates within functional limits active left upper extremity range of motion Right Lower Extremity: Hip flexion 110 degrees, knee flexion 110 degrees, extension lacking about 20 degrees of terminal, ankle dorsiflexion limited to 5 degrees, plantarflexion within functional limits Left Lower Extremity: Hip flexion 110 degrees, knee flexion 110 degrees, lacking about 15 degrees of terminal extension, ankle dorsiflexion limited to 5 degrees, plantarflexion within functional limits Strength: Right Upper Extremity: Shoulder flexion 4-/5, shoulder abduction 4/5, bicep 4/5, tricep 4-/5, credit verifier within normal limits Left Upper Extremity: Shoulder flexion 4/5, shoulder abduction 4/5, bicep 4/5, tricep 4-/5, credit verifier within normal limits Right Lower Extremity: Hip flexion 3-/5, knee extension 3-/5, knee flexion 3-/5, plantarflexion/dorsiflexion 4-/5 Left Lower Extremity: Hip flexion 3-/5, knee extension 3-/5, knee flexion 3-/5, plantarflexion/dorsiflexion 4-/5 Sensation:? Intact to pain and light touch in B L Bed Mobility/Transfers: Sit?stand: Minimal assist Stand?sit: Minimal assist Bed?chair: Minimal assist Chair?bed: Minimal assist Gait:? 20 feet +20 feet using front wheeled walker requiring contact guard assist with oxygen saturation above 90% on 1 L/min via NC. Balance:? Static Sitting: Normal Dynamic Sitting: Normal Static Standing: fair Dynamic Standing: Fair Special Tests: Mobility Limitations Standardized Measure [facility]-PAC 6 clicks Basic Mobility Inpatient Short Form: Raw Score: 18 ? CMS Score: 47% ? ? Informed Consent/Education:? Patient instructed in purpose of PT consult and plan of care. Agreeable to proceed with established PT POC to achieve personal goals. Assessment:?? Mr Cyo is a [id number] male admitted to the Medr unit for management of hypoglycemia, type 2 diabetes mellitus, hypomagnesemia, hypokalemia, elevated troponin, atrial fibrillation, anemia, and hypertension. Patient also fell at home and sustained a mildly displaced left ulnar styloid fracture for which orthopedic surgeon ordered a universal splint. Patient presents with clinical signs and symptoms consistent with current/admitting diagnoses that have resulted to mobility limitations, gait instability, generalized weakness, and impairment of motor control as demonstrated by the following impairment level findings: 1.? Decreased strength to B shoulder and B LE major muscle groups 2.? Impaired standing balance 3.? Impaired activity tolerance 4.? Limitation of joint range of motion right knee and left ankle 5. Mildly displaced ulnar styloid fracture Impairments are contributing to the following functional limitations: 1.? Increased dependence with transfers 2.? Inability to safely ambulate without assistive device and physical assistance 3.? Increase completion time for mobility ADL performance 4.? Increased fall risk 5.? Inability to negotiate steps alone safely Patient is assessed as a 66742 moderate complexity based on the following: History: 77-year-old male with past medical history as indicated above Examination: Demonstrable impairment in strength, balance, and mobility level with underlying impairments and functional limitations as exhibited above as well as deficit score of 47%% utilizing the [facility] Mobility Inpatient Short Form Presentation: Evolving Decision Makin moderate complexity Goals: Goals X1 week 1. Supine-Sit independent 2. Sit-Supine independent 3. Sit-Stand independent 4. Stand-Sit independent 5. Bed-Chair independent 6. Chair-Bed independent 7. Gait independent with use of FWW 300 feet or greater without complaints of dyspnea nor pain 8. Stairs able to ascend and descend 6 steps with bilateral railings, supervision 9. Independent with home exercise program 10.? Demonstrate good dynamic standing balance Plan of Care/Treatment Plan: 1-2x/day, 7 days/week x 1 week. Plan of care has been reviewed with the [employer] DEVELOPER providing the service under Physical Therapy direction. Initiate Physical Therapy intervention for strengthening, bed mobility, transfers, gait, stairs, balance training, use of assistive device. DISCHARGE RECOMMENDATIONS: [] Home with no services [] [] Home with services [specify] [] Home with outpatient PT [] [] SNF for continued rehabilitation [] [] Document Manager Care [] [] SNF versus LTC based on ability to participate and progress [] [X] SNF vs PT based on progress towards goals TREATMENT CODE/TIME: 81198 x 20 minutes, 27598 x 21 minutes beginning at 10:39 AM. Thank you for the opportunity to participate in the care of this patient. Maryann Austin PT, DPT, CLT [facility] [place], [place]
--- NOTE | 2022-04-21 13:31 | NUR.NOTE ---
Spoke with daughter, Alyssa Zamora in am. Given update on her father's condition. Alyssa states her father has had 3 falls in the past 48 hours. States that yesterday she spoke with a [employer] and a report was made to adult protective services regarding her parents. She states they are not safe to be home alone. Her father is weak and is caregiver for her mother who is also very weak and is now hospitalized in [place]. Daughter states neither parent is safe to go back home due to his continued falls and weaknesses. They have 3 dogs in the home and the local animal control center is coming into the home to take them to a kennel. She states that she is working in [place] today but will come to visit her father tomorrow in am. Nursing Note:
--- NOTE | 2022-04-21 13:50 | W.ORTHOCONSU ---
Date of service: 04/21/22 Time of Service: 13:00 History of Present Illness History of Present Illness Chief Complaint: Left Wrist Pain Narrative: Mr. Coy is a 77-year-old who was found down by EMS with some altered mental status. It is unclear the exact etiology but he has responded to typical treatments here in the hospital. However, as he was admitted he was complaining of left wrist and hand pain. He is unclear of any particular fall or injury to the left hand. However, it has been bothersome. He complains of pain diffusely throughout the wrist slightly worse on the ulnar aspect. Not associate with any specific numbness or tingling. No pain within the elbow or shoulder. Consults Consult date: 04/21/22 Requesting physician: Angely Hickey Consult Reason Left wrist pain Assessment and Plan Assessment and plan (1) Closed fracture of left distal radius and ulna: Status: Acute Assessment and plan: Mr. Coy is a 77-year-old who was found down and suffered an injury to his left wrist. I do believe that he has an acute distal radius and distal ulna fracture. This is likely in the setting of some type of chronic or subacute fracture of the distal radius. However, there is no significant deformity. This is a relatively stable injury. Therefore, I recommend that he wears a removable wrist brace. He should wear this pretty much all the time for the next 3 to 4 weeks. However, he may remove it for hygiene purposes. He may weight-bear as tolerated with the brace on. If necessary, a platform walker could be considered. Otherwise, he will follow-up in the office for repeat x-rays in another 3 to 4 weeks. Review of Systems All systems reviewed & are unremarkable except as noted in HPI and below PFSH All Active Problems (Updated 04/21/22 @ 13:54 by Prasad Singh MD) Closed fracture of left distal radius and ulna (Acute) Elevated troponin level not due myocardial infarction (Acute) Hypoglycemia (Acute) Hypokalemia (Chronic) Personal history of nicotine dependence (Acute) Pulmonary hypertension (Acute) Rheumatoid arthritis (Chronic) Interstitial lung disease (Acute) Fungal infection of toenail (Acute) Hematuria (Acute) Ampullary adenoma (Acute) Aortic dissection (Acute) Skin lesions (Acute) Tinea pedis (Acute) Oxygen dependent (Chronic) Hypomagnesemia (Chronic) Discharge planning issues (Acute) DVT prophylaxis (Acute) Presence of Watchman left atrial appendage closure device (Chronic) Neuropathic pain (Chronic) Hyperlipidemia (Acute) GI bleeding (Chronic) Anemia (Chronic) Anticoagulated (Acute) Fever (Acute) Chelsea-ampullary neoplasm (Acute) Sessile colonic polyp (Acute 10/29/16) Primary osteoarthritis of right knee (Acute 04/15/15) Aspiration and injection: 04/16/19 Steroid injection: 11/13/2021; 03/13/2020 Acute on chronic combined systolic and diastolic CHF (congestive heart failure) (Acute) Pulmonary hypertension (Acute) Afib (Chronic) DVT prophylaxis (Acute) Discharge planning issues (Acute) Hypertension (Chronic) Diabetes mellitus, type II (Chronic) insulin dependent Atrial fibrillation (Chronic) Paroxysmal, intolerant of anticoagulation (n/v/hematuria while on eliquis), [place] [facility] [place] F/[place] Dr. Yonathan Phillips [facility] [place] Anemia (Chronic) GERD (gastroesophageal reflux disease) (Chronic) Medical History Bilateral leg edema CAP (community acquired pneumonia) Carcinoma, basal cell, skin Chronic combined systolic (congestive) and diastolic (congestive) heart failure EF 45% on echo 07/02/2019 Deviated nasal septum Ground glass opacity present on imaging of lung Osteoarthritis of knee (04/09/14) Osteoarthritis of right knee Pericarditis Pt. states this was 2 years ago. Pulmonary hypertension Suspected COVID-19 virus infection Surgical History Colonoscopy - MAC (10/29/16) Family History Father Diabetes Hypertension Heart disease Self No problems noted. Brother Stroke had an aneurysm Sister Breast cancer Diabetes Brother Lung cancer smoker Social History Smoking/Tobacco Use Status: Former Tobacco Use Quit Date: 03/07/16 Tobacco: How many years used: 56 Counseling given: provider counseling Smoking risk assessment performed?: Yes Alcohol Intake: former Year quit: 1969 Drug use: Never Substance use type: does not use Current gender identity: male Do you feel safe at home: Yes Do you feel safe in your relationship?: Yes Exam Extrem Other: Evaluation of the left upper extremity shows no significant findings about the skin. No areas of ecchymosis. There is some swelling about the left wrist. There is pain to palpation of the distal radius and the ulna. There appears to be some slight radial deviation of the hand. Positive fovea test. Gentle passive range of motion does not cause significant pain. However, there is notable pain with resisted active extension and flexion of the wrist. No crepitus with range of motion. Sensation intact to light touch of the median, radial, ulnar nerve. Results Last Vital Signs Temp 36.4 C L 04/21/22 11:38 Pulse 59 L 04/21/22 11:38 Resp 19 04/21/22 11:38 BP 113/64 04/21/22 11:38 Pulse Ox 97 04/21/22 11:38 Labs 04/21/22 06:00 04/21/22 06:00 Labs: Laboratory Results - last 24 hr 04/21/22 04/21/22 04/21/22 06:00 06:00 06:00 WBC 5.84 RBC 3.52 L Hgb 8.2 L Hct 28.1 L MCV 80 MCH 23.3 L MCHC 29.2 L RDW 18.0 H Plt Count 174 MPV Immature Gran % 0.2 Neutrophils % 79.8 Lymphocytes % 8.7 Monocytes % 7.2 Eosinophils % 3.6 Basophils % 0.5 Nucleated RBC % 0.0 Absolute Neutrophils 4.66 Absolute Lymphocytes 0.51 L Absolute Monocytes 0.42 Absolute Eosinophils 0.21 Absolute Basophils 0.03 RBC Morphology See Below Polychromasia Present Hypochromasia 2+ Sodium 135 L Potassium 4.3 D Chloride 101 Carbon Dioxide 25.4 Anion Gap 8.6 BUN 14 Creatinine 0.9 Est GFR (CKD-EPI 2020) 89.07 Glucose 162 H Hemoglobin A1c 7.4 H Calcium 7.9 L Magnesium 1.7 L Iron TIBC Transferrin % Sat Ferritin 65 Vitamin B12 Folate 04/21/22 04/21/22 06:00 06:00 WBC RBC Hgb Hct MCV MCH MCHC RDW Plt Count MPV Immature Gran % Neutrophils % Lymphocytes % Monocytes % Eosinophils % Basophils % Nucleated RBC % Absolute Neutrophils Absolute Lymphocytes Absolute Monocytes Absolute Eosinophils Absolute Basophils RBC Morphology Polychromasia Hypochromasia Sodium Potassium Chloride Carbon Dioxide Anion Gap BUN Creatinine Est GFR (CKD-EPI 2020) Glucose Hemoglobin A1c Calcium Magnesium Iron 13 L TIBC 224 L Transferrin % Sat 6 L Ferritin Vitamin B12 662 Folate 9.7 Imaging Imaging Studies: X-ray of the left wrist was reviewed. This shows a ulnar styloid fracture in addition to what appears to be a subacute distal radius fracture. I believe there may be 2 fracture lines here, 1 which is healed in another line which represents a new fracture. Either way, there is no significant displacement. There may be some very mild amount of loss of radial inclination but otherwise a fairly normal-looking x-ray save for the fractures.
--- NOTE | 2022-04-21 14:22 | PGE_ITS ---
Date of Service Date of service: 04/21/22 Time of Service: 14:22 Assessment and Plan Assessment and plan (1) Hypoglycemia: Start date: 04/19/22 Status: Acute Assessment and plan: Etiology is unclear: ?insufficient PO intake, accidental insulin overdose. No clear adrenal insufficiency. Already improving. Hold long acting insulin. Blood glucose better today and 160s 170s no further hypoglycemic spells. We will discontinue his D5 LR and monitor his blood sugars. Continue to hold his long-acting insulin. Use low-dose insulin sensitive sliding scale for hyperglycemia. Professional time spent interviewing and examining patient, discussion of goals of care with hospital team (care management, nursing and consulting professionals) was 45 minutes. (2) Acute congestive heart failure: Status: Acute Assessment and plan: Appears to be in acute congestive heart failure he has diffuse bilateral rales and JVD. Echocardiogram is pending at this time however I will start him on IV Lasix place a Sams catheter due to his urinary incontinence. (3) Elevated troponin level not due myocardial infarction: Start date: 04/19/22 Status: Acute Assessment and plan: Suspect this is demand ischemia in light of rapid Afib, hypoglycemia, hypoxia. Echocardiogram is pending at this time however suspect there is an some acute congestive heart failure. (4) Atrial fibrillation: Status: Chronic Assessment and plan: None Lopressor 12.5 mg p.o. every 6 hours continue to monitor heart rate and rhythm. Due to his frequent falls hypoglycemia he is probably not a good candid ate for long-term anticoagulation. (5) Diabetes mellitus, type II: Status: Chronic Assessment and plan: As above. Check A1C (6) Hypomagnesemia: Status: Chronic Assessment and plan: Remains low at 1.7 continue with parenteral IV replacement monitor levels (7) Hypokalemia: Status: Chronic Assessment and plan: Now up to 4.3 continue to monitor particularly in light of his need for diuretics. (8) Anemia: Status: Chronic Assessment and plan: Check anemia studies (9) Hypertension: Status: Chronic Assessment and plan: Switched from bisoprolol to metoprolol. We will have to reevaluate this. Continue lisinopril. (10) Encephalopathy acute: Status: Resolved Assessment and plan: Likely due to hypoglycemia. Resolved. (11) DVT prophylaxis: Status: Acute Assessment and plan: SC enoxaparin (12) Discharge planning issues: Status: Acute Assessment and plan: Now on MedSurg to status continue to monitor on telemetry. Due to his severe weakness and inability to care for himself he will likely require at least short-term stay in a SNF. Subjective Subjective Interval history since last seen: Patient is more short of breath this afternoon. Cough is nonproductive. He has some diffuse expiratory wheezes. Also complaining of leg cramps today with some leg spasms. Magnesium level is a little low 1.7 this morning which we will correct with parenteral and oral magnesium supplementation. He denies any chest pain or pressure. Nursing staff he is still very weak they did get him up to the chair for lunch. He requires two-person assistance to ambulate in and out of bed. Exam Narrative Exam Narrative: Elderly male appears to be mildly dyspneic with prolonged conversation. HEENT neck veins appear to be distended Lungs with diffuse rales more prominent at the bases no rhonchi he has diffuse expiratory wheezing Heart is regular and per telemetry review with the ICU nurses this morning he was in sinus rhythm with PACs. Abdomen soft nontender Lower extremities just a trace of edema no cyanosis no calf tenderness. Left elbow with ecchymosis, left wrist is now in a splint for distal fracture and ulna and radius. Objective Last Vital Signs Temp 36.4 C L 04/21/22 11:38 Pulse 59 L 04/21/22 11:38 Resp 19 04/21/22 11:38 BP 113/64 04/21/22 11:38 Pulse Ox 97 04/21/22 11:38 Laboratory Results - last 24 hr 04/21/22 04/21/22 04/21/22 06:00 06:00 06:00 WBC 5.84 RBC 3.52 L Hgb 8.2 L Hct 28.1 L MCV 80 MCH 23.3 L MCHC 29.2 L RDW 18.0 H Plt Count 174 MPV Immature Gran % 0.2 Neutrophils % 79.8 Lymphocytes % 8.7 Monocytes % 7.2 Eosinophils % 3.6 Basophils % 0.5 Nucleated RBC % 0.0 Absolute Neutrophils 4.66 Absolute Lymphocytes 0.51 L Absolute Monocytes 0.42 Absolute Eosinophils 0.21 Absolute Basophils 0.03 RBC Morphology See Below Polychromasia Present Hypochromasia 2+ Sodium 135 L Potassium 4.3 D Chloride 101 Carbon Dioxide 25.4 Anion Gap 8.6 BUN 14 Creatinine 0.9 Est GFR (CKD-EPI 2020) 89.07 Glucose 162 H Hemoglobin A1c 7.4 H Calcium 7.9 L Magnesium 1.7 L Iron TIBC Transferrin % Sat Ferritin 65 Vitamin B12 Folate 04/21/22 04/21/22 06:00 06:00 WBC RBC Hgb Hct MCV MCH MCHC RDW Plt Count MPV Immature Gran % Neutrophils % Lymphocytes % Monocytes % Eosinophils % Basophils % Nucleated RBC % Absolute Neutrophils Absolute Lymphocytes Absolute Monocytes Absolute Eosinophils Absolute Basophils RBC Morphology Polychromasia Hypochromasia Sodium Potassium Chloride Carbon Dioxide Anion Gap BUN Creatinine Est GFR (CKD-EPI 2020) Glucose Hemoglobin A1c Calcium Magnesium Iron 13 L TIBC 224 L Transferrin % Sat 6 L Ferritin Vitamin B12 662 Folate 9.7 Time Spent with Patient Time Spent with Patient: 35-49 minutes Time was spent: preparing to see the patient(eg.review tests), obtaining and/or reviewing separately otained hiistory, ordering medications,tests, procedures, referring, communicating with other health technical healthcare consultant, indepentently interpreting results and care coordination
[2022-04-21] MEDS: Normal Saline Flush 10 ML SYR IVP (15:40)
[2022-04-21] MEDS: MAGNESIUM SULFATE 2 GM/50 ML BAG IVPB (15:40)
[2022-04-21] MEDS: Furosemide 100 MG/10 ML VIAL 80 MG IVP (15:41)
[2022-04-21] MEDS: Sucralfate 1 GM TAB PO ×2 (17:00→22:39)
--- NOTE | 2022-04-21 17:19 | PT.INTREAT ---
Date of service: 04/21/22 Time of Service: 15:45 PT Notes Visit Reasons: Hypoglycemia with AMS, Elevated Troponins Inpatient Physical Therapy Treatment Note Date: 04/21/2022 Precautions: Fall.? Standard. Activity as tolerated.?Per orthopod: WBAT on L UE with universal wrist splint on.?On 1 L of oxygen per minute via NC. Subjective:? Reports increasing pain in the L hand and forearm with movement. Complains of fatigue. Objective:? General Observation: Bilateral TEDS, telemetry, IV right UE, O2 via nasal cannula 1L/min.? Swelling in L forearm,? wrist, and hand. Mental Status: Alert and oriented x4 Pain: Pain in L hand increasing to about 4-5/10 with movement and weight bearing Vital Signs: WNL as closely monitored via tele and oxygen saturation device Bed Mobility/Transfers: Sit?stand: Minimal assist Stand?sit: Minimal assist Bed?chair: Minimal assist Chair?bed: Minimal assist Gait:? 5 feet + 5 feet using front-wheeled walker from bedside to commode with platform on the L LE requiring contact guard assist with oxygen saturation above 90% on 1 L/min via NC.? Balance:? Static Sitting: Normal Dynamic Sitting: Normal Static Standing: fair Dynamic Standing: Fair Assessment:?? Needed to put up L platform to walker for this afternoon due to increasing report of pain with weight bearing through L UE with walker. More fatigued this afternoon, not wanting to walk as far as he did earlier today. DISCHARGE RECOMMENDATIONS: [] ? Home with no services [] [] ? Home with services [specify] [] ? Home with outpatient PT [] [] ? SNF for continued rehabilitation [] [] ? Hair Or Beauty Salon Assistant Care [] [] ? SNF versus LTC based on ability to participate and progress [] [X]? SNF vs HH PT based on progress towards goals TREATMENT CODE/TIME: 63438 x 32 minutes beginning at 15:45 PM.
--- NOTE | 2022-04-21 18:50 | DI.RAD_ITS ---
Exam(s) XR ELBOW LT COMPLETE EXAM: XR ELBOW LT COMPLETE CLINICAL HISTORY: S/p fall, left elbow ecchymosis and pain. TECHNIQUE: 2D digital imaging was performed. COMPARISON: No exams were available for comparison FINDINGS: 3 views Diffuse soft tissue swelling in the upper extremity both above and below the elbow level. No radiopa que foreign body noted. There is slight elevation of the anterior fat pad. This may indicate a joint effusion. Posterior fa t pad is not elevated. There is a bony excrescence off the posterior aspect of the olecranon. This appears discontinuous/possible fracture but there does not appear to be gross focal overlying swellin g of the olecranon bursa when compared to rim the remainder of the extremity. There is an osteophytic density in the joint space measuring 5 x 3 millimeters located adjacent to th e medial aspect of the capitellum and on 1 image there is a suggestion of possible osteochondral defe ct in the adjacent capitellum. IMPRESSION: As above. Recommend follow-up MRI. DATA REPOSITORY: RADIATION DOSE DELIVERED:
--- NOTE | 2022-04-21 19:01 | DI.VRAD_ITS ---
PROCEDURE INFORMATION: Exam: XR Left Elbow Exam date and time: 04/21/2022 6:49 PM Age: 77 years old Clinical indication: Injury or trauma; Other: S/P fall, left elbow ecchymosis and pain TECHNIQUE: Imaging protocol: Radiologic exam of the Left elbow. Views: 3 or more views. COMPARISON: CR XR WRIST LT COMPLETE 04/20/2022 2:21 PM FINDINGS: Bones/joints: Chronic hypertrophic changes at the olecranon process. Possible small joint effusion. Possible lucency in the distal humerus/trochlea Soft tissues: Diffuse swelling IMPRESSION: Possible small joint effusion. Possible faint lucency/fracture in the trochlea Chronic findings as noted in the olecranon Dictated and Authenticated by: Zane Clarke MD. Ordering:ANDRÉS Reyes MD
[2022-04-21] MEDS: Magnesium Oxide 400 MG TAB PO (20:39)
[2022-04-21] MEDS: Pantoprazole 40 MG TABCR PO (20:39)
[2022-04-21] MEDS: Enoxaparin 40 MG/0.4 ML SYR SC (22:39)
[2022-04-21] MEDS: Atorvastatin 40 MG TAB PO (22:39)
[2022-04-22] VITALS (12 sets, daily range): BP systolic 99–127; BP diastolic 53–69; PULSE 61–83; RESP 16–20; TEMP 36.6–37.1; O2SAT 88–95
[2022-04-22 07:04] LABS: Abs Immature Grans 0.03 10^3/uL (0.0-0.06); Absolute Basophil Count 0.05 10^3/uL (0.0-0.2); Absolute Eosinophil Count 0.25 10^3/uL (0.0-0.7); Absolute Lymphocyte Count 0.58 10^3/uL (1.2-3.4); Absolute Monocyte Count 0.41 10^3/uL (0.1-0.8); Absolute Neutrophil Count 7.78 10^3/uL (1.2-6.7); Basophils % 0.5; Eosinophils % 2.7; HCT 30.7 % (40.0-50.0); HGB 8.8 g/dL (13.5-17.5); Immature Grans % 0.3; Lymphocytes % 6.4; MCH 22.7 pg (27.0-33.0); MCHC 28.7 % (32.0-36.0); MCV 79 fL (80-95); Monocytes % 4.5; Neutrophils % 85.6; Platelet Count 187 10^3/uL (130-400); RBC 3.87 10^6/uL (4.36-5.78); RDW 18.1 % (11.8-14.1); RDW-SD 52.3 fL
[2022-04-22 07:26] LABS: Anion Gap 5.5 mmol/L (3-11); BUN 11 mg/dL (7-18); CO2 29.5 mmol/L (21.0-32.0); CREATININE 0.9 mg/dL (0.70-1.30); Calcium 8.3 mg/dL (8.5-10.1); Chloride 99 mmol/L (98-107); Estimated GFR 89.07 (mL/min/1.73m2); Glucose 167 mg/dL (74-106); Magnesium 1.9 mg/dL (1.8-2.4); NT-proBNP 4081 pg/mL (<300); Potassium 4.5 mmol/L (3.5-5.1); Sodium 134 mmol/L (136-145)
[2022-04-22 07:33] LABS: Diff Comment Diff Reviewed; Poikilocytes 1+
[2022-04-22] MEDS: Budesonide/Formoterol 80/4.5 6.9 GM 60 PUFF INH IH ×2 (08:03→19:30)
[2022-04-22] MEDS: Tiotropium Bromide-Respimat 10 PUFF INH 2 PUFF IH (08:03)
[2022-04-22] MEDS: Ascorbic Acid 500 MG TAB PO ×2 (08:21→19:30)
[2022-04-22] MEDS: Aspirin E.C. 81 MG TABEC PO (08:21)
[2022-04-22] MEDS: Pantoprazole 40 MG TABCR PO ×2 (08:21→19:30)
[2022-04-22] MEDS: Sucralfate 1 GM TAB PO ×4 (08:21→21:12)
[2022-04-22] MEDS: Bisoprolol 5 MG TAB PO (08:21)
[2022-04-22] MEDS: Furosemide 100 MG/10 ML VIAL 80 MG IVP ×2 (08:21→16:52)
[2022-04-22] MEDS: Magnesium Oxide 400 MG TAB PO ×2 (08:21→19:30)
[2022-04-22] MEDS: Normal Saline Flush 10 ML SYR IVP ×2 (08:21→16:53)
[2022-04-22] MEDS: Ferrous Sulfate 325 MG TAB PO ×2 (08:22→19:30)
[2022-04-22] MEDS: Lisinopril 20 MG TAB PO (08:22)
--- NOTE | 2022-04-22 09:04 | PDOC.CMPRO ---
- If Service Date Differs Date of service: 04/22/22 Time of Service: 09:04 Care Management Progress Note S/O: Leoncio is sitting up in his chair when CM met with him. He is awake and easily engages in conversation. Leoncio shares that his partner Dorie of 33 years recently moved to a Community alf due to her health decline. He has no idea if she will ever be well enough to return home. Per pt, Dorie owns the house and he's continued to pay her $500-$600 a month for rent. At baseline, Leoncio drives and is independent with his ADL's and within the community. Leoncio has been pleasant and agreeable to recommendations from the healthcare team during his admission. He is agreeable to discharge to a SNF for STR, with a plan of returning to his home he shares with Dorie. CM sent SNF referrals locally at pts request. Per Jada from [facility], patient's daughter Alyssa has some questions/concerns about Leoncio's ability to discharge home safely. CM LMOM for Alyssa and is awaiting a return call. Leoncio is also open to help filling out a intermodal customer service medicare application in the event that increased community/home support services are needed. Of note, up until now Leoncio has been completely independent and hasn't utilized [facility] services. A [facility]A referral may be more appropriate. CM will continue to follow. A: 77 year old male admitted to [facility] on 04/20/22 for Hypoglycemia, Hypokalemia, Elevated troponin P: Leoncio requires close monitoring, medication management and further medical work up. PT recommends SNF for STR. SNF referrals are sent, [facility] is reviewing. Following STR, Alan wants to discharge back to his home with New [facility] services. CM will continue to follow.
--- NOTE | 2022-04-22 12:10 | PT.INTREAT ---
Date of service: 04/22/22 Time of Service: 11:40 PT Notes Visit Reasons: Hypoglycemia with AMS, Elevated Troponins Inpatient Physical Therapy Treatment Note [facility] Date: 04/22/2022 PRECAUTIONS: Fall, Activity as tolerated SUBJECTIVE: Leoncio is pleasant and agreeable to participating in PT. He reports that his balance has been off recently, which is why he fell at home. OBJECTIVE: PAIN: No c/o pain BED MOBILITY/TRANSFERS Supine-sit: Min A Sit-stand: CGA Stand-sit: CGA with cueing for safety GAIT Assistive Device: FWW with platform on L Weight bearing: NWB L wrist Assist: SBA Distance: 5' + 20' Deviation: Slow pacing, on 1L O2 ASSESSMENT: Patient tolerated session well without complaint. He was able to tolerate a slight progression in gait distance with FWW and platform support and SBA. He requires cueing with transfers for safety. PLAN: Continue with gait and transfer training for improved safety with mobility. Add balance retraining exercises, as tolerated. TREATMENT CODE/TIME: Session 1: 20 minutes; [id number] (11:40) Session 2: Patient refused
--- NOTE | 2022-04-22 12:29 | PGE_ITS ---
Date of Service Date of service: 04/22/22 Time of Service: 12:29 Assessment and Plan Assessment and plan (1) Hypoglycemia: Start date: 04/19/22 Status: Acute Assessment and plan: Unclear etiology but probably combination of medications and poor oral intake. Now that he is eating adequately I will him some of his diabetic agents. I will start with the metformin but withhold insulin. Consider addition of Jardiance for treatment of CHF as well as diabetes. Professional time spent interviewing and examining patient, discussion of goals of care with hospital team (care management, nursing and consulting professionals) was 30 minutes. (2) Acute congestive heart failure: Status: Acute Assessment and plan: Echocardiogram has been done report is pending. Grossly it appears to have normal RV and LV function but evidence of pulmonary hypertension as well as probable diastolic heart failure. Continue with IV diuresis. Work towards goal-directed therapy including use of an JACQUELYN or an ARB as well as an SGLT2 inhibitor. (3) Elevated troponin level not due myocardial infarction: Start date: 04/19/22 Status: Acute Assessment and plan: Suspect this is demand ischemia in light of rapid Afib, hypoglycemia, hypoxia. Echocardiogram is pending at this time however suspect there is an some acute on chronic congestive heart failure. (4) Atrial fibrillation: Status: Chronic Assessment and plan: Patient is now on bisoprolol 5 mg daily which she had been on at home. Rhythm remains sinus rhythm. He is not a candidate for anticoagulation due to frequent falls. Continue aspirin therapy. We will check a cardiac event recorder upon discharge. (5) Diabetes mellitus, type II: Status: Chronic Assessment and plan: Resume metformin continue to withhold insulin. Glycohemoglobin A1c was only 7.4%. Newer ADA guidelines recommend less than 8% for elderly to avoid hypoglycemia so no need for tighter control. (6) Hypomagnesemia: Status: Chronic Assessment and plan: Remains low at 1.7 continue with parenteral IV replacement monitor levels (7) Hypokalemia: Status: Chronic Assessment and plan: Now up to 4.3 continue to monitor particularly in light of his need for diuretics. (8) Anemia: Status: Chronic Assessment and plan: B12 and folate levels were ok. His iron level is low but his ferritin is normal and his TIBC is low which would suggest anemia of chronic inflammation rather than iron deficiency. (9) Hypertension: Status: Chronic Assessment and plan: cont. lisinopril and bisoprolol. (10) DVT prophylaxis: Status: Acute Assessment and plan: SC enoxaparin (11) Discharge planning issues: Status: Acute Assessment and plan: Now on MedSurg to status continue to monitor on telemetry. Due to his severe weakness and inability to care for himself he will likely require at least short -term stay in a SNF. Subjective Subjective Interval history since last seen: Patient states that his breathing is better today. He is diuresed now Net -2400 mL since yesterday. He remains in sinus rhythm with PACs. He is back on his bisoprolol and is on aspirin but not anticoagulation due to his history of frequent falls. Currently working with physical therapy says he walked from the bed to the bathroom and back but has not walked down the hallway yet. Echocardiogram is pending at this point. I reviewed the initial findings and it looks like he has normal LV and RV function but he has evidence of pulmonary hypertension and probably has diastolic heart failure as well. Exam Narrative Exam Narrative: Leoncio is alert and oriented [place] place time circumstances no acute distress sitting up talking with his nurse. Lungs with scattered end expiratory wheezes he has bibasilar rales no rhonchi Heart is regular with occasional extrasystolic beats. Abdomen soft nontender Lower extremities without peripheral cyanosis or edema Sams catheter is draining clear yellow urine. Upper extremities left elbow with ecchymosis and edema but no pain with palpation with either extension or flexion or internal/external rotation. Left wrist is in a splint. Objective Last Vital Signs Temp 37 C 04/22/22 11:23 Pulse 68 04/22/22 11:23 Resp 16 04/22/22 11:23 BP 99/53 L 04/22/22 11:23 Pulse Ox 95 04/22/22 11:23 Laboratory Results - last 24 hr 04/22/22 04/22/22 06:50 06:50 WBC 9.10 RBC 3.87 L Hgb 8.8 L Hct 30.7 L MCV 79 L MCH 22.7 L MCHC 28.7 L RDW 18.1 H Plt Count 187 MPV Immature Gran % 0.3 Neutrophils % 85.6 Lymphocytes % 6.4 Monocytes % 4.5 Eosinophils % 2.7 Basophils % 0.5 Nucleated RBC % 0.0 Absolute Neutrophils 7.78 H Absolute Lymphocytes 0.58 L Absolute Monocytes 0.41 Absolute Eosinophils 0.25 Absolute Basophils 0.05 RBC Morphology See Below Poikilocytosis 1+ Sodium 134 L Potassium 4.5 Chloride 99 Carbon Dioxide 29.5 Anion Gap 5.5 BUN 11 Creatinine 0.9 Est GFR (CKD-EPI 2020) 89.07 Glucose 167 H Calcium 8.3 L Magnesium 1.9 NT-Pro-B Natriuret Pep 4081 H Reviewed Pertinent PMH: Yes Objective Narrative Objective Narrative: Review of his blood sugars they are ranging between 150-184 today. Yesterday they range from 160-203. Time Spent with Patient Time Spent with Patient: 25-34 minutes Time was spent: preparing to see the patient(eg.review tests), ordering medications,tests, procedures, indepentently interpreting results and care coordination
--- NOTE | 2022-04-22 13:14 | CHAPLAIN ---
Leoncio was resting in bed when I visited this afternoon. The shade was drawn and it was dark in the room. When I asked Leoncio if he's been able to be in touch with family or friends, he said half of his family is mad at him and not speaking to him because of a financial issue over a van, that Leoncio explained is not doing. I explained my role and offered support.
[2022-04-22] MEDS: Enoxaparin 40 MG/0.4 ML SYR SC (21:12)
[2022-04-22] MEDS: Atorvastatin 40 MG TAB PO (21:12)
[2022-04-23] VITALS (11 sets, daily range): BP systolic 101–118; BP diastolic 54–66; PULSE 55–83; RESP 16–19; TEMP 36.2–37.3; O2SAT 90–95
[2022-04-23 06:30] LABS: Abs Immature Grans 0.04 10^3/uL (0.0-0.06); Absolute Basophil Count 0.04 10^3/uL (0.0-0.2); Absolute Monocyte Count 0.51 10^3/uL (0.1-0.8); Basophils % 0.5; Eosinophils % 3.5; HCT 31.7 % (40.0-50.0); HGB 9.3 g/dL (13.5-17.5); Immature Grans % 0.5; Lymphocytes % 6.9; MCH 23.1 pg (27.0-33.0); MCHC 29.3 % (32.0-36.0); MCV 79 fL (80-95); Monocytes % 5.9; Neutrophils % 82.7; Platelet Count 222 10^3/uL (130-400); RBC 4.02 10^6/uL (4.36-5.78); RDW 17.9 % (11.8-14.1); RDW-SD 51.5 fL; WBC 8.69 10^3/uL (4.4-10.8)
[2022-04-23 06:48] LABS: Anion Gap 6.7 mmol/L (3-11); BUN 17 mg/dL (7-18); CO2 32.3 mmol/L (21.0-32.0); CREATININE 0.9 mg/dL (0.70-1.30); Calcium 8.4 mg/dL (8.5-10.1); Chloride 98 mmol/L (98-107); Estimated GFR 89.07 (mL/min/1.73m2); Glucose 161 mg/dL (74-106); Potassium 3.5 mmol/L (3.5-5.1); Sodium 137 mmol/L (136-145)
[2022-04-23 07:07] LABS: Diff Comment Diff Reviewed; RBC Morphology Normal
[2022-04-23] MEDS: Ferrous Sulfate 325 MG TAB PO ×2 (07:51→19:53)
[2022-04-23] MEDS: Magnesium Oxide 400 MG TAB PO ×2 (07:51→19:53)
[2022-04-23] MEDS: Bisoprolol 5 MG TAB PO (07:51)
[2022-04-23] MEDS: Ascorbic Acid 500 MG TAB PO ×2 (07:51→19:53)
[2022-04-23] MEDS: Aspirin E.C. 81 MG TABEC PO (07:51)
[2022-04-23] MEDS: Lisinopril 20 MG TAB PO (07:51)
[2022-04-23] MEDS: Sucralfate 1 GM TAB PO ×4 (07:51→21:19)
[2022-04-23] MEDS: Furosemide 100 MG/10 ML VIAL 80 MG IVP ×2 (07:51→16:28)
[2022-04-23] MEDS: Pantoprazole 40 MG TABCR PO ×2 (07:51→19:53)
[2022-04-23] MEDS: Normal Saline Flush 10 ML SYR IVP (07:52)
[2022-04-23] MEDS: Tiotropium Bromide-Respimat 10 PUFF INH 2 PUFF IH (07:54)
[2022-04-23] MEDS: Budesonide/Formoterol 80/4.5 6.9 GM 60 PUFF INH IH ×2 (07:55→19:52)
--- NOTE | 2022-04-23 09:00 | CMPROGNOTE_ITS ---
- If Service Date Differs Date of service: 04/23/22 Time of Service: 09:00 Care Management Progress Note S/O: Leoncio is lying in bed when CM met with him. He is awake and easily engages in conversation and shares that his plan is still to discharge home after STR with [facility] services, which is a plan that his daughter Colleen supports. Per CM's discussion with Colleen, she has no concerns with Leoncio going home after STR and notes that he is independent at home. She did have concerns surrounding her mother being home due to her health decline and Leoncio's ability to care for her but she is now in a group home. [facility] on Tuesday and will need an updated PT report from this weekend. CM will send a PT report from this weekend and request a covid test on Tuesday. A: 77 year old male admitted to [facility] on 04/20/22 for Hypoglycemia, Hypokalemia, E levated troponin P: Leoncio requires close monitoring, medication management and further medical work up. PT recommends SNF for STR. SNF referrals are sent, [facility] is reviewing. Following STR, Alan wants to discharge back to his home with [facility] services. CM will continue to follow.
--- NOTE | 2022-04-23 10:35 | RESPIRATORY ---
Rt called patient's stated DME of [facility] to confirm Rx for Oxygen. Patient is 1LPM at rest and 3LPM with ambulation as of 2021 with [facility].
--- NOTE | 2022-04-23 13:23 | PT.INTREAT ---
PT Notes Visit Reasons: Hypoglycemia with AMS, Elevated Troponins Date: 04/23/2022 PRECAUTIONS: Fall, Activity as tolerated SUBJECTIVE: Pt in bed when approached for therapy this morning, pt pleasant and agreeable to participating with therapy. pt on 1L of O2 support at rest 90%SAo2. OBJECTIVE: ? PAIN: No c/o pain ? BED MOBILITY/TRANSFERS? Supine-sit: SBA? Sit-stand: SBA? Stand-sit: SBA with cueing for safety? GAIT? Assistive Device: FWW with platform on L ? Weight bearing: NWB L wrist Assist: SBA ? Distance: 30' x4? Deviation: Slow pacing, on 1L O2 85%SaO2 going back up to 93%SaO2 after taking 2mins rest break with DBE.? Toileting: SBA, min A going up from toilet seat ASSESSMENT:? Pt tolerated activity well, cue for DBE to help with SOB, ?Afternoon session pt able to transfer from recliner to EOB SBA, EOB to supine supervision, pt refused further engagement, reports feeling very sleepy after getting in bed. PLAN: Continue with gait and transfer training for improved safety with mobility.? Add balance retraining exercises, as tolerated. TREATMENT CODE/TIME: Session 1: 35 minutes: [id number] (9:40-10:15am) ? Session 2: 15 minutes: [id number] (2:00-2:15pm) ?
[2022-04-23] MEDS: Enoxaparin 40 MG/0.4 ML SYR SC (21:19)
[2022-04-23] MEDS: Atorvastatin 40 MG TAB PO (21:19)
[2022-04-24] VITALS (12 sets, daily range): BP systolic 94–133; BP diastolic 44–77; PULSE 34–100; RESP 16–20; TEMP 35.9–37; O2SAT 91–98
[2022-04-24] MEDS: Empaglifozin 10 MG TAB PO (07:48)
[2022-04-24] MEDS: Sucralfate 1 GM TAB PO ×4 (07:48→21:28)
[2022-04-24] MEDS: Bisoprolol 5 MG TAB PO (07:49)
[2022-04-24] MEDS: Aspirin E.C. 81 MG TABEC PO (07:49)
[2022-04-24] MEDS: Furosemide 40 MG TAB PO ×2 (07:49→16:18)
[2022-04-24] MEDS: Pantoprazole 40 MG TABCR PO ×2 (07:49→19:15)
[2022-04-24] MEDS: Ferrous Sulfate 325 MG TAB PO ×2 (07:49→19:16)
[2022-04-24] MEDS: Sacubitril/Valsartan 24 mg/26 mg TAB 1 EACH PO ×2 (07:49→19:15)
[2022-04-24] MEDS: Magnesium Oxide 400 MG TAB PO ×2 (07:50→19:16)
[2022-04-24] MEDS: Ascorbic Acid 500 MG TAB PO ×2 (07:50→19:16)
[2022-04-24] MEDS: Insulin Aspart 300 UNITS/3 ML PEN SC ×3 (07:51→17:41)
[2022-04-24] MEDS: Tiotropium Bromide-Respimat 10 PUFF INH 2 PUFF IH (07:54)
[2022-04-24] MEDS: Budesonide/Formoterol 80/4.5 6.9 GM 60 PUFF INH IH (07:55)
[2022-04-24] MEDS: Potassium Chloride 10 MEQ CAPCR 20 MEQ PO ×2 (09:26→19:16)
[2022-04-24] MEDS: Spironolactone 25 MG TAB 12.5 MG PO (09:27)
--- NOTE | 2022-04-24 10:45 | PT.INTREAT ---
PT Notes Visit Reasons: Hypoglycemia with AMS, Elevated Troponins Inpatient Physical Therapy Treatment Note [facility] Date: 04/24/22 OBJECTIVE: Supine-sit: Min/modx1 Sit-supine: CGA Sit-stand: Min Ax1 Stand-sit: CGA GAIT Assistive Device: FWW with platform for L UE NWB on L wrist Weight bearing: Full Assist: CGA/SBA Distance: Bed to bathroom x 2 with seated rest each time. VITALS: 1L of oxygen after walking 87% rest with pursed lip breathing up to 91%. ASSESSMENT: Pt tolerated today's session fairly well did require assist with STS transfer and OOB. PLAN: Cont as per PT POC. TREATMENT CODE/TIME: 10:20-10:43 (23) TA
[2022-04-24] MEDS: Normal Saline Flush 10 ML SYR IVP (12:05)
--- NOTE | 2022-04-24 14:00 | RT.EKG_ITS ---
APPROVED REPORT Exam: Resting ECG Reason for Exam: rhythm change Patient Location: I HR:70 bpm ECG Measurements Heart Rate 70 AXIS MI [id number] P [id number] QRSd 96 QRS 51 QT 410 T -19 QTc 443 Conclusion Atrial fibrillation...V-rate 57- 79, irreg A-activity Baseline wander in lead(s) V2
[2022-04-24] MEDS: Atorvastatin 40 MG TAB PO (21:28)
[2022-04-24] MEDS: Enoxaparin 40 MG/0.4 ML SYR SC (21:29)
[2022-04-25] VITALS (10 sets, daily range): BP systolic 89–117; BP diastolic 55–66; PULSE 52–128; RESP 18; TEMP 36.6–37; O2SAT 92–138
[2022-04-25 06:59] LABS: Anion Gap 6.1 mmol/L (3-11); BUN 23 mg/dL (7-18); CO2 31.9 mmol/L (21.0-32.0); Calcium 8.4 mg/dL (8.5-10.1); Chloride 101 mmol/L (98-107); Estimated GFR 78.49 (mL/min/1.73m2); Glucose 168 mg/dL (74-106); NT-proBNP 1300 pg/mL (<300); Potassium 3.7 mmol/L (3.5-5.1); Sodium 139 mmol/L (136-145)
[2022-04-25] MEDS: Budesonide/Formoterol 80/4.5 6.9 GM 60 PUFF INH IH (08:08)
[2022-04-25] MEDS: Tiotropium Bromide-Respimat 10 PUFF INH 2 PUFF IH (08:08)
[2022-04-25] MEDS: Insulin Aspart 300 UNITS/3 ML PEN SC ×3 (08:13→17:00)
[2022-04-25] MEDS: Metoprolol 12.5 MG TAB PO ×2 (08:14→11:45)
[2022-04-25] MEDS: Potassium Chloride 10 MEQ CAPCR 20 MEQ PO (08:14)
[2022-04-25] MEDS: Spironolactone 25 MG TAB 12.5 MG PO (08:14)
[2022-04-25] MEDS: Pantoprazole 40 MG TABCR PO (08:14)
[2022-04-25] MEDS: Aspirin E.C. 81 MG TABEC PO (08:14)
[2022-04-25] MEDS: Sacubitril/Valsartan 24 mg/26 mg TAB 1 EACH PO (08:14)
[2022-04-25] MEDS: Sucralfate 1 GM TAB PO ×3 (08:14→17:00)
[2022-04-25] MEDS: Ferrous Sulfate 325 MG TAB PO (08:15)
[2022-04-25] MEDS: Furosemide 40 MG TAB PO (08:15)
[2022-04-25] MEDS: Empaglifozin 10 MG TAB PO (08:15)
[2022-04-25] MEDS: Magnesium Oxide 400 MG TAB PO (08:15)
[2022-04-25] MEDS: Ascorbic Acid 500 MG TAB PO (08:15)
--- NOTE | 2022-04-25 10:46 | W.PM.PROGNOT ---
Date of Service Date of service: 04/25/22 Time of Service: 10:47 Assessment and Plan Assessment and plan (1) Atrial fibrillation: Status: Chronic Assessment and plan: Patient seems to have sick sinus syndrome with intermittent paroxysmal atrial fibrillation and rapid rate up to 140s and then within a short time we will go back into sinus rhythm to sinus bradycardia and at times will be as low as 30 bpm I discussed this case with [facility] process expert Dr. Archer who agrees that the patient should have a pacemaker and is excepting the patient for transfer to [facility] to the service of Dr. Ceballos. This is pending bed availability. Dr. Archer recommends loading with amiodarone. Professional time spent interviewing and examining patient, discussion of goals of care with hospital team (care management, nursing and consulting professionals) was 60 minutes. (2) Sick sinus syndrome: Status: Acute Assessment and plan: Patient needs pacemaker in order to treat his rapid atrial fibrillation and to prevent symptomatic bradycardia. Of note patient presented after syncopal spell at home associated with hypoglycemia but also felt to be complicated by his intermittent bradycardia. (3) Acute congestive heart failure: Status: Acute Assessment and plan: Echocardiogram has been done report is pending. Grossly it appears to have normal RV and LV function but evidence of pulmonary hypertension as well as probable diastolic heart failure. Patient is now off IV Lasix and back on oral Lasix at 40 mg twice a day which is increased over his daily dose of 40 mg. He is now on Jardiance 10 mg daily and his lisinopril was been switched to Entresto. Low-dose spironolactone was added to his diuretic regimen. Overall the patient has lost 14 kg since admission. His weight is down to 54.5 kg. At this point he appears to be euvolemic. proBNP is down to 1300 from a peak level of 4965. (4) Elevated troponin level not due myocardial infarction: Status: Acute Assessment and plan: Transient troponin elevation that peaked at 256 on 04/20/2022 felt to be secondary to demand ischemia from rapid atrial fibrillation (5) Hypoglycemia: Status: Resolved Assessment and plan: Hypoglycemia has now resolved. Patient is back on Sliding scale insulin on the insulin sensitive scale. He is requiring minimal amounts of insulin with as little as 3 to 4 units/day. He is also on Jardiance at 10 mg daily. (6) Diabetes mellitus, type II: Status: Chronic Assessment and plan: Glycohemoglobin A1c 7.4% which suggest that he is reasonably controlled. No further hypoglycemic spells continue current management with Jardiance and low-dose sliding scale insulin. (7) Hypomagnesemia: Status: Resolved Assessment and plan: Resolved. Repeat magnesium level 1.9. Continue oral supplementation. (8) Hypokalemia: Status: Chronic Assessment and plan: Hypokalemia resolved potassium up to 3.7 now. Patient is on low-dose spironolactone 12.5 mg daily along with potassium supplementation 20 mEq twice a day. (9) Anemia: Status: Chronic Assessment and plan: B12 and folate levels were ok. His iron level is low but his ferritin is normal and his TIBC is low which would suggest anemia of chronic inflammation rather than iron deficiency. (10) Hypertension: Status: Chronic Assessment and plan: Continue Entresto And diuretics. Metoprolol had to be held secondary to bradycardia. (11) DVT prophylaxis: Status: Acute Assessment and plan: SC enoxaparin (12) Discharge planning issues: Status: Acute Assessment and plan: Now on MedSurg to status continue to monitor on telemetry. Due to his severe weakness and inability to care for himself he will likely require at least short-term stay in a SNF. Subjective Subjective Interval history since last seen: Leoncio denies any symptoms of chest pain/pressure, and no more dyspnea than his usual w/ activity. He says that he can feel the palpitations when he goes into rapid afib. Exam Narrative Exam Narrative: Elderly white male lying in bed in no acute distress alert and oriented person place time circumstance Lungs are clear to auscultation Heart is regular but bradycardic at the moment in the low 50s Abdomen soft nontender nondistended Lower extremities without peripheral cyanosis or edema Objective Last Vital Signs Temp 36.8 C 04/25/22 07:42 Pulse 67 04/25/22 07:42 Resp 18 04/25/22 07:42 BP 115/66 04/25/22 07:42 Pulse Ox 92 04/25/22 07:42 Laboratory Results - last 24 hr 04/25/22 05:50 Sodium 139 Potassium 3.7 Chloride 101 Carbon Dioxide 31.9 Anion Gap 6.1 BUN 23 H Creatinine 1.0 Est GFR (CKD-EPI 2020) 78.49 Glucose 168 H Calcium 8.4 L NT-Pro-B Natriuret Pep 1300 H Time Spent with Patient Time Spent with Patient: >50 minutes Time was spent: preparing to see the patient(eg.review tests), obtaining and/or reviewing separately otained hiistory (Reviewing previous admissions for GI bleed as well as previous work-up for Watchman procedure), ordering medications,tests, procedures, referring, communicating with other health neurocritical care physician (Discussion the patient's case with [facility] transfer center as well as with Dr. Archer), indepentently interpreting results, counseling the patient and care coordination
--- NOTE | 2022-04-25 10:48 | PT.INTREAT ---
PT Notes Visit Reasons: Hypoglycemia with AMS, Elevated Troponins Inpatient Physical Therapy Treatment Note [facility] Date: 04/25/22 OBJECTIVE: Supine-sit: Min A Sit-supine: CGA Sit-stand: CGA Stand-sit: CGA GAIT Assistive Device: FWW with UE platform for L UE NWB Weight bearing: Full Assist: CGA/SBA Distance: Bed to bathroom x 2 with 1 L VITALS: 1L of oxygen 88% -91% with ambulation. Pt completing pursed lip breathing. ASSESSMENT: Pt tolerated today's session fairly well was slightly more fatigued. PLAN: Cont as per PT POC. TREATMENT CODE/TIME: 10:25-10:45 TA
[2022-04-25] MEDS: Acetaminophen 325 MG TAB PO (13:44)
[2022-04-25 14:51] LABS: Lab Add On Test DONE
[2022-04-25 15:13] LABS: Troponin I < 50 ng/L (<or=60)
[2022-04-25] MEDS: Metoprolol 5 MG/5 ML VIAL 2.5 MG IVP (16:49)
[2022-04-25] MEDS: Normal Saline 250 ML 999 ML IV (16:54)
--- NOTE | 2022-04-25 18:08 | DSE_ITS ---
Date of service: 04/25/22 Time of Service: 18:08 DS: Diagnosis Discharge Diagnosis (1) Atrial fibrillation: Status: Chronic Asessment and Plan: Patient was initially treated with bisoprolol which was then later switched to metoprolol. However because of significant bradycardia he was intolerant of beta-blockers and he was started on amiodarone and received 1 dose prior to transfer to [facility]. Patient was not a candidate for anticoagulation with a DOAC or heparin due to previous GI bleeding. Patient has a history of a Watchman procedure. (2) Sick sinus syndrome: Status: Acute (3) Acute congestive heart failure: Status: Acute Asessment and Plan: Acute on chronic heart failure with preserved ejection fraction. Patient was treated with goal-directed therapy and diuretics. He including furosemide, spironolactone, Entresto. (4) Elevated troponin level not due myocardial infarction: Status: Acute Asessment and Plan: Patient presented with elevated troponin level of 205 ng/L repeat troponin I level peaked at 256 ng/L on 04/20/2022 but the time of discharge his troponin level was less than 50. EKG on admission showed no ischemic changes although subsequent EKG changes were seen including including diffuse T wave abnormalities on anterolateral precordial leads on ECG from 04/20/2022. Which had resolved by 04/21/2022. (5) Hypoglycemia: Status: Resolved Asessment and Plan: Hyperglycemia felt to be secondary to use of Lantus. Which resolved with use of D10 drip. Patient did have another episode of hypoglycemia after admission secondary to bedtime coverage of elevated blood sugars. Sliding scale insulin was pared down and nocturnal blood sugars were no longer covered. (6) Diabetes mellitus, type II: Status: Chronic Asessment and Plan: A1c was found to be acceptable at 7.4%. Recommend the patient not go back on insulin but Jardiance can be added as part of his CHF goal-directed therapy. (7) Hypomagnesemia: Status: Resolved Asessment and Plan: Repleted (8) Hypokalemia: Status: Chronic Asessment and Plan: Repleted (9) Anemia: Status: Chronic Asessment and Plan: Stable chronic anemia with a hemoglobin varying between 9 and 10 g. With no evidence of acute active bleeding. (10) Hypertension: Status: Chronic (11) Discharge planning issues: Status: Resolved Asessment and Plan: Patient was transferred to [facility] to the cardiology service of Dr. Nolvia Ceballos Discharge Plan Disposition Patient Disposition: Transfer-Acute Inpatient Care Specific Acute Inpt Facility: [facility] Condition: Serious Condition: Serious Discharge Details Reason For Visit: Hypoglycemia with AMS, Elevated Troponins Admit Date/Time: 04/19/22 20:46 Admit Provider: Hank Oates Attending Provider: Hank Oates Primary Care Provider: MELVIN BENITEZ [facility] Course Hospital Course: Mr. 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 Is unclear as to whether or not he had a syncopal spell or not but when EMS found him he was confused and was found to be hypoglycemic although from the record I cannot tell what his blood sugar was when EMS arrived but he received 2 IV pushes of dextrose temperature percent and his glucose improved. He continued to be confused and they found his heart rate in the 140s to 150s in atrial fibrillation. He was given metoprolol 5 mg IV and on arrival to the emergency department glucose was 83. It dropped down to 63 and then he was given another bolus of dextrose 10% and started on an 5% dextrose drip. On arrival his blood pressure was stable at 122/85 his heart rate was 94 he was afebrile but his pulse oximetry was low at 89%. ECG on arrival demonstrated narrow complex tachycardia rate of 100 bpm suspicious for atrial flutter. Initial laboratory studies show an elevated troponin I level of 205 ng/L with subsequent Ready's that plateaued at 256. CK level is normal normal at 294 he was found to be hypomagnesemic and hypokalemic with potassium 3.4 magnesium 1.5. These were repleted. Patient was admitted to the hospital for treatment of his hyperglycemia as well as evaluation of his elevated troponin levels and treatment of his atrial dysrhythmias. At home patient been on bisoprolol 5 mg daily. Initial head CT scan was read as showing no acute ischemic changes subsequent over read indicated a right-sided periventricular nonhemorrhagic lac unar infarct indeterminate age. Patient have subsequent MRI scan of the brain in the next day that showed a single tiny 1 mm focus of restricted diffusion seen in the high right parietal region on DWI imaging which was read as possible tiny nonhemorrhagic lacunar infarct versus artifact. Clinically patient had no symptoms of CVA. Patient sustained swelling and pain in the left wrist for which x-ray did not mistreated fracture of the base of the ulnar styloid with mild displacement and deformity of the distal radius consistent with a healed fracture site. No obvious fracture of the distal radius. Orthopedic consultation was obtained with Dr. Singh who recommended immobilization with a wrist splint. Patient was seen in consultation with Dr. Norma Ray see her note from 04/20/2022 for details. Patient had an echocardiogram performed on 04/19/2022 demonstrated normal left ventricular size and systolic function with an EF 55% no wall motion abnormalities nevertheless he had grade 3 LV diastolic dysfunction with markedly elevated left ventricular filling pressures and normal right ventricular size and right ventricular wall thickness. RV systolic function was normal. RVSP was 49 mm with an estimated right atrial pressure of 8 mm. He had aortic valve sclerosis without stenosis or regurgitation. Patient was treated for acute diastolic heart failure with IV diuretics started on goal-directed therapy by switching his lisinopril to Entresto. Initially he was treated with his bisoprolol for his atrial fibrillation/atrial flutter however we developed significant bradycardia the bisoprolol was withheld but when he had recurrent episodes of rapid atrial fibrillation with heart rate in the 140s he was started on low-dose Lopressor. Patient continued to have episodes of symptomatic bradycardia and [facility] cardiology was consulted at which point he was started on loading dose of amiodarone and it was advised to discontinue oral beta-blockers. Nevertheless the patient still required on the day of discharge additional doses of IV Lopressor 2.5 mg to control his his intermittent atrial fibrillation in which his heart rate went up into the 140s. Patient was transferred to [facility] to the cardiology service of Dr. Caitie Taylor. Home Meds and New Rx's Prescriptions: Continued metformin 500 MG tablet 1,000 mg PO BID atorvastatin 40 mg tablet 40 mg PO QHS pantoprazole 40 mg tablet,delayed release (DR/EC) 40 mg PO BID lisinopril 20 mg tablet 20 mg PO DAILY insulin glargine [Lantus U-100 Insulin] 100 unit/mL solution 20 unit SC QHS Rx Instructions: NOTE: most recent rx filled states 12u at HS potassium chloride [Klor-Con] 20 mEq packet 20 meq PO DAILY clotrimazole 1 % cream 1 applic topical BID Rituxan 10 mg/mL concentrate IV ferrous sulfate 325 mg (65 mg iron) Tablet 325 mg PO BID nitroglycerin 400 mcg/spray [place],Non-Aerosol 1 spray TRANSLINGUAL Q3-5M PRN Rx Instructions: do not exceed 3 doses per episode mometasone 50 mcg/actuation [place],Non-Aerosol 1 spray INTRANASAL BID Rx Instructions: administer into each nostril albuterol sulfate [ProAir HFA] 90 mcg/actuation Hfa Aerosol Inhaler 2 puff INHALATION QID PRN ascorbic acid (vitamin C) [Vitamin C] 500 mg Tablet 500 mg PO BID Trelegy Ellipta 100-62.5-25 mcg blister with device 1 inh INHALATION DAILY furosemide 20 mg tablet 40 mg PO DAILY bisoprolol fumarate 5 mg tablet 5 mg PO DAILY Patient Comments: TAKE ONE TABLET BY MOUTH EVERY DAY aspirin 81 mg Tablet,Delayed Release (Dr/Ec) 81 mg PO DAILY Qty: 30 0RF Discharge Instructions Instructions: Sick Sinus Syndrome (DC) Referrals: Caitie Taylor [ NON-[facility] STAFF PHYSICIAN] - Activity:: Bedrest Equipment/Supplies:: No Equipment Needed Diet:: NPO Discharge Orders Discharge Orders: Discharge Order (Routine); Ordered 04/25/22 Ordered By: Eric Giron Discharge Data Discharge Date/Time-TO BE ENTERED AT DEPARTURE: 04/25/22 18:23 DS: Summary Time Spent with Patient providing and/or coordinating discharge services: Greater than 30 minutes Status at Discharge Functional status at discharge: independent ambulation Overall status at discharge: patient is not back to baseline Mental Status: mental status grossly normal Speech and Movement: speech and movement normal Mood: congruent mood Affect: normal affect Exam Narrative Exam Narrative: Patient alert and oriented person place time circumstance he is symptomatic from his hypotension for which she was treated with a bolus and normal saline 250 mL. His atrial fibrillation rate was controlled with IV Lopressor. Lungs are clear to auscultation Heart is irregular irregular tachycardic Abdomen soft and nontender Extremities without peripheral cyanosis or edema Psych Mental Status: mental status grossly normal Speech and Movement: speech and movement normal Mood: congruent mood Affect: normal affect DS: Data Vitals/I&O Vitals and I&O: Vital Signs Temperature 37 C 04/25/22 15:03 Temperature Source Tympanic 04/25/22 15:03 Pulse 110 H 04/25/22 17:19 Pulse Rhythm Regular 04/25/22 17:49 Pulse 72 04/20/22 20:00 Respiratory Rate 18 04/25/22 17:18 Respiratory Effort Normal, Non-Labored 04/25/22 17:49 Respiratory Depth Normal 04/25/22 17:49 Respiratory Pattern Normal 04/25/22 17:49 Blood Pressure 117/65 04/25/22 17:19 Blood Pressure Mean 73 04/20/22 19:02 Blood Pressure Position Supine 04/19/22 23:25 Pulse Oximetry 93 04/25/22 17:18 Oxygen Delivery Method Nasal Cannula 04/25/22 17:18 Oxygen Flow Rate 2 04/25/22 17:18 Pain Level 2 04/25/22 17:18 Comment recheck 04/22/22 23:42 Intake & Output 04/24/22 04/25/22 04/25/22 23:59 11:59 23:59 Intake Total 660 / 1106.25 250 / 1000 750 / 1000 Output Total 1100 / 1450 675 / 675 Balance -440 / -343.75 -425 / 325 750 / 325 Weight 54.5 kg Intake: IV 250 / 250 Oral 660 / 780 250 / 750 500 / 750 Output: Urine 1100 / 1450 675 / 675 Other: Urine Color Yellow Straw Urine Appearance Clear Clear Clear Stool Size Moderate Copious Stool Characteristics Formed Formed Voiding Methods Incontinent Data Completed and Pending Labs on day of discharge: Labs from last 24 hours 04/25/22 04/25/22 04/25/22 05:50 05:50 05:50 Sodium 139 Potassium 3.7 Chloride 101 Carbon Dioxide 31.9 Anion Gap 6.1 BUN 23 H Creatinine 1.0 Est GFR (CKD-EPI 2020) 78.49 Glucose 168 H Calcium 8.4 L Troponin I < 50 NT-Pro-B Natriuret Pep 1300 H Add-On Test Request DONE [facility] All Active Problems (Updated 04/25/22 @ 20:08 by Eric Giron MD) Sick sinus syndrome (Acute) Acute congestive heart failure (Acute) Closed fracture of left distal radius and ulna (Acute) Elevated troponin level not due myocardial infarction (Acute) Hypokalemia (Chronic) Personal history of nicotine dependence (Acute) Pulmonary hypertension (Acute) Rheumatoid arthritis (Chronic) Interstitial lung disease (Acute) Fungal infection of toenail (Acute) Hematuria (Acute) Ampullary adenoma (Acute) Aortic dissection (Acute) Skin lesions (Acute) Tinea pedis (Acute) Oxygen dependent (Chronic) DVT prophylaxis (Acute) Presence of Watchman left atrial appendage closure device (Chronic) Neuropathic pain (Chronic) Hyperlipidemia (Acute) GI bleeding (Chronic) Anemia (Chronic) Anticoagulated (Acute) Fever (Acute) [place]-ampullary neoplasm (Acute) Sessile colonic polyp (Acute 10/29/16) Primary osteoarthritis of right knee (Acute 04/15/15) Aspiration and injection: 04/16/19 Steroid injection: 11/13/2021; 03/13/2020 Acute on chronic combined systolic and diastolic CHF (congestive heart failure) (Acute) Pulmonary hypertension (Acute) Afib (Chronic) DVT prophylaxis (Acute) Discharge planning issues (Acute) Hypertension (Chronic) Diabetes mellitus, type II (Chronic) insulin dependent Atrial fibrillation (Chronic) Paroxysmal, intolerant of anticoagulation (n/v/hematuria while on eliquis), referred for a Watchman procedure at [facility] (not yet done) F/U Dr. Yonathan Phillips [facility] 11/2019 Anemia (Chronic) GERD (gastroesophageal reflux disease) (Chronic) Medical History Bilateral leg edema CAP (community acquired pneumonia) Carcinoma, basal cell, skin Chronic combined systolic (congestive) and diastolic (congestive) heart failure EF 45% on echo 07/02/2019 Deviated nasal septum Ground glass opacity present on imaging of lung Osteoarthritis of knee (04/09/14) Osteoarthritis of right knee Pericarditis Pt. states this was 2 years ago. Pulmonary hypertension Suspected COVID-19 virus infection Surgical History Colonoscopy - MAC (10/29/16) Family History Father Diabetes Hypertension Heart disease Self No problems noted. Brother Stroke had an aneurysm Sister Breast cancer Diabetes Brother Lung cancer smoker Social History Smoking/Tobacco Use Status: Former Tobacco Use Quit Date: 03/07/16 Tobacco: How many years used: 56 Counseling given: provider counseling Smoking risk assessment performed?: Yes Alcohol Intake: former Year quit: 1969 Drug use: Never Substance use type: does not use Current gender identity: male Do you feel safe at home: Yes Do you feel safe in your relationship?: Yes Time Spent with Patient Time Spent with Patient: <45 minutes Time was spent: preparing to see the patient(eg.review tests), obtaining and/or reviewing separately otained hiistory, referring, communicating with other health care support representative ([facility] transfer center as well as Dr. Archer, cold roll inspector at [facility]), indepentently interpreting results, counseling the patient and care coordination
--- NOTE | 2022-04-25 18:38 | NUR.NOTE ---
called and gave report to Jie Capone at [facility] on [facility]. Nursing Note:
--- NOTE | 2022-04-28 11:53 | W.PM.PROGNOT ---
Date of Service Date of service: 04/23/22 Time of Service: 13:00 Assessment and Plan Assessment and plan (1) Hypoglycemia: Start date: 04/19/22 Status: Resolved Assessment and plan: Unclear etiology but probably combination of medications and poor oral intake. Now that he is eating adequately I will him some of his diabetic agents. I will start with the Jardiance for both his CHF and DM, but withhold insulin. Professional time spent interviewing and examining patient, discussion of goals of care with hospital team (care management, nursing and consulting professionals) was 15 minutes. (2) Acute congestive heart failure: Status: Acute Assessment and plan: Echo demonstrates normal LV systolic function, LVEF 55%, no RWMA, however he has grade III diastolic dysfunction (restrictive physiology w/ elevated LV filling pressures). negative nearly 3800 mL yesterday; continue iv lasix 80 mg iv q12h for another day (3) Elevated troponin level not due myocardial infarction: Start date: 04/19/22 Status: Acute Assessment and plan: Suspect this is demand ischemia in light of rapid Afib, hypoglycemia, hypoxia. No RWMA on his echo supports dx of demand ischemia. (4) Atrial fibrillation: Status: Chronic Assessment and plan: Patient is now on bisoprolol 5 mg daily which he had been on at home. Rhythm remains sinus rhythm. Rates in 70's. He is not a candidate for anticoagulation due to frequent falls. Continue aspirin therapy. We will check a cardiac event recorder upon discharge. (5) Diabetes mellitus, type II: Status: Chronic Assessment and plan: Begin Jardiance, withold insulin. Glycohemoglobin A1c was only 7.4%. Newer ADA guidelines recommend less than 8% for elderly to avoid hypoglycemia so no need for tighter control. (6) Hypomagnesemia: Status: Resolved Assessment and plan: repeat Mg++ yesterday was 1.9. continue oral supplementation (400 mg bid). (7) Hypokalemia: Status: Resolved Assessment and plan: K+ now at 3.5, he needs continued supplementation in light of his ongoing diuretic needs (8) Anemia: Status: Chronic Assessment and plan: B12 and folate levels were ok. His iron level is low but his ferritin is normal and his TIBC is low which would suggest anemia of chronic inflammation rather than iron deficiency. (9) Hypertension: Status: Chronic Assessment and plan: cont. lisinopril and bisoprolol. (10) DVT prophylaxis: Status: Deleted Assessment and plan: SC enoxaparin (11) Discharge planning issues: Status: Deleted Assessment and plan: Now on MedSurg to status continue to monitor on telemetry. Due to his severe weakness and inability to care for himself he will likely require at least short-term stay in a SNF. Subjective Subjective Patient reports: no new complaints and feels better; denies shortness of breath Exam Narrative Exam Narrative: Leoncio is alert and oriented person, place,time circumstances no acute distress sitting up talking with his nurse. Lungs with scattered end expiratory wheezes he has bibasilar rales no rhonchi Heart is regular with occasional extrasystolic beats. Abdomen soft nontender Lower extremities without peripheral cyanosis or edema Sams catheter is draining clear yellow urine. Upper extremities left elbow with ecchymosis and edema but no pain with palpation with either extension or flexion or internal/external rotation. Left wrist is in a splint. Objective Last Vital Signs Temp 37 C 04/25/22 15:03 Pulse 110 H 04/25/22 17:19 Resp 18 04/25/22 17:18 BP 117/65 04/25/22 17:19 Pulse Ox 93 04/25/22 17:18 Time Spent with Patient Time Spent with Patient: <25 minutes Time was spent: preparing to see the patient(eg.review tests), ordering medications,tests, procedures and care coordination
--- NOTE | 2022-04-28 12:18 | PGE_ITS ---
Date of Service Date of service: 04/24/22 Time of Service: 11:00 Assessment and Plan Assessment and plan (1) Atrial fibrillation: Status: Chronic Assessment and plan: Patient has what appears to be SSS w/ intermittent afib and at other timed he will be in a sinus bradycardia. I have dc his bisoprolol for short acting lopressor but if he does not tolerate this then he may need referred for pacer. He is not a candidate for anticoagulation d/t his frequent falls (2) Sick sinus syndrome: Status: Acute Assessment and plan: Patient needs pacemaker in order to treat his rapid atrial fibrillation and to prevent symptomatic bradycardia. Of note patient presented after syncopal spell at home associated with hypoglycemia but also felt to be complicated by his intermittent bradycardia. (3) Acute congestive heart failure: Status: Acute Assessment and plan: normal LV systolic but w/ grade III diastolic impairment and no RWMA. continue diuresis, but can switch to po diuretics (lasix and spironolactone), begin Entresto (4) Elevated troponin level not due myocardial infarction: Status: Acute Assessment and plan: Transient troponin elevation that peaked at 256 on 04/20/2022 felt to be secondary to demand ischemia from rapid atrial fibrillation, no RWMA on echo (5) Hypoglycemia: Status: Resolved Assessment and plan: Hypoglycemia has now resolved. Patient is back on Sliding scale insulin on the insulin sensitive scale. He is requiring minimal amounts of insulin with as little as 3 to 4 units/day. He is also on Jardiance at 10 mg daily. (6) Diabetes mellitus, type II: Status: Chronic Assessment and plan: Glycohemoglobin A1c 7.4% which suggest that he is reasonably controlled. No further hypoglycemic spells continue current management with Jardiance and low- dose sliding scale insulin. (7) Hypomagnesemia: Status: Resolved Assessment and plan: Resolved. Repeat magnesium level 1.9. Continue oral supplementation. (8) Hypokalemia: Status: Resolved Assessment and plan: Hypokalemia resolved potassium up to 3.5 now. Patient is on low-dose spironolactone 12.5 mg daily along with potassium supplementation 20 mEq twice a day. (9) Anemia: Status: Chronic Assessment and plan: B12 and folate levels were ok. His iron level is low but his ferritin is normal and his TIBC is low which would suggest anemia of chronic inflammation rather than iron deficiency. (10) Hypertension: Status: Chronic Assessment and plan: Continue Entresto And diuretics. Metoprolol had to be held secondary to bradycardia. (11) DVT prophylaxis: Status: Deleted Assessment and plan: SC enoxaparin (12) Discharge planning issues: Status: Deleted Assessment and plan: Now on MedSurg to status continue to monitor on telemetry. Due to his severe weakness and inability to care for himself he will likely require at least short-term stay in a SNF. Subjective Subjective Patient reports: tolerating a regular diet and bowel movement; denies nausea or shortness of breath Interval history since last seen: Although Leoncio denies dyspnea, he admits to feeling weak this morning and slightly lightheaded. He has been bradycardic overnight w/ HR down to the 30's, sinus bradycardia. Exam Narrative Exam Narrative: Elderly white male lying in bed in no acute distress alert and oriented person place time circumstance Lungs are clear to auscultation Heart is regular but bradycardic at the moment in the low 50s Abdomen soft nontender nondistended Lower extremities without peripheral cyanosis or edema Objective Last Vital Signs Temp 37 C 04/25/22 15:03 Pulse 110 H 04/25/22 17:19 Resp 18 04/25/22 17:18 BP 117/65 04/25/22 17:19 Pulse Ox 93 04/25/22 17:18 Reviewed Pertinent PMH: Yes Time Spent with Patient Time Spent with Patient: <25 minutes Time was spent: preparing to see the patient(eg.review tests), ordering medications,tests, procedures, indepentently interpreting results, counseling the patient and care coordination
--- NOTE | 2022-05-11 18:00 | INDS_ITS ---
Date of service: 04/26/22 PT Notes Visit Reasons: Hypoglycemia with AMS, Elevated Troponins Physical Therapy Inpatient Discharge Summary Date: 04/26/2022 Dates of service: 04/21/2022 through 04/25/2022 This is a clinical summary of care provided for the duration of dates listed above. No charge was made in the completion of this documentation. Referring Doctor: Angely Hickey MD PT Orders: PT CONSULT: Limited ability Precautions: Fall.? Standard. Activity as tolerated.?Per orthopod: WBAT on L UE with universal wrist splint on.?On 1 L of oxygen per minute via NC. Patient Profile/Admitting Diagnosis:?? Mr Coy is a [id number] male admitted to the [facility] unit for management of hypoglycemia, type 2 diabetes mellitus, hypomagnesemia, hypokalemia, elevated troponin, atrial fibrillation, anemia, and hypertension.? Patient also fell at home and sustained a mildly displaced left ulnar styloid fracture. PMHX: All Active Problems?(Updated 04/20/22 @ 08:47 by Hank Oates) Elevated troponin level not due myocardial infarction (Acute) Hypoglycemia (Acute) Hypokalemia (Chronic) Personal history of nicotine dependence (Acute) Pulmonary hypertension (Acute) Rheumatoid arthritis (Chronic) Interstitial lung disease (Acute) Fungal infection of toenail (Acute) Hematuria (Acute) Ampullary adenoma (Acute) Aortic dissection (Acute) Skin lesions (Acute) Tinea pedis (Acute) Oxygen dependent (Chronic) Hypomagnesemia (Chronic) Discharge planning issues (Acute) DVT prophylaxis (Acute) Presence of Watchman left atrial appendage closure device (Chronic) Neuropathic pain (Chronic) Hyperlipidemia (Acute) GI bleeding (Chronic) Anemia (Chronic) Anticoagulated (Acute) Fever (Acute) Chelsea-ampullary neoplasm (Acute) Sessile colonic polyp (Acute 10/29/16) Primary osteoarthritis of right knee (Acute 04/15/15) Aspiration and injection: 04/16/19 Steroid injection: 11/13/2021; 03/13/2020 Acute on chronic combined systolic and diastolic CHF (congestive heart failure) (Acute) Pulmonary hypertension (Acute) Afib (Chronic) DVT prophylaxis (Acute) Discharge planning issues (Acute) Hypertension (Chronic) Diabetes mellitus, type II (Chronic) insulin dependent Atrial fibrillation (Chronic) Paroxysmal, intolerant of anticoagulation (n/v/hematuria while on eliquis), referred for a Watchman procedure at [facility] (not yet done) F/U Dr. Yonathan Phillips [facility] 11/2019 Anemia (Chronic) GERD (gastroesophageal reflux disease) (Chronic) Medical History? 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 states this was 2 years ago.Pulmonary hypertension Suspected COVID-19 virus infection Surgical History? Colonoscopy - [facility] (10/29/16) Social History/Home Situation: Leoncio lives in [place] with his SO she has three daughters.? He states he is independent with ADLs and transportation. He utilizes a SPC as needed. He states he does not have oxygen at home and has a history of afib that he reports comes and goes. Equipment Owned/DME: FWWs,? 4WWs,? SPC,? motorized wheelchair ( uses) Subjective:? NT. See most recent BOTTOM PRESSER notes. Objective:? General Observation: NT. See most recent BOTTOM PRESSER notes. Mental Status: NT. See most recent BOTTOM PRESSER notes. Pain: NT. See most recent BOTTOM PRESSER notes. Vital Signs: NT. See most recent BOTTOM PRESSER notes. ROM: Right Upper Extremity: Demonstrates within functional limits active right upper extremity range of motion Left Upper Extremity: Demonstrates within functional limits active left upper extremity range of motion Right Lower Extremity: Hip flexion 110 degrees, knee flexion 110 degrees, extension lacking about 20 degrees of terminal, ankle dorsiflexion limited to 5 degrees, plantarflexion within functional limits Left Lower Extremity: Hip flexion 110 degrees, knee flexion 110 degrees, lacking about 15 degrees of terminal extension, ankle dorsiflexion limited to 5 degrees, plantarflexion within functional limits Strength: Right Upper Extremity: Shoulder flexion 4-/5, shoulder abduction 4/5, bicep 4/5, tricep 4-/5, financial aid within normal limits Left Upper Extremity: Shoulder flexion 4/5, shoulder abduction 4/5, bicep 4/5, tricep 4-/5, financial aid within normal limits Right Lower Extremity: Hip flexion 3-/5, knee extension 3-/5, knee flexion 3-/5, plantarflexion/dorsiflexion 4-/5 Left Lower Extremity: Hip flexion 3-/5, knee extension 3-/5, knee flexion 3-/5, plantarflexion/dorsiflexion 4-/5 Sensation:? Intact to pain and light touch in B L Bed Mobility/Transfers: Supine-sit: Min A? Sit-supine: CGA ? Sit-stand: CGA? Stand-sit: CGA ? GAIT? Assistive Device: FWW with UE platform for L UE NWB? Weight bearing: Full Assist: CGA/SBA ? Distance:? Bed to bathroom x 2 with 1 L ? Balance:? Static Sitting: Normal Dynamic Sitting: Normal Static Standing: fair Dynamic Standing: Fair Assessment:?? Mr Coy is a [id number] male admitted to the [facility] unit for management of hypoglycemia, type 2 diabetes mellitus, hypomagnesemia, hypokalemia, elevated troponin, atrial fibrillation, anemia, and hypertension.? Patient also fell at home and sustained a mildly displaced left ulnar styloid fracture for which orthopedic surgeon ordered a universal splint. Patient presents with clinical signs and symptoms consistent with current/admitting diagnoses that have resulted to mobility limitations, gait instability, generalized weakness, and impairment of motor control as demonstrated by the following impairment level findings: 1.? Decreased strength to B shoulder and B LE major muscle groups 2.? Impaired standing balance 3.? Impaired activity tolerance 4.? Limitation of joint range of motion right knee and left ankle 5.? Mildly displaced ulnar styloid fracture Impairments are contributing to the following functional limitations: 1.? Increased dependence with transfers 2.? Inability to safely ambulate without assistive device and physical assistance 3.? Increase completion time for mobility ADL performance 4.? Increased fall risk 5.? Inability to negotiate steps alone safely Goals: Goals X1 week 1. Supine-Sit independent NOT MET 2. Sit-Supine independent NOT MET 3. Sit-Stand independent NOT MET 4. Stand-Sit independent NOT MET 5. Bed-Chair independent NOT MET 6. Chair-Bed independent NOT MET 7. Gait independent with use of FWW 300 feet or greater without complaints of dyspnea nor pain NOT MET 8. Stairs able to ascend and descend 6 steps with bilateral railings, supe rvision NOT MET 9. Independent with home exercise program NOT MET 10.? Demonstrate good dynamic standing balance NOT MET DISCHARGE RECOMMENDATIONS: [] ? Home with no services [] [] ? Home with services [specify] [] ? Home with outpatient PT [] [] ? SNF for continued rehabilitation [] [] ? Long-Term Care [] [] ? SNF versus LTC based on ability to participate and progress [] [X]? SNF vs HH PT based on progress towards goals TREATMENT CODE/TIME: JANICE Thank you for the opportunity to participate in the care of this patient. Maryann Austin PT, DPT, CLT [facility] [place], [place]
== END 2022-04-25 18:23 | disposition short-term general hospital (02) | DRG 637 ==
LOC: ER 18:23 → ICU 04-20 00:02 → MS 04-20 20:15
PROVIDERS: Internal Medicine; Admitting Provider Family Medicine; Emergency Provider Physician Assistant; PCP Nurse Practitioner Family; Visit Provider Family Medicine
DX: E11.649 Type 2 diabetes mellitus with hypoglycemia without coma (principal); I50.33 Acute on chronic diastolic (congestive) heart failure; S52.592A Other fractures of lower end of left radius, initial encounter for closed fracture; S52.692A Other fracture of lower end of left ulna, initial encounter for closed fracture; G93.49 Other encephalopathy; J84.9 Interstitial pulmonary disease, unspecified; I24.8 Other forms of acute ischemic heart disease; I48.20 Chronic atrial fibrillation, unspecified; I49.5 Sick sinus syndrome; Z79.4 Long term (current) use of insulin; Z79.84 Long term (current) use of oral hypoglycemic drugs; W19.XXXA Unspecified fall, initial encounter; E83.42 Hypomagnesemia; E87.6 Hypokalemia; D64.9 Anemia, unspecified; I11.0 Hypertensive heart disease with heart failure; I27.20 Pulmonary hypertension, unspecified; Z87.891 Personal history of nicotine dependence; Z99.81 Dependence on supplemental oxygen; Z95.818 Presence of other cardiac implants and grafts; E78.5 Hyperlipidemia, unspecified; E11.40 Type 2 diabetes mellitus with diabetic neuropathy, unspecified; M17.11 Unilateral primary osteoarthritis, right knee; K21.9 Gastro-esophageal reflux disease without esophagitis; M06.9 Rheumatoid arthritis, unspecified; J44.9 Chronic obstructive pulmonary disease, unspecified; M25.522 Pain in left elbow
CPT/HCPCS: 36415; 36416; 51701; 80048; 80053; 82550; 82805; 82962; 85027; 87637; 93005; 94640; 96361; 96365; 97162; 97530; 99223; 99285; J1650; 70450; 70551; 71045; 73080; 73110; 81003; 81015; 82607; 82728; 82746; 83036; 83540; 83550; 83605; 83735; 83880; 84484; 85025; 85610; 85730; 93010; 93306; 94664; 94760; 99231; 99232; 99233; 99239; 99291; J1940; J3475; J3480; J3490

== ENCOUNTER 2022-07-14 15:27 | Outpatient (REF) | payer MEDICARE, SELFPAY ==
[2022-07-14 15:32] LABS: Anion Gap 8.3 mmol/L (3-11); BUN 17 mg/dL (7-18); CO2 24.7 mmol/L (21.0-32.0); CREATININE 0.9 mg/dL (0.70-1.30); Calcium 8.5 mg/dL (8.5-10.1); Chloride 104 mmol/L (98-107); Estimated GFR 89.07 (mL/min/1.73m2); Glucose 159 mg/dL (74-106); Sodium 137 mmol/L (136-145)
== END 2022-07-14 15:28 | disposition home or self-care (01) ==
LOC: NCHCN 15:27
PROVIDERS: PCP Nurse Practitioner Family; Visit Provider Nurse Practitioner Family
DX: E11.9 Type 2 diabetes mellitus without complications (principal); I10 Essential (primary) hypertension
CPT/HCPCS: 80048